=== PATIENT | male | born 1950 | race African-American/Black ===

== ENCOUNTER 2017-11-02 11:32 | Emergency (ER) | payer MEDICARE, SELFPAY ==
[2017-11-02 11:33] VITALS: BP 130/63; PULSE 53; RESP 18; TEMP 36.4; O2SAT 93; BMI 20.9
[2017-11-02 11:41] VITALS: PULSE 56; RESP 28; O2SAT 99
[2017-11-02 11:45] LABS: Bedside Glucose 121 mg/dL (70-110)
--- NOTE | 2017-11-02 11:49 | EKG12_ITS ---
Test Reason : LOW BLOOD SUGAR Blood Pressure : / mmHG Vent. Rate : 053 BPM Atrial Rate : 053 BPM P-R Int : 182 ms QRS Dur : 116 ms QT Int : 490 ms P-R-T Axes : 014 -39 128 degrees QTc Int : 459 ms Sinus bradycardia with Premature atrial complexes Left axis deviation Anteroseptal infarct , age undetermined T wave abnormality, consider lateral ischemia Abnormal ECG Confirmed by EDDIE MAURO, ANGELA ([id number]), digital editor MAGALY ROBERTS ([id number]) on 11/06/2017 1:04:23 PM Referred By: TAYLOR Confirmed By:ANGELA MORGAN MD
--- NOTE | 2017-11-02 11:52 | RAD_ITS ---
STUDY: X-RAY CHEST REASON FOR EXAM: Male, 67 years old. Persistent cough TECHNIQUE: Single AP portable view of the chest. COMPARISON: None. FINDINGS: Ill-defined groundglass opacities are seen in the perihilar regions and lung bases suggesting pulmonary edema. There is no demonstrated pleural abnormality. There is borderline cardiomegaly. Normal mediastinum and bi. There is prominence of the pulmonary hilar arteries and peripheral pulmonary arteries, consistent with congestive heart failure (CHF). Normal visualized aortic arch and descending thoracic aorta. Normal visualized thoracic spine. Normal visualized ribs, clavicles, and shoulders. There is no demonstrated abnormality of the visualized soft tissue structures of the upper abdomen. RAD/Chest 1 View (Portable) IMPRESSION: Congestive heart failure. Electronically Signed: Cristina Choi MD at 13:11 EDT Tel , Service support ,
[2017-11-02] MEDS: 0.9% Normal Saline 1,000 ML 150 ML IV (12:01)
[2017-11-02 12:05] LABS: Absolute Lymphocyte Count 0.66 X10^3/ul (0.83-4.51); Basophil# 0.01 X10^3/uL; Basophil% 0.2 % (0-1); Eosinophil# 0.06 X10^3/uL; Eosinophils% 1.4 % (0-5); Hematocrit 36.7 % (40-54); Hemoglobin 12.8 g/dl (13.0-16.5); Lymphocyte # 0.66 X10^3/ul (4.0); Lymphocyte % 15.8 % (19-41); Mean Corp Hgb Conc 34.9 g/gl (32-36); Mean Corpuscular Hgb 32.5 pg (27.0-32.0); Mean Corpuscular Volume 93.1 fL (80-94); Mean Platelet Vol. 10.6 fl (6.2-12.0); Monocyte# 0.48 X10^3/uL; Monocyte% 11.5 % (0-10); Neutrophil # 2.97 X10^3/uL (2.7-7.7); Neutrophil % 70.9 % (47-70); Platelet Count 125 K/mm3 (150-450); RBC Distribution Width CV 14.9 % (11.6-14.6); RBC Distribution Width SD 48.5 fl (35.1-43.9); Red Blood Count 3.94 M/mm3 (4.6-6.2); White Blood Count 4.2 K/mm3 (4.4-11.0)
[2017-11-02 12:08] LABS: POSITIVE COUNT NO; POSITIVE DIFFERENTIAL NO; POSITIVE MORPHOLOGY NO
[2017-11-02 12:22] LABS: Anion Gap 9 (5-15); BUN 13 mg/dL (7-18); BUN/Creat Ratio 8.2 RATIO (10-20); Calcium,Total 8.2 mg/dL (8.5-10.1); Chloride 110 mmol/L (98-107); Creatinine, Serum 1.59 mg/dL (0.70-1.30); EST Glomerular Filtration Rate 46 mL/min (>60); Est Glom Filt Rate - Afr Amer 56 mL/min (>60); Estimated Creatinine Clearance 47.31 ml/min; Glucose 83 mg/dL (74-106); Potassium 3.8 mmol/L (3.5-5.1); Sodium Level 138 mmol/L (136-145)
--- NOTE | 2017-11-02 13:19 | ED.VISSUMM ---
- ER Visit Summary Date of Service: 11/02/17 Chief Complaint: Blood sugar and left-sided neck swelling [] History of Present Illness: The patient is a 67 M [presents the emergency department with his who called EMS because of some confusion and weakness this morning. gives a history of left-sided neck swelling last night that had resolved by this morning. Patient states he has had this in the past after he has eaten. Patient apparently this morning was feeling weak and having a hard time walking therefore his called the squad and on their arrival blood sugar was 40. Patient apparently was given glucose and presents for evaluation. On arrival patient is alert and without any significant complaints. Patient denies chest pain or shortness of breath. Patient denies recent illness. Patient has had a chronic cough but no fever and the cough is been nonproductive.] Physical Examination: [HEENT-PERRLA, EOMI. Cranial nerves II through XII grossly intact. TMs clear. Mucous membranes moist. No adenopathy. Cardiovascular-regular rate and rhythm without murmur or ectopy Lungs-clear to auscultation, chest wall stable without crepitus or subcu emphysema Abdomen-normoactive bowel sounds, soft, nontender, no rebound or rigidity, no peritoneal signs. Extremities-intact ?4, normal range of motion, normal pulses, atraumatic] patient has trace edema both lower extremities. Test Results: [CBC with differential showed a white count of 4.2, hemoglobin 12.8, hematocrit 37, platelets 125. Chemistry showed a sodium 138, potassium 3.8, chloride 110, CO2 19, BUN 13, creatinine 1.59. Troponin was 0.02. EKG shows sinus rhythm with a ventricular rate of 53 bpm with old septal infarct and nonspecific ST changes. Chest x-ray was read as CHF.] Emergency Department Course and Treatment: [Patient was given a meal tray in the emergency department. Patient no longer hypoglycemic. Patient's to bring a picture of his neck swelling that appear to have swelling of his parotid and submandibular gland. I suspect given her recurrent episodes associated with eating that patient may have potential salivary duct stones or obstruction. At this time his symptoms of resolved.] Treatment Plan: [Patient will be referred to Dr. Hamzah Hwang who is on-call for ENT.] Disposition: [Discharged to home in stable condition. Patient advised to monitor his sugars carefully and make sure he eats prior to giving himself insulin.] Impression: [Hypoglycemic episode Left neck swelling-resolved] This note was generated with [employer] dictation software. It may contain incorrect words, spelling, and punctuation that were not noted in review of the chart prior to signing ED Disposition - Plan for ED Patient: Chief Complaint: Alt LOC Referrals: Rojelio Lee DO [Primary Care Provider] -
--- NOTE | 2017-11-02 13:25 | ED.DEP ---
ED Disposition - Plan for ED Patient: Chief Complaint: Alt LOC Instructions: ED Diabetes Hypoglycemia Insulin React, ED Sublingual Gland Obstruction Referrals: Rojelio Lee DO [Primary Care Provider] - Hamzah Hwang MD [STAFF PHYSICIAN] - 3-5 Days
[2017-11-02 13:26] LABS: Bedside Glucose 89 mg/dL (70-110)
--- NOTE | 2017-11-02 13:39 | PCA ---
CALLED THE [facility] FOR DR TOLEDO THEY WILL CALL BACK
[2017-11-02 13:48] VITALS: BP 148/73; PULSE 59; RESP 18; O2SAT 96
[2017-11-02 13:54] VITALS: BP 148/73; PULSE 61; RESP 18; O2SAT 96
== END 2017-11-02 14:00 | disposition home or self-care (01) ==
PROVIDERS: Emergency Provider Emergency Medicine; Family Provider Student in an Organized Health Care Education/Training Program; PCP Student in an Organized Health Care Education/Training Program
DX: R22.1 Localized swelling, mass and lump, neck (principal); R05 Cough; E11.649 Type 2 diabetes mellitus with hypoglycemia without coma; I10 Essential (primary) hypertension; Z94.0 Kidney transplant status
CPT/HCPCS: 71045; 80048; 82962; 84484; 85025; 93005; 96360; 96361; 99285

== ENCOUNTER 2018-02-27 04:40 | Inpatient (IN) | payer MEDICARE, SELFPAY ==
[2018-02-27] VITALS (12 sets, daily range): BP systolic 147–184; BP diastolic 63–80; PULSE 61–84; RESP 16–18; TEMP 36.6–37; O2SAT 95–99; BMI 18.5; BMI 18.3; BMI 18.4
[2018-02-27 05:31] LABS: Bedside Glucose 416 mg/dL (70-110)
--- NOTE | 2018-02-27 05:33 | EKG12_ITS ---
Test Reason : CP Blood Pressure : / mmHG Vent. Rate : 061 BPM Atrial Rate : 061 BPM P-R Int : 172 ms QRS Dur : 116 ms QT Int : 474 ms P-R-T Axes : 049 -18 113 degrees QTc Int : 477 ms Normal sinus rhythm Left ventricular hypertrophy with QRS widening and repolarization abnormality Abnormal ECG Confirmed by DEDIE MAURO, ANGELA ([id number]), state editor MAGALY ROBERTS ([id number]) on 03/02/2018 3:04:58 PM Referred By: JESSIKA Confirmed By:ANGELA MORGAN MD
[2018-02-27] MEDS: 0.9% Normal Saline 1,000 ML 1000 ML IV (05:46)
[2018-02-27] MEDS: Ondansetron 4 MG/2 ML Vial IV (05:46)
[2018-02-27 05:58] LABS: Absolute Lymphocyte Count 1.07 X10^3/ul (0.83-4.51); Basophil# 0.01 X10^3/uL; Basophil% 0.2 % (0-1); Eosinophil# 0.09 X10^3/uL; Eosinophils% 1.8 % (0-5); Hematocrit 37.5 % (40-54); Hemoglobin 13.2 g/dl (13.0-16.5); Lymphocyte # 1.07 X10^3/ul (4.0); Lymphocyte % 21.8 % (19-41); Mean Corp Hgb Conc 35.2 g/gl (32-36); Mean Corpuscular Volume 90.8 fL (80-94); Mean Platelet Vol. 10.5 fl (6.2-12.0); Monocyte# 0.76 X10^3/uL; Monocyte% 15.5 % (0-10); Neutrophil # 2.96 X10^3/uL (2.7-7.7); Neutrophil % 60.5 % (47-70); Platelet Count 172 K/mm3 (150-450); RBC Distribution Width CV 13.8 % (11.6-14.6); RBC Distribution Width SD 45.1 fl (35.1-43.9); Red Blood Count 4.13 M/mm3 (4.6-6.2); White Blood Count 4.9 K/mm3 (4.4-11.0)
--- NOTE | 2018-02-27 06:10 | RAD_ITS ---
STUDY: X-RAY CHEST REASON FOR EXAM: Male, 68 years old. Increased weakness, chest pain TECHNIQUE: Frontal and lateral views of the chest. COMPARISON: 11-02-17. FINDINGS: The lungs are clear and expanded. There is no demonstrated pleural abnormality. Normal size heart. Normal mediastinum and bi. Normal visualized pulmonary arteries. Normal visualized aortic arch and descending thoracic aorta. Normal visualized thoracic spine. Normal visualized ribs, clavicles, and shoulders. There is no demonstrated abnormality of the visualized soft tissue structures of the upper abdomen. RAD/Chest PA and Lateral IMPRESSION: No acute cardiopulmonary disease. Electronically Signed: Renny Strickland DO at 6:46 EDT , Service support ,
[2018-02-27 06:19] LABS: AST(SGOT) 14 U/L (15-37); Alanine Aminotransfer ALT/SGPT 19 U/L (16-61); Albumin, Serum 3.2 g/dL (3.2-5.0); Alkaline Phosphatase 94 U/L (45-117); Anion Gap 8 (5-15); BUN 19 mg/dL (7-18); BUN/Creat Ratio 10.1 RATIO (10-20); Chloride 105 mmol/L (98-107); Creatinine, Serum 1.88 mg/dL (0.70-1.30); EST Glomerular Filtration Rate 38 mL/min (>60); Est Glom Filt Rate - Afr Amer 46 mL/min (>60); Estimated Creatinine Clearance 34.84 ml/min; Globulin 3.2 g/dL (2.2-4.2); Glucose 384 mg/dL (74-106); Lipase 730 U/L (73-393); Potassium 4.3 mmol/L (3.5-5.1); Protein, Total 6.4 g/dL (6.4-8.2); Sodium Level 138 mmol/L (136-145)
[2018-02-27 06:29] LABS: POSITIVE COUNT NO; POSITIVE DIFFERENTIAL NO; POSITIVE MORPHOLOGY NO
--- NOTE | 2018-02-27 06:58 | ED.VISSUMM ---
- ER Visit Summary Date of Service: 02/27/18 Chief Complaint: Chest pain History of Present Illness: The patient is a 68 M presents reported chest pain for which he points in the epigastric region after eating supper. States he ate pizza. No radicular symptoms. Nausea and vomiting ?1. History cholecystectomy. Complains of chills. States feeling weak over the past week. Diarrhea 3-4 times a day, however last time was yesterday evening. No recent antibiotics. No sick contacts. States sugar elevated. Decreased fluid intake. Denies history of DKA. He is on insulin. History of pancreatitis. States renal transplant in [address] Gutiérrez [facility]. Patient is on immunosuppressants. Unclear on his baseline creatinine. Here with significant other. Denies any urinary symptoms. Denies any cough or shortness of breath. Physical Examination: General: Alert and oriented ?3, no acute distress HEENT: Normocephalic, atraumatic. Dry mucosa membranes Neck: supple, nontender. Cardiovascular: Regular rate and rhythm, no murmurs Respiratory: Normal breath sounds, symmetric, no distress Abdomen: Soft, epigastric tenderness, nondistended. No guarding or rebound. Negative Ruiz's or McBurney's tenderness. Extremities: Nontender, no edema, pulses intact ?4 Neuro: no focal neurological deficits. Test Results: White blood cell count 4.9. Hemoglobin 13.2. Creatinine 1.88. Glucose 384. Ketone negative. Anion gap 8. Lipase 730. Liver enzymes normal. Troponin negative. EKG sinus rate of 61. No ST changes. T-wave inversion lateral leads. Chest x-ray negative. Emergency Department Course and Treatment: Patient epigastric discomfort, EKG notes T-wave inversions in lateral leads. Troponin negative. Treated with IV fluids, Zofran, Pepcid with improvement of symptoms. No vomiting or diarrhea in the ED. Chest x-ray negative. Labs noted white count was normal. Creatinine 1.88. Glucose 384. His normal. Ketones negative. Patient does have an elevated lipase of 730. Patient's last creatinine in the system in November was 1.59. Patient not in DKA. Patient renal transplant patient with mild recent renal insufficiency and labs with mild pancreatitis do feel he benefited from observations. He is continued IV fluids. Currently hospitalist on page for plan admission. Treatment Plan: [] Disposition: Admission Impression: 1. Pancreatitis 2. Renal insufficiency 3. Dehydration 4. Elevated blood glucose 5. Renal transplant history This note was generated with [employer] dictation software. It may contain incorrect words, spelling, and punctuation that were not noted in review of the chart prior to signing ED Disposition - Plan for ED Patient: Disposition: Acute Care [facility] Chief Complaint: Weakness Diagnosis: Pancreatitis, Renal insufficiency, Dehydration, History of renal transplant Referrals: Rojelio Lee DO [Primary Care Provider] -
--- NOTE | 2018-02-27 07:02 | ED.DCSUM_ITS ---
- ER Visit Summary Date of Service: 02/27/18 Chief Complaint: Chest pain History of Present Illness: The patient is a 68 M presents reported chest pain for which he points in the epigastric region after eating supper. States he ate pizza. No radicular symptoms. Nausea and vomiting ?1. History cholecystectomy. Complains of chills. States feeling weak over the past week. Diarrhea 3-4 times a day, however last time was yesterday evening. No recent antibiotics. No sick contacts. States sugar elevated. Decreased fluid intake. Denies history of DKA. He is on insulin. History of pancreatitis. States renal transplant in [address] Gutiérrez [facility]. Patient is on immunosuppressants. Unclear on his baseline creatinine. Here with significant other. Denies any urinary symptoms. Denies any cough or shortness of breath. Physical Examination: General: Alert and oriented ?3, no acute distress HEENT: Normocephalic, atraumatic. Dry mucosa membranes Neck: supple, nontender. Cardiovascular: Regular rate and rhythm, no murmurs Respiratory: Normal breath sounds, symmetric, no distress Abdomen: Soft, epigastric tenderness, nondistended. No guarding or rebound. Negative Ruiz's or McBurney's tenderness. Extremities: Nontender, no edema, pulses intact ?4 Neuro: no focal neurological deficits. Test Results: White blood cell count 4.9. Hemoglobin 13.2. Creatinine 1.88. Glucose 384. Ketone negative. Anion gap 8. Lipase 730. Liver enzymes normal. Troponin negative. EKG sinus rate of 61. No ST changes. T-wave inversion lateral leads. Chest x-ray negative. Emergency Department Course and Treatment: Patient epigastric discomfort, EKG notes T-wave inversions in lateral leads. Troponin negative. Treated with IV fluids, Zofran, Pepcid with improvement of symptoms. No vomiting or diarrhea in the ED. Chest x-ray negative. Labs noted white count was normal. Creatinine 1.88. Glucose 384. His normal. Ketones negative. Patient does have an elevated lipase of 730. Patient's last creatinine in the system in November was 1.59. Patient not in DKA. Patient renal transplant patient with mild recent renal insufficiency and labs with mild pancreatitis do feel he benefited from observations. He is continued IV fluids. Currently hospitalist on page for plan admission. Treatment Plan: [] Disposition: Admission Impression: 1. Pancreatitis 2. Renal insufficiency 3. Dehydration 4. Elevated blood glucose 5. Renal transplant history This note was generated with [employer] dictation software. It may contain incorrect words, spelling, and punctuation that were not noted in review of the chart prior to signing ED Disposition - Plan for ED Patient: Disposition: Acute Care [facility] Chief Complaint: Weakness Diagnosis: Pancreatitis, Renal insufficiency, Dehydration, History of renal transplant Referrals: Rojelio Lee DO [Primary Care Provider] -
[2018-02-27] MEDS: 0.9% Normal Saline 1,000 ML 150 ML IV (07:15)
[2018-02-27] MEDS: 0.9% Normal Saline 1,000 ML 75 ML IV ×2 (10:52→23:12)
--- NOTE | 2018-02-27 10:53 | HP.PCM_ITS ---
Problem List (1) Hypertension Status: Chronic (2) Type 2 diabetes mellitus Status: Chronic (3) Pancreatitis Status: Acute (4) History of renal transplant Status: Chronic (5) Nonrheumatic pulmonary valve insufficiency Status: Chronic (6) Nonrheumatic tricuspid valve regurgitation Status: Chronic History of Present Illness Date of Admission: 02/27/18 Chief Complaint: Epigastric pain. The patient is a 68 year old M with past medical history as mentioned above presented to the ED because of epigastric pain. His symptoms started around 1 AM this morning with epigastric pain, sharp pain, 8 out of 10 in severity, constant pain, not radiating, associated with nausea and vomiting as well as diarrhea, aggravated by food and no relieving factors. The pain has been constant since last night, patient could not sleep and he mentioned got worse after he ate supper last night. According to the patient's , he had a history of diarrhea over the last week, 3-4 times daily, watery stool without blood. He denies fever chills. He denied upper chest pain, denies shortness of breath, denied dizziness or lightheadedness. He mentioned that he had history of pancreatitis years ago. In the emergency department, his blood pressure was elevated, other vital signs were stable. His routine blood work is remarkable for creatinine of 1.88 and blood sugar of 384. LFT was normal. Troponin was negative. Lipase was 730. Acetone level was negative. Chest x- ray showed no acute infiltrate, consolidation or effusion. EKG revealed normal sinus rhythm, T-wave inversion in V5 and V6 and those changes are chronic compared to EKG from November,, no acute ischemic changes. He is being admitted for mild acute pancreatitis, acute diarrheal illness and dehydration. Past Medical History Past Medical History (Chronic Problems): Chronic Problems (Last Updated 02/27/18 @ 12:05 by Daren Love MD) History of renal transplant (Chronic) Type 2 diabetes mellitus (Chronic) Hypertension (Chronic) Chronic kidney disease, stage IV (severe) (Chronic) Chronic diastolic (congestive) heart failure (Chronic) Nonrheumatic pulmonary valve insufficiency (Chronic) Nonrheumatic tricuspid valve regurgitation (Chronic) Secondary pulmonary arterial hypertension (Chronic) Non-rheumatic aortic regurgitation (Chronic) Hypertension (Chronic) Medical History: Medical History (Last Updated 02/27/18 @ 12:05 by Daren Love MD) Chronic diastolic (congestive) heart failure (Chronic) I50.32 Nonrheumatic pulmonary valve insufficiency (Chronic) I37.1 Nonrheumatic tricuspid valve regurgitation (Chronic) I36.1 Secondary pulmonary arterial hypertension (Chronic) I27.21 Non-rheumatic aortic regurgitation (Chronic) I35.1 Hypertension (Chronic) I10 Anemia in chronic kidney disease N18.9, D63.1 Chronic pancreatitis K86.1 Secondary hypoparathyroidism E20.8 Type 2 diabetes mellitus E11.9 Allergies oxycodone HCl [From Percocet] Adverse Reaction (Verified 12/02/17 16:01) TOO MUCH CAUSES HALLUCINATIONS TOO MUCH Home Medications: Ambulatory Orders Medication Instructions Recorded Labetalol [Trandate (Beta Lisa)] 200 mg PO BID 12/19/13 Pantoprazole Sodium [Protonix] 40 mg PO DAILY 12/19/13 predniSONE tablet 5 mg PO DAILY 12/19/13 Insulin Glargine [Lantus SoloStar 18 units SC DAILY 12/06/14 Pen] Insulin Lispro [Humalog] 2 - 3 unit SQ TID 12/06/14 Aspirin [Aspirin, Baby] 81 mg PO DAILY@0800 08/16/15 Cholecalciferol (VIT D3) [Vitamin 1,000 unit PO DAILY 12/09/15 D] amlodipine 10 mg tablet 10 mg PO QDAY 12/02/17 ssmfkw-ofnlbkkf-wfiwbin 3 cap PO TID cap 12/02/17 24,000-76,000-120,000 unit capsule,delayed rel magnesium oxide 400 mg tablet 400 mg PO BID tab 12/02/17 mycophenolate mofetil 250 mg 500 mg PO BID cap 12/02/17 capsule sulfamethoxazole 400 1 tab PO QDAY 12/02/17 mg-trimethoprim 80 mg tablet tacrolimus 1 mg capsule 9 mg PO DAILY cap 12/02/17 tramadol 50 mg tablet 50 mg PO BID PRN tab 12/02/17 Surgical History: Surgical History (Last Reviewed 12/02/17 @ 16:35 by Clifford Kidd MD) Hx of cholecystectomy Z90.49 Kidney replaced by transplant Onset Date: ~10/15/11 Z94.0 Right Surgical History: cholecystectomy, - - Kidney transplant, sphincterotomy, left wrist fusion Psychiatric History: No pertinent psych hx Lives: Spouse/ Significant Other Smoking Status: Former smoker Alcohol: Rare Drugs: None - *Family History Maternal History Items: No pertinent history Paternal History Items: No pertinent history Sibling History Items: No pertinent history Review of Systems Constitutional: Reports: Anorexia. Denies: Chills, Fever, Weakness Eyes: Denies: Blurred vision, Double vision, Drainage, Redness HEENT: Denies: Difficulty Hearing, Ear Pain, Eye Pain, Nasal Congestion, Sore Throat Cardiovascular: Denies: Chest Pain, Chest Pressure, Chest Tightness, Heaviness, Palpitations, Syncope Respiratory: Reports: Shortness of Breath. Denies: Cough, Pleuritic Pain, Sputum production, Wheezing Gastrointestinal: Reports: Abdominal Pain, Diarrhea, Nausea, Vomiting. Denies: Constipation, Hematochezia, Melena Genitourinary: Denies: Dysuria, Frequency, Hematuria Musculoskeletal: Denies: Arm Pain, Back Pain, Foot Pain Skin: Denies: Dryness, Rash Neurological: Denies: Balance problems, Double vision, Change in Speech, Slurred speech, Confusion, Headaches, Incoordination, Numbness Psychiatric: Denies: Anxiety, Depression Endocrine: Denies: Change in Body Habitus, Polydipsia VTE Information - Inpt Only VTE Present on Admission: No VTE Mechan Device Prophylaxis: None VTE Pharm Prophylaxis ordered?: Yes Patient Problems: Active and Suspected Problems (Last Updated 02/27/18 @ 12:05 by Daren Love MD) Pancreatitis (Acute) - Physical Exam General: Alert, Oriented x3, Cooperative, No apparent distress HEENT: Atraumatic, PERRLA, EOMI, Normocephalic Oral: Moist Mucosa, No Gingival or Mucosal Lesions/ Ulcerations Neck: Supple, No JVD, Negative Carotid Bruits, Trachea Midline, Thyroid Normal Size and Texture Lungs: Clear to auscultation, No rhonchi, No wheeze, No rales, Diminished Cardiovascular: Regular rate, Regular Rhythm, Normal S1, Normal S2, No murmurs Abdomen: Bowel Sounds Present, Soft, Non-Distended, No Hepato-splenomegaly, Tender - Minimal epigastric tenderness. Extremities: No clubbing, No cyanosis, No edema Skin: No rashes, No breakdown Lymphatic: No Cervical, Supraclavicular, or Inguinal Adenopathy Neurological: Cranial nerves II-XII grossly intact, Motor Exam 5/5 strength throughout Psych/Mental Status: Normal Affect, Appropriate, Alert and oriented to time, place, person, mood and affect Vital Signs Temp Pulse Resp BP Pulse Ox 98.6 F 84 18 179/80 H 99 02/27/18 04:41 02/27/18 09:21 02/27/18 09:21 02/27/18 09:21 02/27/18 09:21 Weight: 143 lb Body Mass Index (BMI) 18.3 Laboratory Tests 3 02/27/18 02/27/18 02/27/18 Range/Units 05:50 05:50 05:50 WBC 4.9 (4.4-11.0) K/mm3 RBC 4.13 L (4.6-6.2) M/mm3 Hgb 13.2 (13.0-16.5) g/dl Hct 37.5 L (40-54) % MCV 90.8 (80-94) fL MCH 32.0 (27.0-32.0) pg MCHC 35.2 (32-36) g/gl RDW 13.8 (11.6-14.6) % RDW Differential 45.1 H (35.1-43.9) fl Plt Count 172 (150-450) K/mm3 MPV 10.5 (6.2-12.0) fl Immature Gran % (Auto) 0.200 (0.0-0.9) % Neut % (Auto) 60.5 (47-70) % Lymph % (Auto) 21.8 (19-41) % Catron % (Auto) 15.5 H (0-10) % Eos % (Auto) 1.8 (0-5) % Baso % (Auto) 0.2 (0-1) % Absolute Neuts (auto) 3.0 (2.0-7.7) X10^3/uL Absolute Lymphs (auto) 1.07 (0.83-4.51) X10^3/ul Total Counted Not Reportable Sodium 138 (136-145) mmol/L Potassium 4.3 (3.5-5.1) mmol/L Chloride 105 (98-107) mmol/L Carbon Dioxide 25.0 (21.0-32.0) mmol/L Anion Gap 8 (5-15) BUN 19 H (7-18) mg/dL Creatinine 1.88 H (0.70-1.30) mg/dL Estim Creat Clear Calc 34.84 ml/min Est GFR (MDRD) Af Amer 46 L (>60) mL/min Est GFR (MDRD) Non-Af 38 L (>60) mL/min BUN/Creatinine Ratio 10.1 (10-20) RATIO Glucose 384 H (74-106) mg/dL Calcium 9.0 (8.5-10.1) mg/dL Total Bilirubin 0.50 (0.20-1.00) mg/dL AST 14 L (15-37) U/L ALT 19 (16-61) U/L Alkaline Phosphatase 94 (45-117) U/L Troponin I 0.026 (<0.045) ng/mL Total Protein 6.4 (6.4-8.2) g/dL Albumin 3.2 (3.2-5.0) g/dL Globulin 3.2 (2.2-4.2) g/dL Albumin/Globulin Ratio 1.0 (0.9-2.4) RATIO Lipase 730 H (73-393) U/L Acetone Level NEGATIVE (NEG) POC Glucose (70-110) mg/dL 3 02/27/18 Range/Units 05:23 WBC (4.4-11.0) K/mm3 RBC (4.6-6.2) M/mm3 Hgb (13.0-16.5) g/dl Hct (40-54) % MCV (80-94) fL MCH (27.0-32.0) pg MCHC (32-36) g/gl RDW (11.6-14.6) % RDW Differential (35.1-43.9) fl Plt Count (150-450) K/mm3 MPV (6.2-12.0) fl Immature Gran % (Auto) (0.0-0.9) % Neut % (Auto) (47-70) % Lymph % (Auto) (19-41) % Catron % (Auto) (0-10) % Eos % (Auto) (0-5) % Baso % (Auto) (0-1) % Absolute Neuts (auto) (2.0-7.7) X10^3/uL Absolute Lymphs (auto) (0.83-4.51) X10^3/ul Total Counted Sodium (136-145) mmol/L Potassium (3.5-5.1) mmol/L Chloride (98-107) mmol/L Carbon Dioxide (21.0-32.0) mmol/L Anion Gap (5-15) BUN (7-18) mg/dL Creatinine (0.70-1.30) mg/dL Estim Creat Clear Calc ml/min Est GFR (MDRD) Af Amer (>60) mL/min Est GFR (MDRD) Non-Af (>60) mL/min BUN/Creatinine Ratio (10-20) RATIO Glucose (74-106) mg/dL Calcium (8.5-10.1) mg/dL Total Bilirubin (0.20-1.00) mg/dL AST (15-37) U/L ALT (16-61) U/L Alkaline Phosphatase (45-117) U/L Troponin I (<0.045) ng/mL Total Protein (6.4-8.2) g/dL Albumin (3.2-5.0) g/dL Globulin (2.2-4.2) g/dL Albumin/Globulin Ratio (0.9-2.4) RATIO Lipase (73-393) U/L Acetone Level (NEG) POC Glucose 416 H (70-110) mg/dL Clinical Impression(s) from Imaging Studies Chest X-Ray 02/27/18 06:10 IMPRESSION: No acute cardiopulmonary disease. Electronically Signed: Renny Strickland DO at 6:46 EDT , Service support , Assessment/Plan All Active Problems (Last Updated 02/27/18 @ 12:05 by Daren Love MD) Pancreatitis (Acute) Osteomyelitis (Resolved) Biventricular congestive heart failure (Resolved) History of pancreatitis (Resolved) This is a 68 years old male patient presented to the medicine because of epigastric pain, nausea vomiting as well as diarrhea and he was found to have mild acute on chronic pancreatitis, acute diarrheal illness as well as dehydration. #1 acute on chronic pancreatitis: According to the patient, he had history of episodes of pancreatitis years ago. He is status post cholecystectomy. He denied alcohol drinking. His lipase is 730. LFTs normal. This is likely due to medication side effects probably steroids and Bactrim. Patient has been on Bactrim for unknown reason and patient himself is not sure. Plan: Admit to [facility] floor, cardiac monitoring, clear liquids, IV fluids, IV morphine as needed for pain, IV antiemetics, Pepcid IV twice daily, repeat CBC and CMP as well as lipase tomorrow morning, PT OT evaluation and treatment. #2 acute diarrheal illness: Probably viral gastroenteritis. Plan to send stool for C. difficile, stool for enteric pathogens, IV fluids as above. #3 dehydration: Clinically dehydrated, dry mucous membranes. Admission creatinine is 1.88, baseline creatinine has been around 1.5-1.9 mg/dL. Plan for IV fluids, input output chart, repeat BMP tomorrow morning. #4 status post kidney transplant: Kidney function stable. Plan to monitor his urine output, continue prednisone, mycophenolate and tacrolimus. #5 hypertension: Blood pressure slightly elevated. Plan to continue Norvasc, labetalol, start IV hydralazine as needed. #6 type 2 diabetes mellitus: Blood sugars elevated, no evidence of acute DKA. Plan: Continue Lantus insulin, continue pre-meal Humalog, and sliding scale, Accu-Cheks q. before meals at bedtime. #7 chronic diastolic CHF: Clinically stable, compensated. Continue albuterol, monitor volume status. #8 chronic pulmonary hypertension: Stable, no acute issues. #9 chronic anemia: Probably due to anemia of chronic disease secondary to chronic kidney disease. Hemoglobin and hematocrit are stable at baseline. #10 DVT prophylaxis: Subcu heparin. This note was generated with [employer] dictation software. It may contain incorrect words, spelling, and punctuation that were not noted in checking the note before signing. Code Visit Inpatient E&M: 48889 Init Hosp L3
[2018-02-27 11:15] LABS: Bedside Glucose 280 mg/dL (70-110)
[2018-02-27] MEDS: amLODIPine 10 MG Tablet PO (12:02)
[2018-02-27] MEDS: Labetalol 200 MG Tablet PO ×2 (12:02→21:10)
[2018-02-27] MEDS: Magnesium Oxide 400 MG Tablet PO ×2 (12:02→21:13)
[2018-02-27] MEDS: predniSONE 5 MG Tablet PO (12:03)
[2018-02-27] MEDS: Heparin Injection (Vial) 5,000 UNIT/ML VIAL 5000 UNIT SC ×2 (12:03→21:12)
[2018-02-27] MEDS: Morphine 2 MG/ML Syringe 1 MG IV (12:25)
[2018-02-27] MEDS: Mycophenolate Mofetil 250 MG Capsule 500 MG PO ×2 (12:37→21:11)
[2018-02-27] MEDS: Smz/Tmp Ds Tablet 0.5 TABLET PO (12:37)
[2018-02-27] MEDS: Tacrolimus Anhydrous 1 MG Capsule 5 MG PO (12:37)
[2018-02-27] MEDS: Insulin Lispro 100 UNIT/ML INSULN.PEN SC ×2 (13:26→17:11)
[2018-02-27 17:20] LABS: Bedside Glucose 210 mg/dL (70-110)
[2018-02-27] MEDS: Tacrolimus Anhydrous 1 MG Capsule 4 MG PO (21:12)
[2018-02-27 22:15] LABS: Bedside Glucose 177 mg/dL (70-110)
[2018-02-28] VITALS (7 sets, daily range): BP systolic 142–162; BP diastolic 70–78; PULSE 59–80; RESP 16–18; TEMP 36.7–37.1; O2SAT 96–100
[2018-02-28 06:06] LABS: Absolute Neutrophil Count 2.9 X10^3/uL (2.0-7.7); Basophil# 0.01 X10^3/uL; Basophil% 0.2 % (0-1); Eosinophil# 0.07 X10^3/uL; Eosinophils% 1.5 % (0-5); Hematocrit 33.7 % (40-54); Hemoglobin 11.8 g/dl (13.0-16.5); Lymphocyte % 23.3 % (19-41); Mean Corpuscular Hgb 32.2 pg (27.0-32.0); Mean Corpuscular Volume 91.8 fL (80-94); Mean Platelet Vol. 10.6 fl (6.2-12.0); Monocyte# 0.62 X10^3/uL; Monocyte% 13.1 % (0-10); Neutrophil # 2.92 X10^3/uL (2.7-7.7); Neutrophil % 61.7 % (47-70); Platelet Count 171 K/mm3 (150-450); RBC Distribution Width CV 13.9 % (11.6-14.6); RBC Distribution Width SD 45.8 fl (35.1-43.9); Red Blood Count 3.67 M/mm3 (4.6-6.2); White Blood Count 4.7 K/mm3 (4.4-11.0)
[2018-02-28 06:12] LABS: POSITIVE COUNT NO; POSITIVE DIFFERENTIAL NO; POSITIVE MORPHOLOGY NO
[2018-02-28 06:55] LABS: AST(SGOT) 15 U/L (15-37); Alanine Aminotransfer ALT/SGPT 17 U/L (16-61); Albumin, Serum 2.8 g/dL (3.2-5.0); Alkaline Phosphatase 76 U/L (45-117); Anion Gap 8 (5-15); BUN 11 mg/dL (7-18); Calcium,Total 8.3 mg/dL (8.5-10.1); Chloride 116 mmol/L (98-107); Creatinine, Serum 1.22 mg/dL (0.70-1.30); EST Glomerular Filtration Rate 63 mL/min (>60); Est Glom Filt Rate - Afr Amer 76 mL/min (>60); Estimated Creatinine Clearance 53.17 ml/min; Globulin 2.8 g/dL (2.2-4.2); Glucose 48 mg/dL (74-106); Lipase 388 U/L (73-393); Potassium 3.4 mmol/L (3.5-5.1); Protein, Total 5.6 g/dL (6.4-8.2); Sodium Level 144 mmol/L (136-145)
[2018-02-28 08:05] LABS: Bedside Glucose 45 mg/dL (70-110)
[2018-02-28] MEDS: Smz/Tmp Ds Tablet 0.5 TABLET PO (09:26)
[2018-02-28] MEDS: predniSONE 5 MG Tablet PO (09:26)
[2018-02-28] MEDS: Aspirin 81 MG TAB.CHEW PO (09:26)
[2018-02-28 10:20] LABS: Bedside Glucose 125 mg/dL (70-110)
[2018-02-28] MEDS: amLODIPine 10 MG Tablet PO (10:41)
[2018-02-28] MEDS: Tacrolimus Anhydrous 1 MG Capsule 5 MG PO (10:41)
[2018-02-28] MEDS: 0.9% NaCl Peripheral Flush Adult/Peds IV (10:41)
[2018-02-28] MEDS: Labetalol 200 MG Tablet PO (10:42)
[2018-02-28] MEDS: Magnesium Oxide 400 MG Tablet PO (10:42)
[2018-02-28] MEDS: Mycophenolate Mofetil 250 MG Capsule 500 MG PO (10:42)
[2018-02-28] MEDS: Heparin Injection (Vial) 5,000 UNIT/ML VIAL 5000 UNIT SC (10:47)
--- NOTE | 2018-02-28 10:55 | NURSING ---
patient ate full breakfast including omlette and maltese toast with no nausea or pain. patient resting in bed at this time and denies further needs.
[2018-02-28 12:15] LABS: Bedside Glucose 178 mg/dL (70-110)
[2018-02-28] MEDS: Insulin Lispro 100 UNIT/ML INSULN.PEN SC (13:28)
--- NOTE | 2018-02-28 14:06 | DCINST_ITS ---
- Discharge Diagnoses Current Active Problems: Current Active and Chronic Problems (Last Updated 02/27/18 @ 12:05 by Daren Love MD) Pancreatitis (Acute) History of renal transplant (Chronic) Type 2 diabetes mellitus (Chronic) Hypertension (Chronic) You will use the following diet at home:: Calorie/Carbohydrate Controlled ( specify 1200, 1400, etc) - 1800 kaylen., Cardiac Your food should be the consistency of: Regular Discharge Activity: Return to Normal Activity Weight Bearing Status: Weight bearing as tolerated Call your doctor if you observe: Fever of 101 or Higher, Shortness of breath, Dizziness, Fainting spells, Chest pain, Increased palpitations (irregular heartbeat), Uncontrolled pain Allergies/Adverse Reactions: Allergies oxycodone HCl [From Percocet] Adverse Reaction (Verified 12/02/17 16:01) TOO MUCH CAUSES HALLUCINATIONS TOO MUCH Medications to take at Discharge Labetalol [Trandate (Beta Lisa)] 200 mg PO BID 12/19/13 Pantoprazole Sodium [Protonix] 40 mg PO DAILY 12/19/13 predniSONE tablet 5 mg PO DAILY 12/19/13 Insulin Glargine [Lantus SoloStar Pen] 18 units SC DAILY 12/06/14 Insulin Lispro [Humalog] 2 - 3 unit SQ TID 12/06/14 Aspirin [Aspirin, Baby] 81 mg PO DAILY@0800 08/16/15 Cholecalciferol (VIT D3) [Vitamin D3] 1,000 unit PO DAILY 12/09/15 amlodipine 10 mg tablet 10 mg PO QDAY 12/02/17 [id number] 24,000-76,000-120,000 unit capsule,delayed rel 3 cap PO TID cap 12/02/17 magnesium oxide 400 mg tablet 400 mg PO BID tab 12/02/17 mycophenolate mofetil 250 mg capsule 500 mg PO BID cap 12/02/17 sulfamethoxazole 400 mg-trimethoprim 80 mg tablet 1 tab PO QDAY 12/02/17 tacrolimus 1 mg capsule 9 mg PO DAILY cap 12/02/17 tramadol 50 mg tablet 50 mg PO BID PRN tab 12/02/17 Primary Care Physician: Rojelio Lee DO [Primary Care Provider] - Please follow up with your Primary Care Physician in: 1-2 weeks. Test Results: Test results from this visit will be discussed in further detail at your follow- up appointment, if applicable.
--- NOTE | 2018-02-28 14:33 | PCM.DC.SUM ---
Discharge Date and Diagnosis - Problem List Patient Problems: Active and Suspected Problems (Last Updated 02/27/18 @ 12:05 by Daren Love MD) Pancreatitis (Acute) Date of Admission: 02/27/18 Date of Discharge: 02/28/18 - Primary Discharge Diagnosis Active and Suspected Problems (Last Updated 02/27/18 @ 12:05 by Daren Love MD) #1 mild acute pancreatitis, probably due to medication side effects including prednisone and Bactrim. #2 acute diarrheal illness, likely viral gastroenteritis. #3 dehydration. - Secondary Discharge Diagnosis Chronic Problems (Last Updated 02/27/18 @ 12:05 by Daren Love MD) History of renal transplant (Chronic) Type 2 diabetes mellitus (Chronic) Hypertension (Chronic) Chronic kidney disease, stage IV (severe) (Chronic) Chronic diastolic (congestive) heart failure (Chronic) Nonrheumatic pulmonary valve insufficiency (Chronic) Nonrheumatic tricuspid valve regurgitation (Chronic) Secondary pulmonary arterial hypertension (Chronic) Non-rheumatic aortic regurgitation (Chronic) Hypertension (Chronic) Hospital Course and Treatment Imaging Results: Clinical Impression(s) from Imaging Studies Chest X-Ray 02/27/18 06:10 IMPRESSION: No acute cardiopulmonary disease. Electronically Signed: Renny Strickland DO at 6:46 EDT , Service support , Operations: None Procedures: None Summary of Care Provided: Patient seen and examined on the day of discharge and appeared to be stable to be discharged home. Today, he denies any more abdominal pain. Denied nausea vomiting. He has no more diarrhea. He tolerated ADA diet. His vital signs are stable. - Physical Exam General: Alert, Oriented x3, Cooperative, No apparent distress. HEENT: Atraumatic, PERRLA, EOMI. Neck: Supple, No JVD, Negative Carotid Bruits, Trachea Midline, Thyroid Normal. Lungs: Clear to auscultation, Normal air movement, No rhonchi, No wheeze, No rales. Cardiovascular: Regular rate, Regular Rhythm, Normal S1, Normal S2, PMI Normal. Abdomen: Bowel Sounds Present, Soft, Non Tender, Non-Distended, No Hepato-splenomegaly. Extremities: No clubbing, No cyanosis, No edema Skin: No rashes, No breakdown Neurological: Neuro grossly intact Vital Signs are stable. Hospital course: This is a 68 years old male patient admitted because of epigastric pain, nausea, vomiting and diarrhea and he was found to have mild acute pancreatitis in context of history of pancreatitis in the past which can be considered as acute on chronic pancreatitis but it was mild. The patient has history of cholecystectomy long time ago. He denies any alcohol drinking. His liver transaminases, total bilirubin and alkaline phosphatase were normal. This mild acute pancreatitis attributed to probably side effects of prednisone and Bactrim. Patient has been on Bactrim and prednisone for 6 years. On admission, lipase was 730. His EKG revealed normal sinus rhythm, T-wave inversion in leads V5 and V6 and those changes are chronic compared to EKG from November,. His cardiac enzymes were negative ?3. His epigastric pain attributed to GI etiology. He was treated with IV fluids, IV pain medications and IV antiemetics. His lipase came down to 388 today. His repeat LFT remained normal. Stool for C. difficile came back negative. Stool for enteric pathogens also came back negative. Today, patient was started on ADA diet and he tolerated diet very well. He has no more abdominal pain, nausea vomiting and he has no more diarrhea. Patient discharged home in a stable medical condition, discharged on his home medication without any changes, continued on Bactrim and prednisone without any changes, recommended follow-up with PCP in 1 week. Discharge Activity: Return to Normal Activity Weight Bearing Status: Weight bearing as tolerated Call your doctor if you observe: Fever of 101 or Higher, Shortness of breath, Dizziness, Fainting spells, Chest pain, Increased palpitations (irregular heartbeat), Uncontrolled pain Home Medications: Medications to take at Discharge Labetalol [Trandate (Beta Lisa)] 200 mg PO BID 12/19/13 Pantoprazole Sodium [Protonix] 40 mg PO DAILY 12/19/13 predniSONE tablet 5 mg PO DAILY 12/19/13 Insulin Glargine [Lantus SoloStar Pen] 18 units SC DAILY 12/06/14 Insulin Lispro [Humalog] 2 - 3 unit SQ TID 12/06/14 Aspirin [Aspirin, Baby] 81 mg PO DAILY@0800 08/16/15 Cholecalciferol (VIT D3) [Vitamin D3] 1,000 unit PO DAILY 12/09/15 amlodipine 10 mg tablet 10 mg PO QDAY 12/02/17 [id number] 24,000-76,000-120,000 unit capsule,delayed rel 3 cap PO TID cap 12/02/17 magnesium oxide 400 mg tablet 400 mg PO BID tab 12/02/17 mycophenolate mofetil 250 mg capsule 500 mg PO BID cap 12/02/17 sulfamethoxazole 400 mg-trimethoprim 80 mg tablet 1 tab PO QDAY 12/02/17 tacrolimus 1 mg capsule 9 mg PO DAILY cap 12/02/17 tramadol 50 mg tablet 50 mg PO BID PRN tab 12/02/17 Primary Care Physician: Rojelio Lee DO [Primary Care Provider] - Please follow up with your Primary Care Physician in: 1-2 weeks. Disposition: Home Minutes spent on discharge:: 38 Patient Condition:: Stable Medical Necessity - Tobacco Use Smoking Status: Former smoker Meaningful Use Info Meaningful Use Diagnoses (Choose all that apply): None applicable Code Visit Inpatient E&M: 38071 Disch Hosp
--- NOTE | 2018-02-28 14:40 | DS.PCM_ITS ---
Discharge Date and Diagnosis - Problem List Patient Problems: Active and Suspected Problems (Last Updated 02/27/18 @ 12:05 by Daren Love MD) Pancreatitis (Acute) Date of Admission: 02/27/18 Date of Discharge: 02/28/18 - Primary Discharge Diagnosis Active and Suspected Problems (Last Updated 02/27/18 @ 12:05 by Daren Love MD) #1 mild acute pancreatitis, probably due to medication side effects including prednisone and Bactrim. #2 acute diarrheal illness, likely viral gastroenteritis. #3 dehydration. - Secondary Discharge Diagnosis Chronic Problems (Last Updated 02/27/18 @ 12:05 by Daren Love MD) History of renal transplant (Chronic) Type 2 diabetes mellitus (Chronic) Hypertension (Chronic) Chronic kidney disease, stage IV (severe) (Chronic) Chronic diastolic (congestive) heart failure (Chronic) Nonrheumatic pulmonary valve insufficiency (Chronic) Nonrheumatic tricuspid valve regurgitation (Chronic) Secondary pulmonary arterial hypertension (Chronic) Non-rheumatic aortic regurgitation (Chronic) Hypertension (Chronic) Hospital Course and Treatment Imaging Results: Clinical Impression(s) from Imaging Studies Chest X-Ray 02/27/18 06:10 IMPRESSION: No acute cardiopulmonary disease. Electronically Signed: Renny Strickland DO at 6:46 EDT , Service support , Operations: None Procedures: None Summary of Care Provided: Patient seen and examined on the day of discharge and appeared to be stable to be discharged home. Today, he denies any more abdominal pain. Denied nausea vomiting. He has no more diarrhea. He tolerated ADA diet. His vital signs are stable. - Physical Exam General: Alert, Oriented x3, Cooperative, No apparent distress. HEENT: Atraumatic, PERRLA, EOMI. Neck: Supple, No JVD, Negative Carotid Bruits, Trachea Midline, Thyroid Normal. Lungs: Clear to auscultation, Normal air movement, No rhonchi, No wheeze, No rales. Cardiovascular: Regular rate, Regular Rhythm, Normal S1, Normal S2, PMI Normal. Abdomen: Bowel Sounds Present, Soft, Non Tender, Non-Distended, No Hepato- splenomegaly. Extremities: No clubbing, No cyanosis, No edema Skin: No rashes, No breakdown Neurological: Neuro grossly intact Vital Signs are stable. Hospital course: This is a 68 years old male patient admitted because of epigastric pain, nausea , vomiting and diarrhea and he was found to have mild acute pancreatitis in context of history of pancreatitis in the past which can be considered as acute on chronic pancreatitis but it was mild. The patient has history of cholecystectomy long time ago. He denies any alcohol drinking. His liver transaminases, total bilirubin and alkaline phosphatase were normal. This mild acute pancreatitis attributed to probably side effects of prednisone and Bactrim. Patient has been on Bactrim and prednisone for 6 years. On admission , lipase was 730. His EKG revealed normal sinus rhythm, T-wave inversion in leads V5 and V6 and those changes are chronic compared to EKG from November,. His cardiac enzymes were negative ?3. His epigastric pain attributed to GI etiology. He was treated with IV fluids, IV pain medications and IV antiemetics. His lipase came down to 388 today. His repeat LFT remained normal. Stool for C. difficile came back negative. Stool for enteric pathogens also came back negative. Today, patient was started on ADA diet and he tolerated diet very well. He has no more abdominal pain, nausea vomiting and he has no more diarrhea. Patient discharged home in a stable medical condition, discharged on his home medication without any changes, continued on Bactrim and prednisone without any changes, recommended follow-up with PCP in 1 week. Discharge Activity: Return to Normal Activity Weight Bearing Status: Weight bearing as tolerated Call your doctor if you observe: Fever of 101 or Higher, Shortness of breath, Dizziness, Fainting spells, Chest pain, Increased palpitations (irregular heartbeat), Uncontrolled pain Home Medications: Medications to take at Discharge Labetalol [Trandate (Beta Lisa)] 200 mg PO BID 12/19/13 Pantoprazole Sodium [Protonix] 40 mg PO DAILY 12/19/13 predniSONE tablet 5 mg PO DAILY 12/19/13 Insulin Glargine [Lantus SoloStar Pen] 18 units SC DAILY 12/06/14 Insulin Lispro [Humalog] 2 - 3 unit SQ TID 12/06/14 Aspirin [Aspirin, Baby] 81 mg PO DAILY@0800 08/16/15 Cholecalciferol (VIT D3) [Vitamin D3] 1,000 unit PO DAILY 12/09/15 amlodipine 10 mg tablet 10 mg PO QDAY 12/02/17 [id number] 24,000-76,000-120,000 unit capsule,delayed rel 3 cap PO TID cap 12/02/17 magnesium oxide 400 mg tablet 400 mg PO BID tab 12/02/17 mycophenolate mofetil 250 mg capsule 500 mg PO BID cap 12/02/17 sulfamethoxazole 400 mg-trimethoprim 80 mg tablet 1 tab PO QDAY 12/02/17 tacrolimus 1 mg capsule 9 mg PO DAILY cap 12/02/17 tramadol 50 mg tablet 50 mg PO BID PRN tab 12/02/17 Primary Care Physician: Rojelio Lee DO [Primary Care Provider] - Please follow up with your Primary Care Physician in: 1-2 weeks. Disposition: Home Minutes spent on discharge:: 38 Patient Condition:: Stable Medical Necessity - Tobacco Use Smoking Status: Former smoker Meaningful Use Info Meaningful Use Diagnoses (Choose all that apply): None applicable Code Visit Inpatient E&M: 17386 Disch Hosp
--- NOTE | 2018-02-28 15:17 | NURSING ---
Patient's concerned about diarrhea and possibility for low potassium. This RN notified patient and that patient could potentially take something to slow bowels- immodium- but that they should discuss this with his PCP or pharmacist. Understanding verbalized by and pt.
--- NOTE | 2018-03-01 16:03 | CASEMGMT ---
HERNÁN WHIPPLE Discharge Follow-up Phone Call: ERIKA: 10 Strata: 3 Call Date: 03/01/18 Discharge Date: 02/28/18 Time of Call: 1604 Duration: 1 min Admitting Diagnosis: Mild acute pancreatitis, acuter diarrheal illness HERNÁN WHIPPLE attempted to complete follow-up phone call after recent hospitalization. No answer, voice message left with return contact information.
== END 2018-02-28 14:40 | disposition home or self-care (01) | DRG 439 ==
LOC: ED 07:15 → MS3 09:23
PROVIDERS: Admitting Provider Hospitalist; Emergency Provider Emergency Medicine; Family Provider Student in an Organized Health Care Education/Training Program; PCP Student in an Organized Health Care Education/Training Program; Visit Provider Hospitalist
DX: K85.30 Drug induced acute pancreatitis without necrosis or infection (principal); Z94.0 Kidney transplant status; I50.32 Chronic diastolic (congestive) heart failure; N18.4 Chronic kidney disease, stage 4 (severe); T38.0X5A Adverse effect of glucocorticoids and synthetic analogues, initial encounter; K86.1 Other chronic pancreatitis; A08.4 Viral intestinal infection, unspecified; E86.0 Dehydration; I12.9 Hypertensive chronic kidney disease with stage 1 through stage 4 chronic kidney disease, or unspecified chronic kidney disease; E11.9 Type 2 diabetes mellitus without complications; I27.21 Secondary pulmonary arterial hypertension; E20.9 Hypoparathyroidism, unspecified; D63.1 Anemia in chronic kidney disease; Z79.4 Long term (current) use of insulin; Z90.49 Acquired absence of other specified parts of digestive tract; Z87.891 Personal history of nicotine dependence; Z79.82 Long term (current) use of aspirin; Y92.9 Unspecified place or not applicable; I08.3 Combined rheumatic disorders of mitral, aortic and tricuspid valves
CPT/HCPCS: 36415; 71046; 80053; 82009; 82962; 83690; 84484; 85025; 87493; 87506; 93005; 97802; 99285; J7030; A4216; J2405; J3490

== ENCOUNTER 2018-04-15 23:16 | Observation (INO) | payer MEDICARE, SELFPAY ==
[2018-04-15 23:21] VITALS: BP 174/82; PULSE 60; RESP 22; TEMP 35.7; O2SAT 93; BMI 19.5
--- NOTE | 2018-04-15 23:48 | ED.VISSUMM ---
- ER Visit Summary Date of Service: 04/15/18 Chief Complaint: Hypoglycemia History of Present Illness: The patient is a 68 M with an unresponsive episode. The patient was found by family. He was sitting in the garage and unresponsive. EMS was called. He was found to be hypoglycemic at 28. He received D50. He became alert and his repeat glucose was 180. The patient does remember taking 2 doses of his insulin earlier today. This was an accident. He did not eat much afterwards. He denies any other complaints currently. No chest pain or shortness of breath. No headache. No weakness or numbness. Family did not notice any sign of trauma or anything else suspicious at the scene. Physical Examination: Blood pressure 174/82. Otherwise vitals unremarkable. Head and neck atraumatic. Cranial nerves grossly intact. Heart regular rate and rhythm. Lungs clear. Abdomen soft and nontender. Moves all extremities. No focal weakness or numbness. Test Results: CBC and BMP pending. Emergency Department Course and Treatment: Patient placed on a monitor. Treated with IV fluids. We will check some basic labs. He was given a meal. Will reassess. White count 3.6 and hematoma 12.9, stable. Chloride 114 and CO2 19. Glucose 84 and creatinine 1.54, stable. Patient had difficulty eating. He ate a small part of a sandwich and drank some juice. Repeat sugar was in the 40s. He was treated with D50. Given his age and comorbidities, I do not believe it is safe to send him home tonight. He will need further monitoring of his glucose. I spoke with the hospitalist who will admit. Treatment Plan: As above Disposition: Admission Impression: 1. Hypoglycemia This note was generated with [employer] dictation software. It may contain incorrect words, spelling, and punctuation that were not noted in review of the chart prior to signing ED Disposition - Plan for ED Patient: Chief Complaint: Hypoglycemia Referrals: Rojelio Lee DO [Primary Care Provider] -
[2018-04-15 23:55] LABS: Absolute Lymphocyte Count 0.62 X10^3/ul (0.83-4.51); Absolute Neutrophil Count 2.7 X10^3/uL (2.0-7.7); Eosinophil# 0.01 X10^3/uL; Eosinophils% 0.3 % (0-5); Hematocrit 37.1 % (40-54); Hemoglobin 12.9 g/dl (13.0-16.5); Lymphocyte # 0.62 X10^3/ul (4.0); Lymphocyte % 17.3 % (19-41); Mean Corp Hgb Conc 34.8 g/gl (32-36); Mean Corpuscular Hgb 31.9 pg (27.0-32.0); Mean Corpuscular Volume 91.8 fL (80-94); Mean Platelet Vol. 10.3 fl (6.2-12.0); Monocyte# 0.25 X10^3/uL; Neutrophil % 75.4 % (47-70); POSITIVE COUNT NO; POSITIVE DIFFERENTIAL NO; POSITIVE MORPHOLOGY NO; Platelet Count 198 K/mm3 (150-450); RBC Distribution Width SD 45.9 fl (35.1-43.9); Red Blood Count 4.04 M/mm3 (4.6-6.2); White Blood Count 3.6 K/mm3 (4.4-11.0)
[2018-04-16 00:03] LABS: Anion Gap 8 (5-15); BUN 13 mg/dL (7-18); BUN/Creat Ratio 8.4 RATIO (10-20); Calcium,Total 8.4 mg/dL (8.5-10.1); Chloride 114 mmol/L (98-107); Creatinine, Serum 1.54 mg/dL (0.70-1.30); EST Glomerular Filtration Rate 48 mL/min (>60); Est Glom Filt Rate - Afr Amer 58 mL/min (>60); Estimated Creatinine Clearance 44.94 ml/min; Glucose 84 mg/dL (74-106); Sodium Level 141 mmol/L (136-145)
[2018-04-16 00:11] LABS: Bedside Glucose 49 mg/dL (70-110)
[2018-04-16] MEDS: Dextrose 50%-Water 25 GM/50 ML DISP.SYRIN IV ×2 (00:16→03:05)
[2018-04-16 00:17] VITALS: BP 157/71; PULSE 61; RESP 30; O2SAT 99
--- NOTE | 2018-04-16 00:21 | PCM.HP.STD ---
Problem List (1) Acute metabolic encephalopathy due to hypoglycemia Status: Acute (2) History of renal transplant Status: Chronic (3) Type 2 diabetes mellitus Status: Chronic (4) Chronic diastolic (congestive) heart failure Status: Chronic (5) Hypertension Status: Chronic Qualifiers: Hypertension type: essential hypertension Qualified Code(s): I10 - Essential (primary) hypertension (6) Pancreatitis Status: Chronic History of Present Illness Date of Admission: 04/16/18 Chief Complaint: Unresponsiveness ?1 day. The patient is a 68 year old M with a significant history of chronic diastolic heart failure; diabetes mellitus with previous kidney failure; kidney transplant on antirejection medications; hypertension who presented with unresponsiveness. His reported the patient was slumped over with his tongue hanging over and he could not be awoken. The paramedics were called and his blood glucose was found to be at 28. Patient was given D50 and blood glucose increased to 180. At emergency department patient blood glucose was 49 and he was given an amp of dextrose and food. When the patient came to his inpatient room he continued to have low blood glucose. Patient reported that he took more of his Lantus insulin than prescribed. He thinks that he took about 8 units more. His and patient reported the patient has a poor vision and he might have poorly gauge his insulin regimen. 1.Acute metabolic encephalopathy secondary to hypoglycemia Amp of D50 was given in patients D10 at 100 mL's per hour. Fingerstick blood glucose every 1 hour. CBC and BMP in a.m. Octreotide ?1 ordered. Home insulin held at this time. 2.Diabetes mellitus Home insulin held secondary to #1. 3.Hypertension On admission blood pressure was uncontrolled Amlodipine and labetalol continued Hydralazine as needed ordered 4.History of kidney transplant Antirejection medication continued Medications include prednisone, tacrolimus and CellCept Patient on Bactrim likely for PCP prophylaxis in the setting of immunosuppressive medication; continued 5.Chronic pancreatitis Pancrelipase continued DVT prophylaxis Subcutaneous heparin. . Past Medical History Past Medical History (Chronic Problems): Chronic Problems (Last Reviewed 04/16/18 @ 05:37 by Isiah Boggs MD) Pancreatitis (Chronic) History of renal transplant (Chronic) Type 2 diabetes mellitus (Chronic) Hypertension (Chronic) Chronic kidney disease, stage IV (severe) (Chronic) Chronic diastolic (congestive) heart failure (Chronic) Nonrheumatic pulmonary valve insufficiency (Chronic) Nonrheumatic tricuspid valve regurgitation (Chronic) Secondary pulmonary arterial hypertension (Chronic) Non-rheumatic aortic regurgitation (Chronic) Hypertension (Chronic) Medical History: Medical History (Last Reviewed 04/16/18 @ 05:37 by Isiah Boggs MD) Chronic diastolic (congestive) heart failure (Chronic) I50.32 Nonrheumatic pulmonary valve insufficiency (Chronic) I37.1 Nonrheumatic tricuspid valve regurgitation (Chronic) I36.1 Secondary pulmonary arterial hypertension (Chronic) I27.21 Non-rheumatic aortic regurgitation (Chronic) I35.1 Hypertension (Chronic) I10 Anemia in chronic kidney disease N18.9, D63.1 Chronic pancreatitis K86.1 Secondary hypoparathyroidism E20.8 Type 2 diabetes mellitus E11.9 Allergies oxycodone HCl [From Percocet] Adverse Reaction (Verified 04/15/18 23:20) TOO MUCH CAUSES HALLUCINATIONS TOO MUCH Home Medications: Ambulatory Orders Medication Instructions Recorded Labetalol [Trandate (Beta Lisa)] 200 mg PO BID 12/19/13 Pantoprazole Sodium [Protonix] 40 mg PO DAILY 12/19/13 predniSONE tablet 5 mg PO DAILY 12/19/13 Insulin Glargine [Lantus SoloStar 16 units SC DAILY 12/06/14 Pen] Insulin Lispro [Humalog] 2 - 3 unit SQ TIDCM 12/06/14 Aspirin [Aspirin, Baby] 81 mg PO DAILY@0800 08/16/15 Cholecalciferol (VIT D3) [Vitamin 1,000 unit PO DAILY 12/09/15 D3] amlodipine 10 mg tablet 10 mg PO QDAY 12/02/17 czxfch-epbwklde-kedxbfs 3 cap PO TID cap 12/02/17 24,000-76,000-120,000 unit capsule,delayed rel magnesium oxide 400 mg tablet 400 mg PO BID tab 12/02/17 mycophenolate mofetil 250 mg 500 mg PO BID cap 12/02/17 capsule sulfamethoxazole 400 1 tab PO QDAY 12/02/17 mg-trimethoprim 80 mg tablet tacrolimus 1 mg capsule 3 mg PO BID cap 12/02/17 tramadol 50 mg tablet 50 mg PO BID PRN tab 12/02/17 Surgical History: Surgical History (Last Reviewed 04/16/18 @ 05:37 by Isiah Boggs MD) Hx of cholecystectomy Z90.49 Kidney replaced by transplant Onset Date: ~10/15/11 Z94.0 Right Surgical History: cholecystectomy, - - Kidney transplant, sphincterotomy, left wrist fusion Psychiatric History: No pertinent psych hx Smoking Status: Current some day smoker - Smokes cigar Alcohol: Occasional - *Family History Maternal History Items: Diabetes, No pertinent history Paternal History Items: No pertinent history Sibling History Items: Cancer - Throat, No pertinent history Review of Systems Constitutional: Denies: Chills, Fever, Weight Change Eyes: Reports: Blurred vision - Chronic HEENT: Denies: Head Aches, Sinus Congestion, Sinus Drainage Cardiovascular: Denies: Chest Pain, Palpitations Respiratory: Denies: Cough, Shortness of breath at rest, Sputum production Gastrointestinal: Denies: Abdominal Pain, Nausea, Vomiting Genitourinary: Denies: Dysuria Musculoskeletal: Denies: Joint Pain, Joint Tenderness Skin: Denies: Rash, Wounds Neurological: Reports: Blurred vision - Chronic. Denies: Focal weakness, Numbness, Tingling Psychiatric: Denies: Anxiety, Depression, Homicidal Ideations, Suicidal Ideations Hematologic/ Lymphatic: Reports: Adenopathy VTE Information - Inpt Only VTE Present on Admission: No VTE Mechan Device Prophylaxis: None VTE Pharm Prophylaxis ordered?: Yes Patient Problems: Active and Suspected Problems (Last Reviewed 04/16/18 @ 05:37 by Isiah Boggs MD) Acute metabolic encephalopathy due to hypoglycemia (Acute) - Physical Exam General: Alert, Oriented x3, Cooperative HEENT: Atraumatic, PERRLA, EOMI, Normocephalic Neck: Supple, No JVD, Negative Carotid Bruits Lungs: Clear to auscultation, Normal air movement Cardiovascular: Regular rate, No murmurs Abdomen: Bowel Sounds Present, Soft, Non Tender Extremities: No edema, Capillary Refill Less than 3 Seconds Skin: No rashes, No breakdown Musculoskeletal: No Tenderness to Palpation of Joints or Extremities Neurological: Cranial nerves II-XII grossly intact Psych/Mental Status: Normal Affect, Appropriate Vital Signs Temp Pulse Resp BP Pulse Ox 96.2 F L 60 22 H 174/82 H 93 04/15/18 23:21 04/15/18 23:21 04/15/18 23:21 04/15/18 23:21 04/15/18 23:21 Oxygen Delivery Method Room Air Weight: 69.2 kg Body Mass Index (BMI) 19.5 Finger Stick Blood Glucose 416 Laboratory Tests Past 24 Hrs 04/15/18 04/15/18 23:35 23:35 WBC 3.6 L RBC 4.04 L Hgb 12.9 L Hct 37.1 L MCV 91.8 MCH 31.9 MCHC 34.8 RDW 14.0 RDW Differential 45.9 H Plt Count 198 MPV 10.3 Immature Gran % (Auto) 0.000 Neut % (Auto) 75.4 H Lymph % (Auto) 17.3 L [place] % (Auto) 7.0 Eos % (Auto) 0.3 Baso % (Auto) 0.0 Absolute Neuts (auto) 2.7 Absolute Lymphs (auto) 0.62 L Total Counted Not Reportable Sodium 141 Potassium 4.0 Chloride 114 H Carbon Dioxide 19.0 L Anion Gap 8 BUN 13 Creatinine 1.54 H Estim Creat Clear Calc 44.94 Est GFR (MDRD) Af Amer 58 L Est GFR (MDRD) Non-Af 48 L BUN/Creatinine Ratio 8.4 L Glucose 84 Calcium 8.4 L POC Glucose 04/16/18 00:06 POC Glucose 49 L Assessment/Plan All Active Problems (Last Reviewed 04/16/18 @ 05:37 by Isiah Boggs MD) Acute metabolic encephalopathy due to hypoglycemia (Acute) Osteomyelitis (Resolved) Biventricular congestive heart failure (Resolved) History of pancreatitis (Resolved) The patient is a 68 year old M with a significant history of chronic diastolic heart failure; diabetes mellitus with previous kidney failure; kidney transplant on antirejection medications; hypertension who presented with unresponsiveness secondary to hypoglycemia attributed to overdosing on insulin. 1.Acute hypoglycemia Amp of D50 was given in patients D10 at 100 mL's per hour. Fingerstick blood glucose every 1 hour. CBC and BMP in a.m. Octreotide ?1 ordered. Home insulin held at this time. 2.Diabetes mellitus Home insulin held secondary to #1. 3.Hypertension On admission blood pressure was uncontrolled Amlodipine and labetalol continued Hydralazine as needed ordered 4.History of kidney transplant Antirejection medication continued Medications include prednisone, tacrolimus and CellCept Patient on Bactrim likely for PCP prophylaxis in the setting of immunosuppressive medication; continued 5.Chronic pancreatitis Pancrelipase continued 6. Tobacco abuse Smokes cigar occasionally The patient declined nicotine patch because he does not think that he will withdrawal Counseled. Inpatient consult for smoking cessation. DVT prophylaxis Subcutaneous heparin. Code Visit OBSV E&M: 81739 Initial observation care L3
[2018-04-16 00:46] LABS: Bedside Glucose 142 mg/dL (70-110)
[2018-04-16 01:25] VITALS: BMI 18.8
[2018-04-16 02:59] VITALS: BP 154/68; PULSE 66; RESP 16; TEMP 36.4; O2SAT 99
--- NOTE | 2018-04-16 03:10 | NURSING ---
pt blood glucose 34 still responsive, awake and alert. Verbalized to hospitalist. 1 amp D50 given. will recheck. patient also eating a meal at this time.
[2018-04-16] MEDS: Octreotide 0.1 MG/ML ML 0.05 MG IV (03:32)
[2018-04-16] MEDS: Dextrose 10%-Water 250 ML 100 ML IV ×4 (03:32→11:17)
[2018-04-16 03:45] LABS: Bedside Glucose 34 mg/dL (70-110)
[2018-04-16 03:45] LABS: Bedside Glucose 155 mg/dL (70-110)
[2018-04-16 04:36] LABS: Bedside Glucose 140 mg/dL (70-110)
[2018-04-16 05:31] LABS: Bedside Glucose 148 mg/dL (70-110)
[2018-04-16 05:54] LABS: Absolute Lymphocyte Count 0.81 X10^3/ul (0.83-4.51); Absolute Neutrophil Count 2.6 X10^3/uL (2.0-7.7); Eosinophil# 0.01 X10^3/uL; Eosinophils% 0.3 % (0-5); Hematocrit 34.4 % (40-54); Lymphocyte # 0.81 X10^3/ul (4.0); Lymphocyte % 20.4 % (19-41); Mean Corp Hgb Conc 34.9 g/gl (32-36); Mean Corpuscular Hgb 32.2 pg (27.0-32.0); Mean Corpuscular Volume 92.2 fL (80-94); Mean Platelet Vol. 9.5 fl (6.2-12.0); Monocyte# 0.56 X10^3/uL; Monocyte% 14.1 % (0-10); Neutrophil # 2.59 X10^3/uL (2.7-7.7); Neutrophil % 64.9 % (47-70); Platelet Count 179 K/mm3 (150-450); RBC Distribution Width SD 46.2 fl (35.1-43.9); Red Blood Count 3.73 M/mm3 (4.6-6.2)
[2018-04-16 05:57] LABS: POSITIVE COUNT NO; POSITIVE DIFFERENTIAL NO; POSITIVE MORPHOLOGY NO
[2018-04-16 06:15] LABS: Anion Gap 6 (5-15); BUN 13 mg/dL (7-18); BUN/Creat Ratio 9.5 RATIO (10-20); Chloride 115 mmol/L (98-107); Creatinine, Serum 1.37 mg/dL (0.70-1.30); EST Glomerular Filtration Rate 55 mL/min (>60); Est Glom Filt Rate - Afr Amer 66 mL/min (>60); Estimated Creatinine Clearance 48.44 ml/min; Glucose 129 mg/dL (74-106); Potassium 4.2 mmol/L (3.5-5.1); Sodium Level 142 mmol/L (136-145)
[2018-04-16] MEDS: Heparin Injection (Vial) 5,000 UNIT/ML VIAL 5000 UNIT SC ×2 (06:41→13:01)
[2018-04-16 06:46] LABS: Bedside Glucose 135 mg/dL (70-110)
[2018-04-16 07:45] VITALS: O2SAT 96
[2018-04-16 07:50] LABS: Bedside Glucose 145 mg/dL (70-110)
[2018-04-16] MEDS: Aspirin 81 MG TAB.CHEW PO (08:42)
[2018-04-16] MEDS: predniSONE 5 MG Tablet PO (08:43)
[2018-04-16] MEDS: Smz/Tmp Ds Tablet 0.5 TABLET PO (08:44)
[2018-04-16] MEDS: Magnesium Oxide 400 MG Tablet PO (08:45)
[2018-04-16] MEDS: Mycophenolate Mofetil 250 MG Capsule 500 MG PO (08:45)
[2018-04-16] MEDS: amLODIPine 10 MG Tablet PO (08:48)
[2018-04-16 08:50] LABS: Bedside Glucose 164 mg/dL (70-110)
[2018-04-16] MEDS: Tacrolimus Anhydrous 1 MG Capsule 3 MG PO (08:51)
[2018-04-16] MEDS: Pantoprazole Sodium 40 MG Tablet PO (08:51)
[2018-04-16] MEDS: Labetalol 200 MG Tablet PO (08:52)
[2018-04-16 09:00] VITALS: BP 160/90; PULSE 67; RESP 20; TEMP 36.9; O2SAT 100
[2018-04-16 09:03] VITALS: PULSE 67
--- NOTE | 2018-04-16 11:25 | CASEMGMT ---
[facility]IP[facility] Face to Face with patient for initial transition planning/care coordination assessment. RN CM introduced self and role at [facility]. Patient lying in bed, alert and oriented. Patient willing to participate in assessment and is able to answer all questions appropriately. Care providers, pharmacy, and demographics verified. See link attached. Patient wishes to discharge home, denies need for home health at this time. RN CM encourage patient to follow-up with VILLA Green who follows patient's diabetes. Patient states he has no further needs or concerns at this time. CM to follow for discharge planning needs that may arise. Disposition Plan: Patient to discharge home with family support and follow-up plans in place. Heidi SILVA, RN, CM
[2018-04-16 14:00] VITALS: BP 166/61; PULSE 75; RESP 18; TEMP 37.1; O2SAT 100
--- NOTE | 2018-04-16 14:50 | DCINST_ITS ---
- Discharge Diagnoses Current Active Problems: Current Active and Chronic Problems (Last Reviewed 04/16/18 @ 05:37 by Isiah Boggs MD) Acute metabolic encephalopathy due to hypoglycemia (Acute) You will use the following diet at home:: No restrictions, Regular Your food should be the consistency of: Regular Discharge Activity: Return to Normal Activity, No Restrictions Allergies/Adverse Reactions: Allergies oxycodone HCl [From Percocet] Adverse Reaction (Verified 04/15/18 23:20) TOO MUCH CAUSES HALLUCINATIONS TOO MUCH Medications to take at Discharge Labetalol [Trandate (Beta Lisa)] 200 mg PO BID 12/19/13 Pantoprazole Sodium [Protonix] 40 mg PO DAILY 12/19/13 predniSONE tablet 5 mg PO DAILY 12/19/13 Insulin Glargine [Lantus SoloStar Pen] 16 units SC DAILY 12/06/14 Insulin Lispro [Humalog] 2 - 3 unit SQ TIDCM 12/06/14 Aspirin [Aspirin, Baby] 81 mg PO DAILY@0800 08/16/15 Cholecalciferol (VIT D3) [Vitamin D3] 1,000 unit PO DAILY 12/09/15 amlodipine 10 mg tablet 10 mg PO QDAY 12/02/17 [id number] 24,000-76,000-120,000 unit capsule,delayed rel 3 cap PO TID cap 12/02/17 magnesium oxide 400 mg tablet 400 mg PO BID tab 12/02/17 mycophenolate mofetil 250 mg capsule 500 mg PO BID cap 12/02/17 sulfamethoxazole 400 mg-trimethoprim 80 mg tablet 1 tab PO QDAY 12/02/17 tacrolimus 1 mg capsule 3 mg PO BID cap 12/02/17 tramadol 50 mg tablet 50 mg PO BID PRN tab 12/02/17 Primary Care Physician: Rojelio Lee DO [Primary Care Provider] - Test Results: Test results from this visit will be discussed in further detail at your follow- up appointment, if applicable.
--- NOTE | 2018-04-16 14:52 | PCM.DC.SUM ---
Discharge Date and Diagnosis - Problem List Patient Problems: Active and Suspected Problems (Last Reviewed 04/16/18 @ 05:37 by Isiah Boggs MD) Acute metabolic encephalopathy due to hypoglycemia (Acute) Date of Admission: 04/16/18 Date of Discharge: 04/16/18 - Primary Discharge Diagnosis Active and Suspected Problems (Last Reviewed 04/16/18 @ 05:37 by Isaih Boggs MD) Acute metabolic encephalopathy due to hypoglycemia (Acute) - Secondary Discharge Diagnosis Chronic Problems (Last Reviewed 04/16/18 @ 05:37 by Isiah Boggs MD) Pancreatitis (Chronic) History of renal transplant (Chronic) Type 2 diabetes mellitus (Chronic) Hypertension (Chronic) Chronic kidney disease, stage IV (severe) (Chronic) Chronic diastolic (congestive) heart failure (Chronic) Nonrheumatic pulmonary valve insufficiency (Chronic) Nonrheumatic tricuspid valve regurgitation (Chronic) Secondary pulmonary arterial hypertension (Chronic) Non-rheumatic aortic regurgitation (Chronic) Hypertension (Chronic) Hospital Course and Treatment Operations: None Procedures: None Summary of Care Provided: The patient is a 68 year old M admitted on account of hypoglycemic coma which promptly responded to glucagon and IV dextrose. Had to be maintained on a glucose drip while in the hospital and his insulin withheld. There have been no more repeat episodes and patient remains neurologically intact. I would recommend and would be prescribing a glucagon pen to be at hand at home and when travelling. Patient seen and examined today and is stable for discharge home [] Discharge Diet: No Restrictions Discharge Activity: Return to Normal Activity, No Restrictions Home Medications: Medications to take at Discharge Labetalol [Trandate (Beta Lisa)] 200 mg PO BID 12/19/13 Pantoprazole Sodium [Protonix] 40 mg PO DAILY 12/19/13 predniSONE tablet 5 mg PO DAILY 12/19/13 Insulin Glargine [Lantus SoloStar Pen] 16 units SC DAILY 12/06/14 Insulin Lispro [Humalog] 2 - 3 unit SQ TIDCM 12/06/14 Aspirin [Aspirin, Baby] 81 mg PO DAILY@0800 08/16/15 Cholecalciferol (VIT D3) [Vitamin D3] 1,000 unit PO DAILY 12/09/15 amlodipine 10 mg tablet 10 mg PO QDAY 12/02/17 [id number] 24,000-76,000-120,000 unit capsule,delayed rel 3 cap PO TID cap 12/02/17 magnesium oxide 400 mg tablet 400 mg PO BID tab 12/02/17 mycophenolate mofetil 250 mg capsule 500 mg PO BID cap 12/02/17 sulfamethoxazole 400 mg-trimethoprim 80 mg tablet 1 tab PO QDAY 12/02/17 tacrolimus 1 mg capsule 3 mg PO BID cap 12/02/17 tramadol 50 mg tablet 50 mg PO BID PRN tab 12/02/17 Primary Care Physician: Rojelio Lee DO [Primary Care Provider] - Disposition: Home Minutes spent on discharge:: 30 Patient Condition:: Good Medical Necessity - Tobacco Use Smoking Status: Current some day smoker - Smokes cigar Meaningful Use Info Meaningful Use Diagnoses (Choose all that apply): None applicable Code Visit OBSV E&M: 25518 Observation care discharge
[2018-04-16 15:26] LABS: Bedside Glucose 470 mg/dL (70-110)
[2018-04-16] MEDS: Insulin Lispro 100 UNIT/ML INSULN.PEN 6 UNIT SC (15:30)
== END 2018-04-16 15:46 | disposition home or self-care (01) ==
LOC: ED 23:42 → MS3 04-16 00:50
PROVIDERS: Admitting Provider Hospitalist; Emergency Provider Emergency Medicine; Family Provider Student in an Organized Health Care Education/Training Program; PCP Student in an Organized Health Care Education/Training Program; Visit Provider Internal Medicine
DX: E11.649 Type 2 diabetes mellitus with hypoglycemia without coma (principal); G93.41 Metabolic encephalopathy; Z94.0 Kidney transplant status; E11.22 Type 2 diabetes mellitus with diabetic chronic kidney disease; I13.0 Hypertensive heart and chronic kidney disease with heart failure and stage 1 through stage 4 chronic kidney disease, or unspecified chronic kidney disease; N18.4 Chronic kidney disease, stage 4 (severe); I50.32 Chronic diastolic (congestive) heart failure; Z79.899 Other long term (current) drug therapy; Z79.4 Long term (current) use of insulin; Z79.82 Long term (current) use of aspirin; I27.21 Secondary pulmonary arterial hypertension; F17.290 Nicotine dependence, other tobacco product, uncomplicated; K86.1 Other chronic pancreatitis
CPT/HCPCS: 36415; 80048; 82962; 85025; 96361; 96372; 96374; 96375; 96376; 97162; 97165; 99218; 99284; J7030; G0378; J2354

== ENCOUNTER 2018-11-26 22:06 | Inpatient (IN) | payer MEDICARE, SELFPAY ==
[2018-11-26 22:07] VITALS: BP 161/73; PULSE 63; RESP 16; TEMP 36.3; O2SAT 97; BMI 19.0
--- NOTE | 2018-11-26 22:55 | RAD_ITS ---
STUDY: X-RAY - PELVIS AND LEFT HIP REASON FOR EXAM: Male, 68 years old. Left hip pain TECHNIQUE: 3 views of the pelvis and hip. COMPARISON: None. FINDINGS: There is a non-specific bowel gas pattern. Normal visualized soft tissue structures. Normal bilateral iliac wings, sacroiliac joints and visualized sacrum. Normal bilateral superior and inferior pubic rami. Normal pubic symphysis. Normal bilateral ischial tuberosities. Femoral neck fracture on the left with varus deformity. Normal visualized femoral head. Normal acetabulum. Normal hip joint. RAD/HIP, UNI W/ Pelvis 2-3 Views IMPRESSION: Left hip fracture Electronically Signed: Hamzah Felipe MD at 23:37 EDT , Service support ,
[2018-11-26] MEDS: Morphine 4 MG/ML Syringe IV (23:08)
[2018-11-26 23:20] LABS: Absolute Lymphocyte Count 0.99 X10^3/ul (0.83-4.51); Absolute Neutrophil Count 2.1 X10^3/uL (2.0-7.7); Eosinophil# 0.03 X10^3/uL; Eosinophils% 0.8 % (0-5); Hematocrit 36.7 % (40-54); Hemoglobin 12.7 g/dl (13.0-16.5); Lymphocyte # 0.99 X10^3/ul (4.0); Lymphocyte % 27.6 % (19-41); Mean Corp Hgb Conc 34.6 g/gl (32-36); Mean Corpuscular Hgb 31.3 pg (27.0-32.0); Mean Corpuscular Volume 90.4 fL (80-94); Mean Platelet Vol. 9.9 fl (6.2-12.0); Monocyte# 0.43 X10^3/uL; Neutrophil # 2.14 X10^3/uL (2.7-7.7); Neutrophil % 59.6 % (47-70); Platelet Count 140 K/mm3 (150-450); RBC Distribution Width CV 15.3 % (11.6-14.6); RBC Distribution Width SD 50.6 fl (35.1-43.9); Red Blood Count 4.06 M/mm3 (4.6-6.2); White Blood Count 3.6 K/mm3 (4.4-11.0)
[2018-11-26 23:24] LABS: POSITIVE COUNT NO; POSITIVE DIFFERENTIAL NO; POSITIVE MORPHOLOGY NO
[2018-11-26 23:28] LABS: Anion Gap 5 (5-15); BUN 15 mg/dL (7-18); BUN/Creat Ratio 9.1 RATIO (10-20); Calcium,Total 8.5 mg/dL (8.5-10.1); Chloride 113 mmol/L (98-107); Creatinine, Serum 1.64 mg/dL (0.70-1.30); EST Glomerular Filtration Rate 45 mL/min (>60); Est Glom Filt Rate - Afr Amer 54 mL/min (>60); Estimated Creatinine Clearance 40.93 ml/min; Glucose 74 mg/dL (74-106); Potassium 5.1 mmol/L (3.5-5.1); Sodium Level 142 mmol/L (136-145)
--- NOTE | 2018-11-26 23:43 | ED.VIS.GEN ---
History of Present Illness Chief Complaint: Lower Extremity Injury Informant: Patient Onset: Today Context: Sudden Onset - tripped over his shoes on the floor and fell, landing on left hip Timing: Continuous Quality: pain Location: left hip Current Severity: Severe Maximum Severity: Severe Worsened by: moving Relieved by: remaining still Associated Symptoms: numbness at left greater troch only; not distally. no other injury. Narrative: Unable to walk on his left lower extremity since this injury. He states he did not injure anything else, just his left hip. No history of orthopedic injuries/surgeries in the past. Had a remote renal transplant. Is a diabetic and states that he keeps his sugar under good control. - Past Medical History (1) Chronic diastolic (congestive) heart failure Status: Chronic (2) History of renal transplant Status: Chronic (3) Hypertension Status: Chronic (4) Non-rheumatic aortic regurgitation Status: Chronic (5) Nonrheumatic pulmonary valve insufficiency Status: Chronic (6) Nonrheumatic tricuspid valve regurgitation Status: Chronic (7) Secondary pulmonary arterial hypertension Status: Chronic (8) Type 2 diabetes mellitus Status: Chronic Past Medical History - Allergies and Home Meds Allergies/Adverse Reactions: Allergies oxycodone HCl [From Percocet] Adverse Reaction (Verified 11/26/18 22:09) TOO MUCH CAUSES HALLUCINATIONS TOO MUCH Primary Care Physician: Rojelio Lee DO [Primary Care Provider] - Surgical History: cholecystectomy, - - Kidney transplant, sphincterotomy, left wrist fusion Lives: Spouse/ Significant Other Smoking Status: Former smoker - Family History Maternal Family History: Reports: Diabetes, No pertinent history Paternal Family History: Reports: No pertinent history Sibling Family History: Reports: Cancer - Throat, No pertinent history Review of Systems General: Denies: Chills, Fever, Sweats Eyes: Denies: Visual changes - bilaterally, Diplopia ENT: Denies: Rhinorrhea, Sore throat Cardiovascular: Denies: Chest pain, Palpitations Respiratory: Denies: Dyspnea, Cough, Dyspnea on exertion Gastrointestinal: Denies: Abdominal pain, Nausea, Vomiting, Diarrhea, Melena, Hematochezia Genitourinary: Denies: Dysuria, Hematuria, Frequency Musculoskeletal: Reports: Extremity Pain Skin: Denies: Rash, Wounds Neurological: Reports: Numbness. Denies: Headache, Weakness Physical Exam Vital Signs/Narrative: Vital Signs Temp Pulse Resp BP Pulse Ox 11/26/18 22:07 97.3 F L 63 16 161/73 H 97 Inital Vital Signs reviewed: Yes General: Well nourished, Well developed, No Acute Distress Head: Normocephalic, Atraumatic Eyes: Perrl, EOMI ENT: Moist mucous membranes, No rhinorrhea Neck: Supple, Nontender Cardiovascular: Regular rate, Regular rhythm, No murmurs Respiratory: No distress, CTA bilaterally, Chest nontender Abdomen: Soft, Nontender, Nondistended, Normal bowel sounds Back: Nontender, Normal Inspection Extremities: No edema, Tenderness - left greater trochanter; very limited ROM left hip due to pain. shortened LLE. 2+/4 DP pulse. Skin: Normal color, No rash, No Trauma - no lacs Neurological: Alert, Oriented x3, Cranial nerves II-XII grossly intact, Normal Strength, Normal Sensation - including distal LLE Psychological: Normal affect, Normal Mood Diagnostic/Tx/Re-eval Impressions Hip/Pelvis X-Ray 11/26/18 22:55 IMPRESSION: Left hip fracture Electronically Signed: Hamzah Felipe MD at 23:37 EDT , Service support , 11/26/18 22:55 HIP, UNI W/ Pelvis 2-3 Views [RAD] Stat Laboratory Results 11/26/18 11/26/18 23:10 23:10 WBC 3.6 L RBC 4.06 L Hgb 12.7 L Hct 36.7 L MCV 90.4 MCH 31.3 MCHC 34.6 RDW 15.3 H RDW Differential 50.6 H Plt Count 140 L MPV 9.9 Immature Gran % (Auto) 0.000 Neut % (Auto) 59.6 Lymph % (Auto) 27.6 [place] % (Auto) 12.0 H Eos % (Auto) 0.8 Baso % (Auto) 0.0 Absolute Neuts (auto) 2.1 Absolute Lymphs (auto) 0.99 Total Counted Not Reportable Sodium 142 Potassium 5.1 Chloride 113 H Carbon Dioxide 24.0 Anion Gap 5 BUN 15 Creatinine 1.64 H Estim Creat Clear Calc 40.93 Est GFR (MDRD) Af Amer 54 L Est GFR (MDRD) Non-Af 45 L BUN/Creatinine Ratio 9.1 L Glucose 74 Calcium 8.5 - Medical Decision Making X-rays show a displaced basicervical left femoral neck fracture. He was given morphine for pain which helped. Preoperative work-up was ordered, discussed with Dr. Aly Camejo, as well as hospitalist. ED Disposition - Plan for ED Patient: Disposition: Acute Care Hospital [facility] Diagnosis: Closed left hip fracture, Fall from slip, trip, or stumble, Chronic renal insufficiency Referrals: Rojelio Lee DO [Primary Care Provider] -
--- NOTE | 2018-11-26 23:48 | ED.DCSUM_ITS ---
History of Present Illness Chief Complaint: Lower Extremity Injury Informant: Patient Onset: Today Context: Sudden Onset - tripped over his shoes on the floor and fell, landing on left hip Timing: Continuous Quality: pain Location: left hip Current Severity: Severe Maximum Severity: Severe Worsened by: moving Relieved by: remaining still Associated Symptoms: numbness at left greater troch only; not distally. no other injury. Narrative: Unable to walk on his left lower extremity since this injury. He states he did not injure anything else, just his left hip. No history of orthopedic injuries/surgeries in the past. Had a remote renal transplant. Is a diabetic and states that he keeps his sugar under good control. - Past Medical History (1) Chronic diastolic (congestive) heart failure Status: Chronic (2) History of renal transplant Status: Chronic (3) Hypertension Status: Chronic (4) Non-rheumatic aortic regurgitation Status: Chronic (5) Nonrheumatic pulmonary valve insufficiency Status: Chronic (6) Nonrheumatic tricuspid valve regurgitation Status: Chronic (7) Secondary pulmonary arterial hypertension Status: Chronic (8) Type 2 diabetes mellitus Status: Chronic Past Medical History - Allergies and Home Meds Allergies/Adverse Reactions: Allergies oxycodone HCl [From Percocet] Adverse Reaction (Verified 11/26/18 22:09) TOO MUCH CAUSES HALLUCINATIONS TOO MUCH Primary Care Physician: Rojelio Lee DO [Primary Care Provider] - Surgical History: cholecystectomy, - - Kidney transplant, sphincterotomy, left wrist fusion Lives: Spouse/ Significant Other Smoking Status: Former smoker - Family History Maternal Family History: Reports: Diabetes, No pertinent history Paternal Family History: Reports: No pertinent history Sibling Family History: Reports: Cancer - Throat, No pertinent history Review of Systems General: Denies: Chills, Fever, Sweats Eyes: Denies: Visual changes - bilaterally, Diplopia ENT: Denies: Rhinorrhea, Sore throat Cardiovascular: Denies: Chest pain, Palpitations Respiratory: Denies: Dyspnea, Cough, Dyspnea on exertion Gastrointestinal: Denies: Abdominal pain, Nausea, Vomiting, Diarrhea, Melena, Hematochezia Genitourinary: Denies: Dysuria, Hematuria, Frequency Musculoskeletal: Reports: Extremity Pain Skin: Denies: Rash, Wounds Neurological: Reports: Numbness. Denies: Headache, Weakness Physical Exam Vital Signs/Narrative: Vital Signs Temp Pulse Resp BP Pulse Ox 11/26/18 22:07 97.3 F L 63 16 161/73 H 97 Inital Vital Signs reviewed: Yes General: Well nourished, Well developed, No Acute Distress Head: Normocephalic, Atraumatic Eyes: Perrl, EOMI ENT: Moist mucous membranes, No rhinorrhea Neck: Supple, Nontender Cardiovascular: Regular rate, Regular rhythm, No murmurs Respiratory: No distress, CTA bilaterally, Chest nontender Abdomen: Soft, Nontender, Nondistended, Normal bowel sounds Back: Nontender, Normal Inspection Extremities: No edema, Tenderness - left greater trochanter; very limited ROM left hip due to pain. shortened LLE. 2+/4 DP pulse. Skin: Normal color, No rash, No Trauma - no lacs Neurological: Alert, Oriented x3, Cranial nerves II-XII grossly intact, Normal Strength, Normal Sensation - including distal LLE Psychological: Normal affect, Normal Mood Diagnostic/Tx/Re-eval Impressions Hip/Pelvis X-Ray 11/26/18 22:55 IMPRESSION: Left hip fracture Electronically Signed: Hamzah Felipe MD at 23:37 EDT , Service support , 11/26/18 22:55 HIP, UNI W/ Pelvis 2-3 Views [RAD] Stat Laboratory Results 11/26/18 11/26/18 23:10 23:10 WBC 3.6 L RBC 4.06 L Hgb 12.7 L Hct 36.7 L MCV 90.4 MCH 31.3 MCHC 34.6 RDW 15.3 H RDW Differential 50.6 H Plt Count 140 L MPV 9.9 Immature Gran % (Auto) 0.000 Neut % (Auto) 59.6 Lymph % (Auto) 27.6 [place] % (Auto) 12.0 H Eos % (Auto) 0.8 Baso % (Auto) 0.0 Absolute Neuts (auto) 2.1 Absolute Lymphs (auto) 0.99 Total Counted Not Reportable Sodium 142 Potassium 5.1 Chloride 113 H Carbon Dioxide 24.0 Anion Gap 5 BUN 15 Creatinine 1.64 H Estim Creat Clear Calc 40.93 Est GFR (MDRD) Af Amer 54 L Est GFR (MDRD) Non-Af 45 L BUN/Creatinine Ratio 9.1 L Glucose 74 Calcium 8.5 - Medical Decision Making X-rays show a displaced basicervical left femoral neck fracture. He was given morphine for pain which helped. Preoperative work-up was ordered, discussed with Dr. Aly Camejo, as well as hospitalist. ED Disposition - Plan for ED Patient: Disposition: Acute Care Hospital [facility] Diagnosis: Closed left hip fracture, Fall from slip, trip, or stumble, Chronic renal insufficiency Referrals: Rojelio Lee DO [Primary Care Provider] -
--- NOTE | 2018-11-26 23:50 | RAD_ITS ---
STUDY: X-RAY CHEST REASON FOR EXAM: Male, 68 years old. Trauma TECHNIQUE: Frontal view COMPARISON: February 27, 2018 FINDINGS: The lungs are clear and expanded. There is no demonstrated pleural abnormality. Normal size heart. Normal mediastinum and bi. Normal visualized pulmonary arteries. Normal visualized aortic arch and descending thoracic aorta. Normal visualized thoracic spine. Normal visualized ribs, clavicles, and shoulders. There is no demonstrated abnormality of the visualized soft tissue structures of the upper abdomen. RAD/Chest 1 View (Portable) IMPRESSION: Normal x-ray examination of the chest. Electronically Signed: Luther Martinez MD at 0:15 EDT , Service support ,
--- NOTE | 2018-11-26 23:50 | EKG12_ITS ---
Test Reason : PRE OP Blood Pressure : / mmHG Vent. Rate : 058 BPM Atrial Rate : 058 BPM P-R Int : 168 ms QRS Dur : 132 ms QT Int : 470 ms P-R-T Axes : 066 -30 117 degrees QTc Int : 461 ms Sinus bradycardia with Premature atrial complexes Left axis deviation Non-specific intra-ventricular conduction block Cannot rule out Anterior infarct , age undetermined T wave abnormality, consider lateral ischemia Abnormal ECG Confirmed by CELESTINE MAURO, IRMA ([id number]), editor in chief newspaper SOMMER LOPEZ ([id number]) on 11/29/2018 11:50:15 AM Referred By: LIGIA Confirmed By:IRMA SPRAGUE MD
--- NOTE | 2018-11-26 23:52 | PCM.HP.STD ---
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 He says that he tripped over his shoe and twisted his leg and fell on his left side. He had significant pain and was not able to stand up on his own. He came into the hospital and x-ray of his left hip was obtained which demonstrated a left femoral neck fracture. 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 He denies any shortness of breath or chest pain currently. And prior to the fall he is able to walk 2 blocks and walk up stairs without any shortness of breath or chest pain. He denies any easy bleeding or bruising. Past Medical History Past Medical History (Chronic Problems): Chronic Problems (Last Updated 06/02/18 @ 09:32 by Sandy Crouch) Chronic renal insufficiency (Chronic) Pancreatitis (Chronic) History of renal transplant (Chronic) Type 2 diabetes mellitus (Chronic) Hypertension (Chronic) Chronic kidney disease, stage IV (severe) (Chronic) Chronic diastolic (congestive) heart failure (Chronic) Nonrheumatic pulmonary valve insufficiency (Chronic) Nonrheumatic tricuspid valve regurgitation (Chronic) Secondary pulmonary arterial hypertension (Chronic) Non-rheumatic aortic regurgitation (Chronic) Hypertension (Chronic) Medical History: Medical History (Last Updated 06/02/18 @ 09:32 by Sandy Crouch) Chronic diastolic (congestive) heart failure (Chronic) I50.32 Nonrheumatic pulmonary valve insufficiency (Chronic) I37.1 Nonrheumatic tricuspid valve regurgitation (Chronic) I36.1 Secondary pulmonary arterial hypertension (Chronic) I27.21 Non-rheumatic aortic regurgitation (Chronic) I35.1 Hypertension (Chronic) I10 Anemia in chronic kidney disease N18.9, D63.1 Chronic pancreatitis K86.1 Secondary hypoparathyroidism E20.8 Type 2 diabetes mellitus E11.9 Dx : 20+ years ago Last exacerbation : DKA : never Hypoglycemic episode : 04/20 ER visit : 04/20 Allergies oxycodone HCl [From Percocet] Adverse Reaction (Verified 11/26/18 22:09) TOO MUCH CAUSES HALLUCINATIONS TOO MUCH Home Medications: Ambulatory Orders Medication Instructions Recorded Labetalol [Trandate (Beta Lisa)] 200 mg PO BID 12/19/13 Pantoprazole Sodium [Protonix] 40 mg PO DAILY 12/19/13 predniSONE tablet 5 mg PO DAILY 12/19/13 Aspirin [Aspirin, Baby] 81 mg PO DAILY@0800 08/16/15 Cholecalciferol (VIT D3) [Vitamin 1,000 unit PO DAILY 12/09/15 D3] amlodipine 10 mg tablet 10 mg PO QHS 12/02/17 nkjtwh-cgazwiil-iokfedd 3 cap PO TID cap 12/02/17 24,000-76,000-120,000 unit capsule,delayed rel magnesium oxide 400 mg (241.3 mg 400 mg PO BID tab 12/02/17 magnesium) tablet mycophenolate mofetil 250 mg 500 mg PO BID cap 12/02/17 capsule sulfamethoxazole 400 1 tab PO QDAY 12/02/17 mg-trimethoprim 80 mg tablet tacrolimus 1 mg capsule 3 mg PO BID cap 12/02/17 tramadol 50 mg tablet 50 mg PO BID PRN tab 12/02/17 insulin glargine (U-100) 100 13 units SC DAILY 06/02/18 unit/mL (3 mL) subcutaneous pen insulin lispro (U- 100) 100 See Rx Instructions SC TID ml 06/02/18 unit/mL subcutaneous pen Surgical History: Surgical History (Last Reviewed 06/02/18 @ 09:21 by Sandy Crouch) Hx of cholecystectomy Z90.49 Kidney replaced by transplant Onset Date: ~10/15/11 Z94.0 Right Surgical History: cholecystectomy, - - Kidney transplant, sphincterotomy, left wrist fusion Lives: Spouse/ Significant Other Smoking Status: Former smoker Tobacco Use: Cigarettes Alcohol: None Drugs: None - *Family History Maternal History Items: Diabetes, No pertinent history Paternal History Items: No pertinent history Sibling History Items: Cancer - Throat, No pertinent history Review of Systems Constitutional: Denies: Chills, Fever, Weight Change HEENT: Denies: Head Aches, Sinus Congestion, Sinus Drainage Cardiovascular: Denies: Chest Pain, Palpitations Respiratory: Denies: Cough, Shortness of breath at rest, Sputum production Gastrointestinal: Denies: Abdominal Pain, Nausea, Vomiting Genitourinary: Denies: Dysuria Musculoskeletal: Reports: Leg Pain - Left hip. Denies: Joint Pain, Joint Tenderness Skin: Denies: Rash, Wounds Neurological: Denies: Numbness, Tingling, Focal weakness Psychiatric: Denies: Anxiety, Depression Hematologic/ Lymphatic: Denies: Easy Bruising, Easy Bleeding VTE Information - Inpt Only VTE Present on Admission: No Patient Problems: Active and Suspected Problems (Last Updated 06/02/18 @ 09:32 by Sandy Crouch) Closed left hip fracture (Acute) Fall from slip, trip, or stumble (Acute) - Physical Exam General: Alert, Oriented x3, Cooperative, No apparent distress HEENT: Atraumatic, PERRLA, EOMI, Normocephalic Oral: Moist Mucosa Neck: Supple, No JVD, Trachea Midline Lungs: Clear to auscultation, Normal air movement, No rhonchi, No wheeze, No rales Cardiovascular: Regular rate, Regular Rhythm, Normal S1, Normal S2, No murmurs Abdomen: Soft, Non Tender, Non-Distended, No Hepato-splenomegaly Extremities: No edema, Capillary Refill Less than 3 Seconds Skin: No rashes, No breakdown Musculoskeletal: Tenderness - To left hip Neurological: Neuro grossly intact, Sensory exam intact to light touch and pain Psych/Mental Status: Normal Affect, Appropriate Vital Signs Temp Pulse Resp BP Pulse Ox 97.3 F L 63 16 161/73 H 97 11/26/18 22:07 11/26/18 22:07 11/26/18 22:07 11/26/18 22:07 11/26/18 22:07 Oxygen Delivery Method Room Air Weight: 148 lb Body Mass Index (BMI) 19.0 Finger Stick Blood Glucose 142 Laboratory Tests Past 24 Hrs 11/26/18 11/26/18 23:10 23:10 WBC 3.6 L RBC 4.06 L Hgb 12.7 L Hct 36.7 L MCV 90.4 MCH 31.3 MCHC 34.6 RDW 15.3 H RDW Differential 50.6 H Plt Count 140 L MPV 9.9 Immature Gran % (Auto) 0.000 Neut % (Auto) 59.6 Lymph % (Auto) 27.6 Villalba % (Auto) 12.0 H Eos % (Auto) 0.8 Baso % (Auto) 0.0 Absolute Neuts (auto) 2.1 Absolute Lymphs (auto) 0.99 Total Counted Not Reportable Sodium 142 Potassium 5.1 Chloride 113 H Carbon Dioxide 24.0 Anion Gap 5 BUN 15 Creatinine 1.64 H Estim Creat Clear Calc 40.93 Est GFR (MDRD) Af Amer 54 L Est GFR (MDRD) Non-Af 45 L BUN/Creatinine Ratio 9.1 L Glucose 74 Calcium 8.5 Assessment/Plan All Active Problems (Last Updated 06/02/18 @ 09:32 by Sandy Crouch) Closed left hip fracture (Acute) Fall from slip, trip, or stumble (Acute) Acute metabolic encephalopathy due to hypoglycemia (Acute) Osteomyelitis (Resolved) Biventricular congestive heart failure (Resolved) History of pancreatitis (Resolved) 1. Acute left femoral neck fracture secondary to mechanical fall -We will make n.p.o. for possible OR tomorrow -Consult to orthopedic surgery for management -Morphine, Tylenol, oxycodone as needed for pain control -SCDs -IV fluids while n.p.o. 2. Renal failure status post renal transplant -Has been doing well and has been maintained on his tacrolimus, mycophenolate and his prednisone -I discussed with him how these can interfere with proper healing which she understands -I also asked that he discuss the fact that he has a femur fracture with his primary care doctor because he will likely need to be started on a bisphosphonate if the steroids are going to be long-term -He is on half dose Bactrim for infection prevention 3. HTN/HLD -He is currently on aspirin which will be held prior to surgery -Continue with his Norvasc and his labetalol 4. IDDM 2 -His blood sugars are very well maintained on his home long-acting and sliding scale insulin regimen -Continue all inpatient and monitor blood sugars ACHS 5. Pancreatic insufficiency/GERD -Likely secondary to chronic pancreatitis -We will continue with his home Creon -Continue with PPI DVT: SCDs Code Visit Inpatient E&M: 38087 Init Hosp L3
[2018-11-26 23:53] VITALS: BP 160/66; O2SAT 100
[2018-11-27] VITALS (11 sets, daily range): BP systolic 139–186; BP diastolic 62–85; PULSE 57–70; RESP 16–18; TEMP 36.3–36.8; O2SAT 94–100; BMI 17.9; BMI 18.0
[2018-11-27] MEDS: Morphine 4 MG/ML Syringe IV (00:04)
[2018-11-27] MEDS: oxyCODONE 5 MG Tablet PO (02:10)
[2018-11-27] MEDS: Labetalol 200 MG Tablet PO ×3 (02:11→21:52)
[2018-11-27] MEDS: amLODIPine 10 MG Tablet PO ×2 (02:11→21:52)
[2018-11-27] MEDS: Acetaminophen 325 MG Tablet 650 MG PO ×2 (02:12→21:52)
[2018-11-27] MEDS: Ondansetron 4 MG/2 ML Vial IV (02:13)
[2018-11-27] MEDS: 0.9% NaCl Peripheral Flush Adult/Peds IV ×2 (02:14→06:40)
[2018-11-27] MEDS: 0.9% Normal Saline 1,000 ML 100 ML IV (02:14)
--- NOTE | 2018-11-27 03:11 | NURSING ---
lab notified pt going to surgery early. needs drawn at 0500.
[2018-11-27 05:24] LABS: Absolute Lymphocyte Count 0.89 X10^3/ul (0.83-4.51); Absolute Neutrophil Count 4.5 X10^3/uL (2.0-7.7); Eosinophil# 0.04 X10^3/uL; Eosinophils% 0.6 % (0-5); Hematocrit 33.3 % (40-54); Hemoglobin 11.6 g/dl (13.0-16.5); Lymphocyte # 0.89 X10^3/ul (4.0); Lymphocyte % 14.2 % (19-41); Mean Corp Hgb Conc 34.8 g/gl (32-36); Mean Corpuscular Hgb 30.9 pg (27.0-32.0); Mean Corpuscular Volume 88.8 fL (80-94); Mean Platelet Vol. 10.3 fl (6.2-12.0); Monocyte# 0.82 X10^3/uL; Monocyte% 13.1 % (0-10); Neutrophil # 4.52 X10^3/uL (2.7-7.7); Neutrophil % 71.9 % (47-70); Platelet Count 135 K/mm3 (150-450); RBC Distribution Width CV 14.8 % (11.6-14.6); RBC Distribution Width SD 46.2 fl (35.1-43.9); Red Blood Count 3.75 M/mm3 (4.6-6.2); White Blood Count 6.3 K/mm3 (4.4-11.0)
[2018-11-27 05:25] LABS: POSITIVE COUNT NO; POSITIVE DIFFERENTIAL NO; POSITIVE MORPHOLOGY NO
[2018-11-27 05:51] LABS: Anion Gap 5 (5-15); BUN 16 mg/dL (7-18); BUN/Creat Ratio 11.1 RATIO (10-20); Chloride 117 mmol/L (98-107); Creatinine, Serum 1.44 mg/dL (0.70-1.30); EST Glomerular Filtration Rate 52 mL/min (>60); Est Glom Filt Rate - Afr Amer 63 mL/min (>60); Glucose 51 mg/dL (74-106); Potassium 3.9 mmol/L (3.5-5.1); Sodium Level 144 mmol/L (136-145)
[2018-11-27 06:25] LABS: Bedside Glucose 60 mg/dL (70-110)
[2018-11-27] MEDS: Dextrose 50%-Water 25 GM/50 ML DISP.SYRIN IV (06:26)
--- NOTE | 2018-11-27 06:35 | NURSING ---
AM LABS SHOWED BS 51. NOTIFIED MD. BEDSIDE GLUCOSE 60. PT ASYMPTOMATIC; DENIES FEELING CLAMMY, DIZZY OR LIGHT HEADED.
[2018-11-27] MEDS: Dextrose 5%/0.9% NaCl 1,000 ML 100 ML IV (06:41)
[2018-11-27 06:56] LABS: Bedside Glucose 119 mg/dL (70-110)
--- NOTE | 2018-11-27 07:30 | HIP_PTH ---
PATIENT: JADA FISCHER LOC: [facility] U#:[id number] AGE/SX: 68/M ROOM: MO306 RE11/27/[address]: Dr. Emily Montes MD : 1950 BED: 1 DIS: 11/30/2018 SPEC #: [id number] RECD: 11/29/18 07:15 STATUS: FIDELINA REArcadio #: [id number] RONA: 11/27/18 07:[address]: Aly Camejo DEPT: SURGICAL PATHOLOGY RECD BY: Maximiliano Dawn ENTERED: 11/29/18 11:02 SP TYPE: TOTAL HIP OTHR DR: MD Dr. Rojelio Chapman DO Dr. Nicholas F Kotsonis, MD Tissues: Hip, NOS Procedures: Decalcification bone/plaque Surgery Specimen Level IV HEADER OPERATION: Left hip hemiarthroplasty PRE-OP DIAGNOSIS: Left hip fracture TISSUE SUBMITTED: Left hip bone MICROSCOPIC DIAGNOSIS Left hip bone, hemiarthroplasty: Femoral head and detached pieces of bone with focal area of hemorrhage, clinically left hip fracture. BENNY:keiko 12/02/18 MICROSCOPIC DESCRIPTION Slides are reviewed. GROSS DESCRIPTION Received is one container labeled with the patient's name and designated left hip bone. The specimen consists of a talley femoral head measuring 5 x 5 x 4 cm. The articular surface is smooth. Resection margin is irregular and hemorrhagic. Also present in the specimen container is a detached piece of bone measuring 1.5 x 0.7 [address] Oiler sections are submitted in three cassettes after decalcification as follows: 1 - detached piece of bone, 2 & 3 - femoral head. / BENNY:keiko 11/29/18 TC:5 CPT: 68073, 14726
--- NOTE | 2018-11-27 07:40 | NURSING ---
report given to HERNÁN Cartwright in [facility].
--- NOTE | 2018-11-27 07:43 | NURSING ---
Dr. barnes in room to see pt, explained procedure, concent signed, pt now being taken off of floor for surgery.
[2018-11-27] MEDS: Cefazolin 2 GM in 0.9% Normal Saline 100 ML IV (08:10)
[2018-11-27 09:27] LABS: Hemoglobin A1c 7.2 % (4.2-6.3)
--- NOTE | 2018-11-27 09:46 | RAD_ITS ---
STUDY: X-RAY - PELVIS AND LEFT HIP REASON FOR EXAM: Male, 68 years old. Postop left hip TECHNIQUE: 2 views of the pelvis and hip. One view of the pelvis, one view of the left hip. COMPARISON: November 26, 2018 left hip x-ray FINDINGS: There is a non-specific bowel gas pattern. There is gas in the soft tissues with postoperative change. There is a new left hip arthroplasty which appears to be in anatomic position and alignment there are overlying skin isabella. The bones are somewhat osteopenic. There are vascular calcifications. There is partially visualized narrowing with cortical sclerosis and osteophyte formation of the sacroiliac joint consistent with degenerative osteoarthritic changes. Normal bilateral superior and inferior pubic rami. Normal pubic symphysis. Normal bilateral ischial tuberosities. There is minimal degenerative change of the right hip joint. RAD/Hip Min 2 Views (Portable) IMPRESSION: Status post left hip arthroplasty. Electronically Signed: Mei Terry MD at 11:59 EDT Tel , Service support ,
--- NOTE | 2018-11-27 09:58 | PCM.OP.PRO ---
Procedure Report Date of Procedure: 11/27/18 Preoperative diagnosis: Left hip displaced femoral neck fracture Postoperative diagnosis: Same Operation: Left hip cemented hemiarthroplasty Surgeon: Dr. Aly Camejo MD Metal Stamper: Michelle HIDALGO Anesthesia: General Anesthesiologist; Dr. Milton Special medications: IV [Ancef], IV Tranexamic acid IV Indications for surgery : Patient is a 68 -year-old [male] that fell yesterday fracturing his Left hip. Appropriate informed consent was obtained and signed. Appropriate medical workup was performed preoperatively and patient was deemed safe for surgery by the anesthesia department portfolio assistant, GWEN was utilized throughout the entire procedure. They were vital in helping with patient positioning, holding of retractors, exposing the tissues adequately for safe completion of the procedure including cutting of the bone, helping life cycle assessment analyst appropriate alignment and sizing of the components, implantation of the components, as well as wound closure, bandage application, and safe patient transfer. Without assistant oceanographer, physician assistant professor of psychology, surgical time would have been significantly increased, and surgical outcome would have been less optimal. Operative findings: Patient displaced Left femoral neck fracture. We used a [place] Accolade C size #6 cemented. Bipolar 51 mm femoral head with a -3 neck length. This reproduced there anatomy nicely. Clinically good leg lengths were noted. Good hip stability through range of motion with no undue pistoning. Standard wound closure in layers, followed by isabella, followed by Mepilex dressing Details of procedure: Patient was taken to the operating room and transferred to the operating table. Given appropriate anesthetic agent by that department. Patient was then rolled into a lateral decubitus position with the involved painful hip up in the air. Appropriate timeouts had been performed. Hip had been appropriately marked with my initials. Padded anterior and posterior position was utilized. Axillary roll placed. JOHNNY hose and SCDs on the nonoperative limb utilized throughout the procedure. Operative lower extremity was prepped padded and draped in the usual orthopedic sterile fashion for the procedure. I injected the pain relieving solution in the standard sterile technique of the soft tissues of the hip carefully. Incision was made curving over the tip of the greater trochanter posteriorly. Full thickness skin flaps are raised down on the fascia dominga. Fascia dominga was opened in length with our incision. Charnley self-retaining hip retractor was carefully placed by the surgeon. Leg was appropriately rotated by the assistant professor of psychology. Retractor was used to lift the abductors anteriorly to visualize the piriformis tendon and external rotators. Piriformis tendon and external rotators released off the greater trochanter with the Bovie. Tagging suture was placed in each of these separately. We then split the tissue superior to the piriformis tendon through capsule and onto the pelvis. Acetabular labrum was preserved. Retractors were carefully placed around the femoral neck. Displaced unstable femoral neck fracture identified. cutting guide was utilized to map out the proposed cut approximately 1 fingerbreadth above the lesser trochanter. This femoral neck cut was carried out with a saw. Fractured femoral head removed and measured and inspected. Femoral head was measured. Appropriate trial was utilized. A proximal femoral elevator utilized. We used a sharp awl entering down inside the bone of the proximal femur. Utilized the [employer] cutting osteotome the proximal lateral greater trochanteric region. The fragment removed. Broaching was then done from the smallest broach, upto the appropriate size. Good stability was confirmed. We then trialed the construct with a standard neck length and appropriate sized femoral head. We were happy with the construct. Good stability to flexion, rotation. At this point trials removed. 2 full batches of antibiotic tobramycin bone cement were mixed. 2 sponges were placed in the acetabulum we prepared the canal with brushing. Cement restrictor was placed down to the appropriate depth. It was thoroughly irrigated clean and dry. When the cement was as the appropriate texture, we pressurized cement down in the femoral canal. The appropriate size stem then hammered into the proximal femur and seated down to a similar position as the trial had. Excess bone cement removed. Stem was held still while cement fully hardened. Pain relieving solution was injected while this was occurring. The cement was fully hardened, sponges were removed from the acetabulum. We now again trialed and appropriate neck length decided upon. We irrigated the wound with Irrisept under standard technique. . Now impacted the appropriate sized bipolar femoral head construct onto the clean dried trunion. Was noted to be stable. Hip was inspected, and joint was reduced for a final time. Good hip stability and leg lengths noted. This was then irrigated with saline and cleaned. Next the remainder of the pain relieving solution was injected carefully throughout the soft tissues of the hip joint. Closure was carried out with a combination of #1 Vicryl repairing the hip capsule as well as piriformis tendon and external rotators to bone, running #2 strata fix in the fascia dominga, followed by mid layer #1 Vicryl with #1 strata fix running. Next running 0 strata fix, followed by skin isabella, Xeroform, Mepilex dressing. We placed JOHNNY hose and SCD on the operative leg. Patient awoken from the anesthetic and transferred back to room bed in recovery room in satisfactory condition. Patient will be admitted to the hospital. Hospitalist service will continue to manage the medical issues. Hopeful discharge to home or ECF in 2-3 days. This note was generated with [employer] dictation software. It may contain incorrect words, spelling, and punctuation that were not noted in checking the note before signing.
--- NOTE | 2018-11-27 10:03 | PRO.PCM_ITS ---
Procedure Report Date of Procedure: 11/27/18 Preoperative diagnosis: Left hip displaced femoral neck fracture Postoperative diagnosis: Same Operation: Left hip cemented hemiarthroplasty Surgeon: Dr. Aly Camejo MD Product Technician: Michelle HIDALGO Anesthesia: General Anesthesiologist; Dr. Milton Special medications: IV [Ancef], IV Tranexamic acid IV Indications for surgery : Patient is a 68 -year-old [male] that fell yesterday fracturing his Left hip. Appropriate informed consent was obtained and signed. Appropriate medical workup was performed preoperatively and patient was deemed safe for surgery by the anesthesia department digital assistant, GWEN was utilized throughout the entire procedure. They were vital in helping with patient positioning, holding of retractors, exposing the tissues adequately for safe completion of the procedure including cutting of the bone, helping insurance claims assistant appropriate alignment and sizing of the components, implantation of the components, as well as wound closure, bandage application, and safe patient transfer. Without library media assistant, physician pet care assistant, surgical time would have been significantly increased, and surgical outcome would have been less optimal. Operative findings: Patient displaced Left femoral neck fracture. We used a [place] Accolade C size #6 cemented. Bipolar 51 mm femoral head with a -3 neck length. This reproduced there anatomy nicely. Clinically good leg lengths were noted. Good hip stability through range of motion with no undue pistoning. Standard wound closure in layers, followed by isabella, followed by Mepilex dressing Details of procedure: Patient was taken to the operating room and transferred to the operating table. Given appropriate anesthetic agent by that department. Patient was then rolled into a lateral decubitus position with the involved painful hip up in the air. Appropriate timeouts had been performed. Hip had been appropriately marked with my initials. Padded anterior and posterior position was utilized. Axillary roll placed. JOHNNY hose and SCDs on the nonoperative limb utilized throughout the procedure. Operative lower extremity was prepped padded and draped in the usual orthopedic sterile fashion for the procedure. I injected the pain relieving solution in the standard sterile technique of the soft tissues of the hip carefully. Incision was made curving over the tip of the greater trochanter posteriorly. Full thickness skin flaps are raised down on the fascia dominga. Fascia dominga was opened in length with our incision. Charnley self-retaining hip retractor was carefully placed by the surgeon. Leg was appropriately rotated by the pet care assistant. Retractor was used to lift the abductors anteriorly to visualize the piriformis tendon and external rotators. Piriformis tendon and external rotators released off the greater trochanter with the Bovie. Tagging suture was placed in each of these separately. We then split the tissue superior to the piriformis tendon through capsule and onto the pelvis. Acetabular labrum was preserved. Retractors were carefully placed around the femoral neck. Displaced unstable femoral neck fracture identified. cutting guide was utilized to map out the proposed cut approximately 1 fingerbreadth above the lesser trochanter. This femoral neck cut was carried out with a saw. Fractured femoral head removed and measured and inspected. Femoral head was measured. Appropriate trial was utilized. A proximal femoral elevator utilized. We used a sharp awl entering down inside the bone of the proximal femur. Utilized the [employer] cutting osteotome the proximal lateral greater trochanteric region. The fragment removed. Broaching was then done from the smallest broach, upto the appropriate size. Good stability was confirmed. We then trialed the construct with a standard neck length and appropriate sized femoral head. We were happy with the construct. Good stability to flexion, rotation. At this point trials removed. 2 full batches of antibiotic tobramycin bone cement were mixed. 2 sponges were placed in the acetabulum we prepared the canal with brushing. Cement restrictor was placed down to the appropriate depth. It was thoroughly irrigated clean and dry. When the cement was as the appropriate texture, we pressurized cement down in the femoral canal. The appropriate size stem then hammered into the proximal femur and seated down to a similar position as the trial had. Excess bone cement removed. Stem was held still while cement fully hardened. Pain relieving solution was injected while this was occurring. The cement was fully hardened, sponges were removed from the acetabulum. We now again trialed and appropriate neck length decided upon. We irrigated the wound with Irrisept under standard technique. . Now impacted the appropriate sized bipolar femoral head construct onto the clean dried trunion. Was noted to be stable. Hip was inspected, and joint was reduced for a final time. Good hip stability and leg lengths noted. This was then irrigated with saline and cleaned. Next the remainder of the pain relieving solution was injected carefully throughout the soft tissues of the hip joint. Closure was carried out with a combination of #1 Vicryl repairing the hip capsule as well as piriformis tendon and external rotators to bone, running #2 strata fix in the fascia dominga, followed by mid layer #1 Vicryl with #1 strata fix running. Next running 0 strata fix, followed by skin isabella, Xeroform, Mepilex dressing. We placed JOHNNY hose and SCD on the operative leg. Patient awoken from the anesthetic and transferred back to room bed in recovery room in satisfactory condition. Patient will be admitted to the hospital. Hospitalist service will continue to manage the medical issues. Hopeful discharge to home or ECF in 2-3 days. This note was generated with [employer] dictation software. It may contain incorrect words, spelling, and punctuation that were not noted in checking the note before signing.
--- NOTE | 2018-11-27 10:11 | CON.PCM_ITS ---
Reason for Consult Date of Consultation: 11/27/18 History of Present Illness: The patient is a 68 year old male in his usual state of health when he fell yesterday tripping on his feet. He denies head injury or loss of consciousness. He states his left hip felt fine before. Patient is very inactive. He does not go out much because of fear of getting an infection. He has had muscle weakness and muscle atrophy getting worse. He has had significant weight loss over the years. He continues on steroids, antibiotics, medications for his renal transplant. Due to hip pain after falling he was brought to the hospital and diagnosed with a left hip fracture. Orthopedics consulted. [] Past Medical History Past Medical History (Chronic Problems): Chronic Problems (Last Updated 06/02/18 @ 09:32 by Sandy Crouch) Chronic renal insufficiency (Chronic) Pancreatitis (Chronic) History of renal transplant (Chronic) Type 2 diabetes mellitus (Chronic) Hypertension (Chronic) Chronic kidney disease, stage IV (severe) (Chronic) Chronic diastolic (congestive) heart failure (Chronic) Nonrheumatic pulmonary valve insufficiency (Chronic) Nonrheumatic tricuspid valve regurgitation (Chronic) Secondary pulmonary arterial hypertension (Chronic) Non-rheumatic aortic regurgitation (Chronic) Hypertension (Chronic) Medical History: Medical History (Last Updated 06/02/18 @ 09:32 by Sandy Crouch) Chronic diastolic (congestive) heart failure (Chronic) I50.32 Nonrheumatic pulmonary valve insufficiency (Chronic) I37.1 Nonrheumatic tricuspid valve regurgitation (Chronic) I36.1 Secondary pulmonary arterial hypertension (Chronic) I27.21 Non-rheumatic aortic regurgitation (Chronic) I35.1 Hypertension (Chronic) I10 Anemia in chronic kidney disease N18.9, D63.1 Chronic pancreatitis K86.1 Secondary hypoparathyroidism E20.8 Type 2 diabetes mellitus E11.9 Dx : 20+ years ago Last exacerbation : DKA : never Hypoglycemic episode : 04/20 ER visit : 04/20 Allergies oxycodone HCl [From Percocet] Adverse Reaction (Verified 11/26/18 22:09) TOO MUCH CAUSES HALLUCINATIONS TOO MUCH Home Medications: Ambulatory Orders Medication Instructions Recorded Labetalol [Trandate (Beta Lisa)] 200 mg PO BID 12/19/13 Pantoprazole Sodium [Protonix] 40 mg PO DAILY 12/19/13 predniSONE tablet 5 mg PO DAILY 12/19/13 Aspirin [Aspirin, Baby] 81 mg PO DAILY@0800 08/16/15 Cholecalciferol (VIT D3) [Vitamin 1,000 unit PO DAILY 12/09/15 D3] amlodipine 10 mg tablet 10 mg PO QHS 12/02/17 magnesium oxide 400 mg (241.3 mg 400 mg PO BID tab 12/02/17 magnesium) tablet mycophenolate mofetil 250 mg 500 mg PO BID cap 12/02/17 capsule sulfamethoxazole 400 1 tab PO QDAY 12/02/17 mg-trimethoprim 80 mg tablet tacrolimus 1 mg capsule 3 mg PO BID cap 12/02/17 tramadol 50 mg tablet 50 mg PO BID PRN tab 12/02/17 insulin glargine (U-100) 100 13 units SC DAILY 06/02/18 unit/mL (3 mL) subcutaneous pen insulin lispro (U- 100) 100 See Rx Instructions SC TID ml 06/02/18 unit/mL subcutaneous pen Surgical History: Surgical History (Last Reviewed 06/02/18 @ 09:21 by Sandy Crouch) Hx of cholecystectomy Z90.49 Kidney replaced by transplant Onset Date: ~10/15/11 Z94.0 Right Surgical History: cholecystectomy, - - Kidney transplant, sphincterotomy, left wrist fusion Lives: Spouse/ Significant Other Smoking Status: Former smoker Tobacco Use: Cigarettes Alcohol: None Drugs: None - *Family History Maternal History Items: Diabetes, No pertinent history Paternal History Items: No pertinent history Sibling History Items: Cancer - Throat, No pertinent history Patient Problems: Active and Suspected Problems (Last Updated 06/02/18 @ 09:32 by Sandy Crouch) Closed left hip fracture (Acute) Fall from slip, trip, or stumble (Acute) Objective: Review of systems: Patient denies any recent changes with his eyes ears nose or throat heart or lungs bowel or bladder. He has had weight loss over the years. He has had weakness and diminished muscle mass over the years. No significant recent acute changes. Left hip has shortening and rotation. Left hip has pain with rotation. Right hip has full range of motion without pain. No calf pain or swelling bilaterally. JOHNNY hose and SCDs on. Legs are grossly neurovascular intact. X-rays AP and lateral of left hip shows a displaced left femoral neck fracture. AP pelvis shows no obvious right hip fracture. Some osteopenia noted Operatory work and vital signs reviewed Case discussed with ER physician - Physical Exam Vital Signs Temp Pulse Resp BP Pulse Ox 98.1 F 70 18 168/72 H 94 11/27/18 07:41 11/27/18 07:41 11/27/18 07:41 11/27/18 07:41 11/27/18 07:41 Oxygen Delivery Method Room Air Weight: 63.503 kg Body Mass Index (BMI) 17.9 Finger Stick Blood Glucose 142 Intake and Output for Last 24 Hours 11/25/18 11/26/18 11/27/18 23:59 23:59 23:59 Intake Total 619 / 619 Output Total 200 / 200 Balance 419 / 419 Laboratory Tests Past 24 Hrs 11/26/18 11/26/18 11/27/18 23:10 23:10 05:10 WBC 3.6 L 6.3 RBC 4.06 L 3.75 L Hgb 12.7 L 11.6 L Hct 36.7 L 33.3 L MCV 90.4 88.8 MCH 31.3 30.9 MCHC 34.6 34.8 RDW 15.3 H 14.8 H RDW Differential 50.6 H 46.2 H Plt Count 140 L 135 L MPV 9.9 10.3 Immature Gran % (Auto) 0.000 0.200 Neut % (Auto) 59.6 71.9 H Lymph % (Auto) 27.6 14.2 L [place] % (Auto) 12.0 H 13.1 H Eos % (Auto) 0.8 0.6 Baso % (Auto) 0.0 0.0 Absolute Neuts (auto) 2.1 4.5 Absolute Lymphs (auto) 0.99 0.89 Total Counted Not Reportable Not Reportable Sodium 142 Potassium 5.1 Chloride 113 H Carbon Dioxide 24.0 Anion Gap 5 BUN 15 Creatinine 1.64 H Estim Creat Clear Calc 40.93 Est GFR (MDRD) Af Amer 54 L Est GFR (MDRD) Non-Af 45 L BUN/Creatinine Ratio 9.1 L Glucose 74 Hemoglobin A1c Calcium 8.5 Blood Type Antibody Screen 11/27/18 11/27/18 11/27/18 05:10 05:10 05:10 WBC RBC Hgb Hct MCV MCH MCHC RDW RDW Differential Plt Count MPV Immature Gran % (Auto) Neut % (Auto) Lymph % (Auto) [place] % (Auto) Eos % (Auto) Baso % (Auto) Absolute Neuts (auto) Absolute Lymphs (auto) Total Counted Sodium 144 Potassium 3.9 Chloride 117 H Carbon Dioxide 22.0 Anion Gap 5 BUN 16 Creatinine 1.44 H Estim Creat Clear Calc 44.10 Est GFR (MDRD) Af Amer 63 Est GFR (MDRD) Non-Af 52 L BUN/Creatinine Ratio 11.1 Glucose 51 L Hemoglobin A1c 7.2 H Calcium 8.0 L Blood Type O POSITIVE Antibody Screen NEGATIVE POC Glucose 11/27/18 11/27/18 06:50 06:20 POC Glucose 119 H 60 L Assessment/Plan All Active Problems (Last Updated 06/02/18 @ 09:32 by Sandy Crouch) Closed left hip fracture (Acute) Fall from slip, trip, or stumble (Acute) Acute metabolic encephalopathy due to hypoglycemia (Acute) Osteomyelitis (Resolved) Biventricular congestive heart failure (Resolved) History of pancreatitis (Resolved) Left hip displaced femoral neck fracture. Treatment options discussed with him and his at length. Possibility of a hemiarthroplasty or total hip replacement discussed. I explained the risks benefits and alternative procedures in regards to this. After prolonged discussion we decided to proceed with hemiarthroplasty. I explained based on his overall health, limiting the length of the surgery, hopefully decreasing his chance of a dislocation, and I believe giving him a surgical result that he will be happy, we decided to proceed with cemented hemiarthroplasty. I explained if he develops hip pain in the future from arthritis, this could be converted to a total hip replacement if needed. I explained I doubted that would need to be done. No guarantees were stated or implied Risk of surgery including but not limited to from operative or postoperative complications. Risk of anesthetic complications such as heart attacks, strokes, seizures, or . Risk of infections. Risk of damage to nerves arteries tendons. Risk of inadvertent fractures or dislocations. Risk of bone or wound healing complications. Possibility of length discrepancy, joint pain stiffness weakness. Possible need for further surgery such as hardware removal. Risk of DVT PE and other potential complications could lead to or disability explained. No guarantees were stated or implied. All of their questions were answered. Appropriate informed consent was obtained and signed for surgical intervention. Continue current medical management of his comorbidities by the hospitalist service. Plan Ancef for perioperative antibiotic, aspirin for postoperative DVT prophylaxis This note was generated with Mindflashation software. It may contain incorrect words, spelling, and punctuation that were not noted in checking the note before signing.
[2018-11-27 10:30] LABS: Bedside Glucose 60 mg/dL (70-110)
[2018-11-27] MEDS: Scopolamine 1mg/72hr Patch 1 PATCH TD (10:35)
[2018-11-27] MEDS: Smz/Tmp Ds Tablet 1 TABLET PO (11:12)
[2018-11-27] MEDS: Mycophenolate Mofetil 250 MG Capsule 500 MG PO ×2 (11:13→21:52)
[2018-11-27] MEDS: predniSONE 5 MG Tablet PO (11:13)
[2018-11-27] MEDS: Pantoprazole Sodium 40 MG Tablet PO (11:13)
[2018-11-27] MEDS: Tacrolimus Anhydrous 1 MG Capsule 3 MG PO ×2 (11:14→21:52)
[2018-11-27] MEDS: Senna/Docusate Sodium 1 Tablet 2 TABLET PO ×2 (11:19→21:52)
[2018-11-27 11:51] LABS: Bedside Glucose 94 mg/dL (70-110)
--- NOTE | 2018-11-27 11:59 | PCM.PROGNOTE ---
Patient Problems: Active and Suspected Problems (Last Updated 06/02/18 @ 09:32 by Sandy Crouch) Closed left hip fracture (Acute) Subjective: Chief complaint: Follow-up after admission for acute traumatic displaced left femoral neck fracture. Patient seen and examined. He just came out from the OR. Is doing fine. Left hip pain is 2 out of 10 in severity. Denies any chest pain or shortness of breath. His vital signs are stable. - Physical Exam General: Alert, Oriented x3, Cooperative, No apparent distress HEENT: Atraumatic, PERRLA, EOMI, Normocephalic Oral: Moist Mucosa, No Gingival or Mucosal Lesions/ Ulcerations Neck: Supple, No JVD, Negative Carotid Bruits, Trachea Midline, Thyroid Normal Size and Texture Lungs: Clear to auscultation, No rhonchi, No wheeze, No rales, Diminished Cardiovascular: Regular rate, Regular Rhythm, Normal S1, Normal S2, No murmurs, PMI Normal Abdomen: Bowel Sounds Present, Soft, Non Tender, Non-Distended, No Hepato-splenomegaly Extremities: No clubbing, No cyanosis, No edema Skin: No rashes, No breakdown Lymphatic: No Cervical, Supraclavicular, or Inguinal Adenopathy Neurological: Cranial nerves II-XII grossly intact, Neuro grossly intact Psych/Mental Status: Normal Affect, Appropriate, Alert and oriented to time, place, person, mood and affect Vital Signs Temp Pulse Resp BP Pulse Ox 97.6 F L 58 L 18 149/71 H 95 11/27/18 11:25 11/27/18 11:30 11/27/18 11:25 11/27/18 11:25 11/27/18 11:25 Oxygen Delivery Method Room Air Weight: 140 lb Body Mass Index (BMI) 17.9 Finger Stick Blood Glucose 60 Intake and Output for Last 24 Hours 11/25/18 11/26/18 11/27/18 23:59 23:59 23:59 Intake Total 2319 / 2319 Output Total 600 / 600 Balance 1719 / 1719 Laboratory Tests Past 24 Hrs 11/26/18 11/26/18 11/27/18 23:10 23:10 05:10 WBC 3.6 L 6.3 RBC 4.06 L 3.75 L Hgb 12.7 L 11.6 L Hct 36.7 L 33.3 L MCV 90.4 88.8 MCH 31.3 30.9 MCHC 34.6 34.8 RDW 15.3 H 14.8 H RDW Differential 50.6 H 46.2 H Plt Count 140 L 135 L MPV 9.9 10.3 Immature Gran % (Auto) 0.000 0.200 Neut % (Auto) 59.6 71.9 H Lymph % (Auto) 27.6 14.2 L [place] % (Auto) 12.0 H 13.1 H Eos % (Auto) 0.8 0.6 Baso % (Auto) 0.0 0.0 Absolute Neuts (auto) 2.1 4.5 Absolute Lymphs (auto) 0.99 0.89 Total Counted Not Reportable Not Reportable Sodium 142 Potassium 5.1 Chloride 113 H Carbon Dioxide 24.0 Anion Gap 5 BUN 15 Creatinine 1.64 H Estim Creat Clear Calc 40.93 Est GFR (MDRD) Af Amer 54 L Est GFR (MDRD) Non-Af 45 L BUN/Creatinine Ratio 9.1 L Glucose 74 Hemoglobin A1c Calcium 8.5 Blood Type Antibody Screen 11/27/18 11/27/18 11/27/18 05:10 05:10 05:10 WBC RBC Hgb Hct MCV MCH MCHC RDW RDW Differential Plt Count MPV Immature Gran % (Auto) Neut % (Auto) Lymph % (Auto) [place] % (Auto) Eos % (Auto) Baso % (Auto) Absolute Neuts (auto) Absolute Lymphs (auto) Total Counted Sodium 144 Potassium 3.9 Chloride 117 H Carbon Dioxide 22.0 Anion Gap 5 BUN 16 Creatinine 1.44 H Estim Creat Clear Calc 44.10 Est GFR (MDRD) Af Amer 63 Est GFR (MDRD) Non-Af 52 L BUN/Creatinine Ratio 11.1 Glucose 51 L Hemoglobin A1c 7.2 H Calcium 8.0 L Blood Type O POSITIVE Antibody Screen NEGATIVE POC Glucose 11/27/18 11/27/18 11/27/18 11:24 10:22 06:50 POC Glucose 94 60 L 119 H 11/27/18 06:20 POC Glucose 60 L Clinical Impression(s) from Imaging Studies Hip/Pelvis X-Ray 11/26/18 22:55 IMPRESSION: Left hip fracture Electronically Signed: Hamzah Felipe MD at 23:37 EDT , Service support , Chest X-Ray 11/26/18 23:50 IMPRESSION: Normal x-ray examination of the chest. Electronically Signed: Luther Martinez MD at 0:15 EDT , Service support , Hip X-Ray 11/27/18 09:46 IMPRESSION: Status post left hip arthroplasty. Electronically Signed: Mei Terry MD at 11:59 EDT Tel , Service support , Medical Necessity - Tobacco Use Smoking Status: Former smoker Tobacco Use: Cigarettes Assessment/Plan All Active Problems (Last Updated 06/02/18 @ 09:32 by Sandy Crouch) Closed left hip fracture (Acute) This is a 68 years old male patient presented to the emergency room because of mechanical fall, found to have displaced left hip femoral neck fracture, underwent left hip cemented hemiarthroplasty. #1 acute traumatic displaced femoral neck fracture of the left hip: Due to mechanical fall. Status post left hip cemented knee arthroplasty, postoperative day 0. Vital signs are stable, left hip pain is controlled. He is on IV morphine as needed for pain, on IV cefazolin for perioperative prophylaxis. Routine blood work reviewed, stable at baseline. Orthopedic surgery is managing. Plan to continue same treatment, repeat CBC and BMP tomorrow morning. #2 type 2 diabetes mellitus: Blood sugar has been stable, he is on Lantus and insulin sliding scale. Plan to continue same treatment. #3 stage IV chronic kidney disease status post kidney transplant: Baseline creatinine is around 1.4 to 2 mg/dL. Today's creatinine is 1.44, stable at baseline. Continue Prograf, prednisone, CellCept and Bactrim. #4 hypertension: Blood pressure stable, continue Norvasc, revealed. #5 chronic diastolic CHF: Patient is stable, compensated. Continue to be delivered and aspirin. Close monitor volume status. #6 chronic pulmonary hypertension: Stable, no acute issues. #7 chronic anemia: Hemoglobin stable at baseline, no evidence of active bleeding. Plan to repeat CBC tomorrow morning. #8 DVT prophylaxis: Started on aspirin twice daily. This note was generated with [employer] dictation software. It may contain incorrect words, spelling, and punctuation that were not noted in checking the note before signing. Code Visit Inpatient E&M: 65573 Subs Hosp L2
--- NOTE | 2018-11-27 12:03 | PN_ITS ---
Patient Problems: Active and Suspected Problems (Last Updated 06/02/18 @ 09:32 by Sandy Crouch) Closed left hip fracture (Acute) Subjective: Chief complaint: Follow-up after admission for acute traumatic displaced left femoral neck fracture. Patient seen and examined. He just came out from the OR. Is doing fine. Left hip pain is 2 out of 10 in severity. Denies any chest pain or shortness of breath. His vital signs are stable. - Physical Exam General: Alert, Oriented x3, Cooperative, No apparent distress HEENT: Atraumatic, PERRLA, EOMI, Normocephalic Oral: Moist Mucosa, No Gingival or Mucosal Lesions/ Ulcerations Neck: Supple, No JVD, Negative Carotid Bruits, Trachea Midline, Thyroid Normal Size and Texture Lungs: Clear to auscultation, No rhonchi, No wheeze, No rales, Diminished Cardiovascular: Regular rate, Regular Rhythm, Normal S1, Normal S2, No murmurs, PMI Normal Abdomen: Bowel Sounds Present, Soft, Non Tender, Non-Distended, No Hepato- splenomegaly Extremities: No clubbing, No cyanosis, No edema Skin: No rashes, No breakdown Lymphatic: No Cervical, Supraclavicular, or Inguinal Adenopathy Neurological: Cranial nerves II-XII grossly intact, Neuro grossly intact Psych/Mental Status: Normal Affect, Appropriate, Alert and oriented to time, place, person, mood and affect Vital Signs Temp Pulse Resp BP Pulse Ox 97.6 F L 58 L 18 149/71 H 95 11/27/18 11:25 11/27/18 11:30 11/27/18 11:25 11/27/18 11:25 11/27/18 11:25 Oxygen Delivery Method Room Air Weight: 140 lb Body Mass Index (BMI) 17.9 Finger Stick Blood Glucose 60 Intake and Output for Last 24 Hours 11/25/18 11/26/18 11/27/18 23:59 23:59 23:59 Intake Total 2319 / 2319 Output Total 600 / 600 Balance 1719 / 1719 Laboratory Tests Past 24 Hrs 11/26/18 11/26/18 11/27/18 23:10 23:10 05:10 WBC 3.6 L 6.3 RBC 4.06 L 3.75 L Hgb 12.7 L 11.6 L Hct 36.7 L 33.3 L MCV 90.4 88.8 MCH 31.3 30.9 MCHC 34.6 34.8 RDW 15.3 H 14.8 H RDW Differential 50.6 H 46.2 H Plt Count 140 L 135 L MPV 9.9 10.3 Immature Gran % (Auto) 0.000 0.200 Neut % (Auto) 59.6 71.9 H Lymph % (Auto) 27.6 14.2 L [place] % (Auto) 12.0 H 13.1 H Eos % (Auto) 0.8 0.6 Baso % (Auto) 0.0 0.0 Absolute Neuts (auto) 2.1 4.5 Absolute Lymphs (auto) 0.99 0.89 Total Counted Not Reportable Not Reportable Sodium 142 Potassium 5.1 Chloride 113 H Carbon Dioxide 24.0 Anion Gap 5 BUN 15 Creatinine 1.64 H Estim Creat Clear Calc 40.93 Est GFR (MDRD) Af Amer 54 L Est GFR (MDRD) Non-Af 45 L BUN/Creatinine Ratio 9.1 L Glucose 74 Hemoglobin A1c Calcium 8.5 Blood Type Antibody Screen 11/27/18 11/27/18 11/27/18 05:10 05:10 05:10 WBC RBC Hgb Hct MCV MCH MCHC RDW RDW Differential Plt Count MPV Immature Gran % (Auto) Neut % (Auto) Lymph % (Auto) [place] % (Auto) Eos % (Auto) Baso % (Auto) Absolute Neuts (auto) Absolute Lymphs (auto) Total Counted Sodium 144 Potassium 3.9 Chloride 117 H Carbon Dioxide 22.0 Anion Gap 5 BUN 16 Creatinine 1.44 H Estim Creat Clear Calc 44.10 Est GFR (MDRD) Af Amer 63 Est GFR (MDRD) Non-Af 52 L BUN/Creatinine Ratio 11.1 Glucose 51 L Hemoglobin A1c 7.2 H Calcium 8.0 L Blood Type O POSITIVE Antibody Screen NEGATIVE POC Glucose 11/27/18 11/27/18 11/27/18 11:24 10:22 06:50 POC Glucose 94 60 L 119 H 11/27/18 06:20 POC Glucose 60 L Clinical Impression(s) from Imaging Studies Hip/Pelvis X-Ray 11/26/18 22:55 IMPRESSION: Left hip fracture Electronically Signed: Hamzah Felipe MD at 23:37 EDT , Service support , Chest X-Ray 11/26/18 23:50 IMPRESSION: Normal x-ray examination of the chest. Electronically Signed: Luther Martinez MD at 0:15 EDT , Service support , Hip X-Ray 11/27/18 09:46 IMPRESSION: Status post left hip arthroplasty. Electronically Signed: Mei Terry MD at 11:59 EDT Tel , Service support , Medical Necessity - Tobacco Use Smoking Status: Former smoker Tobacco Use: Cigarettes Assessment/Plan All Active Problems (Last Updated 06/02/18 @ 09:32 by Sandy Crouch) Closed left hip fracture (Acute) This is a 68 years old male patient presented to the emergency room because of mechanical fall, found to have displaced left hip femoral neck fracture, underwent left hip cemented hemiarthroplasty. #1 acute traumatic displaced femoral neck fracture of the left hip: Due to mechanical fall. Status post left hip cemented knee arthroplasty, postoperative day 0. Vital signs are stable, left hip pain is controlled. He is on IV morphine as needed for pain, on IV cefazolin for perioperative prophylaxis. Routine blood work reviewed, stable at baseline. Orthopedic surgery is shawnagir[facility] storey. Plan to continue same treatment, repeat CBC and BMP tomorrow morning. #2 type 2 diabetes mellitus: Blood sugar has been stable, he is on Lantus and insulin sliding scale. Plan to continue same treatment. #3 stage IV chronic kidney disease status post kidney transplant: Baseline creatinine is around 1.4 to 2 mg/dL. Today's creatinine is 1.44, stable at baseline. Continue Prograf, prednisone, CellCept and Bactrim. #4 hypertension: Blood pressure stable, continue Norvasc, revealed. #5 chronic diastolic CHF: Patient is stable, compensated. Continue to be delivered and aspirin. Close monitor volume status. #6 chronic pulmonary hypertension: Stable, no acute issues. #7 chronic anemia: Hemoglobin stable at baseline, no evidence of active bleeding. Plan to repeat CBC tomorrow morning. #8 DVT prophylaxis: Started on aspirin twice daily. This note was generated with [employer] dictation software. It may contain incorrect words, spelling, and punctuation that were not noted in checking the note before signing. Code Visit Inpatient E&M: 54332 Subs Hosp L2
[2018-11-27] MEDS: Dextrose 5%/0.9% NaCl 1,000 ML 75 ML IV (12:26)
[2018-11-27] MEDS: Glucerna Shake 120 ML LIQUID PO ×3 (13:29→22:02)
--- NOTE | 2018-11-27 14:30 | CASEMGMT ---
Social Work MS3 Consult for discharge planning. Chart reviewed and noted that patient had a hip fracture and surgical repair occurred this date. Met with patient and in room. Introduced to social work role. Patient in and out of sleep during social work visit. Pleasant and indicated that okay for case management social worker to remain and talk with . reports to assist with driving, meals, groceries, housework. reports patient has been weaker recently and assist patient when needed at home. Patient does use a cane for ambulation and has a stationary bike he uses for exercise. [facility] is preferred pharmacy. reports concern for patient's weakened state prior to fall and hip fracture and how this may impact rehab post surgery. reports she herself has had 2 back surgeries and is slated to have another soon. Due to own functional limitations the is leery about taking patient home right way, for patient's safety and also for 's own physical well being. First choice is [facility]. List of SNF's provided from insurance website. and patient will consider. Educated that patient has to have a therapy evaluation and then will determine whether there is a need for skilled care. Educated that must submit for approval through insurance and length of time at SNF is dependent on need. expresses understanding. Called [phone] and left message of referral for TCU. Plan: anticipating SNF level of care post discharge, but awaiting recommendations from therapy evaluations. -MIKE Santa, OPTICAL LAB TECHNICIAN
[2018-11-27] MEDS: Cefazolin 1 GM/50 ML BAG IV ×2 (14:37→19:45)
[2018-11-27] MEDS: Aspirin 81 MG TAB.CHEW PO (16:28)
[2018-11-27 16:31] LABS: Bedside Glucose 180 mg/dL (70-110)
[2018-11-27] MEDS: Insulin Lispro 100 UNIT/ML INSULN.PEN SQ (21:52)
[2018-11-28 00:15] LABS: Bedside Glucose 280 mg/dL (70-110)
[2018-11-28 02:15] VITALS: BP 146/53; PULSE 67; RESP 18; TEMP 36.9; O2SAT 98
[2018-11-28] MEDS: Cefazolin 1 GM/50 ML BAG IV (02:24)
[2018-11-28] MEDS: Acetaminophen 325 MG Tablet 650 MG PO ×2 (06:23→21:28)
[2018-11-28] MEDS: Insulin Lispro 100 UNIT/ML INSULN.PEN SQ ×2 (06:23→11:26)
[2018-11-28 06:26] LABS: Bedside Glucose 199 mg/dL (70-110)
[2018-11-28 07:33] LABS: Hematocrit 31.7 % (40-54); Hemoglobin 10.7 g/dl (13.0-16.5); Mean Corp Hgb Conc 33.8 g/gl (32-36); Mean Corpuscular Hgb 30.8 pg (27.0-32.0); Mean Corpuscular Volume 91.4 fL (80-94); Platelet Count 140 K/mm3 (150-450); RBC Distribution Width CV 15.5 % (11.6-14.6); RBC Distribution Width SD 51.8 fl (35.1-43.9); Red Blood Count 3.47 M/mm3 (4.6-6.2); White Blood Count 10.7 K/mm3 (4.4-11.0)
[2018-11-28 07:41] LABS: Scan Indicated on CBC? Y/N NO
[2018-11-28 07:59] LABS: Anion Gap 8 (5-15); BUN 19 mg/dL (7-18); BUN/Creat Ratio 10.9 RATIO (10-20); Calcium,Total 7.6 mg/dL (8.5-10.1); Chloride 111 mmol/L (98-107); Creatinine, Serum 1.75 mg/dL (0.70-1.30); EST Glomerular Filtration Rate 41 mL/min (>60); Est Glom Filt Rate - Afr Amer 50 mL/min (>60); Estimated Creatinine Clearance 36.29 ml/min; Glucose 185 mg/dL (74-106); Potassium 4.6 mmol/L (3.5-5.1); Sodium Level 138 mmol/L (136-145)
--- NOTE | 2018-11-28 08:40 | PN_ITS ---
Patient Problems: Active and Suspected Problems (Last Updated 06/02/18 @ 09:32 by Sandy Crouch) Closed left hip fracture (Acute) Subjective: Chief complaint: Follow-up after admission for acute traumatic displaced left femoral neck fracture. Patient seen and examined. No acute events overnight. Left hip pain is manageable with current pain medication regimen. He complained of pain upon ambulation. Denied chest pain or shortness of breath. His vital signs are stable. - Physical Exam General: Alert, Oriented x3, Cooperative, No apparent distress HEENT: Atraumatic, PERRLA, EOMI, Normocephalic Oral: Moist Mucosa, No Gingival or Mucosal Lesions/ Ulcerations Neck: Supple, No JVD, Negative Carotid Bruits, Trachea Midline, Thyroid Normal Size and Texture Lungs: Clear to auscultation, No rhonchi, No wheeze, No rales, Diminished Cardiovascular: Regular rate, Regular Rhythm, Normal S1, Normal S2, PMI Normal Abdomen: Bowel Sounds Present, Soft, Non Tender, Non-Distended, No Hepato- splenomegaly Extremities: No clubbing, No cyanosis, No edema Skin: No rashes, No breakdown, Incision Lymphatic: No Cervical, Supraclavicular, or Inguinal Adenopathy Neurological: Cranial nerves II-XII grossly intact, Neuro grossly intact Psych/Mental Status: Normal Affect, Appropriate, Alert and oriented to time, place, person, mood and affect Vital Signs Temp Pulse Resp BP Pulse Ox 98.4 F 67 18 146/53 H 98 11/28/18 02:15 11/28/18 02:15 11/28/18 02:15 11/28/18 02:15 11/28/18 02:15 Oxygen Delivery Method Room Air Weight: 139 lb 15.896 oz Body Mass Index (BMI) 17.9 Finger Stick Blood Glucose 60 Intake and Output for Last 24 Hours 11/26/18 11/27/18 11/28/18 23:59 23:59 23:59 Intake Total 3328 / 3328 250 / 250 Output Total 600 / 600 150 / 150 Balance 2728 / 2728 100 / 100 Laboratory Tests Past 24 Hrs 11/27/18 11/28/18 11/28/18 05:10 06:07 06:07 WBC 10.7 RBC 3.47 L Hgb 10.7 L Hct 31.7 L MCV 91.4 MCH 30.8 MCHC 33.8 RDW 15.5 H RDW Differential 51.8 H Plt Count 140 L MPV 11.0 Sodium 138 Potassium 4.6 Chloride 111 H Carbon Dioxide 19.0 L Anion Gap 8 BUN 19 H Creatinine 1.75 H Estim Creat Clear Calc 36.29 Est GFR (MDRD) Af Amer 50 L Est GFR (MDRD) Non-Af 41 L BUN/Creatinine Ratio 10.9 Glucose 185 H Hemoglobin A1c 7.2 H Calcium 7.6 L POC Glucose 11/28/18 11/27/18 11/27/18 06:15 21:07 16:24 POC Glucose 199 H 280 H 180 H 11/27/18 11/27/18 11:24 10:22 POC Glucose 94 60 L Medical Necessity - Tobacco Use Smoking Status: Former smoker Tobacco Use: Cigarettes Assessment/Plan All Active Problems (Last Updated 06/02/18 @ 09:32 by Snady Crouch) Closed left hip fracture (Acute) This is a 68 years old male patient presented to the emergency room because of mechanical fall, found to have displaced left hip femoral neck fracture, underwent left hip cemented hemiarthroplasty. #1 acute traumatic displaced femoral neck fracture of the left hip: Due to mechanical fall. Status post left hip cemented knee arthroplasty, postoperative day 1. Vital signs are stable, left hip pain is manageable. He is on IV morphine as needed for pain as well as tramadol. Repeat routine blood work reviewed, stable at baseline. Orthopedic surgery is managing. Plan to continue same treatment, awaiting placement to care home facility #2 type 2 diabetes mellitus: Blood sugar has been stable, he is on Lantus and insulin sliding scale. continue same treatment. #3 stage IV chronic kidney disease status post kidney transplant: Baseline creatinine is around 1.4 to 2 mg/dL. Today's creatinine is 1.75, remained stable at baseline. Continue Prograf, prednisone, CellCept and Bactrim. Plan to repeat BMP tomorrow morning. #4 hypertension: Blood pressure stable, continue Norvasc, revealed. #5 chronic diastolic CHF: Patient is stable, compensated. Continue labetalol and aspirin. #6 chronic pulmonary hypertension: Stable, no acute issues. #7 chronic anemia: Hemoglobin stable at baseline, no evidence of active bleeding. Plan to repeat CBC tomorrow morning. #8 DVT prophylaxis: on aspirin twice daily. This note was generated with Unveilation software. It may contain incorrect words, spelling, and punctuation that were not noted in checking the note before signing. Code Visit Inpatient E&M: 66944 Subs Hosp L2
[2018-11-28 09:35] VITALS: BP 122/49; PULSE 63; RESP 18; TEMP 37.1; O2SAT 96
[2018-11-28] MEDS: Tacrolimus Anhydrous 1 MG Capsule 3 MG PO ×2 (09:37→21:28)
[2018-11-28] MEDS: Mycophenolate Mofetil 250 MG Capsule 500 MG PO ×2 (09:38→21:28)
[2018-11-28] MEDS: Smz/Tmp Ds Tablet 1 TABLET PO (09:38)
[2018-11-28] MEDS: Labetalol 200 MG Tablet PO ×2 (09:38→21:28)
[2018-11-28] MEDS: Aspirin 81 MG TAB.CHEW PO ×2 (09:38→16:21)
[2018-11-28] MEDS: Pantoprazole Sodium 40 MG Tablet PO (09:38)
[2018-11-28] MEDS: Senna/Docusate Sodium 1 Tablet 2 TABLET PO ×2 (09:38→21:28)
[2018-11-28] MEDS: predniSONE 5 MG Tablet PO (09:39)
[2018-11-28] MEDS: Magnesium Oxide 400 MG Tablet PO ×2 (09:42→16:20)
[2018-11-28] MEDS: Glucerna Shake 120 ML LIQUID PO ×4 (09:42→21:28)
[2018-11-28 11:45] LABS: Bedside Glucose 187 mg/dL (70-110)
[2018-11-28 14:40] VITALS: BP 125/67; PULSE 60; RESP 18; TEMP 37.1; O2SAT 95
[2018-11-28 16:30] LABS: Bedside Glucose 103 mg/dL (70-110)
[2018-11-28] MEDS: Dextrose 50%-Water 25 GM/50 ML DISP.SYRIN IV (17:48)
--- NOTE | 2018-11-28 17:55 | NURSING ---
Blood sugar 45 per Angie RN. This nurse called lab to come and get lab back up. Angie just finished pushing 1 amp of D50.
--- NOTE | 2018-11-28 17:57 | NURSING ---
Pts reported that pts blood sugar dropped, came into pts pt was lethargic and confused and diaphretic. Blood sugar checked and was 45, obtained glass of dalej, put pt was to lethargic to under stand to swallow, attempted to push d50 but iv infiltrated when flushed, new iv places and d50 pushed, lab called for back up and reckeched blood sugar with results of 226. pt now alert responding to questions
[2018-11-28 18:21] LABS: Glucose 149 mg/dL (74-106)
--- NOTE | 2018-11-28 19:30 | PCM.PN.ORT ---
Patient Problems: Active and Suspected Problems (Last Updated 06/02/18 @ 09:32 by Sandy Crouch) Closed left hip fracture (Acute) Subjective: Patient is postoperative day #1 from left hip cemented hemiarthroplasty. He is very comfortable. Pain currently 0 out of 10. Some pain when he moves or ambulates. Denies chest pain or shortness of breath. Denies fever chills. Denies calf pain. Objective: Patient is alert and oriented x3 cooperative with exam. Pleasant during exam. He is lying in bed comfortably. Mepilex dressing is on and dry. Clinically leg lengths are equal. No deformity of the left hip. No calf pain or swelling bilaterally. Negative Homans sign bilaterally. SCDs on. Good active plantar flexion dorsiflexion toes and ankles bilaterally. No pain with gentle hip axial loading or rotation. Legs are neurovascular intact. X-rays AP pelvis and lateral of left hip shows a cemented stem bipolar hemiarthroplasty in good position without obvious loosening failure fracture. Lesser trochanter remains difficult to identify on the left which may be positional. Was not appreciated on preoperative films either. Laboratory work and vital signs reviewed. Notes from hospitalist reviewed - Physical Exam Vital Signs Temp Pulse Resp BP Pulse Ox 98.7 F 60 18 125/67 H 95 11/28/18 14:40 11/28/18 14:40 11/28/18 14:40 11/28/18 14:40 11/28/18 14:40 Oxygen Delivery Method Room Air Weight: 63.5 kg Body Mass Index (BMI) 17.9 Finger Stick Blood Glucose 60 Intake and Output for Last 24 Hours 11/26/18 11/27/18 11/28/18 23:59 23:59 23:59 Intake Total 3328 / 3328 1150 / 1150 Output Total 600 / 600 400 / 400 Balance 2728 / 2728 750 / 750 Laboratory Tests Past 24 Hrs 11/28/18 11/28/18 11/28/18 06:07 06:07 18:05 WBC 10.7 RBC 3.47 L Hgb 10.7 L Hct 31.7 L MCV 91.4 MCH 30.8 MCHC 33.8 RDW 15.5 H RDW Differential 51.8 H Plt Count 140 L MPV 11.0 Sodium 138 Potassium 4.6 Chloride 111 H Carbon Dioxide 19.0 L Anion Gap 8 BUN 19 H Creatinine 1.75 H Estim Creat Clear Calc 36.29 Est GFR (MDRD) Af Amer 50 L Est GFR (MDRD) Non-Af 41 L BUN/Creatinine Ratio 10.9 Glucose 185 H 149 H Calcium 7.6 L POC Glucose 11/28/18 11/28/18 11/28/18 16:17 11:24 06:15 POC Glucose 103 187 H 199 H 11/27/18 21:07 POC Glucose 280 H Medical Necessity - Tobacco Use Smoking Status: Former smoker Tobacco Use: Cigarettes Assessment/Plan All Active Problems (Last Updated 06/02/18 @ 09:32 by Sandy Crouch) Closed left hip fracture (Acute) Left hip cemented hemiarthroplasty postoperative day 1. Continue aspirin 81 mg twice a day for DVT prevention. Continue incentive spirometer use, JOHNNY hose, SCDs. Weightbearing as tolerated. Continue hip dislocation precautions with no flexion greater than 90 degrees and do not cross legs. Continue Mepilex dressing. He can be discharged to ECF when medically stable. Follow-up with orthopedics in 10 to 14 days. We will evaluate him, do x-rays and remove his isabella then. He understands and agrees. Diabetes and multiple medical comorbidities, continue evaluation treatment per hospitalist service. Would much prefer to keep blood sugars below 200 to diminish risk of postoperative infection. Orthopedically stable, I am signing off his in hospital care. Can be notified if needed. Otherwise I will see him in the office as above.
[2018-11-28 21:30] VITALS: BP 131/66; PULSE 61; RESP 16; TEMP 36.8; O2SAT 98
[2018-11-28] MEDS: amLODIPine 10 MG Tablet PO (21:33)
[2018-11-28 22:25] LABS: Bedside Glucose 41 mg/dL (70-110)
[2018-11-28 22:25] LABS: Bedside Glucose 49 mg/dL (70-110)
[2018-11-28 22:25] LABS: Bedside Glucose 72 mg/dL (70-110)
[2018-11-28 22:29] LABS: Glucose 37 mg/dL (74-106)
[2018-11-29 02:15] VITALS: BP 145/75; PULSE 76; RESP 18; TEMP 36.9; O2SAT 100
[2018-11-29 02:31] LABS: Bedside Glucose 211 mg/dL (70-110)
[2018-11-29 05:39] LABS: Absolute Lymphocyte Count 1.05 X10^3/ul (0.83-4.51); Absolute Neutrophil Count 6.5 X10^3/uL (2.0-7.7); Eosinophil# 0.03 X10^3/uL; Eosinophils% 0.4 % (0-5); Hematocrit 27.9 % (40-54); Hemoglobin 9.6 g/dl (13.0-16.5); Lymphocyte # 1.05 X10^3/ul (4.0); Lymphocyte % 12.4 % (19-41); Mean Corp Hgb Conc 34.4 g/gl (32-36); Mean Corpuscular Hgb 30.9 pg (27.0-32.0); Mean Corpuscular Volume 89.7 fL (80-94); Monocyte# 0.92 X10^3/uL; Monocyte% 10.8 % (0-10); Neutrophil # 6.48 X10^3/uL (2.7-7.7); Neutrophil % 76.3 % (47-70); Platelet Count 111 K/mm3 (150-450); RBC Distribution Width CV 14.7 % (11.6-14.6); RBC Distribution Width SD 46.1 fl (35.1-43.9); Red Blood Count 3.11 M/mm3 (4.6-6.2); White Blood Count 8.5 K/mm3 (4.4-11.0)
[2018-11-29 05:45] LABS: POSITIVE COUNT NO; POSITIVE DIFFERENTIAL NO; POSITIVE MORPHOLOGY NO
[2018-11-29 05:58] LABS: Anion Gap 6 (5-15); BUN 25 mg/dL (7-18); BUN/Creat Ratio 14.4 RATIO (10-20); Chloride 111 mmol/L (98-107); Creatinine, Serum 1.74 mg/dL (0.70-1.30); EST Glomerular Filtration Rate 42 mL/min (>60); Est Glom Filt Rate - Afr Amer 50 mL/min (>60); Estimated Creatinine Clearance 36.49 ml/min; Glucose 198 mg/dL (74-106); Potassium 5.2 mmol/L (3.5-5.1); Sodium Level 135 mmol/L (136-145)
[2018-11-29 06:46] LABS: Bedside Glucose 212 mg/dL (70-110)
[2018-11-29 07:39] VITALS: BP 139/58; PULSE 68; RESP 16; TEMP 36.8; O2SAT 100
[2018-11-29] MEDS: Aspirin 81 MG TAB.CHEW PO ×2 (08:00→17:21)
[2018-11-29] MEDS: predniSONE 5 MG Tablet PO (08:01)
[2018-11-29] MEDS: Magnesium Oxide 400 MG Tablet PO ×2 (08:01→17:21)
[2018-11-29 09:36] LABS: Bedside Glucose 226 mg/dL (70-110)
[2018-11-29 09:36] LABS: Bedside Glucose 45 mg/dL (70-110)
[2018-11-29 09:36] LABS: Bedside Glucose 266 mg/dL (70-110)
--- NOTE | 2018-11-29 09:59 | CASEMGMT ---
Addendum entered by Heidi Ramirez 11/29/18 16:19: CHARLIE placed a call to pt's Rufina, left message that pt is accepted to TCU pending pre-cert. Original Note: Social Work Note CHARLIE placed a call to Albertina in TCU. Per Albertina she is able to accept pt and will submit for pre-cert. Plan: TCU pending pre-cert Heidi Ramirez WASH OIL PUMP OPERATOR, DOLPHIN RESEARCHER
[2018-11-29] MEDS: Mycophenolate Mofetil 250 MG Capsule 500 MG PO ×2 (10:05→21:42)
[2018-11-29] MEDS: Pantoprazole Sodium 40 MG Tablet PO (10:06)
[2018-11-29] MEDS: Glucerna Shake 120 ML LIQUID PO ×4 (10:06→21:42)
[2018-11-29] MEDS: Tacrolimus Anhydrous 1 MG Capsule 3 MG PO ×2 (10:06→21:42)
[2018-11-29] MEDS: traMADol 50 MG Tablet PO (10:06)
[2018-11-29] MEDS: Labetalol 200 MG Tablet PO ×2 (11:07→21:42)
[2018-11-29 11:41] LABS: Bedside Glucose 138 mg/dL (70-110)
--- NOTE | 2018-11-29 13:56 | PN_ITS ---
Patient Problems: Active and Suspected Problems (Last Updated 06/02/18 @ 09:32 by Sandy Crouch) Closed left hip fracture (Acute) Subjective: Patient was seen and examined. Patient's blood sugars have been fluctuating. He feels improved. No acute events overnight. Vitals/I&O's: Vital Signs Temp Pulse Resp BP Pulse Ox 98.3 F 68 16 139/58 H 100 11/29/18 07:39 11/29/18 07:39 11/29/18 07:39 11/29/18 07:39 11/29/18 07:39 Oxygen Delivery Method Room Air Weight: 63.5 kg Body Mass Index (BMI) 17.9 Finger Stick Blood Glucose 60 Intake and Output for Last 24 Hours 11/27/18 11/28/18 11/29/18 23:59 23:59 23:59 Intake Total 3328 / 3328 1630 / 1630 120 / 120 Output Total 600 / 600 950 / 950 100 / 100 Balance 2728 / 2728 680 / 680 20 General: Alert, Oriented x3, Cooperative, No apparent distress HEENT: Atraumatic, PERRLA, EOMI, Normocephalic Oral: Moist Mucosa Neck: Supple Lungs: Clear to auscultation, Normal air movement Cardiovascular: Regular rate, Regular Rhythm, Normal S1, Normal S2, No murmurs Abdomen: Bowel Sounds Present, Soft, Non Tender, Non-Distended Extremities: No edema Skin: No rashes Musculoskeletal: No Tenderness to Palpation of Joints or Extremities Lymphatic: No Cervical, Supraclavicular, or Inguinal Adenopathy Neurological: Cranial nerves II-XII grossly intact, Neuro grossly intact Psych/Mental Status: Normal Affect, Appropriate Laboratory Results 11/28/18 16:17: POC Glucose 103 11/28/18 17:42: POC Glucose 45 L 11/28/18 17:56: POC Glucose 266 H 11/28/18 17:57: POC Glucose 226 H 11/28/18 18:05: Glucose 149 H 11/28/18 21:21: POC Glucose 41 L* 11/28/18 21:38: Glucose 37 L* 11/28/18 21:43: POC Glucose 49 L 11/28/18 22:19: POC Glucose 72 11/29/18 02:11: POC Glucose 211 H 11/29/18 05:20: WBC 8.5, RBC 3.11 L, Hgb 9.6 L, Hct 27.9 L, MCV 89.7, MCH 30.9, MCHC 34.4, RDW 14.7 H, RDW Differential 46.1 H, Plt Count 111 L, MPV 11.0, Immature Gran % (Auto) 0.100, Neut % (Auto) 76.3 H, Lymph % (Auto) 12.4 L, [place] % (Auto) 10.8 H, Eos % (Auto) 0.4, Baso % (Auto) 0.0, Absolute Neuts (auto) 6.5, Absolute Lymphs (auto) 1.05, Total Counted Not Reportable 11/29/18 05:20: Sodium 135 L, Potassium 5.2 H, Chloride 111 H, Carbon Dioxide 18.0 L, Anion Gap 6, BUN 25 H, Creatinine 1.74 H, Estim Creat Clear Calc 36.49, Est GFR (MDRD) Af Amer 50 L, Est GFR (MDRD) Non-Af 42 L, BUN/Creatinine Ratio 14.4, Glucose 198 H, Calcium 8.0 L 11/29/18 06:38: POC Glucose 212 H 11/29/18 11:34: POC Glucose 138 H Current Medications Acetaminophen (Tylenol) 650 mg PO Q6H PRN PRN PRN Reason: Mild Pain (1-3)/Temp > 100.7 F Last Admin: 11/28/18 21:28 Dose: 650 mg Amlodipine Besylate (Norvasc) 10 mg PO QHS [facility] Last Admin: 11/28/18 21:33 Dose: 10 mg [facility]) [facility] Last Admin: 11/29/18 08:00 Dose: 81 mg Dextrose (D50w Syringe) 0 gm IV X1 PRN; Protocol PRN Reason: Hypoglycemia Last Admin: 11/28/18 17:48 Dose: 25 gm Glucagon () 1 mg IM .X1 PRN PRN Reason: Hypoglycemia Insulin Glargine (Lantus (Bk)) 13 units SC BREAKFAST [facility] Last Admin: 11/29/18 08:02 Dose: 13 units Insulin Human Lispro (Humalog Kwikpen ([facility])) 0 unit SQ ACHS [facility]; Protocol Last Admin: 11/29/18 13:40 Dose: Not Given Labetalol HCl (Trandate) 200 mg PO BID [facility] Last Admin: 11/29/18 11:07 Dose: 200 mg Magnesium Oxide (Mag-Ox 400) [facility] Last Admin: 11/29/18 08:01 Dose: 400 mg Melatonin (Melatonin) 3 mg PO QHS PRN PRN PRN Reason: INSOMNIA Morphine Sulfate () 4 mg IV Q3H PRN PRN PRN Reason: Severe pain (7-05/12) Mycophenolate Mofetil (Cellcept) 500 mg PO BID [facility] Last Admin: 11/29/18 10:05 Dose: 500 mg Nutritional Formula (Lactose Free) (Glucerna Shake) 120 ml PO 4X/DAY [facility] Last Admin: 11/29/18 10:06 Dose: 120 ml Ondansetron HCl (Zofran) 4 mg IV Q8H PRN PRN PRN Reason: NAUSEA Pantoprazole Sodium (Protonix) 40 mg PO DAILY [facility] Last Admin: 11/29/18 10:06 Dose: 40 mg Prednisone () [facility] Last Admin: 11/29/18 08:01 Dose: 5 mg Senna/Docusate Sodium (Senokot-S, Charito-Colace) 2 tablet PO BID [facility] Last Admin: 11/29/18 06:51 Dose: Not Given Sodium Chloride () 5 - 15 ml IV UD PRN PRN Reason: SALINE FLUSH Last Admin: 11/27/18 06:40 Dose: 10 ml Tacrolimus (Prograf) 3 mg PO BID [facility] Last Admin: 11/29/18 10:06 Dose: 3 mg Tramadol HCl (Ultram) 50 mg PO BID PRN PRN Reason: PAIN Last Admin: 11/29/18 10:06 Dose: 50 mg Trimethoprim/Sulfamethoxazole (Bactrim Ds) [facility] Last Admin: 11/28/18 09:38 Dose: 1 tablet Medical Necessity - Tobacco Use Smoking Status: Former smoker Tobacco Use: Cigarettes Assessment/Plan All Active Problems (Last Updated 06/02/18 @ 09:32 by Sandy Crouch) Closed left hip fracture (Acute) 68 years old male patient admitted after a fall and found to have displaced left hip femoral neck fracture. He underwent left hip cemented hemiarthroplasty on 11/27/18. 1. POD #2, status post left hip cemented hemiarthroplasty for acute traumatic displaced femoral neck fracture of the left hip status post mechanical fall, Stable, pain is controlled, continue with recommendations from orthopedic surgery. 2.Type 2 diabetes mellitus, blood sugars have been brittle, on Lantus and insulin sliding scale, will discontinue insulin sliding scale, continue on reduced Lantus 8 units, continue to monitor blood sugars and treat for hypoglycemia. 3. Stage IV chronic kidney disease status post kidney transplant, baseline creatinine is around 1.4 to 2 mg/dL, creatinine slowly creeping up, creatinine is 1.83 today, on Prograf, prednisone, CellCept and Bactrim. 4. Hypertension, stable, on Norvasc, will continue to monitor 5. Chronic diastolic CHF, stable, on labetalol and aspirin. 6. Chronic pulmonary hypertension, stable. 7. Chronic anemia, stable Hb, no evidence of active bleeding. 8. DVT prophylaxis - on aspirin twice daily per orthopedics. Code Visit Inpatient E&M: 73399 Subs Hosp L2
[2018-11-29 13:59] VITALS: BP 131/64; PULSE 65; RESP 16; TEMP 36.8; O2SAT 96
--- NOTE | 2018-11-29 14:48 | CHAPLAIN ---
Type of Pastoral Visit _x__ Initial Visit ___ Follow-up Visit ___ On-call Visit ___ General Patient Visit ___ Spiritual Assessment ___ Family Conference ___ Bereavement ___ Rapid Response ___ Code Blue ___ Other (describe below) Pastoral Care Referral From _x__ Patient ___ Family ___ Nurse ___ Physician ___ Erecting Crane Operator ___ Crm Consultant ___ Other (describe below) Sacrament/Intervention _x__ Active listening ___ Anointing ___ Jewish ___ Bereavement ___ Communion _x__ Jennifer exploration ___ _x__ Life review _x__ Prayer ___ Reconciliation ___ Sacrament of Sick _x__ Supportive presence ___ Wedding ___ Other (describe below) Pastoral Comments spouse is with patient and she offers most of the information and conversation; pt and spouse do welcome spiritual support and care
[2018-11-29 15:17] LABS: Anion Gap 4 (5-15); BUN 25 mg/dL (7-18); BUN/Creat Ratio 13.7 RATIO (10-20); Calcium,Total 8.4 mg/dL (8.5-10.1); Chloride 113 mmol/L (98-107); Creatinine, Serum 1.83 mg/dL (0.70-1.30); EST Glomerular Filtration Rate 39 mL/min (>60); Est Glom Filt Rate - Afr Amer 48 mL/min (>60); Glucose 65 mg/dL (74-106); Potassium 5.2 mmol/L (3.5-5.1); Sodium Level 137 mmol/L (136-145)
[2018-11-29 16:35] LABS: Bedside Glucose 42 mg/dL (70-110)
[2018-11-29 16:50] LABS: Bedside Glucose 39 mg/dL (70-110)
[2018-11-29] MEDS: Dextrose 50%-Water 25 GM/50 ML DISP.SYRIN IV (17:10)
[2018-11-29 17:11] LABS: Bedside Glucose 43 mg/dL (70-110)
[2018-11-29 17:50] LABS: Bedside Glucose 134 mg/dL (70-110)
[2018-11-29 21:33] VITALS: BP 153/71; PULSE 66; RESP 14; TEMP 37.3; O2SAT 98
[2018-11-29] MEDS: amLODIPine 10 MG Tablet PO (21:42)
[2018-11-29] MEDS: 0.9% NaCl Peripheral Flush Adult/Peds IV (21:48)
[2018-11-29 22:16] LABS: Bedside Glucose 146 mg/dL (70-110)
[2018-11-30 02:26] LABS: Bedside Glucose 202 mg/dL (70-110)
[2018-11-30] MEDS: Acetaminophen 325 MG Tablet 650 MG PO (02:26)
[2018-11-30] MEDS: traMADol 50 MG Tablet PO (02:27)
[2018-11-30 02:30] VITALS: BP 145/53; PULSE 69; RESP 20; TEMP 37.2; O2SAT 98
[2018-11-30 05:53] LABS: Hematocrit 27.1 % (40-54); Hemoglobin 9.3 g/dl (13.0-16.5); Mean Corp Hgb Conc 34.3 g/gl (32-36); Mean Corpuscular Hgb 30.9 pg (27.0-32.0); Mean Platelet Vol. 11.3 fl (6.2-12.0); Platelet Count 115 K/mm3 (150-450); RBC Distribution Width CV 14.7 % (11.6-14.6); RBC Distribution Width SD 46.7 fl (35.1-43.9); Red Blood Count 3.01 M/mm3 (4.6-6.2); White Blood Count 7.1 K/mm3 (4.4-11.0)
[2018-11-30 06:04] LABS: Scan Indicated on CBC? Y/N NO
[2018-11-30 08:06] LABS: Bedside Glucose 231 mg/dL (70-110)
[2018-11-30] MEDS: Magnesium Oxide 400 MG Tablet PO (08:56)
[2018-11-30] MEDS: predniSONE 5 MG Tablet PO (08:56)
[2018-11-30] MEDS: Aspirin 81 MG TAB.CHEW PO (08:56)
[2018-11-30] MEDS: Pantoprazole Sodium 40 MG Tablet PO (08:57)
[2018-11-30] MEDS: Labetalol 200 MG Tablet PO (08:57)
[2018-11-30] MEDS: Mycophenolate Mofetil 250 MG Capsule 500 MG PO (08:57)
[2018-11-30] MEDS: Glucerna Shake 120 ML LIQUID PO ×2 (08:58→13:48)
[2018-11-30] MEDS: Tacrolimus Anhydrous 1 MG Capsule 3 MG PO (08:58)
[2018-11-30 09:32] VITALS: BP 150/68; PULSE 67; RESP 16; TEMP 36.9; O2SAT 97
--- NOTE | 2018-11-30 09:41 | CASEMGMT ---
Social Work Note CHARLIE spoke with Raine who is covering for TCU. Per Raine she hasn't heard anything regarding pre-cert. SW informed Raine that pt is ready for discharge once pre-cert is obtained. Plan: TCU pending pre-cert Heidi Ramirez GLASS CUTTING MACHINE OPERATOR, SPECIALIST ICU
[2018-11-30 09:49] LABS: Albumin, Serum 2.5 g/dL (3.2-5.0); BUN 22 mg/dL (7-18); BUN/Creat Ratio 12.6 RATIO (10-20); Calcium,Total 8.3 mg/dL (8.5-10.1); Chloride 109 mmol/L (98-107); Creatinine, Serum 1.75 mg/dL (0.70-1.30); EST Glomerular Filtration Rate 41 mL/min (>60); Est Glom Filt Rate - Afr Amer 50 mL/min (>60); Estimated Creatinine Clearance 36.29 ml/min; Glucose 226 mg/dL (74-106); Phosphorus 2.2 mg/dL (2.5-4.9); Potassium 4.8 mmol/L (3.5-5.1); Sodium Level 137 mmol/L (136-145)
--- NOTE | 2018-11-30 10:05 | PCM.CONS.R ---
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 Pt follows with vine pruner at the [facility] [place], CKD stage 3 ( baseline Cr fluctuates 1.4-1.8 mg/dL), DM, HTN. Pt presented due to fall after he tripped . xray showed left hip fracture. Pt was taken to OR and left hip cemented arthroplasty Renal team was consulted for slightly increased in Cr. Cr increased from 1.7-> 1.84 mg/dL. Pt is taking prograf, cellcept and prednisone . K was slightly high yesterday at 5.2. Pt has been drinking orange juice since admission for hypoglycemia Pt said his pain is well controlled. No urinary obstructive symptoms. No NSAIDs use. No IV contrast exposure[] ROS : 12 systems review is negative - Allergies Allergies: Allergies oxycodone HCl [From Percocet] Adverse Reaction (Verified 11/26/18 22:09) TOO MUCH CAUSES HALLUCINATIONS TOO MUCH - Current Medications Current Medications: Current Medications Acetaminophen (Tylenol) 650 mg PO Q6H PRN PRN PRN Reason: Mild Pain (1-3)/Temp > 100.7 F Last Admin: 11/30/18 02:26 Dose: 650 mg Amlodipine Besylate (Norvasc) 10 mg PO QHS [facility] Last Admin: 11/29/18 21:42 Dose: 10 mg Aspirin (Aspirin, Baby) 81 mg PO BIDCM [facility] Last Admin: 11/30/18 08:56 Dose: 81 mg Dextrose (D50w Syringe) 0 gm IV X1 PRN; Protocol PRN Reason: Hypoglycemia Last Admin: 11/29/18 17:10 Dose: 25 gm Glucagon () 1 mg IM .X1 PRN PRN Reason: Hypoglycemia Insulin Glargine (Lantus (Bkc)) 8 units SC BREAKFAST [facility] Last Admin: 11/30/18 09:02 Dose: 8 u Labetalol HCl (Trandate) 200 mg PO BID [facility] Last Admin: 11/30/18 08:57 Dose: 200 mg Magn[facility]Ox 400) [facility] Last Admin: 11/30/18 08:56 Dose: 400 mg Melatonin (Melatonin) 3 mg PO QHS PRN PRN PRN Reason: INSOMNIA Morphine Sulfate () 4 mg IV Q3H PRN PRN PRN Reason: Severe pain (7-10/10) Mycophenolate Mofetil (Cellcept) 500 mg PO BID [facility] Last Admin: 11/30/18 08:57 Dose: 500 mg Nutritional Formula (Lactose Free) (Glucerna Shake) 120 ml PO 4X/DAY [facility] Last Admin: 11/30/18 08:58 Dose: 120 ml Ondansetron HCl (Zofran) 4 mg IV Q8H PRN PRN PRN Reason: NAUSEA Pantoprazole Sodium (Protonix) 40 mg PO DAILY [facility] Last Admin: 11/30/18 08:57 Dose: 40 mg Prednisone () [facility] Last Admin: 11/30/18 08:56 Dose: 5 mg Senna/Docusate Sodium (Senokot-S, Charito-Colace) 2 tablet PO BID [facility] Last Admin: 11/30/18 08:57 Dose: Not Given Sodium Chloride () 5 - 15 ml IV UD PRN PRN Reason: SALINE FLUSH Last Admin: 11/29/18 21:48 Dose: 10 ml Tacrolimus (Prograf) 3 mg PO BID [facility] Last Admin: 11/30/18 08:58 Dose: 3 mg Tramadol HCl (Ultram) 50 mg PO BID PRN PRN Reason: PAIN Last Admin: 11/30/18 02:27 Dose: 50 mg Trimethoprim/Sulfamethoxazole (Bactrim Ds) [facility] Last Admin: 11/28/18 09:38 Dose: 1 tablet - Past Medical History Past Medical History (Chronic Problems): Chronic Problems (Last Updated 06/02/18 @ 09:32 by Sandy Crouch) Chronic renal insufficiency (Chronic) Pancreatitis (Chronic) History of renal transplant (Chronic) Type 2 diabetes mellitus (Chronic) Hypertension (Chronic) Chronic kidney disease, stage IV (severe) (Chronic) Chronic diastolic (congestive) heart failure (Chronic) Nonrheumatic pulmonary valve insufficiency (Chronic) Nonrheumatic tricuspid valve regurgitation (Chronic) Secondary pulmonary arterial hypertension (Chronic) Non-rheumatic aortic regurgitation (Chronic) Hypertension (Chronic) - Past Surgical History Surgical History: cholecystectomy, - - Kidney transplant, sphincterotomy, left wrist fusion - Social History Smoking Status: Former smoker Alcohol: None Drugs: None - Family History Maternal History Items: Diabetes, No pertinent history Paternal History Items: No pertinent history Sibling History Items: Cancer - Throat, No pertinent history Patient Problems: Active and Suspected Problems (Last Updated 06/02/18 @ 09:32 by Sandy Crouch) Renal transplant recipient (Acute) Renal transplant, status post (Acute) Hyperkalemia (Acute) Closed left hip fracture (Acute) - Physical Exam General: Alert, Oriented x3 HEENT: Atraumatic Oral: Moist Mucosa Neck: Supple, No JVD Lungs: Clear to auscultation, Normal air movement, No rhonchi, No wheeze Cardiovascular: Regular rate, Regular Rhythm, Normal S1, Normal S2 Abdomen: Bowel Sounds Present, Soft, Non Tender, Non-Distended Extremities: No clubbing, No cyanosis, No edema Skin: No rashes Musculoskeletal: Cachexia Lymphatic: No Cervical, Supraclavicular, or Inguinal Adenopathy Neurological: Cranial nerves II-XII grossly intact, Neuro grossly intact Psych/Mental Status: Appropriate Vital Signs Temp Pulse Resp BP Pulse Ox 98.4 F 67 16 150/68 H 97 11/30/18 09:32 11/30/18 09:32 11/30/18 09:32 11/30/18 09:32 11/30/18 09:32 Oxygen Delivery Method Room Air Weight: 63.5 kg Body Mass Index (BMI) 17.9 Finger Stick Blood Glucose 60 Intake and Output for Last 24 Hours 11/28/18 11/29/18 11/30/18 23:59 23:59 23:59 Intake Total 1630 / 1630 120 / 120 510 / 510 Output Total 950 / 950 100 / 100 700 / 700 Balance 680 / 680 20 / 20 -190 / -190 Laboratory Tests Past 24 Hrs 11/29/18 11/29/18 11/30/18 14:20 21:05 05:12 WBC 7.1 RBC 3.01 L Hgb 9.3 L Hct 27.1 L MCV 90.0 MCH 30.9 MCHC 34.3 RDW 14.7 H RDW Differential 46.7 H Plt Count 115 L MPV 11.3 Sodium 137 Potassium 5.2 H Chloride 113 H Carbon Dioxide 20.0 L Anion Gap 4 L BUN 25 H Creatinine 1.83 H Estim Creat Clear Calc 34.70 Est GFR (MDRD) Af Amer 48 L Est GFR (MDRD) Non-Af 39 L BUN/Creatinine Ratio 13.7 Glucose 65 L Calcium 8.4 L Phosphorus Albumin Tacrolimus Pending 11/30/18 05:12 WBC RBC Hgb Hct MCV MCH MCHC RDW RDW Differential Plt Count MPV Sodium 137 Potassium 4.8 Chloride 109 H Carbon Dioxide 20.0 L Anion Gap BUN 22 H Creatinine 1.75 H Estim Creat Clear Calc 36.29 Est GFR (MDRD) Af Amer 50 L Est GFR (MDRD) Non-Af 41 L BUN/Creatinine Ratio 12.6 Glucose 226 H Calcium 8.3 L Phosphorus 2.2 L Albumin 2.5 L Tacrolimus POC Glucose 11/30/18 11/30/18 11/29/18 07:58 02:16 21:44 POC Glucose 231 H 202 H 146 H 11/29/18 11/29/18 11/29/18 17:42 17:04 16:45 POC Glucose 134 H 43 L* 39 L* 11/29/18 11/29/18 16:28 11:34 POC Glucose 42 L* 138 H Assessment/Plan All Active Problems (Last Updated 06/02/18 @ 09:32 by Sandy Crouch) Renal transplant recipient (Acute) Renal transplant, status post (Acute) Hyperkalemia (Acute) Closed left hip fracture (Acute) 1- ESRD s/p renal transplant in 2011. Will continue the same dose of prograf, cellcept and prednison 2- CKD stage 4 Baseline Cr fluctuates between 1.4-1.8 mg/dL. Cr is close to baseline Pt received one liter on NS yesterday. Will check renal function panel 3- Hyperkalemia: due to high K intake. Will place the patient on renal diet. Follow K level,.If worsening, can give Kayexalate 15 g PO 4-HTN: BP is well controlled . continue the same BP med Avoid ACEI/ARB 5- DM glycemic control as per the primary service 6- left hip fracture s/p cemented arthroplasty of the left hip . ortho is following Thank you for the consult. Renal team will continue to follow Please call if any question Lis Schwartz MD
--- NOTE | 2018-11-30 10:10 | CON.PCM_ITS ---
Problem List (1) Renal transplant recipient Status: Acute (2) Renal transplant, status post Status: Acute (3) Hyperkalemia Status: Acute (4) Hypertension Status: Chronic Consultation - Renal PCP/ Referring MD: Requesting physician: [] Primary care physician: Rojelio Lee DO - History of Present Illness History of Present Illness: The patient is a 68 year old M PMH of ESRD due to DNP s/p renal transplant in 2011 t [facility] [place]. 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 Pt presented due to fall after he tripped . xray showed left hip fracture. Pt was taken to OR and left hip cemented arthroplasty Renal team was consulted for slightly increased in Cr. Cr increased from 1.7-> 1.84 mg/dL. Pt is taking prograf, cellcept and prednisone . K was slightly high yesterday at 5.2. Pt has been drinking orange juice since admission for hypoglycemia Pt said his pain is well controlled. No urinary obstructive symptoms. No NSAIDs use. No IV contrast exposure[] ROS : 12 systems review is negative - Allergies Allergies: Allergies oxycodone HCl [From Percocet] Adverse Reaction (Verified 11/26/18 22:09) TOO MUCH CAUSES HALLUCINATIONS TOO MUCH - Current Medications Current Medications: Current Medications Acetaminophen (Tylenol) 650 mg PO Q6H PRN PRN PRN Reason: Mild Pain (1-3)/Temp > 100.7 F Last Admin: 11/30/18 02:26 Dose: 650 mg Amlodipine Besylate (Norvasc) 10 mg PO QHS [facility] Last Admin: 11/29/18 21:42 Dose: 10 mg Aspirin (Aspirin, Baby) 81 mg PO BIDCM [facility] Last Admin: 11/30/18 08:56 Dose: 81 mg Dextrose (D50w Syringe) 0 gm IV X1 PRN; Protocol PRN Reason: Hypoglycemia Last Admin: 11/29/18 17:10 Dose: 25 gm Glucagon () 1 mg IM .X1 PRN PRN Reason: Hypoglycemia Insulin Glargine (Lantus (Bkc)) 8 units SC BREAKFAST [facility] Last Admin: 11/30/18 09:02 Dose: 8 u Labetalol HCl (Trandate) 200 mg PO BID [facility] Last Admin: 11/30/18 08:57 Dose: 200 mg [facility] Admin: 11/30/18 08:56 Dose: 400 mg Melatonin (Melatonin) 3 mg PO QHS PRN PRN PRN Reason: INSOMNIA Morphine Sulfate () 4 mg IV Q3H PRN PRN PRN Reason: Severe pain (7-10/10) Mycophenolate Mofetil (Cellcept) 500 mg PO BID [facility] Last Admin: 11/30/18 08:57 Dose: 500 mg Nutritional Formula (Lactose Free) (Glucerna Shake) 120 ml PO 4X/DAY [facility] Last Admin: 11/30/18 08:58 Dose: 120 ml Ondansetron HCl (Zofran) 4 mg IV Q8H PRN PRN PRN Reason: NAUSEA Pantoprazole Sodium (Protonix) 40 mg PO DAILY [facility] Last Admin: 11/30/18 08:57 Dose: 40 mg [facility] () [facility] Last Admin: 11/30/18 08:56 Dose: 5 mg Senna/Docusate Sodium (Senokot-S, Charito-Colace) 2 tablet PO BID [facility] Last Admin: 11/30/18 08:57 Dose: Not Given Sodium Chloride () 5 - 15 ml IV UD PRN PRN Reason: SALINE FLUSH Last Admin: 11/29/18 21:48 Dose: 10 ml Tacrolimus (Prograf) 3 mg PO BID [facility] Last Admin: 11/30/18 08:58 Dose: 3 mg Tramadol HCl (Ultram) 50 mg PO BID PRN PRN Reason: PAIN Last Admin: 11/30/18 02:27 Dose: 50 mg Trimethoprim/Sulfamethox[facility] ([facility]rim Ds) [facility] Last Admin: 11/28/18 09:38 Dose: 1 tablet - Past Medical History Past Medical History (Chronic Problems): Chronic Problems (Last Updated 06/02/18 @ 09:32 by Sandy Crouch) Chronic renal insufficiency (Chronic) Pancreatitis (Chronic) History of renal transplant (Chronic) Type 2 diabetes mellitus (Chronic) Hypertension (Chronic) Chronic kidney disease, stage IV (severe) (Chronic) Chronic diastolic (congestive) heart failure (Chronic) Nonrheumatic pulmonary valve insufficiency (Chronic) Nonrheumatic tricuspid valve regurgitation (Chronic) Secondary pulmonary arterial hypertension (Chronic) Non-rheumatic aortic regurgitation (Chronic) Hypertension (Chronic) - Past Surgical History Surgical History: cholecystectomy, - - Kidney transplant, sphincterotomy, left wrist fusion - Social History Smoking Status: Former smoker Alcohol: None Drugs: None - Family History Maternal History Items: Diabetes, No pertinent history Paternal History Items: No pertinent history Sibling History Items: Cancer - Throat, No pertinent history Patient Problems: Active and Suspected Problems (Last Updated 06/02/18 @ 09:32 by Sandy Crouch) Renal transplant recipient (Acute) Renal transplant, status post (Acute) Hyperkalemia (Acute) Closed left hip fracture (Acute) - Physical Exam General: Alert, Oriented x3 HEENT: Atraumatic Oral: Moist Mucosa Neck: Supple, No JVD Lungs: Clear to auscultation, Normal air movement, No rhonchi, No wheeze Cardiovascular: Regular rate, Regular Rhythm, Normal S1, Normal S2 Abdomen: Bowel Sounds Present, Soft, Non Tender, Non-Distended Extremities: No clubbing, No cyanosis, No edema Skin: No rashes Musculoskeletal: Cachexia Lymphatic: No Cervical, Supraclavicular, or Inguinal Adenopathy Neurological: Cranial nerves II-XII grossly intact, Neuro grossly intact Psych/Mental Status: Appropriate Vital Signs Temp Pulse Resp BP Pulse Ox 98.4 F 67 16 150/68 H 97 11/30/18 09:32 11/30/18 09:32 11/30/18 09:32 11/30/18 09:32 11/30/18 09:32 Oxygen Delivery Method Room Air Weight: 63.5 kg Body Mass Index (BMI) 17.9 Finger Stick Blood Glucose 60 Intake and Output for Last 24 Hours 11/28/18 11/29/18 11/30/18 23:59 23:59 23:59 Intake Total 1630 / 1630 120 / 120 510 / 510 Output Total 950 / 950 100 / 100 700 / 700 Balance 680 / 680 20 / 20 -190 / -190 Laboratory Tests Past 24 Hrs 11/29/18 11/29/18 11/30/18 14:20 21:05 05:12 WBC 7.1 RBC 3.01 L Hgb 9.3 L Hct 27.1 L MCV 90.0 MCH 30.9 MCHC 34.3 RDW 14.7 H RDW Differential 46.7 H Plt Count 115 L MPV 11.3 Sodium 137 Potassium 5.2 H Chloride 113 H Carbon Dioxide 20.0 L Anion Gap 4 L BUN 25 H Creatinine 1.83 H Estim Creat Clear Calc 34.70 Est GFR (MDRD) Af Amer 48 L Est GFR (MDRD) Non-Af 39 L BUN/Creatinine Ratio 13.7 Glucose 65 L Calcium 8.4 L Phosphorus Albumin Tacrolimus Pending 11/30/18 05:12 WBC RBC Hgb Hct MCV MCH MCHC RDW RDW Differential Plt Count MPV Sodium 137 Potassium 4.8 Chloride 109 H Carbon Dioxide 20.0 L Anion Gap BUN 22 H Creatinine 1.75 H Estim Creat Clear Calc 36.29 Est GFR (MDRD) Af Amer 50 L Est GFR (MDRD) Non-Af 41 L BUN/Creatinine Ratio 12.6 Glucose 226 H Calcium 8.3 L Phosphorus 2.2 L Albumin 2.5 L Tacrolimus POC Glucose 11/30/18 11/30/18 11/29/18 07:58 02:16 21:44 POC Glucose 231 H 202 H 146 H 11/29/18 11/29/18 11/29/18 17:42 17:04 16:45 POC Glucose 134 H 43 L* 39 L* 11/29/18 11/29/18 16:28 11:34 POC Glucose 42 L* 138 H Assessment/Plan All Active Problems (Last Updated 06/02/18 @ 09:32 by Sandy Crouch) Renal transplant recipient (Acute) Renal transplant, status post (Acute) Hyperkalemia (Acute) Closed left hip fracture (Acute) 1- ESRD s/p renal transplant in 2011. Will continue the same dose of prograf, cellcept and prednison 2- CKD stage 4 Baseline Cr fluctuates between 1.4-1.8 mg/dL. Cr is close to baseline Pt received one liter on NS yesterday. Will check renal function panel 3- Hyperkalemia: due to high K intake. Will place the patient on renal diet. Follow K level,.If worsening, can give Kayexalate 15 g PO 4-HTN: BP is well controlled . continue the same BP med Avoid ACEI/ARB 5- DM glycemic control as per the primary service 6- left hip fracture s/p cemented arthroplasty of the left hip . ortho is following Thank you for the consult. Renal team will continue to follow Please call if any question Lis Schwartz MD
[2018-11-30] MEDS: Na Biphos/Potassium Phosphate PACKET 1 PACKET PO (10:55)
[2018-11-30] MEDS: Loperamide 2 MG Capsule PO (11:44)
[2018-11-30 11:51] LABS: Bedside Glucose 311 mg/dL (70-110)
--- NOTE | 2018-11-30 12:59 | CASEMGMT ---
Addendum entered by Heidi Ramirez 11/30/18 13:44: SW received call from [facility] stating pre-cert has been obtained and pt is able to discharge to TCU today. Physician updated. SW updated pt and pt's Rufina of pre-cert being obtained and pt is able to discharge to TCU today. Pt and Rufina state understanding. RN updated. Original Note: Social Work Note SW met with pt, pt's Rufina, introduced self and role at [facility]. SW informed pt and Rufina that TCU is able to accept pt pending pre-cert. SE explained that how long pt is on TCU depends on insurance and that there will be a SW on TCU that can assist with discharge planning from TCU. Rufina states understanding. Plan: TCU pending pre-cert Heidi Ramirez [employer], [employer]ANT
--- NOTE | 2018-11-30 14:01 | PCM.TXEXTCAR ---
- Diet 11/30/18 10:16 Diet: Renal - Carb-Controlled Type of Dietary Supplement:: glucerna Is pt able to select menu?: Yes - Routine Orders/Code Status Routine Lab Work: CBC - within 1 week, - - renal profile within 3 days Code Status: Full Code - Wound(s) L HIP Wound Type: Surgical Incision Dressing Change: Mepilex dressing - Therapies Weight Bearing: Weight bearing as tolerated Extremity Affected:: Left Lower Physical Therapy: Eval and Treat - Continue hip dislocation precautions with no flexion greater than 90 degrees and do not cross legs. Occupational Therapy: Eval and Treat - Continue hip dislocation precautions with no flexion greater than 90 degrees and do not cross legs. - Allergies/Procedures Done in Hospital Allergies/Adverse Reactions: Allergies oxycodone HCl [From Percocet] Adverse Reaction (Verified 11/26/18 22:09) TOO MUCH CAUSES HALLUCINATIONS TOO MUCH - Type of Care/Length of Stay Estimated LOS: Convalescent Care Less Than 30 days Type of Care Needed: Skilled Rehab Potential: Good Prognosis: Good - Additional Orders/Day of Discharge Additional Orders: Continue incentive spirometer use, ROSEANN Engels. Insulin sliding scale was discontinued on account of hypoglycemia. Day of Discharge: 11/30/18 - Dietary and Speech Recommendations Dietitian Recommendations/Changes: Due to poor PO at meals, suggest liberalize diet to low sodium, no conc sweets. Continue glucerna shake with meals & on medpass as tolerated. Current weight as able. - Follow Up Care Primary Care Physician: Rojelio Lee DO [Primary Care Provider] - Please follow up with your Primary Care Physician in: within 2 weeks after discharge Please Follow Up With: Mason Holley MD When: to be seen between the -11 of December
--- NOTE | 2018-11-30 14:08 | PCM.DC.SUM ---
Discharge Date and Diagnosis - Problem List Patient Problems: Active and Suspected Problems (Last Updated 06/02/18 @ 09:32 by Sandy Crouch) Renal transplant recipient (Acute) Renal transplant, status post (Acute) Hyperkalemia (Acute) Closed left hip fracture (Acute) Date of Admission: 11/26/18 Date of Discharge: 11/30/18 - Primary Discharge Diagnosis Active and Suspected Problems (Last Updated 06/02/18 @ 09:32 by Sandy Crouch) Acute traumatic displaced femoral neck fracture of the left hip Hypoglycemia Type II DM, brittle Stage IV CKD Status post kidney transplant Hypertension Chronic diastolic CHF Chronic anemia of kidney disease - Secondary Discharge Diagnosis Chronic Problems (Last Updated 06/02/18 @ 09:32 by Sandy Crouch) Chronic renal insufficiency (Chronic) Pancreatitis (Chronic) History of renal transplant (Chronic) Type 2 diabetes mellitus (Chronic) Hypertension (Chronic) Chronic kidney disease, stage IV (severe) (Chronic) Chronic diastolic (congestive) heart failure (Chronic) Nonrheumatic pulmonary valve insufficiency (Chronic) Nonrheumatic tricuspid valve regurgitation (Chronic) Secondary pulmonary arterial hypertension (Chronic) Non-rheumatic aortic regurgitation (Chronic) Hypertension (Chronic) Hospital Course and Treatment Imaging Results: Clinical Impression(s) from Imaging Studies Hip/Pelvis X-Ray 11/26/18 22:55 IMPRESSION: Left hip fracture Electronically Signed: Hamzah Felipe MD at 23:37 EDT , Service support , Chest X-Ray 11/26/18 23:50 IMPRESSION: Normal x-ray examination of the chest. Electronically Signed: Luther Martinez MD at 0:15 EDT , Service support , Hip X-Ray 11/27/18 09:46 IMPRESSION: Status post left hip arthroplasty. Electronically Signed: Mei Terry MD at 11:59 EDT Tel , Service support , Nephrology Operations: None Procedures: - - Status post left hip cemented hemiarthroplasty Summary of Care Provided: 68 years old male patient admitted after a fall and found to have displaced left hip femoral neck fracture. He underwent left hip cemented hemiarthroplasty on 11/27/18. Patient was managed on a telemetry bed. His hospital course was positive for episodes of hypoglycemia which was treated. Changes was made to his Lantus and insulin sliding scale with eventual discontinuation of the insulin sliding scale. Patient had slightly increase in his kidney function, his creatinine was close to his baseline, improved with IV fluids. Nephrology was consulted, and his Prograf levels were pending at the time of discharge. He was continued on Prograf, prednisone, CellCept and function. Patient continued to remain stable and was discharged for subacute rehab. Patient Problems: Active and Suspected Problems (Last Updated 06/02/18 @ 09:32 by Sandy Crouch) Renal transplant recipient (Acute) Renal transplant, status post (Acute) Hyperkalemia (Acute) Closed left hip fracture (Acute) Subjective: On the day of discharge, patient was seen and examined. No new complaints. at the bedside. He says his left pain is 0. Objective: Physical exam: General: Alert, Oriented x3, Cooperative, No apparent distress HEENT: Atraumatic, PERRLA, EOMI, Normocephalic Oral: Moist Mucosa Neck: Supple Lungs: Clear to auscultation, Normal air movement Cardiovascular: Regular rate, Regular Rhythm, Normal S1, Normal S2, No murmurs Abdomen: Bowel Sounds Present, Soft, Non Tender, Non-Distended Extremities: No edema Skin: No rashes Musculoskeletal: No Tenderness to Palpation of Joints or Extremities Lymphatic: No Cervical, Supraclavicular, or Inguinal Adenopathy Neurological: Cranial nerves II-XII grossly intact, Neuro grossly intact Psych/Mental Status: Normal Affect, Appropriate - Physical Exam Vital Signs Temp Pulse Resp BP Pulse Ox 98.4 F 67 16 150/68 H 97 11/30/18 09:32 11/30/18 09:32 11/30/18 09:32 11/30/18 09:32 11/30/18 09:32 Oxygen Delivery Method Room Air Weight: 63.5 kg Body Mass Index (BMI) 17.9 Finger Stick Blood Glucose 60 Intake and Output for Last 24 Hours 11/28/18 11/29/18 11/30/18 23:59 23:59 23:59 Intake Total 1630 / 1630 120 / 120 750 / 750 Output Total 950 / 950 100 / 100 900 / 900 Balance 680 / 680 20 / 20 -150 / -150 Laboratory Tests Past 24 Hrs 11/29/18 11/29/18 11/30/18 14:20 21:05 05:12 WBC 7.1 RBC 3.01 L Hgb 9.3 L Hct 27.1 L MCV 90.0 MCH 30.9 MCHC 34.3 RDW 14.7 H RDW Differential 46.7 H Plt Count 115 L MPV 11.3 Sodium 137 Potassium 5.2 H Chloride 113 H Carbon Dioxide 20.0 L Anion Gap 4 L BUN 25 H Creatinine 1.83 H Estim Creat Clear Calc 34.70 Est GFR (MDRD) Af Amer 48 L Est GFR (MDRD) Non-Af 39 L BUN/Creatinine Ratio 13.7 Glucose 65 L Calcium 8.4 L Phosphorus Albumin Tacrolimus Pending 11/30/18 05:12 WBC RBC Hgb Hct MCV MCH MCHC RDW RDW Differential Plt Count MPV Sodium 137 Potassium 4.8 Chloride 109 H Carbon Dioxide 20.0 L Anion Gap BUN 22 H Creatinine 1.75 H Estim Creat Clear Calc 36.29 Est GFR (MDRD) Af Amer 50 L Est GFR (MDRD) Non-Af 41 L BUN/Creatinine Ratio 12.6 Glucose 226 H Calcium 8.3 L Phosphorus 2.2 L Albumin 2.5 L Tacrolimus POC Glucose 11/30/18 11/30/18 11/30/18 11:43 07:58 02:16 POC Glucose 311 H 231 H 202 H 11/29/18 11/29/18 11/29/18 21:44 17:42 17:04 POC Glucose 146 H 134 H 43 L* 11/29/18 11/29/18 16:45 16:28 POC Glucose 39 L* 42 L* Discharge Diet: Carb Control Diet, Renal Diet Discharge Activity: Return to Normal Activity Weight Bearing Status: Weight bearing as tolerated Home Medications: Medications to take at Discharge Labetalol [Trandate (Beta Lisa)] 200 mg PO BID 12/19/13 Pantoprazole Sodium [Protonix] 40 mg PO DAILY 12/19/13 predniSONE tablet 5 mg PO DAILY 12/19/13 Aspirin [Aspirin, Baby] 81 mg PO DAILY@0800 08/16/15 Cholecalciferol (VIT D3) [Vitamin D3] 1,000 unit PO DAILY 12/09/15 amlodipine 10 mg tablet 10 mg PO QHS 12/02/17 magnesium oxide 400 mg (241.3 mg magnesium) tablet 400 mg PO BID tab 12/02/17 mycophenolate mofetil 250 mg capsule 500 mg PO BID cap 12/02/17 sulfamethoxazole 400 mg-trimethoprim 80 mg tablet 1 tab PO QDAY 12/02/17 tacrolimus 1 mg capsule 3 mg PO BID cap 12/02/17 tramadol 50 mg tablet 50 mg PO BID PRN tab 12/02/17 Glucerna Shake 120 ml PO 4X/DAY liquid 11/30/18 Insulin Glargine [Lantus SoloStar Pen] 8 units SC BREAKFAST pen 11/30/18 Melatonin 3 mg PO QHS PRN PRN tablet 11/30/18 Primary Care Physician: Rojelio Lee DO [Primary Care Provider] - Please follow up with your Primary Care Physician in: within 2 weeks after discharge Please Follow Up With: Mason Holley MD When: to be seen between the -11 of December Disposition: Senior Living facility Minutes spent on discharge:: 40 Patient Condition:: Stable Medical Necessity - Tobacco Use Smoking Status: Former smoker Tobacco Use: Cigarettes Meaningful Use Info Meaningful Use Diagnoses (Choose all that apply): None applicable Code Visit Inpatient E&M: 99829 Disch Hosp
== END 2018-11-30 15:57 | disposition skilled nursing facility (03) | DRG 470 ==
LOC: ED 23:50 → MS3 11-27 07:13
PROVIDERS: Anesthesiology; Hospitalist; Orthopaedic Surgery; Admitting Provider Family Medicine; Emergency Provider Emergency Medicine; Family Provider Student in an Organized Health Care Education/Training Program; PCP Student in an Organized Health Care Education/Training Program; Visit Provider Internal Medicine
PROC: 0SRS0J9 Replacement of Left Hip Joint, Femoral Surface with Synthetic Substitute, Cemented, Open Approach (ICD-10-PCS; CPT 27125; principal; 2018-11-27 07:30)
DX: S72.002A Fracture of unspecified part of neck of left femur, initial encounter for closed fracture (principal); Z94.0 Kidney transplant status; I13.0 Hypertensive heart and chronic kidney disease with heart failure and stage 1 through stage 4 chronic kidney disease, or unspecified chronic kidney disease; N18.4 Chronic kidney disease, stage 4 (severe); I50.32 Chronic diastolic (congestive) heart failure; W01.0XXA Fall on same level from slipping, tripping and stumbling without subsequent striking against object, initial encounter; Y92.009 Unspecified place in unspecified non-institutional (private) residence as the place of occurrence of the external cause; Z79.4 Long term (current) use of insulin; Z87.891 Personal history of nicotine dependence; E11.22 Type 2 diabetes mellitus with diabetic chronic kidney disease; E87.5 Hyperkalemia; E11.649 Type 2 diabetes mellitus with hypoglycemia without coma; D63.1 Anemia in chronic kidney disease; Z79.899 Other long term (current) drug therapy; I37.1 Nonrheumatic pulmonary valve insufficiency; I36.1 Nonrheumatic tricuspid (valve) insufficiency; I35.1 Nonrheumatic aortic (valve) insufficiency; I27.21 Secondary pulmonary arterial hypertension
CPT/HCPCS: 36415; 71045; 73502; 80048; 80069; 80197; 82947; 82962; 83036; 85025; 85027; 86850; 86900; 88305; 88311; 93005; 97110; 97116; 97162; 97165; 97530; 97802; 99284; C1776; J7030; A4216; J2405

== ENCOUNTER 2018-11-30 16:26 | Inpatient (IN) | payer MEDICARE, SELFPAY ==
[2018-11-27 06:45] VITALS: BMI 17.9
[2018-11-30 16:35] VITALS: BP 156/65; PULSE 69; RESP 18; TEMP 37.1; O2SAT 97
--- NOTE | 2018-11-30 16:35 | NURSING ---
arrived to TCU via bed at 1630
[2018-11-30 16:51] LABS: Bedside Glucose 319 mg/dL (70-110)
[2018-11-30 16:59] VITALS: BMI 19.1
[2018-11-30 17:02] VITALS: BMI 19.2
[2018-11-30] MEDS: Labetalol 200 MG Tablet PO (19:09)
[2018-11-30] MEDS: Magnesium Oxide 400 MG Tablet PO (19:09)
[2018-11-30] MEDS: Glucerna Shake 120 ML LIQUID PO (19:10)
--- NOTE | 2018-11-30 19:47 | PCM.HP.STD ---
Problem List (1) Fall Status: Acute (2) Diabetes mellitus Status: Chronic (3) Chronic diastolic heart failure Status: Chronic (4) Pulmonary hypertension Status: Chronic (5) Chronic pancreatitis Status: Chronic (6) GERD (gastroesophageal reflux disease) Status: Chronic (7) Closed left hip fracture Status: Acute (8) Hypertension Status: Chronic Qualifiers: History of Present Illness Date of Admission: 11/30/18 Chief Complaint: Here for rehabilitation, strengthening, prior to discharge home with spouse. The patient is a 68 year old Male with below past medical history presented to [facility] 11/26/2018 with fall, left hip pain. 11/26/2018 X-ray pelvis, left hip showed left hip fracture. 11/26/2018 Chest X-ray negative. 11/26/2018 EKG sinus bradycardia with premature atrial contractions, left axis deviation, non-specific intra-ventricular conduction block, T wave abnormality, consider lateral ischemia. Tripped over shoes, fell on left hip. Left hip fracture, morphine helpful. 11/26/2018 Admit to Hospital. Pain control, consult orthopedics. 11/27/2018 Dr. Camejo performed left hip cemented hemiarthroplasty. Hypoglycemia treated, Lantus adjusted, sliding scale insulin discontinued. Mild worsening of renal function, improved to near baseline. Patient status post kidney transplant. Nephrology consulted. 11/30/2018 Admit to TCU with debility, here for rehabilitation, strengthening, prior to discharge home with spouse. Past Medical History Past Medical History (Chronic Problems): Chronic Problems (Last Updated 06/02/18 @ 09:32 by Sandy Crouch) Diabetes mellitus (Chronic) Chronic diastolic heart failure (Chronic) Pulmonary hypertension (Chronic) Chronic pancreatitis (Chronic) GERD (gastroesophageal reflux disease) (Chronic) Chronic renal insufficiency (Chronic) Pancreatitis (Chronic) History of renal transplant (Chronic) Type 2 diabetes mellitus (Chronic) Hypertension (Chronic) Chronic kidney disease, stage IV (severe) (Chronic) Chronic diastolic (congestive) heart failure (Chronic) Nonrheumatic pulmonary valve insufficiency (Chronic) Nonrheumatic tricuspid valve regurgitation (Chronic) Secondary pulmonary arterial hypertension (Chronic) Non-rheumatic aortic regurgitation (Chronic) Hypertension (Chronic) Medical History: Medical History (Last Updated 06/02/18 @ 09:32 by Sandy Crouch) Chronic diastolic (congestive) heart failure (Chronic) I50.32 Nonrheumatic pulmonary valve insufficiency (Chronic) I37.1 Nonrheumatic tricuspid valve regurgitation (Chronic) I36.1 Secondary pulmonary arterial hypertension (Chronic) I27.21 Non-rheumatic aortic regurgitation (Chronic) I35.1 Hypertension (Chronic) I10 Anemia in chronic kidney disease N18.9, D63.1 Chronic pancreatitis K86.1 Secondary hypoparathyroidism E20.8 Type 2 diabetes mellitus E11.9 Dx : 20+ years ago Last exacerbation : DKA : never Hypoglycemic episode : 04/20 ER visit : 04/20 Allergies oxycodone HCl [From Percocet] Adverse Reaction (Verified 11/26/18 22:09) TOO MUCH CAUSES HALLUCINATIONS TOO MUCH Home Medications: Ambulatory Orders Medication Instructions Recorded Labetalol [Trandate (Beta Lisa)] 200 mg PO BID 12/19/13 Pantoprazole Sodium [Protonix] 40 mg PO DAILY 12/19/13 predniSONE tablet 5 mg PO DAILY 12/19/13 Aspirin [Aspirin, Baby] 81 mg PO DAILY@0800 08/16/15 Cholecalciferol (VIT D3) [Vitamin 1,000 unit PO DAILY 12/09/15 D3] amlodipine 10 mg tablet 10 mg PO QHS 12/02/17 magnesium oxide 400 mg (241.3 mg 400 mg PO BID tab 12/02/17 magnesium) tablet mycophenolate mofetil 250 mg 500 mg PO BID cap 12/02/17 capsule sulfamethoxazole 400 1 tab PO QDAY 12/02/17 mg-trimethoprim 80 mg tablet tacrolimus 1 mg capsule 3 mg PO BID cap 12/02/17 tramadol 50 mg tablet 50 mg PO BID PRN tab 12/02/17 Glucerna Shake 120 ml PO 4X/DAY 11/30/18 Insulin Glargine [Lantus SoloStar 8 units SC BREAKFAST 11/30/18 Pen] Melatonin 3 mg PO QHS PRN PRN tablet 11/30/18 Surgical History: Surgical History (Last Reviewed 06/02/18 @ 09:21 by Sandy Crouch) Hx of cholecystectomy Z90.49 Kidney replaced by transplant Onset Date: ~10/15/11 Z94.0 Right Surgical History: cholecystectomy, - - Kidney transplant, sphincterotomy, left wrist fusion Psychiatric History: No pertinent psych hx Lives: Spouse/ Significant Other Smoking Status: Former smoker Tobacco Use: Cigars Alcohol: None Drugs: None - *Family History Maternal History Items: Diabetes, No pertinent history Paternal History Items: No pertinent history Sibling History Items: Cancer - Throat, No pertinent history Review of Systems Constitutional: Denies: Chills, Fever, Weight Change HEENT: Denies: Head Aches, Sinus Congestion, Sinus Drainage Cardiovascular: Denies: Chest Pain, Palpitations Respiratory: Denies: Cough, Shortness of breath at rest, Sputum production Gastrointestinal: Denies: Abdominal Pain, Nausea, Vomiting Genitourinary: Denies: Dysuria Musculoskeletal: Denies: Joint Pain, Joint Tenderness Skin: Denies: Rash, Wounds Neurological: Denies: Numbness, Tingling, Focal weakness Psychiatric: Denies: Anxiety, Depression, Homicidal Ideations, Suicidal Ideations Hematologic/ Lymphatic: Denies: Easy Bruising, Easy Bleeding VTE Information - Inpt Only VTE Present on Admission: No VTE Mechan Device Prophylaxis: Knee High JOHNNY Hose VTE Pharm Prophylaxis ordered?: Yes Patient Problems: Active and Suspected Problems (Last Updated 06/02/18 @ 09:32 by Sandy Crouch) Fall (Acute) - Physical Exam General: Alert, Oriented x3, Cooperative HEENT: Atraumatic, PERRLA, EOMI, Normocephalic Neck: Supple, No JVD, Negative Carotid Bruits Lungs: Clear to auscultation, Normal air movement Cardiovascular: Regular rate, No murmurs Abdomen: Bowel Sounds Present, Soft, Non Tender Extremities: No edema, Capillary Refill Less than 3 Seconds Skin: No rashes, No breakdown, Incision - Left hip incision dressed. Musculoskeletal: No Tenderness to Palpation of Joints or Extremities Neurological: Cranial nerves II-XII grossly intact Psych/Mental Status: Normal Affect, Appropriate Vital Signs Temp Pulse Resp BP Pulse Ox 98.7 F 69 18 156/65 H 97 11/30/18 16:35 11/30/18 16:35 11/30/18 16:35 11/30/18 16:35 11/30/18 16:35 Oxygen Delivery Method Room Air Weight: 67.7 kg Body Mass Index (BMI) 19.1 Finger Stick Blood Glucose 60 POC Glucose 11/30/18 16:47 POC Glucose 319 H Assessment/Plan All Active Problems (Last Updated 06/02/18 @ 09:32 by Sandy Crouch) Renal transplant recipient (Acute) Renal transplant, status post (Acute) Hyperkalemia (Acute) Fall (Acute) Closed left hip fracture (Acute) 68 year old male with below past medical history hospitalized for left hip fracture, underwent left hip cemented arthroplasty 11/27/[address] Camejo, complicated by postoperative hypoglycemia, admitted to TCU with debility, here for rehabilitation, strengthening, prior to discharge home with spouse. Debility - PT/OT. Pain - Tylenol 1000MG Q6H PRN mild pain, Tramadol 50MG BID PRN moderate pain. Bowel - Miralax 17GM daily, Senokot 1 tablet BID, Dulcolax 10MG daily PRN. Pneumonia vaccination - Administer Prevnar 13 and/or Pneumovax 23 as necessary. DVT prophylaxis - Lovenox 30MG SC daily. Hypertension - Labetalol 200MG BID, Amlodipine 10MG QHS. CV prophylaxis - Aspirin 81MG daily. Vitamin D deficiency - D3 1000IU daily. Nutrition - Glucerna 120ML 4x/day. Diabetes Mellitus II - Lantus 5 units BID. Hypomagnesemia - Magnesium oxide 400MG BID. Insomnia - Melatonin 3MG QHS PRN. Renal transplant status - Cellcept 500MG BID, Prednisone 5MG daily, Prograf 3MG BID. GERD - Pantoprazole 40MG daily. Pneumocystis Jiroveci Pneumonia prophylaxis - Bactrim DS 1/2 tablet daily.
--- NOTE | 2018-11-30 19:53 | HP.PCM_ITS ---
Problem List (1) Fall Status: Acute (2) Diabetes mellitus Status: Chronic (3) Chronic diastolic heart failure Status: Chronic (4) Pulmonary hypertension Status: Chronic (5) Chronic pancreatitis Status: Chronic (6) GERD (gastroesophageal reflux disease) Status: Chronic (7) Closed left hip fracture Status: Acute (8) Hypertension Status: Chronic Qualifiers: History of Present Illness Date of Admission: 11/30/18 Chief Complaint: Here for rehabilitation, strengthening, prior to discharge home with spouse. The patient is a 68 year old Male with below past medical history presented to [facility] 11/26/2018 with fall, left hip pain. 11/26/2018 X-ray pelvis, left hip showed left hip fracture. 11/26/2018 Chest X-ray negative. 11/26/2018 EKG sinus bradycardia with premature atrial contractions, left axis deviation, non-specific intra-ventricular conduction block, T wave abnormality, consider lateral ischemia. Tripped over shoes, fell on left hip. Left hip fracture, morphine helpful. 11/26/2018 Admit to Hospital. Pain control, consult orthopedics. 11/27/2018 Dr. Camejo performed left hip cemented hemiarthroplasty. Hypoglycemia treated, Lantus adjusted, sliding scale insulin discontinued. Mild worsening of renal function, improved to near baseline. Patient status post kidney transplant. Nephrology consulted. 11/30/2018 Admit to TCU with debility, here for rehabilitation, strengthening, prior to discharge home with spouse. Past Medical History Past Medical History (Chronic Problems): Chronic Problems (Last Updated 06/02/18 @ 09:32 by Sandy Crouch) Diabetes mellitus (Chronic) Chronic diastolic heart failure (Chronic) Pulmonary hypertension (Chronic) Chronic pancreatitis (Chronic) GERD (gastroesophageal reflux disease) (Chronic) Chronic renal insufficiency (Chronic) Pancreatitis (Chronic) History of renal transplant (Chronic) Type 2 diabetes mellitus (Chronic) Hypertension (Chronic) Chronic kidney disease, stage IV (severe) (Chronic) Chronic diastolic (congestive) heart failure (Chronic) Nonrheumatic pulmonary valve insufficiency (Chronic) Nonrheumatic tricuspid valve regurgitation (Chronic) Secondary pulmonary arterial hypertension (Chronic) Non-rheumatic aortic regurgitation (Chronic) Hypertension (Chronic) Medical History: Medical History (Last Updated 06/02/18 @ 09:32 by Sandy Crouch) Chronic diastolic (congestive) heart failure (Chronic) I50.32 Nonrheumatic pulmonary valve insufficiency (Chronic) I37.1 Nonrheumatic tricuspid valve regurgitation (Chronic) I36.1 Secondary pulmonary arterial hypertension (Chronic) I27.21 Non-rheumatic aortic regurgitation (Chronic) I35.1 Hypertension (Chronic) I10 Anemia in chronic kidney disease N18.9, D63.1 Chronic pancreatitis K86.1 Secondary hypoparathyroidism E20.8 Type 2 diabetes mellitus E11.9 Dx : 20+ years ago Last exacerbation : DKA : never Hypoglycemic episode : 04/20 ER visit : 04/20 Allergies oxycodone HCl [From Percocet] Adverse Reaction (Verified 11/26/18 22:09) TOO MUCH CAUSES HALLUCINATIONS TOO MUCH Home Medications: Ambulatory Orders Medication Instructions Recorded Labetalol [Trandate (Beta Lisa)] 200 mg PO BID 12/19/13 Pantoprazole Sodium [Protonix] 40 mg PO DAILY 12/19/13 predniSONE tablet 5 mg PO DAILY 12/19/13 Aspirin [Aspirin, Baby] 81 mg PO DAILY@0800 08/16/15 Cholecalciferol (VIT D3) [Vitamin 1,000 unit PO DAILY 12/09/15 D3] amlodipine 10 mg tablet 10 mg PO QHS 12/02/17 magnesium oxide 400 mg (241.3 mg 400 mg PO BID tab 12/02/17 magnesium) tablet mycophenolate mofetil 250 mg 500 mg PO BID cap 12/02/17 capsule sulfamethoxazole 400 1 tab PO QDAY 12/02/17 mg-trimethoprim 80 mg tablet tacrolimus 1 mg capsule 3 mg PO BID cap 12/02/17 tramadol 50 mg tablet 50 mg PO BID PRN tab 12/02/17 Glucerna Shake 120 ml PO 4X/DAY 11/30/18 Insulin Glargine [Lantus SoloStar 8 units SC BREAKFAST 11/30/18 Pen] Melatonin 3 mg PO QHS PRN PRN tablet 11/30/18 Surgical History: Surgical History (Last Reviewed 06/02/18 @ 09:21 by Sandy Crouch) Hx of cholecystectomy Z90.49 Kidney replaced by transplant Onset Date: ~10/15/11 Z94.0 Right Surgical History: cholecystectomy, - - Kidney transplant, sphincterotomy, left wrist fusion Psychiatric History: No pertinent psych hx Lives: Spouse/ Significant Other Smoking Status: Former smoker Tobacco Use: Cigars Alcohol: None Drugs: None - *Family History Maternal History Items: Diabetes, No pertinent history Paternal History Items: No pertinent history Sibling History Items: Cancer - Throat, No pertinent history Review of Systems Constitutional: Denies: Chills, Fever, Weight Change HEENT: Denies: Head Aches, Sinus Congestion, Sinus Drainage Cardiovascular: Denies: Chest Pain, Palpitations Respiratory: Denies: Cough, Shortness of breath at rest, Sputum production Gastrointestinal: Denies: Abdominal Pain, Nausea, Vomiting Genitourinary: Denies: Dysuria Musculoskeletal: Denies: Joint Pain, Joint Tenderness Skin: Denies: Rash, Wounds Neurological: Denies: Numbness, Tingling, Focal weakness Psychiatric: Denies: Anxiety, Depression, Homicidal Ideations, Suicidal Ideations Hematologic/ Lymphatic: Denies: Easy Bruising, Easy Bleeding VTE Information - Inpt Only VTE Present on Admission: No VTE Mechan Device Prophylaxis: Knee High JOHNNY Hose VTE Pharm Prophylaxis ordered?: Yes Patient Problems: Active and Suspected Problems (Last Updated 06/02/18 @ 09:32 by Sandy Crouch) Fall (Acute) - Physical Exam General: Alert, Oriented x3, Cooperative HEENT: Atraumatic, PERRLA, EOMI, Normocephalic Neck: Supple, No JVD, Negative Carotid Bruits Lungs: Clear to auscultation, Normal air movement Cardiovascular: Regular rate, No murmurs Abdomen: Bowel Sounds Present, Soft, Non Tender Extremities: No edema, Capillary Refill Less than 3 Seconds Skin: No rashes, No breakdown, Incision - Left hip incision dressed. Musculoskeletal: No Tenderness to Palpation of Joints or Extremities Neurological: Cranial nerves II-XII grossly intact Psych/Mental Status: Normal Affect, Appropriate Vital Signs Temp Pulse Resp BP Pulse Ox 98.7 F 69 18 156/65 H 97 11/30/18 16:35 11/30/18 16:35 11/30/18 16:35 11/30/18 16:35 11/30/18 16:35 Oxygen Delivery Method Room Air Weight: 67.7 kg Body Mass Index (BMI) 19.1 Finger Stick Blood Glucose 60 POC Glucose 11/30/18 16:47 POC Glucose 319 H Assessment/Plan All Active Problems (Last Updated 06/02/18 @ 09:32 by Sandy Crouch) Renal transplant recipient (Acute) Renal transplant, status post (Acute) Hyperkalemia (Acute) Fall (Acute) Closed left hip fracture (Acute) 68 year old male with below past medical history hospitalized for left hip fracture, underwent left hip cemented arthroplasty 11/27/[address] Camejo, complicated by postoperative hypoglycemia, admitted to TCU with debility, here for rehabilitation, strengthening, prior to discharge home with spouse. * Debility - PT/OT. * Pain - Tylenol 1000MG Q6H PRN mild pain, Tramadol 50MG BID PRN moderate pain. * Bowel - Miralax 17GM daily, Senokot 1 tablet BID, Dulcolax 10MG daily PRN. * Pneumonia vaccination - Administer Prevnar 13 and/or Pneumovax 23 as necessary. * DVT prophylaxis - Lovenox 30MG SC daily. * Hypertension - Labetalol 200MG BID, Amlodipine 10MG QHS. * CV prophylaxis - Aspirin 81MG daily. * Vitamin D deficiency - D3 1000IU daily. * Nutrition - Glucerna 120ML 4x/day. * Diabetes Mellitus II - Lantus 5 units BID. * Hypomagnesemia - Magnesium oxide 400MG BID. * Insomnia - Melatonin 3MG QHS PRN. * Renal transplant status - Cellcept 500MG BID, Prednisone 5MG daily, Prograf 3MG BID. * GERD - Pantoprazole 40MG daily. * Pneumocystis Jiroveci Pneumonia prophylaxis - Bactrim DS 1/2 tablet daily.
[2018-11-30 20:06] VITALS: O2SAT 97
[2018-11-30] MEDS: Tacrolimus Anhydrous 1 MG Capsule 3 MG PO (20:09)
[2018-11-30] MEDS: Mycophenolate Mofetil 250 MG Capsule 500 MG PO (20:10)
[2018-11-30] MEDS: amLODIPine 10 MG Tablet PO (20:10)
[2018-11-30 21:06] LABS: Bedside Glucose 289 mg/dL (70-110)
[2018-12-01] MEDS: Glucerna Shake 120 ML LIQUID PO ×3 (05:08→18:21)
[2018-12-01] MEDS: traMADol 50 MG Tablet PO ×2 (05:08→18:26)
[2018-12-01] MEDS: Tacrolimus Anhydrous 1 MG Capsule 3 MG PO ×2 (05:09→18:19)
[2018-12-01] MEDS: Pantoprazole Sodium 40 MG Tablet PO (05:10)
[2018-12-01] MEDS: Labetalol 200 MG Tablet PO ×2 (05:10→18:20)
[2018-12-01] MEDS: Mycophenolate Mofetil 250 MG Capsule 500 MG PO ×2 (05:10→19:59)
[2018-12-01] MEDS: Senna Tablet 1 TABLET PO (05:11)
--- NOTE | 2018-12-01 05:15 | NURSING ---
In to give patient medications at this time. Patient states that he needs to go to the restroom. Explained to patient that he needs to wait till this nurse got help to transfer him. Patient very impulsive sitting up and grabbing this nurses' right arm. States I need to go now. [place] belt placed on patient. Patient up and transferring to bathroom. Patient very unsteady gait. Patient unhappy to be assisted states that he can do this on my own. Patient back to bed with assistance although very unhappy with help. Medications given. Call light within reach, no other needs voiced.
[2018-12-01] MEDS: Enoxaparin 30 MG/0.3 ML Syringe SC (05:18)
[2018-12-01 06:07] LABS: Absolute Lymphocyte Count 1.57 X10^3/ul (0.83-4.51); Absolute Neutrophil Count 5.6 X10^3/uL (2.0-7.7); Eosinophil# 0.11 X10^3/uL; Eosinophils% 1.4 % (0-5); Hematocrit 29.8 % (40-54); Lymphocyte # 1.57 X10^3/ul (4.0); Lymphocyte % 19.4 % (19-41); Mean Corp Hgb Conc 33.6 g/gl (32-36); Mean Corpuscular Hgb 30.5 pg (27.0-32.0); Mean Corpuscular Volume 90.9 fL (80-94); Monocyte# 0.84 X10^3/uL; Monocyte% 10.4 % (0-10); Neutrophil # 5.58 X10^3/uL (2.7-7.7); Neutrophil % 68.7 % (47-70); Platelet Count 148 K/mm3 (150-450); RBC Distribution Width CV 14.8 % (11.6-14.6); RBC Distribution Width SD 47.6 fl (35.1-43.9); Red Blood Count 3.28 M/mm3 (4.6-6.2); White Blood Count 8.1 K/mm3 (4.4-11.0)
[2018-12-01 06:09] LABS: POSITIVE COUNT NO; POSITIVE DIFFERENTIAL NO; POSITIVE MORPHOLOGY NO
[2018-12-01 06:27] LABS: Anion Gap 8 (5-15); BUN 20 mg/dL (7-18); Calcium,Total 8.6 mg/dL (8.5-10.1); Chloride 108 mmol/L (98-107); Creatinine, Serum 1.81 mg/dL (0.70-1.30); EST Glomerular Filtration Rate 40 mL/min (>60); Est Glom Filt Rate - Afr Amer 48 mL/min (>60); Glucose 254 mg/dL (74-106); Potassium 4.5 mmol/L (3.5-5.1); Sodium Level 137 mmol/L (136-145)
[2018-12-01 06:35] LABS: Bedside Glucose 330 mg/dL (70-110)
[2018-12-01] MEDS: Acetaminophen 500 MG Tablet 1000 MG PO (08:23)
[2018-12-01] MEDS: Aspirin 81 MG TAB.CHEW PO (08:24)
[2018-12-01] MEDS: Smz/Tmp Ds Tablet 0.5 TABLET PO (08:24)
[2018-12-01] MEDS: predniSONE 5 MG Tablet PO (08:24)
[2018-12-01] MEDS: Magnesium Oxide 400 MG Tablet PO ×2 (08:24→18:20)
--- NOTE | 2018-12-01 11:37 | NURSING ---
BS 454, Dr. Cramer updated, order to give an additional 10 units of insulin for a total of 17 units with lunch.
[2018-12-01 11:41] LABS: Bedside Glucose 452 mg/dL (70-110)
[2018-12-01] MEDS: Insulin Lispro 100 UNIT/ML INSULN.PEN 7 UNIT SC (12:03)
[2018-12-01] MEDS: Insulin Lispro 100 UNIT/ML INSULN.PEN 10 UNIT SC (12:03)
[2018-12-01] MEDS: Tuberculin,Purif.prot.deriv. 50 TU/ML Vial 5 ML ID (12:06)
--- NOTE | 2018-12-01 14:54 | PCM.PN.RX ---
<Wiliam Matthew D - Last Filed: 12/01/18 14:54> Progress Note - Pharmacy Subjective: TCU Admission Objective: Allergies oxycodone HCl [From Percocet] Adverse Reaction (Verified 11/26/18 22:09) TOO MUCH CAUSES HALLUCINATIONS TOO MUCH Current Medications Generic Name Dose Route Start Last Admin Trade Name Freq PRN Reason Stop Dose Admin Acetaminophen 1,000 mg 11/30/18 20:07 12/01/18 08:23 Tylenol PO 1,000 mg Q6H PRN Administration MILD PAIN (1-310) Amlodipine Besylate 10 mg 11/30/18 22:00 11/30/18 20:10 Norvasc PO 10 mg QHS JOSÉ Administration Aspirin 81 mg 12/01/18 08:00 12/01/18 08:24 Aspirin, Baby PO 81 mg DAILY@0800 JOSÉ Administration Bisacodyl 10 mg 11/30/18 20:08 Dulcolax PO DAILY PRN Constipation Cholecalciferol 1,000 unit 12/01/18 06:00 12/01/18 05:10 Vitamin D PO 1,000 unit DAILY JOSÉ Administration Enoxaparin Sodium 30 mg 12/01/18 06:00 12/01/18 05:18 Lovenox SC 30 mg DAILY@0600 [facility] Administration Insulin Glargine 10 units 12/01/18 18:00 Lantus ([facility]) SC BID JOSÉ Insulin Human Lispro 7 unit 12/01/18 11:45 12/01/18 12:03 Humalog Kwikpen ([facility]) SC 7 u TIDAC [facility] Administration Labetalol HCl 200 mg 11/30/18 18:00 12/01/18 05:10 Trandate PO 200 mg BID JOSÉ Administration Magnesium Oxide 400 mg 11/30/18 17:00 12/01/18 08:24 Mag-Ox 400 PO 400 mg BIDCM [facility] Administration Melatonin 3 mg 11/30/18 16:40 Melatonin PO QHS PRN PRN INSOMNIA Mycophenolate Mofetil 500 mg 11/30/18 19:00 12/01/18 05:10 Cellcept PO 500 mg BID@0600,1900 [facility] Administration Nutritional Formula (Lactose Free) 120 ml 11/30/18 17:00 12/01/18 12:06 Glucerna Shake PO 120 ml 4X/DAY JOSÉ Administration Pantoprazole Sodium 40 mg 05/01/19 06:00 12/01/18 05:10 Protonix PO 40 mg DAILY JOSÉ Administration Polyethylene Glycol 17 gm 12/01/18 06:00 12/01/18 05:11 Miralax PO Not Given DAILY JOSÉ Prednisone 5 mg 12/01/18 08:00 12/01/18 08:24 PO 5 mg DAILYCM JOSÉ Administration Senna 1 tablet 12/01/18 06:00 12/01/18 05:11 Senokot PO 1 tablet BID JOSÉ Administration Tacrolimus 3 mg 11/30/18 18:00 12/01/18 05:09 Prograf PO 3 mg BID JOSÉ Administration Tramadol HCl 50 mg 12/01/18 06:00 12/01/18 05:08 Ultram PO 50 mg BID JOSÉ Administration Trimethoprim/Sulfamethoxazole 0.5 tablet 12/01/18 08:00 12/01/18 08:24 Bactrim Ds PO 0.5 tablet DAILYCM JOSÉ Administration Tuberculin PPD 5 tu 12/08/18 10:00 Tubersol, Aplisol, Ppd ID 12/08/18 10:01 X1 ONE Problem List (Last Updated 06/02/18 @ 09:32 by Sandy Crouch) Fall (Acute) Diabetes mellitus (Chronic) Chronic diastolic heart failure (Chronic) Pulmonary hypertension (Chronic) Chronic pancreatitis (Chronic) GERD (gastroesophageal reflux disease) (Chronic) Vital Signs Temp Pulse Resp BP Pulse Ox 98.7 F 69 18 156/65 H 97 11/30/18 16:35 11/30/18 16:35 11/30/18 16:35 11/30/18 16:35 11/30/18 20:06 Oxygen Delivery Method Room Air Weight: 67.7 kg Body Mass Index (BMI) 19.1 Finger Stick Blood Glucose 60 Sodium 137 mmol/L (136-145) 12/01/18 05:25 Potassium 4.5 mmol/L (3.5-5.1) 12/01/18 05:25 Chloride 108 mmol/L (98-107) H 12/01/18 05:25 Carbon Dioxide 21.0 mmol/L (21.0-32.0) 12/01/18 05:25 Anion Gap 8 (5-15) 12/01/18 05:25 BUN 20 mg/dL (7-18) H 12/01/18 05:25 Creatinine 1.81 mg/dL (0.70-1.30) H 12/01/18 05:25 Est GFR (MDRD) Af Amer 48 mL/min (>60) L 12/01/18 05:25 Est GFR (MDRD) Non-Af 40 mL/min (>60) L 12/01/18 05:25 BUN/Creatinine Ratio 11.0 RATIO (10-20) 12/01/18 05:25 Glucose 254 mg/dL (74-106) H 12/01/18 05:25 Assessment/Plan: 1) Pain APAP for mild pain, tramadol. Continue to monitor prn medication use, daily pain scores. 2) HTN Amlodipine, labetalol. Continue to monitor BP/HR. 3) Renal Transplant Mycophenolate, prednisone, tacrolimus. Continue to monitor clinically. 4) GI Pantoprazole. Continue to monitor s/s GI distress. 5) DM2 Insulin Glargine, lispro. Continue to monitor BGT, s/s hyper/hypoglycemia. 6) Nutrition D, Glucerna, Mg. Continue to monitor clinically. 7) DVT PPx Enoxaparin. Continue to monitor s/s bleeding/clot. * Note from orthopedic surgeon from 11/28 states patient should receive ASA BID for DVT PPx. Seems that that order was DC when patient was discharged and ASA 81mg home dose was resumed. Please clarify if patient should be on ASA 81mg BID (instead of enoxaparin) for DVT PPx post-op per the orthopedic surgeon (Meek Camejo). 8) PCP PPx SMX/TMP. Continue to monitor renal function, electrolytes, s/s infection. Psychotropic Medications: None Unnecessary Medications: None Bowel Regimen: 9) Senna, PEG, prn bisacodyl. Continue to monitor prn medication use, for constipation/diarrhea. Date of Note:: 12/01/18 - Provider Comments Provider responsibility: Provider responsible to enter orders to implement recommendations <Bethel Cramer Chi - Last Filed: 12/01/18 18:04> Progress Note - Pharmacy Subjective: [] Objective: Allergies oxycodone HCl [From Percocet] Adverse Reaction (Verified 11/26/18 22:09) TOO MUCH CAUSES HALLUCINATIONS TOO MUCH Current Medications Generic Name Dose Route Start Last Admin Trade Name Freq PRN Reason Stop Dose Admin Acetaminophen 1,000 mg 11/30/18 20:07 12/01/18 08:23 Tylenol PO 1,000 mg Q6H PRN Administration MILD PAIN (1-3/10) Amlodipine Besylate 10 mg 11/30/18 22:00 11/30/18 20:10 Norvasc PO 10 mg QHS JOSÉ Administration Aspirin 81 mg 12/01/18 08:00 12/01/18 08:24 Aspirin, Baby PO 81 mg DAILY@0800 [facility] Administration Bisacodyl 10 mg 11/30/18 20:08 Dulcolax PO DAILY PRN Constipation Cholecalciferol 1,000 unit 12/01/18 06:00 12/01/18 05:10 Vitamin D PO 1,000 unit DAILY [facility] Administration Enoxaparin Sodium 30 mg 12/01/18 06:00 12/01/18 05:18 Lovenox SC 30 mg DAILY@0600 [facility] Administration Insulin Glargine 20 units 12/01/18 18:00 Lantus ([facility]) SC BID [facility] Insulin Human Lispro 13 unit 12/02/18 06:45 Humalog Kwikpen ([facility]) SC TIDAC [facility] Labetalol HCl 200 mg 11/30/18 18:00 12/01/18 05:10 Trandate PO 200 mg BID [facility] Administration Magnesium Oxide 400 mg 11/30/18 17:00 12/01/18 08:24 Mag-Ox 400 PO 400 mg BIDCM [facility] Administration Melatonin 3 mg 11/30/18 16:40 Melatonin PO QHS PRN PRN INSOMNIA Mycophenolate Mofetil 500 mg 11/30/18 19:00 12/01/18 05:10 Cellcept PO 500 mg BID@0600,1900 [facility] Administration Nutritional Formula (Lactose Free) 120 ml 11/30/18 17:00 12/01/18 12:06 Glucerna Shake PO 120 ml 4X/DAY [facility] Administration Pantoprazole Sodium 40 mg 12/01/18 06:00 12/01/18 05:10 Protonix PO 40 mg DAILY [facility] Administration Polyethylene Glycol 17 gm 12/01/18 06:00 12/01/18 05:11 Miralax PO Not Given DAILY [facility] Prednisone 5 mg 12/01/18 08:00 12/01/18 08:24 [facility] Senna 1 tablet 12/01/18 06:00 12/01/18 05:11 Senokot PO 1 tablet BID JOSÉ Administration Tacrolimus 3 mg 11/30/18 18:00 12/01/18 05:09 Prograf PO 3 mg BID JOSÉ Administration Tramadol HCl 50 mg 12/01/18 06:00 12/01/18 05:08 Ultram PO 50 mg BID JOSÉ Administration Trimethoprim/Sulfamethoxazole 0.5 tablet 12/01/18 08:00 12/01/18 08:24 Bactrim Ds PO 0.5 tablet DAILYCM JOSÉ Administration Tuberculin PPD 5 tu 12/08/18 10:00 Tubersol, Aplisol, Ppd ID 12/08/18 10:01 X1 ONE Problem List (Last Updated 06/02/18 @ 09:32 by Sandy Crouch) Fall (Acute) Diabetes mellitus (Chronic) Chronic diastolic heart failure (Chronic) Pulmonary hypertension (Chronic) Chronic pancreatitis (Chronic) GERD (gastroesophageal reflux disease) (Chronic) Vital Signs Temp Pulse Resp BP Pulse Ox 97.5 F L 62 18 165/65 H 97 12/01/18 15:57 12/01/18 15:57 12/01/18 15:57 12/01/18 15:57 11/30/18 20:06 Oxygen Delivery Method Room Air Weight: 67.7 kg Body Mass Index (BMI) 19.1 Finger Stick Blood Glucose 60 Sodium 137 mmol/L (136-145) 12/01/18 05:25 Potassium 4.5 mmol/L (3.5-5.1) 12/01/18 05:25 Chloride 108 mmol/L (98-107) H 12/01/18 05:25 Carbon Dioxide 21.0 mmol/L (21.0-32.0) 12/01/18 05:25 Anion Gap 8 (5-15) 12/01/18 05:25 BUN 20 mg/dL (7-18) H 12/01/18 05:25 Creatinine 1.81 mg/dL (0.70-1.30) H 12/01/18 05:25 Est GFR (MDRD) Af Amer 48 mL/min (>60) L 12/01/18 05:25 Est GFR (MDRD) Non-Af 40 mL/min (>60) L 12/01/18 05:25 BUN/Creatinine Ratio 11.0 RATIO (10-20) 12/01/18 05:25 Glucose 254 mg/dL (74-106) H 12/01/18 05:25 Assessment/Plan: Psychotropic Medications: Unnecessary Medications: Bowel Regimen: - Provider Comments Provider responsibility: Provider responsible to enter orders to implement recommendations Provider Comments to Recommendations by Pharmacy: Agree
--- NOTE | 2018-12-01 15:01 | PHA.CONS_ITS ---
<Wiliam Matthew D - Last Filed: 12/01/18 14:54> Progress Note - Pharmacy Subjective: TCU Admission Objective: Allergies oxycodone HCl [From Percocet] Adverse Reaction (Verified 11/26/18 22:09) TOO MUCH CAUSES HALLUCINATIONS TOO MUCH Current Medications Generic Name Dose Route Start Last Admin Trade Name Freq PRN Reason Stop Dose Admin Acetaminophen 1,000 mg 11/30/18 20:07 12/01/18 08:23 Tylenol PO 1,000 mg Q6H PRN Administration MILD PAIN (1-310) Amlodipine Besylate 10 mg 11/30/18 22:00 11/30/18 20:10 Norvasc PO 10 mg QHS JOSÉ Administration Aspirin 81 mg 12/01/18 08:00 12/01/18 08:24 Aspirin, Baby PO 81 mg DAILY@0800 JOSÉ Administration Bisacodyl 10 mg 11/30/18 20:08 Dulcolax PO DAILY PRN Constipation Cholecalciferol 1,000 unit 12/01/18 06:00 12/01/18 05:10 Vitamin D PO 1,000 unit DAILY JOSÉ Administration Enoxaparin Sodium 30 mg 12/01/18 06:00 12/01/18 05:18 Lovenox SC 30 mg DAILY@0600 [facility] Administration Insulin Glargine 10 units 12/01/18 18:00 Lantus ([facility]) SC BID JOSÉ Insulin Human Lispro 7 unit 12/01/18 11:45 12/01/18 12:03 Humalog Kwikpen ([facility]) SC 7 u TIDAC [facility] Administration Labetalol HCl 200 mg 11/30/18 18:00 12/01/18 05:10 Trandate PO 200 mg BID JOSÉ Administration Magnesium Oxide 400 mg 11/30/18 17:00 12/01/18 08:24 Mag-Ox 400 PO 400 mg BIDCM [facility] Administration Melatonin 3 mg 11/30/18 16:40 Melatonin PO QHS PRN PRN INSOMNIA Mycophenolate Mofetil 500 mg 11/30/18 19:00 12/01/18 05:10 Cellcept PO 500 mg BID@0600,1900 [facility] Administration Nutritional Formula (Lactose Free) 120 ml 11/30/18 17:00 12/01/18 12:06 Glucerna Shake PO 120 ml 4X/DAY JOSÉ Administration Pantoprazole Sodium 40 mg 05/01/19 06:00 12/01/18 05:10 Protonix PO 40 mg DAILY JOSÉ Administration Polyethylene Glycol 17 gm 12/01/18 06:00 12/01/18 05:11 Miralax PO Not Given DAILY JOSÉ Prednisone 5 mg 12/01/18 08:00 12/01/18 08:24 PO 5 mg DAILYCM JOSÉ Administration Senna 1 tablet 12/01/18 06:00 12/01/18 05:11 Senokot PO 1 tablet BID JOSÉ Administration Tacrolimus 3 mg 11/30/18 18:00 12/01/18 05:09 Prograf PO 3 mg BID JOSÉ Administration Tramadol HCl 50 mg 12/01/18 06:00 12/01/18 05:08 Ultram PO 50 mg BID JOSÉ Administration Trimethoprim/Sulfamethoxazole 0.5 tablet 12/01/18 08:00 12/01/18 08:24 Bactrim Ds PO 0.5 tablet DAILYCM JOSÉ Administration Tuberculin PPD 5 tu 12/08/18 10:00 Tubersol, Aplisol, Ppd ID 12/08/18 10:01 X1 ONE Problem List (Last Updated 06/02/18 @ 09:32 by Sandy Crouch) Fall (Acute) Diabetes mellitus (Chronic) Chronic diastolic heart failure (Chronic) Pulmonary hypertension (Chronic) Chronic pancreatitis (Chronic) GERD (gastroesophageal reflux disease) (Chronic) Vital Signs Temp Pulse Resp BP Pulse Ox 98.7 F 69 18 156/65 H 97 11/30/18 16:35 11/30/18 16:35 11/30/18 16:35 11/30/18 16:35 11/30/18 20:06 Oxygen Delivery Method Room Air Weight: 67.7 kg Body Mass Index (BMI) 19.1 Finger Stick Blood Glucose 60 Sodium 137 mmol/L (136-145) 12/01/18 05:25 Potassium 4.5 mmol/L (3.5-5.1) 12/01/18 05:25 Chloride 108 mmol/L (98-107) H 12/01/18 05:25 Carbon Dioxide 21.0 mmol/L (21.0-32.0) 12/01/18 05:25 Anion Gap 8 (5-15) 12/01/18 05:25 BUN 20 mg/dL (7-18) H 12/01/18 05:25 Creatinine 1.81 mg/dL (0.70-1.30) H 12/01/18 05:25 Est GFR (MDRD) Af Amer 48 mL/min (>60) L 12/01/18 05:25 Est GFR (MDRD) Non-Af 40 mL/min (>60) L 12/01/18 05:25 BUN/Creatinine Ratio 11.0 RATIO (10-20) 12/01/18 05:25 Glucose 254 mg/dL (74-106) H 12/01/18 05:25 Assessment/Plan: 1) Pain APAP for mild pain, tramadol. Continue to monitor prn medication use, daily pain scores. 2) HTN Amlodipine, labetalol. Continue to monitor BP/HR. 3) Renal Transplant Mycophenolate, prednisone, tacrolimus. Continue to monitor clinically. 4) GI Pantoprazole. Continue to monitor s/s GI distress. 5) DM2 Insulin Glargine, lispro. Continue to monitor BGT, s/s hyper/hypoglycemia. 6) Nutrition D, Glucerna, Mg. Continue to monitor clinically. 7) DVT PPx Enoxaparin. Continue to monitor s/s bleeding/clot. * Note from orthopedic surgeon from 11/28 states patient should receive ASA BID for DVT PPx. Seems that that order was DC when patient was discharged and ASA 81mg home dose was resumed. Please clarify if patient should be on ASA 81mg BID (instead of enoxaparin) for DVT PPx post-op per the orthopedic surgeon (Meek Camejo). 8) PCP PPx SMX/TMP. Continue to monitor renal function, electrolytes, s/s infection. Psychotropic Medications: None Unnecessary Medications: None Bowel Regimen: 9) Senna, PEG, prn bisacodyl. Continue to monitor prn medication use, for constipation/diarrhea. Date of Note:: 12/01/18 - Provider Comments Provider responsibility: Provider responsible to enter orders to implement recommendations <Bethel Cramer Chi - Last Filed: 12/01/18 18:04> Progress Note - Pharmacy Subjective: [] Objective: Allergies oxycodone HCl [From Percocet] Adverse Reaction (Verified 11/26/18 22:09) TOO MUCH CAUSES HALLUCINATIONS TOO MUCH Current Medications Generic Name Dose Route Start Last Admin Trade Name Freq PRN Reason Stop Dose Admin Acetaminophen 1,000 mg 11/30/18 20:07 12/01/18 08:23 Tylenol PO 1,000 mg Q6H PRN Administration MILD PAIN (1-3/10) Amlodipine Besylate 10 mg 11/30/18 22:00 11/30/18 20:10 Norvasc PO 10 mg QHS JOSÉ Administration Aspirin 81 mg 12/01/18 08:00 12/01/18 08:24 Aspirin, Baby PO 81 mg DAILY@0800 [facility] Administration Bisacodyl 10 mg 11/30/18 20:08 Dulcolax PO DAILY PRN Constipation Cholecalciferol 1,000 unit 12/01/18 06:00 12/01/18 05:10 Vitamin D PO 1,000 unit DAILY [facility] Administration Enoxaparin Sodium 30 mg 12/01/18 06:00 12/01/18 05:18 Lovenox SC 30 mg DAILY@0600 [facility] Administration Insulin Glargine 20 units 12/01/18 18:00 Lantus ([facility]) SC BID [facility] Insulin Human Lispro 13 unit 12/02/18 06:45 Humalog Kwikpen ([facility]) SC TIDAC [facility] Labetalol HCl 200 mg 11/30/18 18:00 12/01/18 05:10 Trandate PO 200 mg BID [facility] Administration Magnesium Oxide 400 mg 11/30/18 17:00 12/01/18 08:24 Mag-Ox 400 PO 400 mg BIDCM [facility] Administration Melatonin 3 mg 11/30/18 16:40 Melatonin PO QHS PRN PRN INSOMNIA Mycophenolate Mofetil 500 mg 11/30/18 19:00 12/01/18 05:10 Cellcept PO 500 mg BID@0600,1900 [facility] Administration Nutritional Formula (Lactose Free) 120 ml 11/30/18 17:00 12/01/18 12:06 Glucerna Shake PO 120 ml 4X/DAY [facility] Administration Pantoprazole Sodium 40 mg 12/01/18 06:00 12/01/18 05:10 Protonix PO 40 mg DAILY [facility] Administration Polyethylene Glycol 17 gm 12/01/18 06:00 12/01/18 05:11 Miralax PO Not Given DAILY [facility] Prednisone 5 mg 12/01/18 08:00 12/01/18 08:[facility] Senna 1 tablet 12/01/18 06:00 12/01/18 05:11 Senokot PO 1 tablet BID JOSÉ Administration Tacrolimus 3 mg 11/30/18 18:00 12/01/18 05:09 Prograf PO 3 mg BID JOSÉ Administration Tramadol HCl 50 mg 12/01/18 06:00 12/01/18 05:08 Ultram PO 50 mg BID JOSÉ Administration Trimethoprim/Sulfamethoxazole 0.5 tablet 12/01/18 08:00 12/01/18 08:24 Bactrim Ds PO 0.5 tablet DAILYCM JOSÉ Administration Tuberculin PPD 5 tu 12/08/18 10:00 Tubersol, Aplisol, Ppd ID 12/08/18 10:01 X1 ONE Problem List (Last Updated 06/02/18 @ 09:32 by Sandy Crouch) Fall (Acute) Diabetes mellitus (Chronic) Chronic diastolic heart failure (Chronic) Pulmonary hypertension (Chronic) Chronic pancreatitis (Chronic) GERD (gastroesophageal reflux disease) (Chronic) Vital Signs Temp Pulse Resp BP Pulse Ox 97.5 F L 62 18 165/65 H 97 12/01/18 15:57 12/01/18 15:57 12/01/18 15:57 12/01/18 15:57 11/30/18 20:06 Oxygen Delivery Method Room Air Weight: 67.7 kg Body Mass Index (BMI) 19.1 Finger Stick Blood Glucose 60 Sodium 137 mmol/L (136-145) 12/01/18 05:25 Potassium 4.5 mmol/L (3.5-5.1) 12/01/18 05:25 Chloride 108 mmol/L (98-107) H 12/01/18 05:25 Carbon Dioxide 21.0 mmol/L (21.0-32.0) 12/01/18 05:25 Anion Gap 8 (5-15) 12/01/18 05:25 BUN 20 mg/dL (7-18) H 12/01/18 05:25 Creatinine 1.81 mg/dL (0.70-1.30) H 12/01/18 05:25 Est GFR (MDRD) Af Amer 48 mL/min (>60) L 12/01/18 05:25 Est GFR (MDRD) Non-Af 40 mL/min (>60) L 12/01/18 05:25 BUN/Creatinine Ratio 11.0 RATIO (10-20) 12/01/18 05:25 Glucose 254 mg/dL (74-106) H 12/01/18 05:25 Assessment/Plan: Psychotropic Medications: Unnecessary Medications: Bowel Regimen: - Provider Comments Provider responsibility: Provider responsible to enter orders to implement recommendations Provider Comments to Recommendations by Pharmacy: Agree
[2018-12-01 16:00] VITALS: BP 165/65; PULSE 62; RESP 18; TEMP 36.4
[2018-12-01 17:01] LABS: Bedside Glucose 440 mg/dL (70-110)
[2018-12-01] MEDS: Insulin Lispro 100 UNIT/ML INSULN.PEN 13 UNIT SC (18:18)
[2018-12-01] MEDS: amLODIPine 10 MG Tablet PO (19:59)
[2018-12-01 21:21] LABS: Bedside Glucose 104 mg/dL (70-110)
[2018-12-02 03:16] LABS: Bedside Glucose 119 mg/dL (70-110)
[2018-12-02] MEDS: Glucerna Shake 120 ML LIQUID PO ×3 (06:29→16:42)
[2018-12-02] MEDS: traMADol 50 MG Tablet PO ×2 (06:30→16:45)
[2018-12-02] MEDS: Tacrolimus Anhydrous 1 MG Capsule 3 MG PO ×2 (06:31→16:43)
[2018-12-02] MEDS: Labetalol 200 MG Tablet PO ×2 (06:31→16:44)
[2018-12-02] MEDS: Mycophenolate Mofetil 250 MG Capsule 500 MG PO ×2 (06:31→21:10)
[2018-12-02] MEDS: Pantoprazole Sodium 40 MG Tablet PO (06:31)
[2018-12-02 07:16] LABS: Bedside Glucose 181 mg/dL (70-110)
[2018-12-02] MEDS: Acetaminophen 500 MG Tablet 1000 MG PO (08:38)
[2018-12-02] MEDS: Smz/Tmp Ds Tablet 0.5 TABLET PO (08:40)
[2018-12-02] MEDS: Magnesium Oxide 400 MG Tablet PO ×2 (08:40→16:43)
[2018-12-02] MEDS: Aspirin 81 MG TAB.CHEW PO ×2 (08:40→16:43)
[2018-12-02] MEDS: predniSONE 5 MG Tablet PO (08:41)
[2018-12-02] MEDS: Insulin Lispro 100 UNIT/ML INSULN.PEN 13 UNIT SC (09:50)
[2018-12-02 11:00] LABS: Bedside Glucose 128 mg/dL (70-110)
[2018-12-02] MEDS: Insulin Lispro 100 UNIT/ML INSULN.PEN 10 UNIT SC (11:36)
--- NOTE | 2018-12-02 14:48 | NURSING ---
Addendum entered by Brandi Alvarado 12/02/18 15:04: New order to DC mepilex on 12/07, f/u appt made for 12/09 @3:30p w/Dr Camejo. Original Note: message left with Dr Camejo office regarding need order for mepilex removal date on incision. will call back tonight or tomorrow with order.
[2018-12-02 15:42] VITALS: BP 134/63; PULSE 59; RESP 18; TEMP 36.6; O2SAT 93
[2018-12-02 16:41] LABS: Bedside Glucose 92 mg/dL (70-110)
--- NOTE | 2018-12-02 18:30 | NURSING ---
BS 92, DR Cramer updated, orders adjusted.
[2018-12-02 21:06] LABS: Bedside Glucose 211 mg/dL (70-110)
[2018-12-02] MEDS: amLODIPine 10 MG Tablet PO (21:10)
[2018-12-03] MEDS: traMADol 50 MG Tablet PO ×2 (05:40→17:51)
[2018-12-03] MEDS: Mycophenolate Mofetil 250 MG Capsule 500 MG PO ×2 (05:42→17:44)
[2018-12-03] MEDS: Tacrolimus Anhydrous 1 MG Capsule 3 MG PO ×2 (05:42→17:43)
[2018-12-03] MEDS: Pantoprazole Sodium 40 MG Tablet PO (05:43)
[2018-12-03] MEDS: Glucerna Shake 120 ML LIQUID PO ×2 (05:49→11:46)
[2018-12-03] MEDS: Labetalol 200 MG Tablet PO ×2 (05:49→17:44)
[2018-12-03 06:29] LABS: Albumin, Serum 2.6 g/dL (3.2-5.0); BUN 23 mg/dL (7-18); BUN/Creat Ratio 14.6 RATIO (10-20); Calcium,Total 8.5 mg/dL (8.5-10.1); Chloride 108 mmol/L (98-107); Creatinine, Serum 1.58 mg/dL (0.70-1.30); EST Glomerular Filtration Rate 47 mL/min (>60); Est Glom Filt Rate - Afr Amer 56 mL/min (>60); Estimated Creatinine Clearance 42.85 ml/min; Glucose 254 mg/dL (74-106); Phosphorus 2.1 mg/dL (2.5-4.9); Potassium 4.2 mmol/L (3.5-5.1); Sodium Level 137 mmol/L (136-145)
[2018-12-03 06:46] LABS: Bedside Glucose 304 mg/dL (70-110)
[2018-12-03] MEDS: Smz/Tmp Ds Tablet 0.5 TABLET PO (08:27)
[2018-12-03] MEDS: Aspirin 81 MG TAB.CHEW PO ×2 (08:27→17:42)
[2018-12-03] MEDS: predniSONE 5 MG Tablet PO (08:27)
[2018-12-03] MEDS: Magnesium Oxide 400 MG Tablet PO ×2 (08:27→17:45)
[2018-12-03 11:50] LABS: Bedside Glucose 310 mg/dL (70-110)
[2018-12-03 15:13] VITALS: BP 146/62; PULSE 64; RESP 16; TEMP 36.8; O2SAT 94
[2018-12-03 16:45] LABS: Bedside Glucose 387 mg/dL (70-110)
--- NOTE | 2018-12-03 17:51 | NURSING ---
Patient with blood sugar elevated. Per he drops very easy and is nervous to have any medications changed at this time. She feels glucerna may be causing it to rise. Will hold this dose of glucerna and have BS rechecked before bed.
[2018-12-03 20:46] LABS: Bedside Glucose 352 mg/dL (70-110)
[2018-12-03] MEDS: amLODIPine 10 MG Tablet PO (21:07)
[2018-12-03] MEDS: Insulin Lispro 100 UNIT/ML INSULN.PEN SC (21:12)
[2018-12-03 22:10] LABS: Bedside Glucose 362 mg/dL (70-110)
[2018-12-04] MEDS: Labetalol 200 MG Tablet PO ×2 (06:24→17:20)
[2018-12-04] MEDS: traMADol 50 MG Tablet PO ×2 (06:24→17:19)
[2018-12-04] MEDS: Tacrolimus Anhydrous 1 MG Capsule 3 MG PO ×2 (06:24→17:20)
[2018-12-04] MEDS: Pantoprazole Sodium 40 MG Tablet PO (06:24)
[2018-12-04] MEDS: Mycophenolate Mofetil 250 MG Capsule 500 MG PO ×2 (06:24→19:34)
[2018-12-04] MEDS: Smz/Tmp Ds Tablet 0.5 TABLET PO (08:48)
[2018-12-04] MEDS: Magnesium Oxide 400 MG Tablet PO ×2 (08:48→17:20)
[2018-12-04] MEDS: predniSONE 5 MG Tablet PO (08:48)
[2018-12-04] MEDS: Aspirin 81 MG TAB.CHEW PO ×2 (08:49→17:20)
[2018-12-04] MEDS: Acetaminophen 500 MG Tablet 1000 MG PO (08:49)
[2018-12-04 09:41] LABS: Bedside Glucose 257 mg/dL (70-110)
[2018-12-04 09:41] LABS: Bedside Glucose 233 mg/dL (70-110)
[2018-12-04 11:35] LABS: Bedside Glucose 406 mg/dL (70-110)
[2018-12-04] MEDS: Insulin Lispro 100 UNIT/ML INSULN.PEN SC ×2 (11:43→17:20)
--- NOTE | 2018-12-04 11:47 | NURSING ---
Dr lincoln updated on BS 406 before lunch. new order give 10 units humalog now.
[2018-12-04 15:31] VITALS: BP 149/64; PULSE 76; RESP 18; TEMP 36.9; O2SAT 96
[2018-12-04 17:00] LABS: Bedside Glucose 157 mg/dL (70-110)
[2018-12-04] MEDS: amLODIPine 10 MG Tablet PO (19:34)
[2018-12-04 19:39] VITALS: PULSE 70
[2018-12-04 21:01] LABS: Bedside Glucose 108 mg/dL (70-110)
[2018-12-05 02:16] LABS: Bedside Glucose 119 mg/dL (70-110)
[2018-12-05] MEDS: traMADol 50 MG Tablet PO ×2 (06:31→17:08)
[2018-12-05] MEDS: Labetalol 200 MG Tablet PO ×2 (06:31→17:08)
[2018-12-05] MEDS: Pantoprazole Sodium 40 MG Tablet PO (06:31)
[2018-12-05] MEDS: Tacrolimus Anhydrous 1 MG Capsule 3 MG PO ×2 (06:31→17:08)
[2018-12-05] MEDS: Mycophenolate Mofetil 250 MG Capsule 500 MG PO ×2 (06:33→19:16)
[2018-12-05 06:40] LABS: Bedside Glucose 68 mg/dL (70-110)
--- NOTE | 2018-12-05 06:56 | NURSING ---
This nurse into check pts blood sugar. BS 68. Pt started cussing at this nurse and calling this several rude names. Pt accusing this nurse of giving his to much insulin last HS and stating You dumb ass people need figure your shit out! This nurse explained to pt that was in the room last HS when this nurse administered meds and that no insulin was given. Pt refusing OJ or any snack. This nurse educated importance of making sure BS does not get to low. Pt drank 120ml of OJ and procedeed to cuss at this nurse again. This nurse excited room. Pt was in bed with call light in reach and PA on. Pt recheck was 137. This nurse tried to educate pt that Dr. Cramer would be update. pt ignored nurse and proceed to watch TV. Dayshift aware.
[2018-12-05 07:01] LABS: Bedside Glucose 137 mg/dL (70-110)
[2018-12-05] MEDS: Smz/Tmp Ds Tablet 0.5 TABLET PO (08:37)
[2018-12-05] MEDS: Aspirin 81 MG TAB.CHEW PO ×2 (08:37→17:08)
[2018-12-05] MEDS: predniSONE 5 MG Tablet PO (08:38)
[2018-12-05] MEDS: Magnesium Oxide 400 MG Tablet PO ×2 (08:38→17:08)
--- NOTE | 2018-12-05 10:55 | NURSING ---
held Spencer this AM d/t low BS. Pt alert, able to answer questions. can be renae and get irritated very quickly. Will cont to monitor blood sugars.
[2018-12-05 11:03] VITALS: PULSE 68; RESP 18; O2SAT 97
[2018-12-05 11:31] LABS: Bedside Glucose 225 mg/dL (70-110)
[2018-12-05] MEDS: Insulin Lispro 100 UNIT/ML INSULN.PEN SC ×2 (12:57→17:15)
--- NOTE | 2018-12-05 13:02 | NURSING ---
Addendum entered by Brandi Alvarado 12/05/18 17:16: Blood sugar 321, new order to give humalog 2 units x1, continue to call dr cramer with blood sugars for orders. Original Note: Addendum entered by Brandi Alvarado 12/05/18 13:36: Dr Cramer here, spoke with , new order to dc humalog & changed lantus 13 units to daily in AM Original Note: pt here discused pt up/down blood sugars. would like Dr Cramer to change lantus to daily in AM only, not BID. Feels this is what caused him to bottom out. She also expressed if pt gets renae/agitated/^ confusion then check Blood sugar its probably low.
[2018-12-05 16:00] VITALS: BP 165/71; PULSE 70; RESP 18; TEMP 37.1; O2SAT 96
[2018-12-05 16:56] LABS: Bedside Glucose 321 mg/dL (70-110)
[2018-12-05] MEDS: amLODIPine 10 MG Tablet PO (19:16)
[2018-12-05 21:21] LABS: Bedside Glucose 297 mg/dL (70-110)
[2018-12-06] MEDS: traMADol 50 MG Tablet PO ×2 (06:02→17:43)
[2018-12-06] MEDS: Tacrolimus Anhydrous 1 MG Capsule 3 MG PO ×2 (06:02→17:44)
[2018-12-06] MEDS: Labetalol 200 MG Tablet PO ×2 (06:02→17:44)
[2018-12-06] MEDS: Pantoprazole Sodium 40 MG Tablet PO (06:02)
[2018-12-06] MEDS: Mycophenolate Mofetil 250 MG Capsule 500 MG PO ×2 (06:02→19:55)
--- NOTE | 2018-12-06 06:17 | NURSING ---
This nurse into check pt blood sugar. BS 311. Pt questioning this nurse about what the doctor is going to do. This nurse informed pt doctor would be updated and if he has further orders pt will be updated. Pt thanked this nurse several times. AM meds were given without problems. Pt talking about his and family. Pt assisted to the restroom x1 assist. Pt thanked this nurse several times and was assisted back to bed. PA in place with call light in reach.
[2018-12-06 06:31] LABS: Bedside Glucose 311 mg/dL (70-110)
[2018-12-06] MEDS: Smz/Tmp Ds Tablet 0.5 TABLET PO (08:36)
[2018-12-06] MEDS: Aspirin 81 MG TAB.CHEW PO ×2 (08:37→17:44)
[2018-12-06] MEDS: Magnesium Oxide 400 MG Tablet PO ×2 (08:37→17:44)
[2018-12-06] MEDS: predniSONE 5 MG Tablet PO (08:38)
--- NOTE | 2018-12-06 08:47 | NURSING ---
pt complained to this nurse of feeling nauseated,offered luna nat and crackers. pt refused. reported to valencia montanez
--- NOTE | 2018-12-06 08:56 | NURSING ---
Dr. Cramer updated on blood sugar this AM, new order for Humalog 1 unit x1 now.
[2018-12-06] MEDS: Insulin Lispro 100 UNIT/ML INSULN.PEN SC ×2 (09:24→11:57)
[2018-12-06 11:05] LABS: Bedside Glucose 330 mg/dL (70-110)
[2018-12-06 15:41] VITALS: BP 154/66; PULSE 70; RESP 18; TEMP 37.2; O2SAT 97
[2018-12-06 16:55] LABS: Bedside Glucose 82 mg/dL (70-110)
[2018-12-06] MEDS: amLODIPine 10 MG Tablet PO (19:55)
[2018-12-06 21:06] LABS: Bedside Glucose 138 mg/dL (70-110)
[2018-12-07] MEDS: traMADol 50 MG Tablet PO ×2 (06:12→17:42)
[2018-12-07] MEDS: Labetalol 200 MG Tablet PO ×2 (06:17→17:41)
[2018-12-07] MEDS: Mycophenolate Mofetil 250 MG Capsule 500 MG PO ×2 (06:21→20:29)
[2018-12-07] MEDS: Senna Tablet 1 TABLET PO (06:21)
[2018-12-07] MEDS: Pantoprazole Sodium 40 MG Tablet PO (06:21)
[2018-12-07] MEDS: Tacrolimus Anhydrous 1 MG Capsule 3 MG PO ×2 (06:21→17:41)
[2018-12-07] MEDS: Polyethylene Glycol 3350 17 GM PACKET PO (06:21)
[2018-12-07 06:51] LABS: Bedside Glucose 166 mg/dL (70-110)
[2018-12-07 09:30] VITALS: PULSE 66; RESP 18; O2SAT 97
[2018-12-07] MEDS: Magnesium Oxide 400 MG Tablet PO ×2 (10:20→17:41)
[2018-12-07] MEDS: Aspirin 81 MG TAB.CHEW PO ×2 (10:20→17:41)
[2018-12-07] MEDS: Smz/Tmp Ds Tablet 0.5 TABLET PO (10:21)
[2018-12-07] MEDS: predniSONE 5 MG Tablet PO (10:22)
--- NOTE | 2018-12-07 10:25 | NURSING ---
PT COMPLAINING OF BEING NAUSEATED AND STOMACH HURTING. REPORTED TO HERNÁN WORKMAN
[2018-12-07 11:01] LABS: Bedside Glucose 275 mg/dL (70-110)
--- NOTE | 2018-12-07 11:26 | NURSING ---
BS 275, lantus given. dr lincoln updated, no new orders.
--- NOTE | 2018-12-07 11:33 | NURSING ---
PER HERNÁN WORKMAN STOOL SOFTENERS HOLD AT 6A AND 6P FOR 12/07/18 AND 12/08/18 DUE TO DIARRHEA.
--- NOTE | 2018-12-07 12:38 | CASEMGMT ---
Insurance New Clinical update faxed per insurance request. Auth # [id number] ELIZABETH Russo
--- NOTE | 2018-12-07 15:39 | CHAPLAIN ---
Type of Pastoral Visit ___ Initial Visit _x__ Follow-up Visit ___ On-call Visit ___ General Patient Visit ___ Spiritual Assessment ___ Family Conference ___ Bereavement ___ Rapid Response ___ Code Blue ___ Other (describe below) Pastoral Care Referral From _x__ Patient ___ Family ___ Nurse ___ Physician ___ Manager Ship ___ Billing Customer Service Representative ___ Other (describe below) Sacrament/Intervention _x__ Active listening ___ Anointing ___ Synagogue ___ Bereavement ___ Communion ___ Jennifer exploration ___ _x__ Life review _x__ Prayer ___ Reconciliation ___ Sacrament of Sick ___ Supportive presence ___ Wedding ___ Other (describe below) Pastoral Comments
[2018-12-07 16:00] VITALS: BP 161/74; PULSE 66; RESP 18; TEMP 36.9; O2SAT 97
[2018-12-07 17:06] LABS: Bedside Glucose 252 mg/dL (70-110)
[2018-12-07] MEDS: amLODIPine 10 MG Tablet PO (20:29)
[2018-12-07 21:10] LABS: Bedside Glucose 281 mg/dL (70-110)
[2018-12-08] MEDS: Tacrolimus Anhydrous 1 MG Capsule 3 MG PO ×2 (05:42→16:49)
[2018-12-08] MEDS: Mycophenolate Mofetil 250 MG Capsule 500 MG PO ×2 (05:42→19:32)
[2018-12-08] MEDS: traMADol 50 MG Tablet PO (05:44)
[2018-12-08] MEDS: Pantoprazole Sodium 40 MG Tablet PO (05:45)
[2018-12-08] MEDS: Labetalol 200 MG Tablet PO ×2 (05:45→16:48)
[2018-12-08 05:47] LABS: Absolute Lymphocyte Count 1.21 X10^3/ul (0.83-4.51); Absolute Neutrophil Count 2.9 X10^3/uL (2.0-7.7); Eosinophil# 0.05 X10^3/uL; Hematocrit 30.3 % (40-54); Hemoglobin 10.3 g/dl (13.0-16.5); Lymphocyte # 1.21 X10^3/ul (4.0); Lymphocyte % 25.4 % (19-41); Mean Corpuscular Hgb 30.3 pg (27.0-32.0); Mean Corpuscular Volume 89.1 fL (80-94); Mean Platelet Vol. 9.9 fl (6.2-12.0); Monocyte# 0.59 X10^3/uL; Monocyte% 12.4 % (0-10); Neutrophil % 60.8 % (47-70); Platelet Count 239 K/mm3 (150-450); RBC Distribution Width CV 14.7 % (11.6-14.6); RBC Distribution Width SD 46.4 fl (35.1-43.9); White Blood Count 4.8 K/mm3 (4.4-11.0)
[2018-12-08 05:50] LABS: POSITIVE COUNT NO; POSITIVE DIFFERENTIAL NO; POSITIVE MORPHOLOGY NO
[2018-12-08 05:59] LABS: Anion Gap 6 (5-15); BUN 14 mg/dL (7-18); BUN/Creat Ratio 9.7 RATIO (10-20); Calcium,Total 8.4 mg/dL (8.5-10.1); Chloride 107 mmol/L (98-107); Creatinine, Serum 1.45 mg/dL (0.70-1.30); EST Glomerular Filtration Rate 51 mL/min (>60); Est Glom Filt Rate - Afr Amer 62 mL/min (>60); Estimated Creatinine Clearance 45.05 ml/min; Glucose 165 mg/dL (74-106); Potassium 3.8 mmol/L (3.5-5.1); Sodium Level 138 mmol/L (136-145)
[2018-12-08 06:56] LABS: Bedside Glucose 169 mg/dL (70-110)
--- NOTE | 2018-12-08 08:08 | NURSING ---
Pt self transferring and not using walker upon nurses entering the room. Nurse assisted him to the bathroom. Pt refused nurse to be present in bathroom with him.
[2018-12-08] MEDS: Magnesium Oxide 400 MG Tablet PO ×2 (08:10→16:49)
[2018-12-08] MEDS: Aspirin 81 MG TAB.CHEW PO ×2 (08:10→16:50)
[2018-12-08] MEDS: predniSONE 5 MG Tablet PO (08:10)
[2018-12-08] MEDS: Smz/Tmp Ds Tablet 0.5 TABLET PO (08:10)
[2018-12-08] MEDS: Acetaminophen 500 MG Tablet 1000 MG PO ×2 (11:04→17:38)
[2018-12-08 11:05] LABS: Bedside Glucose 225 mg/dL (70-110)
[2018-12-08] MEDS: Tuberculin,Purif.prot.deriv. 50 TU/ML Vial 5 ML ID (11:48)
[2018-12-08 15:43] VITALS: BP 140/60; PULSE 58; RESP 18; TEMP 36.3; O2SAT 95
[2018-12-08 17:05] LABS: Bedside Glucose 68 mg/dL (70-110)
[2018-12-08 17:25] LABS: Bedside Glucose 148 mg/dL (70-110)
[2018-12-08] MEDS: amLODIPine 10 MG Tablet PO (19:32)
[2018-12-08 21:05] LABS: Bedside Glucose 160 mg/dL (70-110)
--- NOTE | 2018-12-08 22:00 | NURSING ---
Dr. Cramer updated on blood sugar 160 this HS. New order to decreased Lantus to 10 units daily.
[2018-12-09] MEDS: Acetaminophen 500 MG Tablet 1000 MG PO (03:05)
[2018-12-09] MEDS: Mycophenolate Mofetil 250 MG Capsule 500 MG PO ×2 (06:24→18:15)
[2018-12-09] MEDS: Senna Tablet 1 TABLET PO ×2 (06:24→18:13)
[2018-12-09] MEDS: Pantoprazole Sodium 40 MG Tablet PO (06:24)
[2018-12-09] MEDS: Labetalol 200 MG Tablet PO ×2 (06:24→18:13)
[2018-12-09] MEDS: Tacrolimus Anhydrous 1 MG Capsule 3 MG PO ×2 (06:24→18:14)
[2018-12-09 06:51] LABS: Bedside Glucose 76 mg/dL (70-110)
[2018-12-09 06:51] LABS: Bedside Glucose 63 mg/dL (70-110)
[2018-12-09] MEDS: Aspirin 81 MG TAB.CHEW PO ×2 (09:01→18:14)
[2018-12-09] MEDS: predniSONE 5 MG Tablet PO (09:02)
[2018-12-09] MEDS: Magnesium Oxide 400 MG Tablet PO ×2 (09:02→18:13)
[2018-12-09] MEDS: Smz/Tmp Ds Tablet 0.5 TABLET PO (09:03)
[2018-12-09] MEDS: traMADol 50 MG Tablet PO (09:05)
[2018-12-09 09:59] VITALS: BP 150/67; PULSE 63; RESP 18; TEMP 37.1; O2SAT 95
[2018-12-09 10:00] VITALS: PULSE 63; RESP 18
[2018-12-09 11:21] LABS: Bedside Glucose 292 mg/dL (70-110)
--- NOTE | 2018-12-09 12:38 | CASEMGMT ---
Pt will be cut from insurance and discharge day will be Thursday. SW spoke w/pt in room, let him know that insurance has cut him, and he will be discharged Thursday. Pt agreeable to this. SW spoke w/therapy, pt would benefit from a walker, 3-1 commode or bedside commode. Pt also would like a tub transfer bench. SW explained is not certain if the bench and commode will be covered, will let him know. SW also asked pt about home PT vs outpt PT. Pt wants to go to the place across the street from him, but could not think of the name. SW asked if it is [facility], he did not think so. SW went to check the address and pt told the therapist it is [facility]. SW went back to confirm this w/pt, pt states yes, it's [facility]. His granddaughter works there. SW asked if he has a way to get there, he states yes, and that it is just across the street from where they live. SW asked if it would be okay to call his to let her know what we have discussed, pt is agreeable to this. SW called and left a message to call back. Given that pt's recall seems slightly impaired at present, will be beneficial to check w/pt's . MIKE Huang
[2018-12-09 15:12] VITALS: BP 144/62; PULSE 57; RESP 18; TEMP 36.6; O2SAT 96
--- NOTE | 2018-12-09 15:36 | CASEMGMT ---
Insurance Continued stay denied with LCD 12/11 and d/c 12/12. Auth# [id number] Diana JOHNSON
--- NOTE | 2018-12-09 15:38 | CASEMGMT ---
Social Work Return call from PT Rufina. CHARLIE explained that insurance has denied continued stay with LCD 12/11 and d/c 12/12. Rufina expressing concerns with pt ability to be d/c. CHARLIE reviewed with Rufina pt therapy notes faxed to insurance and how pt is doing functionally. SW presented options of return home with home health, out patient therapy or ECF if pt did not feel she could care for pt. After discussion of pt functional ability and options pt is agreeable for pt to return home on Tuesday 12/12 and would like home health services PT/OT/SOCIAL WORKER DELINQUENCY PREVENTION. Pt will need a wheeled walker, 3 in 1 commode and shower chair. CHARLIE will order WW from [facility] to be delivered to TCU and pt will obtain 3in1 and shower chair. Referral made to Pushpa at [facility] and they care able to accept pt for PT/OT/SOCIAL WORKER DELINQUENCY PREVENTION. Referral made to Kaycee at [facility] and they will deliver walker to pt room tomorrow for anticipated d/c on Thursday. No further d/c needs. Plan: D/C home with 12/12/18 and [facility] PT/OT/SOCIAL WORKER DELINQUENCY PREVENTION and Wheeled walker ELIZABETH Russo
--- NOTE | 2018-12-09 16:33 | NURSING ---
Dr. Cramer made aware of lunch blood sugar. NNO.
[2018-12-09 17:36] LABS: Bedside Glucose 315 mg/dL (70-110)
--- NOTE | 2018-12-09 18:05 | NURSING ---
Patient returned from ortho appt, continue WBAT, f/u in 1 month.
[2018-12-09] MEDS: amLODIPine 10 MG Tablet PO (19:36)
--- NOTE | 2018-12-09 19:42 | DCINST_ITS ---
- Discharge Diagnoses Current Active Problems: Current Active and Chronic Problems (Last Updated 06/02/18 @ 09:32 by Sandy Crouch) Fall (Acute) Diabetes mellitus (Chronic) Chronic diastolic heart failure (Chronic) Pulmonary hypertension (Chronic) Chronic pancreatitis (Chronic) GERD (gastroesophageal reflux disease) (Chronic) You will use the following diet at home:: No restrictions, Regular Your food should be the consistency of: Regular Your liquids should be the consistency of: Regular/Thin Discharge Activity: Return to Normal Activity, May Shower, Use Walker Weight Bearing Status: Weight bearing as tolerated Call your doctor if you observe: Fever of 101 or Higher, Inability to urinate, Inability to have a bowel movement, Shortness of breath, Chest pain, Uncontrolled pain Allergies/Adverse Reactions: Allergies oxycodone HCl [From Percocet] Adverse Reaction (Verified 11/26/18 22:09) TOO MUCH CAUSES HALLUCINATIONS TOO MUCH Medications to take at Discharge Labetalol [Trandate (Beta Lisa)] 200 mg PO BID 12/19/13 Pantoprazole Sodium [Protonix] 40 mg PO DAILY 12/19/13 predniSONE tablet 5 mg PO DAILY 12/19/13 Aspirin [Aspirin, Baby] 81 mg PO DAILY@0800 08/16/15 Cholecalciferol (VIT D3) [Vitamin D3] 1,000 unit PO DAILY 12/09/15 amlodipine 10 mg tablet 10 mg PO QHS 12/02/17 magnesium oxide 400 mg (241.3 mg magnesium) tablet 400 mg PO BID tab 12/02/17 mycophenolate mofetil 250 mg capsule 500 mg PO BID cap 12/02/17 sulfamethoxazole 400 mg-trimethoprim 80 mg tablet 1 tab PO QDAY 12/02/17 tacrolimus 1 mg capsule 3 mg PO BID cap 12/02/17 tramadol 50 mg tablet 50 mg PO BID PRN tab 12/02/17 Insulin Glargine [Lantus SoloStar Pen] 8 units SC BREAKFAST 11/30/18 Melatonin 3 mg PO QHS PRN PRN tablet 11/30/18 Acetaminophen [Tylenol] 1,000 mg PO Q6H PRN tablet 12/09/18 Mineral Oil/Petrolatum,White [Eucerin] 1 applic TOPICAL 0600,2200 jar 12/09/18 Primary Care Physician: Rojelio Lee DO [Primary Care Provider] - Please follow up with your Primary Care Physician in: 1 week. Test Results: Test results from this visit will be discussed in further detail at your follow- up appointment, if applicable. Please Follow Up With: lAy Camejo MD When: 1 month Please Follow Up With: Rojelio Lee DO Proposed Discharge Date: 12/12/18
--- NOTE | 2018-12-09 19:42 | PCM.DC.SUM ---
Discharge Date and Diagnosis - Problem List Patient Problems: Active and Suspected Problems (Last Updated 06/02/18 @ 09:32 by Sandy Crouch) Fall (Acute) Date of Admission: 11/30/18 Date of Discharge: 12/12/18 - Primary Discharge Diagnosis Active and Suspected Problems (Last Updated 06/02/18 @ 09:32 by Sandy Crouch) Fall (Acute) - Secondary Discharge Diagnosis Chronic Problems (Last Updated 06/02/18 @ 09:32 by Sandy Crouch) Diabetes mellitus (Chronic) Chronic diastolic heart failure (Chronic) Pulmonary hypertension (Chronic) Chronic pancreatitis (Chronic) GERD (gastroesophageal reflux disease) (Chronic) Chronic renal insufficiency (Chronic) Pancreatitis (Chronic) History of renal transplant (Chronic) Type 2 diabetes mellitus (Chronic) Hypertension (Chronic) Chronic kidney disease, stage IV (severe) (Chronic) Chronic diastolic (congestive) heart failure (Chronic) Nonrheumatic pulmonary valve insufficiency (Chronic) Nonrheumatic tricuspid valve regurgitation (Chronic) Secondary pulmonary arterial hypertension (Chronic) Non-rheumatic aortic regurgitation (Chronic) Hypertension (Chronic) Hospital Course and Treatment Imaging Results: 12/08/18 13:22 Diet: Cardiac: Carb-Controlled Food consistency:: Regular Liquid Consistency:: Regular/Thin Is pt able to select menu?: Yes Diet Comments: low sodium Labs (Last 48 Hours) 12/07/18 12/08/18 12/08/18 21:04 05:15 05:15 WBC 4.8 RBC 3.40 L Hgb 10.3 L Hct 30.3 L MCV 89.1 MCH 30.3 MCHC 34.0 RDW 14.7 H RDW Differential 46.4 H Plt Count 239 MPV 9.9 Immature Gran % (Auto) 0.400 Neut % (Auto) 60.8 Lymph % (Auto) 25.4 [place] % (Auto) 12.4 H Eos % (Auto) 1.0 Baso % (Auto) 0.0 Absolute Neuts (auto) 2.9 Absolute Lymphs (auto) 1.21 Total Counted Not Reportable Sodium 138 Potassium 3.8 Chloride 107 Carbon Dioxide 25.0 Anion Gap 6 BUN 14 Creatinine 1.45 H Estim Creat Clear Calc 45.05 Est GFR (MDRD) Af Amer 62 Est GFR (MDRD) Non-Af 51 L BUN/Creatinine Ratio 9.7 L Glucose 165 H Calcium 8.4 L POC Glucose 281 H 12/08/18 12/08/18 12/08/18 06:42 10:59 16:57 WBC RBC Hgb Hct MCV MCH MCHC RDW RDW Differential Plt Count MPV Immature Gran % (Auto) Neut % (Auto) Lymph % (Auto) Cory[place] % (Auto) Eos % (Auto) Baso % (Auto) Absolute Neuts (auto) Absolute Lymphs (auto) Total Counted Sodium Potassium Chloride Carbon Dioxide Anion Gap BUN Creatinine Estim Creat Clear Calc Est GFR (MDRD) Af Amer Est GFR (MDRD) Non-Af BUN/Creatinine Ratio Glucose Calcium POC Glucose 169 H 225 H 68 L 12/08/18 12/08/18 12/09/18 17:20 20:56 06:21 WBC RBC Hgb Hct MCV MCH MCHC RDW RDW Differential Plt Count MPV Immature Gran % (Auto) Neut % (Auto) Lymph % (Auto) Cory[place] % (Auto) Eos % (Auto) Baso % (Auto) Absolute Neuts (auto) Absolute Lymphs (auto) Total Counted Sodium Potassium Chloride Carbon Dioxide Anion Gap BUN Creatinine Estim Creat Clear Calc Est GFR (MDRD) Af Amer Est GFR (MDRD) Non-Af BUN/Creatinine Ratio Glucose Calcium POC Glucose 148 H 160 H 63 L 12/09/18 12/09/18 12/09/18 06:43 11:13 17:29 WBC RBC Hgb Hct MCV MCH MCHC RDW RDW Differential Plt Count MPV Immature Gran % (Auto) Neut % (Auto) Lymph % (Auto) Cory[place] % (Auto) Eos % (Auto) Baso % (Auto) Absolute Neuts (auto) Absolute Lymphs (auto) Total Counted Sodium Potassium Chloride Carbon Dioxide Anion Gap BUN Creatinine Estim Creat Clear Calc Est GFR (MDRD) Af Amer Est GFR (MDRD) Non-Af BUN/Creatinine Ratio Glucose Calcium POC Glucose 76 292 H 315 H Operations: None Procedures: None Summary of Care Provided: The patient is a 68 year old Male with below past medical history hospitalized for left hip fracture, underwent left hip cemented arthroplasty 11/27/[address] Camejo, complicated by postoperative hypoglycemia, admitted to TCU with debility, here for rehabilitation, strengthening, prior to discharge home with spouse. Discharge home with , Home Health Services for PT/OT/ENGINE MANAGER, wheeled walker. Patient Problems: Active and Suspected Problems (Last Updated 06/02/18 @ 09:32 by Sandy Crouch) Fall (Acute) - Physical Exam Vital Signs Temp Pulse Resp BP Pulse Ox 98 F 57 L 18 144/62 H 96 12/09/18 15:12 12/09/18 15:12 12/09/18 15:12 12/09/18 15:12 12/09/18 15:12 Oxygen Delivery Method Room Air Weight: 65.317 kg Body Mass Index (BMI) 19.1 Finger Stick Blood Glucose 60 Intake and Output for Last 24 Hours 12/07/18 12/08/18 12/09/18 23:59 23:59 23:59 Intake Total 300 / 300 540 / 540 360 / 360 Output Total 325 / 325 Balance 300 / 300 540 / 540 35 / 35 POC Glucose 12/09/18 12/09/18 12/09/18 17:29 11:13 06:43 POC Glucose 315 H 292 H 76 12/09/18 12/08/18 06:21 20:56 POC Glucose 63 L 160 H Discharge Diet: No Restrictions Discharge Activity: Return to Normal Activity, May Shower, Use Walker Weight Bearing Status: Weight bearing as tolerated Call your doctor if you observe: Fever of 101 or Higher, Inability to urinate, Inability to have a bowel movement, Shortness of breath, Chest pain, Uncontrolled pain Home Medications: Medications to take at Discharge Labetalol [Trandate (Beta Lisa)] 200 mg PO BID 12/19/13 Pantoprazole Sodium [Protonix] 40 mg PO DAILY 12/19/13 predniSONE tablet 5 mg PO DAILY 12/19/13 Aspirin [Aspirin, Baby] 81 mg PO DAILY@0800 08/16/15 Cholecalciferol (VIT D3) [Vitamin D3] 1,000 unit PO DAILY 12/09/15 amlodipine 10 mg tablet 10 mg PO QHS 12/02/17 magnesium oxide 400 mg (241.3 mg magnesium) tablet 400 mg PO BID tab 12/02/17 mycophenolate mofetil 250 mg capsule 500 mg PO BID cap 12/02/17 sulfamethoxazole 400 mg-trimethoprim 80 mg tablet 1 tab PO QDAY 12/02/17 tacrolimus 1 mg capsule 3 mg PO BID cap 12/02/17 tramadol 50 mg tablet 50 mg PO BID PRN tab 12/02/17 Insulin Glargine [Lantus SoloStar Pen] 8 units SC BREAKFAST 11/30/18 Melatonin 3 mg PO QHS PRN PRN tablet 11/30/18 Acetaminophen [Tylenol] 1,000 mg PO Q6H PRN tablet 12/09/18 Mineral Oil/Petrolatum,White [Eucerin] 1 applic TOPICAL 0600,2200 jar 12/09/18 Primary Care Physician: Rojelio Lee DO [Primary Care Provider] - Please follow up with your Primary Care Physician in: 1 week. Please Follow Up With: Aly Camejo MD When: 1 month Please Follow Up With: Rojelio Lee DO Disposition: Home with Home Health Minutes spent on discharge:: 35 Patient Condition:: Stable Medical Necessity - Tobacco Use Smoking Status: Former smoker Tobacco Use: Cigars Meaningful Use Info Meaningful Use Diagnoses (Choose all that apply): None applicable
--- NOTE | 2018-12-09 19:45 | HHNOTE_ITS ---
Home Health Note - Plan Overview of reason of hospitalization: The patient is a 68 year old Male with below past medical history hospitalized for left hip fracture, underwent left hip cemented arthroplasty 11/27/[address] Camejo, complicated by postoperative hypoglycemia, admitted to TCU with debility, here for rehabilitation, strengthening, prior to discharge home with spouse. Discharge home with , Home Health Services for PT/OT/TRAVELING PHLEBOTOMIST, wheeled walker. Problems: Patient was seen for (Last Updated 06/02/18 @ 09:32 by Sandy Crouch) Fall (Acute) Diabetes mellitus (Chronic) Chronic diastolic heart failure (Chronic) Pulmonary hypertension (Chronic) Chronic pancreatitis (Chronic) GERD (gastroesophageal reflux disease) (Chronic) Complete List of Medical Problems (Last Updated 06/02/18 @ 09:32 by Sandy Crouch) Renal transplant recipient (Acute) Renal transplant, status post (Acute) Hyperkalemia (Acute) Fall (Acute) Diabetes mellitus (Chronic) Chronic diastolic heart failure (Chronic) Pulmonary hypertension (Chronic) Chronic pancreatitis (Chronic) GERD (gastroesophageal reflux disease) (Chronic) Closed left hip fracture (Acute) Chronic renal insufficiency (Chronic) Pancreatitis (Chronic) History of renal transplant (Chronic) Type 2 diabetes mellitus (Chronic) Hypertension (Chronic) Chronic kidney disease, stage IV (severe) (Chronic) Chronic diastolic (congestive) heart failure (Chronic) Nonrheumatic pulmonary valve insufficiency (Chronic) Nonrheumatic tricuspid valve regurgitation (Chronic) Secondary pulmonary arterial hypertension (Chronic) Non-rheumatic aortic regurgitation (Chronic) Hypertension (Chronic) - Requirements and Reasons Disciplines Needed/Ordered: Physical Therapy Reason for Disciplines: Disease Specific Monitoring/education, Gait Training, Stair Training, Home Safety/Equipment Instruction, Balance and/or Posture Training, Transfer Training Related To: Change in Medical Treatment Plan, Limited/Poor Endurance, Shortness of Breath with Activity, Physical Impairments, Unsteady Gait/Balance, Fall Risk Patient is unable to leave the home: Without Aid of Supportive Devices (crutches, cane, wheelchair, walker), Without the assistance of another person - Additional Disciplines Additional Disciplines Needed/Ordered: Occupational Therapy, Home Health Aide
[2018-12-09 21:01] LABS: Bedside Glucose 237 mg/dL (70-110)
[2018-12-10] MEDS: Tacrolimus Anhydrous 1 MG Capsule 3 MG PO ×2 (06:02→17:53)
[2018-12-10] MEDS: Labetalol 200 MG Tablet PO ×2 (06:02→17:53)
[2018-12-10] MEDS: Pantoprazole Sodium 40 MG Tablet PO (06:02)
[2018-12-10] MEDS: Mycophenolate Mofetil 250 MG Capsule 500 MG PO ×2 (06:03→17:54)
[2018-12-10] MEDS: Senna Tablet 1 TABLET PO ×2 (06:03→17:53)
[2018-12-10 06:11] LABS: Bedside Glucose 136 mg/dL (70-110)
[2018-12-10 06:15] VITALS: O2SAT 95
[2018-12-10] MEDS: traMADol 50 MG Tablet PO (09:19)
[2018-12-10] MEDS: Magnesium Oxide 400 MG Tablet PO ×2 (09:19→17:53)
[2018-12-10] MEDS: Aspirin 81 MG TAB.CHEW PO ×2 (09:19→17:53)
[2018-12-10] MEDS: predniSONE 5 MG Tablet PO (09:19)
[2018-12-10] MEDS: Smz/Tmp Ds Tablet 0.5 TABLET PO (09:19)
--- NOTE | 2018-12-10 09:24 | MDS.RN ---
Information for the mds was obtained from review of the clinical record, interview of resident, staff, and direct observation of resident's care.
[2018-12-10 11:36] LABS: Bedside Glucose 132 mg/dL (70-110)
--- NOTE | 2018-12-10 12:22 | CASEMGMT ---
Plan of care meeting held with pt and present. Pt is participating in PT and OT. Insurance has issued a last covered day of 12/11 with d/c on 12/12. Pt and are agreeable and pt will be returning home with who will have the assistance of her daughter and granddaughter. and pt have talked and would prefer outpt PT/OT at [facility] instead of home health. VM left with Pushpa at [facility] and home health cancelled. Referral made to [facility] and they are to call pt to set appointment. Walker will be delivered to pt room today from [facility]. Pt and agreeable to above. ELIZABETH Russo
[2018-12-10 16:00] VITALS: BP 159/66; PULSE 59; RESP 18; TEMP 36.4; O2SAT 99
[2018-12-10 17:16] LABS: Bedside Glucose 178 mg/dL (70-110)
[2018-12-10] MEDS: amLODIPine 10 MG Tablet PO (20:47)
[2018-12-10 21:11] LABS: Bedside Glucose 264 mg/dL (70-110)
[2018-12-11] MEDS: Pantoprazole Sodium 40 MG Tablet PO (06:09)
[2018-12-11] MEDS: Labetalol 200 MG Tablet PO ×2 (06:09→17:34)
[2018-12-11] MEDS: Tacrolimus Anhydrous 1 MG Capsule 3 MG PO ×2 (06:09→17:34)
[2018-12-11] MEDS: Mycophenolate Mofetil 250 MG Capsule 500 MG PO ×2 (06:09→17:35)
[2018-12-11 06:36] LABS: Bedside Glucose 138 mg/dL (70-110)
[2018-12-11] MEDS: Aspirin 81 MG TAB.CHEW PO ×2 (08:29→17:34)
[2018-12-11] MEDS: Magnesium Oxide 400 MG Tablet PO ×2 (08:29→17:34)
[2018-12-11] MEDS: Smz/Tmp Ds Tablet 0.5 TABLET PO (08:29)
[2018-12-11] MEDS: traMADol 50 MG Tablet PO (08:30)
[2018-12-11] MEDS: predniSONE 5 MG Tablet PO (08:30)
[2018-12-11 11:05] LABS: Bedside Glucose 220 mg/dL (70-110)
[2018-12-11 15:51] VITALS: BP 156/64; PULSE 71; RESP 18; TEMP 36.6; O2SAT 98
[2018-12-11 17:01] LABS: Bedside Glucose 135 mg/dL (70-110)
[2018-12-11] MEDS: Senna Tablet 1 TABLET PO (17:34)
[2018-12-11] MEDS: Acetaminophen 500 MG Tablet 1000 MG PO (20:20)
[2018-12-11] MEDS: amLODIPine 10 MG Tablet PO (20:21)
[2018-12-11 20:46] LABS: Bedside Glucose 180 mg/dL (70-110)
[2018-12-12] MEDS: Tacrolimus Anhydrous 1 MG Capsule 3 MG PO (05:06)
[2018-12-12] MEDS: Pantoprazole Sodium 40 MG Tablet PO (05:07)
[2018-12-12] MEDS: Labetalol 200 MG Tablet PO (05:07)
[2018-12-12] MEDS: Mycophenolate Mofetil 250 MG Capsule 500 MG PO (05:07)
[2018-12-12 06:40] LABS: Bedside Glucose 211 mg/dL (70-110)
[2018-12-12] MEDS: Magnesium Oxide 400 MG Tablet PO (08:28)
[2018-12-12] MEDS: Smz/Tmp Ds Tablet 0.5 TABLET PO (08:28)
[2018-12-12] MEDS: predniSONE 5 MG Tablet PO (08:28)
[2018-12-12] MEDS: Aspirin 81 MG TAB.CHEW PO (08:28)
[2018-12-12] MEDS: traMADol 50 MG Tablet PO (08:29)
[2018-12-12 09:45] VITALS: PULSE 64; RESP 18; O2SAT 94
[2018-12-12 11:54] VITALS: BP 160/81; PULSE 64; RESP 18; TEMP 36.5; O2SAT 94
--- NOTE | 2018-12-13 13:40 | CASEMGMT ---
Insurance Notified insurance of d/c home on 12/12/18 with outpt PT/OT/ Auth# [id number] ELIZABETH Russo
== END 2018-12-12 10:40 | disposition home or self-care (01) | DRG 560 ==
PROVIDERS: Admitting Provider Family Medicine Geriatric Medicine; Family Provider Student in an Organized Health Care Education/Training Program; PCP Student in an Organized Health Care Education/Training Program; Referring Provider Family Medicine Geriatric Medicine; Visit Provider Family Medicine Geriatric Medicine
DX: S72.002D Fracture of unspecified part of neck of left femur, subsequent encounter for closed fracture with routine healing (principal); Z94.0 Kidney transplant status; I50.32 Chronic diastolic (congestive) heart failure; K86.1 Other chronic pancreatitis; I13.0 Hypertensive heart and chronic kidney disease with heart failure and stage 1 through stage 4 chronic kidney disease, or unspecified chronic kidney disease; N18.4 Chronic kidney disease, stage 4 (severe); W19.XXXD Unspecified fall, subsequent encounter; K21.9 Gastro-esophageal reflux disease without esophagitis; E11.22 Type 2 diabetes mellitus with diabetic chronic kidney disease; I27.21 Secondary pulmonary arterial hypertension; D63.1 Anemia in chronic kidney disease; E20.8 Other hypoparathyroidism; Z87.891 Personal history of nicotine dependence
CPT/HCPCS: 36415; 80048; 80069; 82962; 85025; 97110; 97116; 97163; 97166; 97530; 97535

== ENCOUNTER 2019-01-26 14:00 | Outpatient (RCR) | payer MEDICARE, SELFPAY ==
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
--- NOTE | 2019-01-13 11:59 | HP.OTREVAL ---
Bethel Cramer MD, It has been my pleasure to treat JADA FISCHER over the last 7 visits for L hip fx. Please see the progress note below for an update on the occupational therapy plan of care! Subjective: Pt done with PT services and ready for OT session. States stiffness in both shoulders today but states can't hardly hear out of R ear and has been going to ENT frequently. Objective/Function: Pt demo increased confusion this date. OT Re-eval Pt progressing with OT goals. Pt and spouse have been educated on DME/AE for BADLs/IADLs. Pt has shower chair and states can use shower chair independently, pt has RTS. Spouse assisting w/ LB dressing tasks. Pt able to recall 1/3 hip precautions. Pt has been educated on theraband HEP for BUE and dumbell exercises. Pt demo fair understanding. Pt progressing with BUE strength R UE 4/5, L UE 3+/5. Pt would continue to benefit from direct occupational therapy services to increase BUE strength to assist with functional living tasks and functional transfers. Pt would benefit from direct OT services to continue to educate on BUE HEP and recall hip precautions and safety w/ BADLs/IADLS to increase pts indep, strength and quality of life. 1x/wk x 2wks. Plan Frequency: 1x/Week Duration: 2 Weeks Plan: see Re-eval for details. Goals - Goals Goal:: Pt will progress w/ BUE strength 4/5 to assist with functional transfers by d/c from OT Goal:: Pt will be able to recall 3/3 hip precautions in 3/4 trials to increase safety with BADL tasks. Goal:: Pt will simulate tub/shower transfers with SUP using AE as needed by d/c from OT services Goal:: Pt will be able to complete LB dressing tasks SUP using AE as needed while maintaining hip precautions Goal:: Pt/spouse will be educated on BUE HEP with good understanding and demo 100%x Goal:: Pt/spouse will be educated on DME/AE to assist w/ BADLs while maintaining hip precautions with good understanding and demo 100%x Anticipated Interventions Anticipated Interventions: Strengthening, Joint Protection/Energy Conservation, ADL Training, Education re assistive Equipment, Education re Diagnosis, Caregiver Training, Home Program Please do not hesitate to contact me at [phone] by phone or if you have questions or concerns regarding this new plan of care! Sincerely, Jany Simons
--- NOTE | 2019-01-20 16:02 | HP.PTREVAL ---
Bethel Cramer MD, It has been my pleasure to treat JADA FISCHER over the last 9 visits for Left Hip Fracture with Cementation 11/27/18. Please see the progress note below for an update on the physical therapy plan of care! Subjective: Patient reports that the hip is better- still a little sore when he puts pressure on it. Is using the walkeer all the time now. Pain is located just in the hip joint- Worst: 3/10 Best: 0/10 Most of the time when he is sitting. Sleep is not disturbed but he does not like to sleep on that side. Does walk in the house without the walker- does not use the cane. Saw MD last week and he was happy with progress. Patient feels he is 75% better. Objective/Function: Posture: FH,RS, increased kyphosis- can correct but does not maintain- frail. Gait: used FWW to enter clinic but used a straight cane for ambulation of 300 feet. 2 episodes of LOB with righting by PT- improved gait pattern with good santhosh HR/TR: able with UE A on wall. Weight shift with UE A. ROM: WFL. Strength: Ankle: 5/5, Knee: 4+/5, Hip: flexion- 4-/5, Extn: 4/5, Abd: 4/5, Add: 4/5, Core: fair. Flex: HS: moderate. Sit to Stand: bilateral UE A Plan Plan: Continue 2x a week for an additional 4 weeks Goals Goal 1:: Patient will be I with HEP and progression Goal Time Frame: 4-6 Weeks Goal Progress: Progressing Goal 2:: Patient will ambulate >300 feet with LRD and normalized pattern Goal Time Frame: 4-6 Weeks Goal Progress: Progressing Goal 3:: Patient will improve strength by 1/2 grade in LE Goal Time Frame: 4-6 Weeks Goal Progress: Progressing Goal 4:: Patient will report full I with ADL's for 1 week Goal Time Frame: 4-6 Weeks Goal Progress: Progressing Anticipated Interventions Patient/Client Instruction: Educate patient on: Benefits of Fitness Program Therapeutic Exercise to Include: Strength training, Endurance training, Balance training, Agility training, Body mechanics, Postural training, Flexibilty training, Gait and locomotor training, Dynamic Lumbar Stabilization For the Purpose of:: To improve muscle performance and motor function TENS: Yes Cryotherapy (ice pack, ice massage): Yes Thermo therapy (hot pack): Yes Ultrasound (thermal/non thermal): No Please do not hesitate to contact me at [phone] by phone or if you have questions or concerns regarding this new plan of care! Sincerely, ZHANG WuT
--- NOTE | 2019-01-26 14:09 | HP.OTDCSUM_ITS ---
HP - OT D/C Summary It has been my pleasure to treat JADA FISCHER under orders from Bethel Cramer MD, for the diagnosis of L hip fx for a total of 9 visit(s). Please see the following information for a summary of their discharge status. - Overall Improvement % Improvement: 70 - Objective Objective/Function: Pt demo increased confusion this date. OT Re-eval Pt progressing with OT goals. Pt and spouse have been educated on DME/AE for BADLs/IADLs. Pt has shower chair and states can use shower chair independently, pt has RTS. Spouse assisting w/ LB dressing tasks. Pt able to recall 1/3 hip precautions. Pt has been educated on theraband HEP for BUE and dumbell exerc ises. Pt demo fair understanding. Pt progressing with BUE strength R UE 4/5, L UE 3+/5. Pt would continue to benefit from direct occupational therapy services to increase BUE strength to assist with functional living tasks and functional transfers. Pt would benefit from direct OT services to continue to educate on BUE HEP and recall hip precautions and safety w/ BADLs/IADLS to increase pts indep, strength and quality of life. 1x/wk x 2wks. - Goals Patient Goals: Regain Strength, Be More Independent in ADLS, Improve Transfer Skills, Resume Former Household Responsibilities (Cooking,Cleaning,Yard, etc.), Resume Hobbies Goal:: Pt will progress w/ BUE strength 4/5 to assist with functional transfers by d/c from OT Goal:: Pt will be able to recall 3/3 hip precautions in 3/4 trials to increase safety with BADL tasks. Goal:: Pt will simulate tub/shower transfers with SUP using AE as needed by d/c from OT services Goal:: Pt will be able to complete LB dressing tasks SUP using AE as needed while maintaining hip precautions Goal:: Pt/spouse will be educated on BUE HEP with good understanding and demo 100%x Goal:: Pt/spouse will be educated on DME/AE to assist w/ BADLs while maintaining hip precautions with good understanding and demo 100%x - Plan Plan: d/c OT services this date. - D/C Information Discharge Comments: Pt has made good progress with OT goals, pt and spouse educated on DME/AE to assist with BADLs and maintaining hip precautions with good understanding. Pt able to recall 3/3 hip precautions on his own. Pt educated on dowel marc HEP and theraband HEP with good understnding. Spouse states he has been doing exercises at home. Pt has shower chair for bathing and completing with assist from spouse at home. Pt R UE 4/5, L UE 4-/5. Pt no longer requires skilled OT interventions at this time. Pt d/c from OT services. If there are questions or concerns regarding this patient's occupational therapy , please fell free to call me at [phone]. Thank you for the referral of this patient. Sincerely, Jany Simons
--- NOTE | 2019-04-05 12:36 | HP.PT.NRP ---
HP - Discharge Summary (1) - Patient Information JADA FISCHER was seen in my office for initial evaluation on 12/15/18. The following Plan of Care was established for this patient: Initial Frequency: 2x /Week Initial Duration: 4 Weeks - Anticipated Interventions Patient/Client Instruction: Educate patient on: Benefits of Fitness Program Therapeutic Exercise to Include: Strength training, Endurance training, Balance training, Agility training, Body mechanics, Postural training, Flexibilty training, Gait and locomotor training, Dynamic Lumbar Stabilization For the Purpose of:: To improve muscle performance and motor function TENS: Yes Cryotherapy (ice pack, ice massage): Yes Thermo therapy (hot pack): Yes Ultrasound (thermal/non thermal): No This patient was last seen in our office . Pertinent comments regarding their Physical therapy will appear below: Patient is home with hospice- appropriate for d/c At this point I will be discontinuing this patient from physical therapy. I would be happy to see this patient again in the future if found appropriate by the physician. Thank you! ZHANG WuT
== END 2019-01-26 19:00 | disposition home or self-care (01) ==
LOC: PT 14:00
PROVIDERS: Family Provider Student in an Organized Health Care Education/Training Program; PCP Student in an Organized Health Care Education/Training Program; Referring Provider Family Medicine Geriatric Medicine; Visit Provider Family Medicine Geriatric Medicine
DX: S72.002D Fracture of unspecified part of neck of left femur, subsequent encounter for closed fracture with routine healing (principal)
CPT/HCPCS: 97110; 97116; 97161; 97164; 97165; 97166; 97168; 97530; 97535

== ENCOUNTER 2019-01-28 22:31 | Inpatient (IN) | payer MEDICARE, SELFPAY ==
[2019-01-28 22:32] VITALS: BP 149/74; PULSE 67; RESP 16; TEMP 36.3; O2SAT 97; BMI 18.1
--- NOTE | 2019-01-28 23:00 | RAD_ITS ---
HISTORY: right hip pain after fall EXAM: Pelvis COMPARISON: November 27, 2018 FINDINGS: # of images incl. paperwork: 4 Previous left hip arthroplasty. New right femoral neck fracture just cranial to the intertrochanteric region. The right femoral head sits well within the region of the right acetabulum. Additional surgical clips within the pelvis. Severe calcific atherosclerotic disease suggestive of type 2 diabetes. RAD/HIP, UNI W/ Pelvis 2-3 Views IMPRESSION: Right femoral neck fracture just proximal to the intertrochanteric region with varus angulation. at 2335 Reported and signed by: Marco Oneill MD Electronically Signed: Marco Oneill MD at 23:34 EDT Tel , Service support ,
--- NOTE | 2019-01-28 23:13 | EKG12_ITS ---
Test Reason : LOWER EXTREMITIES Blood Pressure : / mmHG Vent. Rate : 072 BPM Atrial Rate : 072 BPM P-R Int : 146 ms QRS Dur : 120 ms QT Int : 440 ms P-R-T Axes : 088 -34 117 degrees QTc Int : 481 ms Sinus rhythm with Premature supraventricular complexes Possible Left atrial enlargement Left axis deviation Non-specific intra-ventricular conduction delay ST & T wave abnormality, consider lateral ischemia Abnormal ECG Confirmed by CELESTINE MAURO, IRMA ([id number]), editor magazine KATHIA YEH ([id number]) on 01/31/2019 1:23:17 PM Referred By: Bethel Cramer Confirmed By:IRMA SPRAGUE MD
--- NOTE | 2019-01-28 23:13 | RAD_ITS ---
HISTORY: FALL,FX HIP EXAM: XR Chest 1 View: COMPARISON: None FINDINGS: # of images incl. paperwork: 2 Lungs are clear. Heart is not enlarged. Bones are normal. Pulmonary vascularity is distinct. No effusions. RAD/Chest 1 View (Portable) IMPRESSION: Normal. at 0104 Reported and signed by: Marco Oneill MD Electronically Signed: Marco Oneill MD at 1:03 EDT Tel , Service support ,
--- NOTE | 2019-01-28 23:14 | ED.DCSUM_ITS ---
- ER Visit Summary Date of Service: 01/28/19 Chief Complaint: Right hip pain History of Present Illness: The patient is a 68 M who presents for right hip pain after injury. Patient tripped over his fan and fell against the wall before falling to the ground onto his right hip. He denies hitting his head or injuring his neck. He is having right hip pain and low back pain. Patient had a left hip replacement done in November. Patient is diabetic and has a history of a kidney transplant. He denies any other pain at this time. Physical Examination: Vital signs: afebrile, hemodynamically stable, no hypoxia on room air General: well nourished, well developed, in no distress, laying supine in bed Skin: warm, dry, no rash, no pallor HEENT: normocephalic and atraumatic; PERRL, EOMI, moist mucous membranes Cardiovascular: regular rate and rhythm without murmurs, no peripheral edema, 2+ pulses all distal extremities Respiratory: No increased work of breathing, lungs are clear to auscultation bilaterally, no rales, rhonchi or wheezing Abdominal: Abdomen is soft, nontender with normoactive bowel sounds, no guarding or rebound, no masses MSK: Right lower extremity is externally rotated and shortened, pain to palpation of the right hip, DP pulses 2+, sensation and motor function are intact in the distal right extremity Neuro: Awake and alert, oriented ?4. No facial droop, sensation and motor function intact and symmetric Test Results: ] Abnormal Lab Results 01/28/19 01/28/19 01/28/19 23:25 23:25 23:25 WBC 3.5 L RBC 3.44 L Hgb 11.0 L Hct 30.9 L MCV 89.8 MCH 32.0 MCHC 35.6 RDW 14.0 RDW Differential 44.0 H Plt Count 175 MPV 10.2 Immature Gran % (Auto) 0.300 Neut % (Auto) 60.9 Lymph % (Auto) 28.2 [place] % (Auto) 10.3 H Eos % (Auto) 0.3 Baso % (Auto) 0.0 Absolute Neuts (auto) 2.1 Absolute Lymphs (auto) 0.99 Total Counted Not Reportable PT 13.7 INR 1.1 APTT 33.1 Sodium 141 Potassium 3.7 Chloride 116 H Carbon Dioxide 18.0 L Anion Gap 7 BUN 12 Creatinine 1.48 H Estim Creat Clear Calc 42.29 Est GFR (MDRD) Af Amer 61 Est GFR (MDRD) Non-Af 50 L BUN/Creatinine Ratio 8.1 L Glucose 110 H Calcium 8.5 Clinical Impression(s) from Imaging Studies Hip/Pelvis X-Ray 01/28/19 23:00 IMPRESSION: Right femoral neck fracture just proximal to the intertrochanteric region with varus angulation. at 2335 Reported and signed by: Marco Oneill MD Electronically Signed: Marco Oneill MD at 23:34 EDT Tel , Service support , Medications Given Discontinued Medications Morphine Sulfate () 4 mg IV X1 ONE Stop: 01/28/19 23:14 Last Admin: 01/28/19 23:28 Dose: 4 mg Documented by: REMINGTON Morphine Sulfate () 4 mg IV X1 ONE Stop: 01/29/19 00:04 Ondansetron HCl (Zofran) 4 mg IV X1 ONE Stop: 01/28/19 23:14 Last Admin: 01/28/19 23:28 Dose: 4 mg Documented by: REMINGTON Emergency Department Course and Treatment: Patient was given morphine for pain. X-ray of the hip shows a femoral neck fracture. Preoperative labs and imaging were obtained. Patient's EKG showed a left bundle branch block with no ischemic changes, unchanged from his baseline EKGs. Labs showed creatinine of 1.4. Hemoglobin 11. Patient required additional morphine for pain. He was discussed with Dr. Holley who will consult on the hip fracture and with Dr. Love for admission for medical management. Treatment Plan: [] Disposition: [] Impression: Right femoral neck fracture This note was generated with [employer] dictation software. It may contain incorrect words, spelling, and punctuation that were not noted in review of the chart prior to signing ED Disposition - Plan for ED Patient: Referrals: Rojelio Lee, [Primary Care Provider] -
--- NOTE | 2019-01-28 23:14 | RAD_ITS ---
HISTORY: FELL,BACK PAIN COMPARISON: CT scan of the abdomen and pelvis was performed on December 06, 2014. The images from that study have sagittal and coronal reformats, which can be performed on bone algorithm windows for comparison FINDINGS: # of images incl. paperwork: 3 XR Spine Lumbar 3 Views: Atherosclerotic plaque within the abdominal aorta remains severe. Surgical clips remain within the pelvis. Lumbar vertebral bodies are normal in height. Lumbar disc spaces are mostly well maintained. There is persistent chronic narrowing at the L5-S1 level. Sclerosis of the inferior endplate of L5 at this progress. Enthesophytes at the anterior superior aspect of for L4, the posterior and anterior aspect of the inferior endplate of L4, and the anterior superior and inferior aspect of L5 may be slightly larger than the 2015 study.. No acute lumbar spine fracture or subluxation. Cholecystectomy clips persists. A new left total hip prosthesis is been placed. Arthritis and sclerosis of the right femoral head are similar. Vascular calcification superimposed over the left and right renal bi appear to have progressed. Vascular calcifications within the head of the pancreas are better demonstrated on the CT scan. The right hemipelvic transplanted kidney renal shadow is none identified. The transplanted kidney possibly has been resected. RAD/Lumbar Spine 2 or 3 Views IMPRESSION: No acute lumbar spine fracture or subluxation. Degenerative disc disease remains greatest at the L5-S1 level. This disease likely has progressed since the [address] scan. Anterior enthesophytes at several levels within the lower lumbar spine have also slightly increased in size. at 0108 Reported and signed by: Marco Oneill MD Electronically Signed: Marco Oneill MD at 1:07 EDT Tel , Service support ,
[2019-01-28] MEDS: Morphine 4 MG/ML Syringe IV (23:28)
[2019-01-28] MEDS: Ondansetron 4 MG/2 ML Vial IV (23:28)
[2019-01-28 23:42] LABS: Absolute Lymphocyte Count 0.99 X10^3/ul (0.83-4.51); Absolute Neutrophil Count 2.1 X10^3/uL (2.0-7.7); Eosinophil# 0.01 X10^3/uL; Eosinophils% 0.3 % (0-5); Hematocrit 30.9 % (40-54); Lymphocyte # 0.99 X10^3/ul (4.0); Lymphocyte % 28.2 % (19-41); Mean Corp Hgb Conc 35.6 g/gl (32-36); Mean Corpuscular Volume 89.8 fL (80-94); Mean Platelet Vol. 10.2 fl (6.2-12.0); Monocyte# 0.36 X10^3/uL; Monocyte% 10.3 % (0-10); Neutrophil # 2.14 X10^3/uL (2.7-7.7); Neutrophil % 60.9 % (47-70); Platelet Count 175 K/mm3 (150-450); Red Blood Count 3.44 M/mm3 (4.6-6.2); White Blood Count 3.5 K/mm3 (4.4-11.0)
[2019-01-28 23:43] LABS: POSITIVE COUNT NO; POSITIVE DIFFERENTIAL NO; POSITIVE MORPHOLOGY NO
[2019-01-28 23:48] VITALS: BP 160/62; PULSE 89
[2019-01-28 23:53] LABS: International Normalized Ratio 1.1; Prothrombin Time (Protime)PT. 13.7 SECONDS (11.7-14.9)
[2019-01-28 23:54] LABS: Anion Gap 7 (5-15); BUN 12 mg/dL (7-18); BUN/Creat Ratio 8.1 RATIO (10-20); Calcium,Total 8.5 mg/dL (8.5-10.1); Chloride 116 mmol/L (98-107); Creatinine, Serum 1.48 mg/dL (0.70-1.30); EST Glomerular Filtration Rate 50 mL/min (>60); Est Glom Filt Rate - Afr Amer 61 mL/min (>60); Estimated Creatinine Clearance 42.29 ml/min; Glucose 110 mg/dL (74-106); Partial Thromboplast Time 33.1 Seconds (24.1-36.2); Potassium 3.7 mmol/L (3.5-5.1); Sodium Level 141 mmol/L (136-145)
[2019-01-29] VITALS (18 sets, daily range): BP systolic 104–164; BP diastolic 50–71; PULSE 55–69; RESP 16–20; TEMP 36.5–37; O2SAT 96–100; BMI 18.5; BMI 18.6
[2019-01-29] MEDS: Morphine 4 MG/ML Syringe IV (00:13)
--- NOTE | 2019-01-29 00:26 | HP.PCM_ITS ---
Problem List (1) Pulmonary hypertension Status: Chronic (2) Chronic pancreatitis Status: Chronic (3) Closed left hip fracture Status: Deleted (4) History of renal transplant Status: Chronic (5) Type 2 diabetes mellitus Status: Chronic (6) Chronic kidney disease, stage IV (severe) Status: Chronic (7) Hypertension Status: Chronic Qualifiers: History of Present Illness Date of Admission: 01/29/19 Chief Complaint: Fall, right hip pain. The patient is a 68 year old M with multiple medical comorbidities as mentioned above presented to the emergency room because of fall and right hip pain. Patient was sitting on his garage this evening, stood up and he stepped on a fan stand, lost his balance and he fell to the right side into a closet around him. Immediately, he started having right hip pain, sharp pain, 10 out of 10 in severity, aggravated by movement, no relieving factor but he feels better after his family members helped him to sit down in a chair. He denied any prodromal symptoms such as dizziness, lightheadedness, palpitation, chest pain, syncope or presyncope. In the emergency department, his blood pressure was not elevated, other vital signs were stable. Routine blood work was remarkable for hemoglobin of 11 g/dL, creatinine of 1.48, otherwise normal. EKG revealed normal sinus rhythm with PACs, no acute ischemic changes or cardiac arrhythmias. Chest x-ray showed no acute findings. X-ray of the hip and pelvis revealed right femoral neck fracture with varus angulation. He is being admitted for acute traumatic right femoral neck fracture. Past Medical History Past Medical History (Chronic Problems): Chronic Problems (Last Updated 06/02/18 @ 09:32 by Sandy Crouch) Pulmonary hypertension (Chronic) Chronic pancreatitis (Chronic) GERD (gastroesophageal reflux disease) (Chronic) History of renal transplant (Chronic) Type 2 diabetes mellitus (Chronic) Chronic kidney disease, stage IV (severe) (Chronic) Chronic diastolic (congestive) heart failure (Chronic) Nonrheumatic pulmonary valve insufficiency (Chronic) Nonrheumatic tricuspid valve regurgitation (Chronic) Secondary pulmonary arterial hypertension (Chronic) Non-rheumatic aortic regurgitation (Chronic) Hypertension (Chronic) Medical History: Medical History (Last Updated 06/02/18 @ 09:32 by Sandy Crouch) Chronic diastolic (congestive) heart failure (Chronic) I50.32 Nonrheumatic pulmonary valve insufficiency (Chronic) I37.1 Nonrheumatic tricuspid valve regurgitation (Chronic) I36.1 Secondary pulmonary arterial hypertension (Chronic) I27.21 Non-rheumatic aortic regurgitation (Chronic) I35.1 Hypertension (Chronic) I10 Anemia in chronic kidney disease N18.9, D63.1 Chronic pancreatitis K86.1 Secondary hypoparathyroidism E20.8 Type 2 diabetes mellitus E11.9 Dx : 20+ years ago Last exacerbation : DKA : never Hypoglycemic episode : 04/20 ER visit : 04/20 Allergies oxycodone HCl [From Percocet] Adverse Reaction (Verified 01/28/19 22:33) TOO MUCH CAUSES HALLUCINATIONS TOO MUCH Home Medications: Ambulatory Orders Medication Instructions Recorded Labetalol [Trandate (Beta Lsia)] 200 mg PO BID 12/19/13 Pantoprazole Sodium [Protonix] 40 mg PO DAILY 12/19/13 predniSONE tablet 5 mg PO DAILY 12/19/13 Aspirin [Aspirin, Baby] 81 mg PO DAILY@0800 08/16/15 Cholecalciferol (VIT D3) [Vitamin 1,000 unit PO DAILY 12/09/15 D3] amlodipine 10 mg tablet 10 mg PO QHS 12/02/17 magnesium oxide 400 mg (241.3 mg 400 mg PO BID tab 12/02/17 magnesium) tablet mycophenolate mofetil 250 mg 500 mg PO BID cap 12/02/17 capsule sulfamethoxazole 400 1 tab PO QDAY 12/02/17 mg-trimethoprim 80 mg tablet tacrolimus 1 mg capsule 3 mg PO BID cap 12/02/17 tramadol 50 mg tablet 50 mg PO BID PRN tab 12/02/17 Insulin Glargine [Lantus SoloStar 8 units SC BREAKFAST 11/30/18 Pen] Melatonin 3 mg PO QHS PRN PRN tablet 11/30/18 Acetaminophen [Tylenol] 1,000 mg PO Q6H PRN tablet 12/09/18 Mineral Oil/Petrolatum,White 1 applic TOPICAL 0600,2200 jar 12/09/18 [Eucerin] Surgical History: Surgical History (Last Reviewed 06/02/18 @ 09:21 by Sandy Crouch) Hx of cholecystectomy Z90.49 Kidney replaced by transplant Onset Date: ~10/15/11 Z94.0 Right Surgical History: cholecystectomy, - - Kidney transplant, sphincterotomy, left wrist fusion Psychiatric History: No pertinent psych hx Lives: Spouse/ Significant Other Smoking Status: Former smoker Alcohol: None Drugs: None - *Family History Maternal History Items: Diabetes Paternal History Items: No pertinent history Sibling History Items: Cancer - Throat Review of Systems Constitutional: Denies: Anorexia, Chills, Fever, Weakness Eyes: Denies: Blurred vision, Double vision, Drainage, Redness HEENT: Denies: Difficulty Hearing, Dysphasia, Ear Pain, Eye Pain, Nasal Congestion, Sore Throat Cardiovascular: Denies: Chest Pain, Claudication, Chest Pressure, Edema, Heaviness, Palpitations, Paroxysmal Noc. Dyspnea, Syncope Respiratory: Denies: Cough, Pleuritic Pain, Shortness of Breath, Sputum production, Wheezing Gastrointestinal: Denies: Abdominal Pain, Constipation, Diarrhea, Nausea, Vomiting Genitourinary: Denies: Dysuria, Frequency, Hematuria Musculoskeletal: Reports: Joint Pain. Denies: Arm Pain, Back Pain, Foot Pain Skin: Denies: Dryness, Rash Neurological: Denies: Balance problems, Double vision, Change in Speech, Confusion, Headaches, Incoordination Psychiatric: Denies: Anxiety, Depression Endocrine: Denies: Change in Body Habitus, Polydipsia, Polyuria VTE Information - Inpt Only VTE Present on Admission: No VTE Mechan Device Prophylaxis: SCD's VTE Pharm Prophylaxis ordered?: Yes Patient Problems: Active and Suspected Problems (Last Updated 06/02/18 @ 09:32 by Sandy Crouch) Fracture of femoral neck, right (Acute) - Physical Exam General: Alert, Oriented x3, Cooperative, No apparent distress HEENT: Atraumatic, PERRLA, EOMI, Normocephalic Oral: Moist Mucosa, No Gingival or Mucosal Lesions/ Ulcerations Neck: Supple, No JVD, Negative Carotid Bruits, Trachea Midline, Thyroid Normal Size and Texture Lungs: Clear to auscultation, Normal air movement, No rhonchi, No wheeze, No rales, Diminished Cardiovascular: Regular rate, Regular Rhythm, Normal S1, Normal S2, PMI Normal Abdomen: Bowel Sounds Present, Soft, Non Tender, Non-Distended, No Hepato- splenomegaly Extremities: No clubbing, No cyanosis, No edema Skin: No rashes, No breakdown Lymphatic: No Cervical, Supraclavicular, or Inguinal Adenopathy Neurological: Cranial nerves II-XII grossly intact, Motor Exam 5/5 strength throughout Psych/Mental Status: Normal Affect, Appropriate, Alert and oriented to time, place, person, mood and affect Vital Signs Temp Pulse Resp BP Pulse Ox 97.4 F L 69 18 164/60 H 96 01/28/19 22:32 01/29/19 00:15 01/29/19 00:15 01/29/19 00:15 01/29/19 00:15 Oxygen Delivery Method Room Air Weight: 138 lb Body Mass Index (BMI) 18.1 Finger Stick Blood Glucose 60 Laboratory Tests Past 24 Hrs 01/28/19 01/28/19 01/28/19 23:25 23:25 23:25 WBC 3.5 L RBC 3.44 L Hgb 11.0 L Hct 30.9 L MCV 89.8 MCH 32.0 MCHC 35.6 RDW 14.0 RDW Differential 44.0 H Plt Count 175 MPV 10.2 Immature Gran % (Auto) 0.300 Neut % (Auto) 60.9 Lymph % (Auto) 28.2 [place] % (Auto) 10.3 H Eos % (Auto) 0.3 Baso % (Auto) 0.0 Absolute Neuts (auto) 2.1 Absolute Lymphs (auto) 0.99 Total Counted Not Reportable PT 13.7 INR 1.1 APTT 33.1 Sodium 141 Potassium 3.7 Chloride 116 H Carbon Dioxide 18.0 L Anion Gap 7 BUN 12 Creatinine 1.48 H Estim Creat Clear Calc 42.29 Est GFR (MDRD) Af Amer 61 Est GFR (MDRD) Non-Af 50 L BUN/Creatinine Ratio 8.1 L Glucose 110 H Calcium 8.5 Clinical Impression(s) from Imaging Studies Hip/Pelvis X-Ray 01/28/19 23:00 IMPRESSION: Right femoral neck fracture just proximal to the intertrochanteric region with varus angulation. at 2335 Reported and signed by: Marco Oneill MD Electronically Signed: Marco Oneill MD at 23:34 EDT Tel , Service support , Assessment/Plan All Active Problems (Last Updated 06/02/18 @ 09:32 by Sandy Crouch) Fracture of femoral neck, right (Acute) This is a 68 years old male patient presented to the medicine because of fall and right hip pain, found to have right femoral neck fracture and is being admitted for treatment. #1 acute traumatic right femoral proximal neck fracture with varus angulation: X-ray of the right hip and pelvis reviewed. Plan: Admit to MedSur floor, complete bedrest, IV morphine PRN for pain, continue tramadol, IV fluids, repeat CBC and BMP tomorrow morning, IV antiemetics, orthopedic surgery consult, PT OT evaluation and treatment when appropriate. #2 preoperative evaluation: 68 years old male patient with multiple medical problems including kidney transplant, on long-term steroids as well as immunosuppressive agents. He lives at home, partially dependent, using a walker at home. EKG revealed normal sinus rhythm with PACs, no acute changes. Chest x-ray reviewed, no acute findings. Based on his age, functional status, serum creatinine, past medical history and type of surgery that he is going for, is estimated risk for perioperative myocardial infarction or cardiac arrest is 1.23%. Plan: Start stress dose of IV steroids, will proceed with surgery, no indication for further work-up at this time. #3 stage IV chronic kidney disease, status post kidney transplant: Baseline creatinine has been around 1.4 to 1.9 mg/dL. Admission creatinine is 1.48, stable at baseline. Plan to continue tacrolimus, mycophenolate, prophylactic Bactrim, start IV stress dose of steroids now, hold prednisone, repeat BMP tomorrow morning. #4 type 2 diabetes mellitus: Clear liquids, Accu-Cheks, insulin sliding scale, continue home dose of Lantus. #5 chronic diastolic CHF: Patient stable, compensated. Plan for gentle IV fluids for hydration, monitor volume status, continue Lipitor. #6 hypertension: Blood pressure slightly elevated, continue Norvasc and labetalol. #7 chronic anemia: Due to anemia of chronic disease. Baseline hemoglobin around 11 g/dL. Admission creatinine is 11 g/dL. Stable at baseline. #8 chronic pulmonary hypertension: Stable. #9 GERD: Continue PPI. #10 DVT prophylaxis: SCDs, subcu heparin. This note was generated with [employer] software. It may contain incorrect words, spelling, and punctuation that were not noted in checking the note before signing. Code Visit Inpatient E&M: 38146 Init Hosp L3
[2019-01-29] MEDS: Morphine 2 MG/ML Syringe IV (02:25)
[2019-01-29] MEDS: 0.9% Normal Saline 1,000 ML 75 ML IV ×2 (02:25→14:37)
[2019-01-29 04:21] LABS: Bedside Glucose 73 mg/dL (70-110)
[2019-01-29 04:21] LABS: Bedside Glucose 60 mg/dL (70-110)
[2019-01-29 04:21] LABS: Bedside Glucose 61 mg/dL (70-110)
[2019-01-29 05:47] LABS: Absolute Lymphocyte Count 0.98 X10^3/ul (0.83-4.51); Absolute Neutrophil Count 3.3 X10^3/uL (2.0-7.7); Eosinophil# 0.04 X10^3/uL; Eosinophils% 0.8 % (0-5); Hematocrit 31.4 % (40-54); Hemoglobin 10.7 g/dl (13.0-16.5); Lymphocyte # 0.98 X10^3/ul (4.0); Lymphocyte % 19.4 % (19-41); Mean Corp Hgb Conc 34.1 g/gl (32-36); Mean Corpuscular Hgb 30.7 pg (27.0-32.0); Mean Corpuscular Volume 90.2 fL (80-94); Mean Platelet Vol. 9.9 fl (6.2-12.0); Monocyte# 0.68 X10^3/uL; Monocyte% 13.5 % (0-10); Neutrophil # 3.33 X10^3/uL (2.7-7.7); Neutrophil % 66.1 % (47-70); Platelet Count 163 K/mm3 (150-450); RBC Distribution Width CV 14.2 % (11.6-14.6); RBC Distribution Width SD 44.7 fl (35.1-43.9); Red Blood Count 3.48 M/mm3 (4.6-6.2)
[2019-01-29 05:58] LABS: POSITIVE COUNT NO; POSITIVE DIFFERENTIAL NO; POSITIVE MORPHOLOGY NO
[2019-01-29 06:01] LABS: Anion Gap 8 (5-15); BUN 12 mg/dL (7-18); BUN/Creat Ratio 8.8 RATIO (10-20); Calcium,Total 7.9 mg/dL (8.5-10.1); Chloride 118 mmol/L (98-107); Creatinine, Serum 1.37 mg/dL (0.70-1.30); EST Glomerular Filtration Rate 55 mL/min (>60); Est Glom Filt Rate - Afr Amer 66 mL/min (>60); Estimated Creatinine Clearance 46.57 ml/min; Glucose 104 mg/dL (74-106); Potassium 3.5 mmol/L (3.5-5.1); Sodium Level 144 mmol/L (136-145)
[2019-01-29] MEDS: Hydrocortisone Sod Succinate 100 MG/2 ML Vial 50 MG IV ×3 (06:25→23:00)
[2019-01-29 07:10] LABS: Bedside Glucose 143 mg/dL (70-110)
--- NOTE | 2019-01-29 07:35 | RAD_ITS ---
STUDY: X-RAY -RIGHT HIP REASON FOR EXAM: Male, 68 years old. Status post hip replacement TECHNIQUE: 1 views of the pelvis and hip. COMPARISON: 01/20/2019. FINDINGS: AP view of the right hip was obtained intraoperatively on a C-arm for partial right hip arthroplasty. The fluoroscopy time was 6.2 seconds. The examination otherwise is nondiagnostic. RAD/Hip 1 view with Pelvis IMPRESSION: Intraoperative exam as described above. Electronically Signed: Sidney Sage MD at 10:59 EDT Tel , Service support ,
--- NOTE | 2019-01-29 07:57 | PCM.CONS.GEN ---
Reason for Consult Date of Consultation: 01/29/19 Reason for Consultation: right hip pain. requested by dr martinez History of Present Illness: The patient is a 68 year old M with history of diabetes and stage IV renal disease status post renal transplant presented to the emergency department last evening after a fall with right hip pain. Patient had a mechanical fall after tripping over a fan and losing his balance. He had 10 out of 10 hip pain at that time. Pain is worse with motion better with immobilization and bedrest. Patient denied lightheadedness palpitations or dizziness. He denies chest pain currently. X-rays were performed in the emergency department showing a displaced femoral neck fracture. Patient has a previous left hip femoral neck fracture fixed in November of this year with hemiarthroplasty. Patient denies any associated numbness and tingling. Previous surgery went well and he was recovering well from it. He was admitted for surgery and cleared overnight. His pain is a sharp pain in the groin especially with motion. Past Medical History Past Medical History (Chronic Problems): Chronic Problems (Last Updated 06/02/18 @ 09:32 by Sandy Crouch) Pulmonary hypertension (Chronic) Chronic pancreatitis (Chronic) GERD (gastroesophageal reflux disease) (Chronic) History of renal transplant (Chronic) Type 2 diabetes mellitus (Chronic) Chronic kidney disease, stage IV (severe) (Chronic) Chronic diastolic (congestive) heart failure (Chronic) Nonrheumatic pulmonary valve insufficiency (Chronic) Nonrheumatic tricuspid valve regurgitation (Chronic) Secondary pulmonary arterial hypertension (Chronic) Non-rheumatic aortic regurgitation (Chronic) Hypertension (Chronic) Medical History: Medical History (Last Updated 06/02/18 @ 09:32 by Sandy Crouch) Chronic diastolic (congestive) heart failure (Chronic) I50.32 Nonrheumatic pulmonary valve insufficiency (Chronic) I37.1 Nonrheumatic tricuspid valve regurgitation (Chronic) I36.1 Secondary pulmonary arterial hypertension (Chronic) I27.21 Non-rheumatic aortic regurgitation (Chronic) I35.1 Hypertension (Chronic) I10 Anemia in chronic kidney disease N18.9, D63.1 Chronic pancreatitis K86.1 Secondary hypoparathyroidism E20.8 Type 2 diabetes mellitus E11.9 Dx : 20+ years ago Last exacerbation : DKA : never Hypoglycemic episode : 04/20 ER visit : 04/20 Allergies oxycodone HCl [From Percocet] Adverse Reaction (Verified 01/28/19 22:33) TOO MUCH CAUSES HALLUCINATIONS TOO MUCH Home Medications: Ambulatory Orders Medication Instructions Recorded Labetalol [Trandate (Beta Lisa)] 200 mg PO BID 12/19/13 Pantoprazole Sodium [Protonix] 40 mg PO DAILY 12/19/13 predniSONE tablet 5 mg PO DAILY 12/19/13 Aspirin [Aspirin, Baby] 81 mg PO DAILY@0800 08/16/15 Cholecalciferol (VIT D3) [Vitamin 1,000 unit PO DAILY 12/09/15 D3] amlodipine 10 mg tablet 10 mg PO QHS 12/02/17 magnesium oxide 400 mg (241.3 mg 400 mg PO BID tab 12/02/17 magnesium) tablet mycophenolate mofetil 250 mg 500 mg PO BID cap 12/02/17 capsule sulfamethoxazole 400 1 tab PO QDAY 12/02/17 mg-trimethoprim 80 mg tablet tacrolimus 1 mg capsule 3 mg PO BID cap 12/02/17 tramadol 50 mg tablet 50 mg PO BID PRN tab 12/02/17 Insulin Glargine [Lantus SoloStar 8 units SC BREAKFAST 11/30/18 Pen] Melatonin 3 mg PO QHS PRN PRN tablet 11/30/18 Acetaminophen [Tylenol] 1,000 mg PO Q6H PRN tablet 12/09/18 Mineral Oil/Petrolatum,White 1 applic TOPICAL 0600,2200 jar 12/09/18 [Eucerin] Surgical History: Surgical History (Last Reviewed 06/02/18 @ 09:21 by Sandy Crouch) Hx of cholecystectomy Z90.49 Kidney replaced by transplant Onset Date: ~10/15/11 Z94.0 Right Surgical History: cholecystectomy, - - Kidney transplant, sphincterotomy, left wrist fusion Psychiatric History: No pertinent psych hx Lives: Spouse/ Significant Other Smoking Status: Former smoker Alcohol: None Drugs: None - *Family History Maternal History Items: Diabetes Paternal History Items: No pertinent history Sibling History Items: Cancer - Throat Review of Systems Constitutional: Denies: Chills, Fever, Weight Change HEENT: Denies: Head Aches, Sinus Congestion, Sinus Drainage Cardiovascular: Denies: Chest Pain, Palpitations Respiratory: Denies: Cough, Shortness of breath at rest, Sputum production Gastrointestinal: Denies: Abdominal Pain, Nausea, Vomiting Genitourinary: Denies: Dysuria Musculoskeletal: Reports: Joint Pain, Joint Tenderness Skin: Denies: Rash, Wounds Neurological: Denies: Numbness, Tingling, Focal weakness Psychiatric: Denies: Anxiety, Depression, Homicidal Ideations, Suicidal Ideations Hematologic/ Lymphatic: Denies: Easy Bruising, Easy Bleeding Patient Problems: Active and Suspected Problems (Last Updated 06/02/18 @ 09:32 by Sandy Crouch) Fracture of femoral neck, right (Acute) Objective: Lumbar x-rays were reviewed showing degenerative disc disease, no acute fractures chest x-ray was reviewed showing no acute fractures. Right hip x-rays reviewed showing displacedRight femoral neck fracture. - Physical Exam General: Alert, Oriented x3, Cooperative Extremities: - - Right lower extremity: Skin clean, dry, and intact. Limb is shortened and externally rotated Motor is intact dorsiflexion, EHL and plantar flexion. Sensation is intact to light touch saphenous, cy,l superficial peroneal, deep peroneal and tibial distributions. Calves are soft and supple. Vital Signs Temp Pulse Resp BP Pulse Ox 98 F 67 16 150/71 H 100 01/29/19 01:51 01/29/19 03:20 01/29/19 01:51 01/29/19 01:51 01/29/19 01:51 Oxygen Delivery Method Room Air Weight: 140 lb 10.479 oz Body Mass Index (BMI) 18.5 Finger Stick Blood Glucose 60 Intake and Output for Last 24 Hours 01/27/19 01/28/19 01/29/19 23:59 23:59 23:59 Intake Total 550 / 550 Output Total 200 / 200 Balance 350 / 350 Laboratory Tests Past 24 Hrs 01/28/19 01/28/19 01/28/19 23:25 23:25 23:25 WBC 3.5 L RBC 3.44 L Hgb 11.0 L Hct 30.9 L MCV 89.8 MCH 32.0 MCHC 35.6 RDW 14.0 RDW Differential 44.0 H Plt Count 175 MPV 10.2 Immature Gran % (Auto) 0.300 Neut % (Auto) 60.9 Lymph % (Auto) 28.2 [place] % (Auto) 10.3 H Eos % (Auto) 0.3 Baso % (Auto) 0.0 Absolute Neuts (auto) 2.1 Absolute Lymphs (auto) 0.99 Total Counted Not Reportable PT 13.7 INR 1.1 APTT 33.1 Sodium 141 Potassium 3.7 Chloride 116 H Carbon Dioxide 18.0 L Anion Gap 7 BUN 12 Creatinine 1.48 H Estim Creat Clear Calc 42.29 Est GFR (MDRD) Af Amer 61 Est GFR (MDRD) Non-Af 50 L BUN/Creatinine Ratio 8.1 L Glucose 110 H Hemoglobin A1c Calcium 8.5 Blood Type Antibody Screen 01/29/19 01/29/19 01/29/19 05:28 05:28 05:28 WBC 5.0 RBC 3.48 L Hgb 10.7 L Hct 31.4 L MCV 90.2 MCH 30.7 MCHC 34.1 RDW 14.2 RDW Differential 44.7 H Plt Count 163 MPV 9.9 Immature Gran % (Auto) 0.200 Neut % (Auto) 66.1 Lymph % (Auto) 19.4 [place] % (Auto) 13.5 H Eos % (Auto) 0.8 Baso % (Auto) 0.0 Absolute Neuts (auto) 3.3 Absolute Lymphs (auto) 0.98 Total Counted Not Reportable PT INR APTT Sodium 144 Potassium 3.5 Chloride 118 H Carbon Dioxide 18.0 L Anion Gap 8 BUN 12 Creatinine 1.37 H Estim Creat Clear Calc 46.57 Est GFR (MDRD) Af Amer 66 Est GFR (MDRD) Non-Af 55 L BUN/Creatinine Ratio 8.8 L Glucose 104 Hemoglobin A1c Pending Calcium 7.9 L Blood Type Antibody Screen 01/29/19 05:28 WBC RBC Hgb Hct MCV MCH MCHC RDW RDW Differential Plt Count MPV Immature Gran % (Auto) Neut % (Auto) Lymph % (Auto) [place] % (Auto) Eos % (Auto) Baso % (Auto) Absolute Neuts (auto) Absolute Lymphs (auto) Total Counted PT INR APTT Sodium Potassium Chloride Carbon Dioxide Anion Gap BUN Creatinine Estim Creat Clear Calc Est GFR (MDRD) Af Amer Est GFR (MDRD) Non-Af BUN/Creatinine Ratio Glucose Hemoglobin A1c Calcium Blood Type O POSITIVE Antibody Screen NEGATIVE POC Glucose 01/29/19 01/29/19 01/29/19 06:59 04:17 03:43 POC Glucose 143 H 73 61 L 01/29/19 03:09 POC Glucose 60 L Assessment/Plan All Active Problems (Last Updated 06/02/18 @ 09:32 by Sandy Crouch) Fracture of femoral neck, right (Acute) Right displaced femoral neck fracture Patient has right displaced femoral neck fracture. He has multiple medical comorbidities. Natural history of the disease process and treatment options were discussed the patient including open reduction internal fixation, nonoperative treatment and hemiarthroplasty as well as total hip replacement. At this time I recommended hemiarthroplasty based on patient's fracture pattern age and medical comorbidities. Patient demonstrates an understanding of this procedure. We discussed risks and benefits which include but are not limited to blood loss, DVTs, PEs, neurovascular damage, infection, the risk of anesthesia including loss of life. We also discussed dislocations, intraoperative fractures and leg length discrepancies. Patient does wish to proceed and is able to sign informed consent. We will proceed with surgery today. 2 g of Ancef to be administered preoperatively. [facility] Office:
[2019-01-29] MEDS: Cefazolin 2 GM in 0.9% Normal Saline 100 ML IV (09:40)
--- NOTE | 2019-01-29 10:56 | RAD_ITS ---
STUDY: X-RAY - PELVIS AND RIGHT HIP REASON FOR EXAM: Male, 68 years old. Status post hip arthroplasty. TECHNIQUE: 2 views of the pelvis and hip. COMPARISON: None. FINDINGS: There are total bilateral hip prosthesis. There is gas in the soft tissues lateral to the right hip consistent with recent surgery. There are surgical sutures in the right lower quadrant. There are vascular calcifications. RAD/Hip Min 2 Views (Portable) IMPRESSION: Status post total right hip arthroplasty. Electronically Signed: Sidney Sage MD at 12:59 EDT Tel , Service support ,
--- NOTE | 2019-01-29 10:58 | PCM.OPRPT ---
Report of Operation Date of Procedure: 01/29/19 Pre-Operative Diagnosis: Right hip displaced transcervical femoral neck fracture Post-Operative Diagnosis: Right hip displaced transcervical femoral neck fracture Surgery/Procedure Performed:: Right direct anterior hip hemiarthroplasty Description of Surgical Findings:: Stable had equal leg lengths embedded software architect: Yazmin Bellamy Type of Anesthesia:: General Anesthesiologist: Yolette Garnica Special Medications: 2 g Ancef Specimen's removed: Femoral head Estimated Blood Loss (mL): 100 Fluids Replaced: 500 mL crystalloid Description of Procedure: Components used: 1. [employer]t [employer] M[employer] 37.5 mm size to 2. Kt cobalt-chromium 26 mm -3 mm femoral head 3. [place] cobalt chromium bipolar 52 mm femoral head Brief history operative indications: 68-year-old male with multiple medical comorbidities including renal failure presented with right displaced femoral neck fracture. Risk benefits of hemiarthroplasty were discussed basically been on antibiotics, DVTs, PEs, neurovascular damage, infection, general risk of anesthesia during loss of life. Patient and family understood and wished to proceed. Procedure: On the date of procedure the patient's R hip was marked in the preoperative area. Patient was then taken back to the operating room where anesthesia assumed control of the C-spine and airway and administered anesthetic. Patient was transferred to the operating table and placed in the supine position. The hips were placed the break of the bed and a bump was placed in the sacrum. The R lower extremity was then prepped out in a sterile fashion using chlorhexidine while the surgeon scrubbed. Upon reentering the room the R lower extremity was draped in the standard orthopedic fashion and the incision was marked. A timeout was called and everyone agreed upon the side, the site, the procedure be performed, antibody given, and patient's identity. At this time incision was made through skin, subcutaneous tissue, and fat down to fascia. The fascia was then incised and the TFL was retracted laterally. A retractor was placed on the lateral border of the femoral neck. Attention was directed to the inferior portion of the approach and all crossing vessels were identified and appropriately coagulated. A retractor was then placed on the medial portion of the femoral neck. The anterior capsule was then cleared of all soft tissue and then H shaped capsulotomy was made. The retractors were then placed inside the capsule. The femoral neck was identified and a cleanup cut was made. At this time a power corkscrew was used to remove the femoral head. The femoral head was measures and a 52 mm bipolar component was selected. Soft tissue releases on the medial and lateral femoral neck were appropriately done, the leg was externally rotated and lateralized. A Agudelo retractor was placed medially and proximally to the greater trochanter this allowed appropriate visualization and exposure of the femoral canal. [place] was then used to remove excess lateral bone. A canal finder and entry broach were used to open the proximal canal. Once we verified we were down the femoral canal we subsequently broached up to a size 2\37.5MM femur. The appropriate neck was placed in the previously selected head was trialed with a -3mm neck. Traction was pulled and the hip was reduced with internal rotation. Once it was appropriately reduced and stability was checked. There was minimal shuck, equal leg lengths and appropriate stability with hyperextension and external rotation as well as with 90? flexion and internal rotation. The trial components were then dislocated the proximal femur was again exposed and the components were removed from the wound. The final components were verified and opened. The wound was copiously irrigated out with normal saline. The acetabulum was checked for any residual debris. Cement was mixed and the proximal femur was exposed. Once the proximal femur was appropriately prepped for cementing and the cement retractor was placed the femoral component was cemented into place. After the cement cured the femoral head was again trialed and a -3 was found to be appropriate. Hip was again dislocated. Trunnion was cleaned final head was impacted into place. Traction and internal rotation were again used to reduce the hip. After adequate reduction the hip remained stable with appropriate leg lengths. The wound was then copiously irrigated with normal saline once more, and hemostasis was obtained. Closure was then done using #1 Vicryl runner to close the fascia. A 2-0 Vicryl runner was used to close the subcutaneous skin. A 3-0 Monocryl and Steri-Strips were used for final skin closure. A Silverlon dressing was placed. Patient was awakened by anesthesia and transferred to the [facility]. Patient was then transferred to the PACU for recovery. Postoperative plan: Patient will get 24 hours postop antibiotics. Patient will get in-house physical therapy and will be weight-bear as tolerated. Patient will follow up in office in 2 weeks for a wound check and x-rays. Due to patient's renal failure I will leave final DVT prophylaxis up to primary service I do recommend patient be discharged on Lovenox for 2 weeks. Okay to use heparin in house. Grafts/Implants Used: Kt - Complications NONE - Admit VTE Documentation VTE Present on Admission: No VTE Mechan Device Prophylaxis: SCD's, Thigh High JOHNNY Hose VTE Pharm Prophylaxis ordered?: Yes
[2019-01-29 11:15] LABS: Hemoglobin A1c 7.2 % (4.2-6.3)
[2019-01-29] MEDS: Scopolamine 1mg/72hr Patch 1 PATCH TD (11:32)
[2019-01-29 11:40] LABS: Bedside Glucose 132 mg/dL (70-110)
--- NOTE | 2019-01-29 13:33 | CASEMGMT ---
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 PATIENT SLEEPING SOUNDLY. Living Arrangements: PATIENT LIVES HOME WITH IN A 1 STORY CONDO WITH 1 STEP TO ENTER. DME: WALKER, TOILET LIFT, CANE Employment/Financial: RETIRED Supports: PATIENT HAS GOOD SUPPORT FROM FAMILY Social/Family Stressors: NONE IDENTIFIED AT THIS TIME. Mental Health History: DAUGHTER REPORTS FEELS PATIENT IS DEPRESSED AND WOULD BENEFIT FROM SPEAKING WITH JE DURING HOSPITAL ADMISSION. Substance Abuse History: NONE Interventions: SOCIAL SERVICE ASSESSMENT REFERRAL TO TCU. MESSAGE LEFT ON REFERRAL LINE. Assessment: PATIENT IS A 68 Y/O MALE ADMITTED D/T ACUTE RIGHT FEMORAL NECK FX AFTER A FALL. THIS WORKER MET WITH PATIENT AND FAMILY TO DISCUSS D/C PLANNING. REQUESTING REFERRAL TO TCU AND STATES PATIENT HAS BEEN THERE IN THE PAST. CALL TO TCU REFERRAL LINE. LEFT MESSAGE REGARDING REFERRAL. POSTPARTUM NURSE TO FOLLOW UP THURSDAY. PLAN: REFERRAL TO TCU, WILL NEED TO OBTAIN PRECERT PRIOR TO D/C. MERY VÁZQUEZ, PATIENT SERVICE COORDINATOR, ICE RINK ATTENDANT.
--- NOTE | 2019-01-29 14:27 | PN_ITS ---
Patient Problems: Active and Suspected Problems (Last Updated 06/02/18 @ 09:32 by Sandy Crouch) Fracture of femoral neck, right (Acute) Subjective: The patient has a right hip displaced transcervical femoral neck fracture. Patient went for OR in the morning. Had right direct anterior hip hemiarthroplasty. Currently patient has mild pain otherwise is comfortable. Denies any chest pain/pressure, shortness of breath or abdominal pain. The patient said he passed urine after surgery. Vitals/I&O's: Vital Signs Temp Pulse Resp BP Pulse Ox 98.0 F 60 18 142/66 H 96 01/29/19 12:40 01/29/19 12:46 01/29/19 12:40 01/29/19 12:40 01/29/19 13:26 Oxygen Delivery Method Room Air Weight: 140 lb 10.479 oz Body Mass Index (BMI) 18.5 Finger Stick Blood Glucose 132 Intake and Output for Last 24 Hours 01/27/19 01/28/19 01/29/19 23:59 23:59 23:59 Intake Total 1550 / 1550 Output Total 200 / 200 Balance 1350 / 1350 General: Alert, Oriented x3, Cooperative HEENT: Atraumatic, PERRLA, EOMI, Normocephalic Neck: Supple, No JVD, Negative Carotid Bruits Lungs: Clear to auscultation, Normal air movement Cardiovascular: Regular rate, No murmurs Abdomen: Bowel Sounds Present, Soft, Non Tender Extremities: No edema, Capillary Refill Less than 3 Seconds Skin: No rashes, No breakdown Musculoskeletal: No Tenderness to Palpation of Joints or Extremities Neurological: Cranial nerves II-XII grossly intact Psych/Mental Status: Normal Affect, Appropriate Laboratory Results 01/28/19 23:25: WBC 3.5 L, RBC 3.44 L, Hgb 11.0 L, Hct 30.9 L, MCV 89.8, MCH 32.0, MCHC 35.6, RDW 14.0, RDW Differential 44.0 H, Plt Count 175, MPV 10.2, Immature Gran % (Auto) 0.300, Neut % (Auto) 60.9, Lymph % (Auto) 28.2, [place] % (Auto) 10.3 H, Eos % (Auto) 0.3, Baso % (Auto) 0.0, Absolute Neuts (auto) 2.1, Absolute Lymphs (auto) 0.99, Total Counted Not Reportable 01/28/19 23:25: PT 13.7, INR 1.1, APTT 33.1 01/28/19 23:25: Sodium 141, Potassium 3.7, Chloride 116 H, Carbon Dioxide 18.0 L , Anion Gap 7, BUN 12, Creatinine 1.48 H, Estim Creat Clear Calc 42.29, Est GFR (MDRD) Af Amer 61, Est GFR (MDRD) Non-Af 50 L, BUN/Creatinine Ratio 8.1 L, Glucose 110 H, Calcium 8.5 01/29/19 03:09: POC Glucose 60 L 01/29/19 03:43: POC Glucose 61 L 01/29/19 04:17: POC Glucose 73 01/29/19 05:28: WBC 5.0, RBC 3.48 L, Hgb 10.7 L, Hct 31.4 L, MCV 90.2, MCH 30.7, MCHC 34.1, RDW 14.2, RDW Differential 44.7 H, Plt Count 163, MPV 9.9, Immature Gran % (Auto) 0.200, Neut % (Auto) 66.1, Lymph % (Auto) 19.4, [place] % (Auto) 13.5 H, Eos % (Auto) 0.8, Baso % (Auto) 0.0, Absolute Neuts (auto) 3.3, Absolute Lymphs (auto) 0.98, Total Counted Not Reportable 01/29/19 05:28: Sodium 144, Potassium 3.5, Chloride 118 H, Carbon Dioxide 18.0 L , Anion Gap 8, BUN 12, Creatinine 1.37 H, Estim Creat Clear Calc 46.57, Est GFR (MDRD) Af Amer 66, Est GFR (MDRD) Non-Af 55 L, BUN/Creatinine Ratio 8.8 L, Glucose 104, Calcium 7.9 L 01/29/19 05:28: Hemoglobin A1c 7.2 H 01/29/19 05:28: Blood Type O POSITIVE, Antibody Screen NEGATIVE 01/29/19 06:59: POC Glucose 143 H 01/29/19 11:37: POC Glucose 132 H Current Medications Acetaminophen (Tylenol) 650 mg PO Q6H PRN PRN PRN Reason: Mild Pain (1-3)/Temp > 100.7 F Amlodipine Besylate (Norvasc) 10 mg PO QHS [facility] Aspirin (Aspirin, Baby) 81 mg PO DAILY@0800 [facility] Last Admin: 01/29/19 07:06 Dose: Not Given Documented by: Dextrose (D50w Syringe) 0 gm IV X1 PRN; Protocol PRN Reason: Hypoglycemia Enteral Nutritional Formula (Ensure Surgery) 237 ml PO TIDCM [facility] Last Admin: 01/29/19 12:55 Dose: Not Given Documented by: Glucagon () 1 mg IM .X1 PRN PRN Reason: Hypoglycemia Heparin Sodium (Porcine) (Heparin Na) 5,000 unit SC Q8 [facility] Last Admin: 01/29/19 06:16 Dose: Not Given Documented by: Hydrocortisone Sodium Succinate (Solu-Cortef) 50 mg IV Q8 [facility] Stop: 01/30/19 06:01 Last Admin: 01/29/19 06:25 Dose: 50 mg Documented by: Sodium Chloride () 1,000 mls @ 75 mls/hr IV .[id number] [facility] Last Admin: 01/29/19 02:25 Dose: 75 mls/hr Documented by: Insulin Glargine (Lantus (Bkc)) 8 units SC BREAKFAST [facility] Last Admin: 01/29/19 07:06 Dose: Not Given Documented by: Labetalol HCl (Trandate) 200 mg PO BID [facility] Magnesium Oxide (Mag-Ox 400) 400 mg PO BID [facility] Last Admin: 01/29/19 07:07 Dose: Not Given Documented by: Melatonin (Melatonin) 3 mg PO QHS PRN PRN PRN Reason: INSOMNIA Morphine Sulfate () 1 - 2 mg IV Q4H PRN PRN PRN Reason: Moderate Pain (pain scale 4-5) Last Admin: 01/29/19 02:25 Dose: 2 mg Documented by: Mycophenolate Mofetil (Cellcept) 500 mg PO BID [facility] Ondansetron HCl (Zofran) 4 mg IV Q8H PRN PRN PRN Reason: Nausea Pantoprazole Sodium (Protonix) 40 mg PO DAILY [facility] Promethazine HCl (Phenergan) 12.5 mg IM Q6H PRN PRN; Protocol PRN Reason: NAUSEA/VOMITING Senna/Docusate Sodium (Senokot-S, Charito-Colace) 2 tablet PO BID [facility] Sodium Chloride () 10 - 40 ml IV UD PRN PRN Reason: SALINE FLUSH Tacrolimus (Prograf) 3 mg PO BID [facility] Tramadol HCl (Ultram) 50 mg PO BID PRN PRN PRN Reason: PAIN Trimethoprim/Sulfamethoxazole (Bactrim Ds) 0.5 tablet PO DAILYCM [facility] Medical Necessity - Tobacco Use Smoking Status: Former smoker Assessment/Plan All Active Problems (Last Updated 06/02/18 @ 09:32 by Sandy Crouch) Fracture of femoral neck, right (Acute) This is a 68 years old male patient presented to the medicine because of fall and right hip pain, found to have right femoral neck fracture and is being admitted for treatment. #1 acute traumatic right hip displaced transcervical femoral neck fracture with varus angulation: X-ray of the right hip and pelvis reviewed. Patient had right direct anterior hip hemiarthroplasty done. Patient tolerated the procedure well. Monitor H&H in the evening and CBC tomorrow. Supportive management with IV antiemetics, PT, OT evaluation and management. #2 perioperative evaluation: patient with multiple medical problems including kidney transplant, on long- term steroids as well as immunosuppressive agents with low functional capacity. He lives at home, partially dependent, using a walker at home. EKG revealed normal sinus rhythm with PACs, no acute changes. Chest x-ray reviewed, no acute findings. Based on his age, functional status, serum creatinine, past medical history and type of surgery, estimated risk for perioperative myocardial infarction or cardiac arrest is 1.23%. During perioperative., Will keep on IV steroid hydrocortisone 50 mg every 8 hourly and transition to oral. Home medications continued including labetalol, aspirin, amlodipine CellCept Prograf and Bactrim DS. #3 stage IV chronic kidney disease, status post kidney transplant: Baseline creatinine has been around 1.4 to 1.9 mg/dL. Admission creatinine is 1.48, stable at baseline. Repeat BUN/creatinine /1.37. Confirmed from the nursing staff, patient did not had urine output after surgery. Documented 200 mL yesterday. Bladder scan and straight cath if more than 200 mL. Electrolytes shows sodium 144, chloride 118, bicarb of 18 with anion gap 12. Change the normal saline fluid to Ringer lactate 100 mils per hour. continue tacrolimus, mycophenolate, prophylactic Bactrim, IV hydrocortisone, hold prednisone, repeat BMP tomorrow morning. #4 type 2 diabetes mellitus: Clear liquids, Accu-Cheks, insulin sliding scale, continue home dose of Lantus. Blood sugars are controlled. #5 chronic diastolic CHF: Patient stable, compensated. Plan for gentle IV fluids for hydration, monitor volume status, continue Lipitor. Echo in December 2017 reported as left ventricular normal size, EF 55%, mild concentric LVH, stage II diastolic dysfunction and no wall motion abnormality. RV normal in size and systolic function. RVSP 37 ABG consistent with mild pulmonary hypertension. LA dilated. RA normal. Mild MR mild TR, moderate AR with centrally directed regurgitant jet. #6 hypertension: Blood pressure slightly elevated, continue Norvasc and labetalol. #7 chronic anemia: Due to anemia of chronic disease. Baseline hemoglobin around 11 g/dL. Admission creatinine is 11 g/dL. Stable at baseline. #8 chronic pulmonary hypertension: Stable. #9 GERD: Continue PPI. #10 DVT prophylaxis: SCDs, subcu heparin. Code Visit Inpatient E&M: 99961 Subs Hosp L3
[2019-01-29] MEDS: Heparin Injection (Vial) 5,000 UNIT/ML VIAL 5000 UNIT SC ×2 (14:39→23:00)
[2019-01-29 16:56] LABS: Bedside Glucose 213 mg/dL (70-110)
[2019-01-29] MEDS: Magnesium Oxide 400 MG Tablet PO ×2 (16:56→23:00)
[2019-01-29] MEDS: Pantoprazole Sodium 40 MG Tablet PO (16:56)
[2019-01-29] MEDS: Acetaminophen 325 MG Tablet 650 MG PO (16:56)
[2019-01-29] MEDS: Mycophenolate Mofetil 250 MG Capsule 500 MG PO ×2 (16:57→23:01)
[2019-01-29] MEDS: Labetalol 200 MG Tablet PO ×2 (16:57→22:58)
[2019-01-29] MEDS: Smz/Tmp Ds Tablet 0.5 TABLET PO (16:57)
[2019-01-29] MEDS: Tacrolimus Anhydrous 1 MG Capsule 3 MG PO ×2 (16:59→22:58)
[2019-01-29] MEDS: Lactated Ringers 1,000 ML 100 ML IV (17:00)
--- NOTE | 2019-01-29 17:08 | NURSING ---
pt denies feeling of needing to void. bladder scan done. will straight cath x1 per md order d/t pt states no urger to void even with abd palpation
--- NOTE | 2019-01-29 17:22 | NURSING ---
straight cath x1. jaime concentrated urine.
[2019-01-29 20:54] LABS: Hematocrit 32.2 % (40-54)
[2019-01-29] MEDS: Senna/Docusate Sodium 1 Tablet 2 TABLET PO (22:58)
[2019-01-29] MEDS: amLODIPine 10 MG Tablet PO (22:59)
--- NOTE | 2019-01-29 23:00 | NURSING ---
assisted pt to side of bed and to stand with DIRECTOR INTEGRATED Aneudy. pt took approx ten steps at bedside. jose david well. repositioned supine in bed.
[2019-01-29 23:36] LABS: Bedside Glucose 236 mg/dL (70-110)
[2019-01-30] VITALS (8 sets, daily range): BP systolic 135–151; BP diastolic 54–67; PULSE 57–80; RESP 16–18; TEMP 36.4–36.7; O2SAT 96–100
--- NOTE | 2019-01-30 | HIP_PTH ---
PATIENT: JADA FISCHER LOC: 3 U#:[id number] AGE/SX: 69/M [place] [facility] [place]: Dr. Jagdish Bowser MD : 1950 BED: 1 DIS: 01/31/2019 SPEC #: [id number] RECD: 01/31/19 08:47 STATUS: FIDELINA REQ #: [id number] RONA: 01/30/19 00:[address]: Mason Holley DEPT: SURGICAL PATHOLOGY RECD BY: Dougie Breaux ENTERED: 01/31/19 10:59 SP TYPE: TOTAL HIP OTHR DR: MD Dr. Daren Cortez MD Dr. Jordan Garrison, DO Dr. Juan Miguel Proano, MD Dr. Prakash Chand, MD Dr. Steven Widmer, MD Tissues: Hip, NOS Procedures: Decalcification bone/plaque Surgery Specimen Level IV Comments: @ Ordering doctor for DEC edited from to @ by OMER at 01/31/19 142 @ Ordering doctor for SUIV edited from to @ by OMER at 01/31/19 1422 @ Submitting doctor edited from to @ by OMER at 01/31/19 1422 HEADER OPERATION: Right hip hemiarthroplasty, anterior PRE-OP DIAGNOSIS: Acute right femoral neck fracture TISSUE SUBMITTED: Femoral head MICROSCOPIC DIAGNOSIS Right hip, fracture: Consistent with organizing fracture site. AM:keiko 02/04/19 MICROSCOPIC DESCRIPTION Slides are reviewed. GROSS DESCRIPTION Received is one container labeled with the patient's name and designated femoral head. The specimen consists of a femoral head measuring 5 x 5 x 5 cm. The articular surface is smooth. Resection margin is irregular and hemorrhagic. Also present in the specimen container are multiple detached pieces of bone measuring in aggregate 6.5 x 4 x 1.5 cm. Also present in the container are two pieces of soft tissue measuring in aggregate 5 x 5 x 1.5 cm. Egg Sorter sections are submitted in three cassettes as follows: 1 - soft tissue, 2 - detached pieces of bone after decalcification, 3 - femoral head after decalcification. / SJ:keiko 02/01/19 TC:5 CPT: 74817, 59020
--- NOTE | 2019-01-30 00:50 | NURSING ---
attempted to straight cath pt. pt unable to jose david. pt yelling and kicking legs. attempting to pinch this RN arm. repeatedly grabbing this RN's arm. continued to educate pt regarding importance of voiding. pt requesting to attempt to void in urinal on own at this time.
[2019-01-30] MEDS: Lactated Ringers 1,000 ML 100 ML IV (02:43)
[2019-01-30 05:13] LABS: Hematocrit 28.2 % (40-54); Hemoglobin 9.7 g/dl (13.0-16.5); Mean Corp Hgb Conc 34.4 g/gl (32-36); Mean Corpuscular Hgb 31.6 pg (27.0-32.0); Mean Corpuscular Volume 91.9 fL (80-94); Mean Platelet Vol. 10.1 fl (6.2-12.0); Platelet Count 135 K/mm3 (150-450); RBC Distribution Width CV 14.6 % (11.6-14.6); RBC Distribution Width SD 49.1 fl (35.1-43.9); Red Blood Count 3.07 M/mm3 (4.6-6.2); White Blood Count 8.2 K/mm3 (4.4-11.0)
[2019-01-30 05:21] LABS: Scan Indicated on CBC? Y/N NO
[2019-01-30 05:24] LABS: Anion Gap 8 (5-15); BUN 13 mg/dL (7-18); BUN/Creat Ratio 9.7 RATIO (10-20); Calcium,Total 7.9 mg/dL (8.5-10.1); Chloride 114 mmol/L (98-107); Creatinine, Serum 1.34 mg/dL (0.70-1.30); EST Glomerular Filtration Rate 56 mL/min (>60); Est Glom Filt Rate - Afr Amer 68 mL/min (>60); Estimated Creatinine Clearance 46.95 ml/min; Glucose 220 mg/dL (74-106); Potassium 4.4 mmol/L (3.5-5.1); Sodium Level 140 mmol/L (136-145)
[2019-01-30] MEDS: Heparin Injection (Vial) 5,000 UNIT/ML VIAL 5000 UNIT SC ×3 (05:51→21:02)
[2019-01-30] MEDS: 0.9% NaCl Peripheral Flush Adult/Peds IV (05:52)
[2019-01-30] MEDS: Hydrocortisone Sod Succinate 100 MG/2 ML Vial 50 MG IV (05:52)
--- NOTE | 2019-01-30 09:58 | NURSING ---
bladder scan done- ranges from 350-400. pt denies urge or feeling of needing to void. no lower abd discomfort with palpation. pt refusing straight cath. pt declines to even attempt to void in urinal.
[2019-01-30] MEDS: Smz/Tmp Ds Tablet 0.5 TABLET PO (10:01)
[2019-01-30] MEDS: Labetalol 200 MG Tablet PO ×2 (10:01→20:56)
[2019-01-30] MEDS: Aspirin 81 MG TAB.CHEW PO (10:01)
[2019-01-30] MEDS: Senna/Docusate Sodium 1 Tablet 2 TABLET PO ×2 (10:02→20:55)
[2019-01-30] MEDS: Pantoprazole Sodium 40 MG Tablet PO (10:02)
[2019-01-30] MEDS: Mycophenolate Mofetil 250 MG Capsule 500 MG PO ×2 (10:02→21:00)
[2019-01-30] MEDS: Tacrolimus Anhydrous 1 MG Capsule 3 MG PO ×2 (10:04→21:03)
[2019-01-30] MEDS: Magnesium Oxide 400 MG Tablet PO ×2 (10:04→20:55)
[2019-01-30] MEDS: Ensure Surgery 237 ML LIQUID PO ×2 (10:06→17:03)
[2019-01-30] MEDS: Tamsulosin HCl 0.4 MG Capsule PO ×2 (10:54→17:03)
--- NOTE | 2019-01-30 11:40 | PCM.PN.HOSP ---
Patient Problems: Active and Suspected Problems (Last Updated 06/02/18 @ 09:32 by Sandy Crouch) Fracture of femoral neck, right (Acute) Subjective: The patient is more awake and alert. Sitting in the chair and ready to eat breakfast. Patient states he has cough for more than for 5 months and has been seeing ENT since then. He cannot tell me clearly what diagnosis they told him but probably sinus disease. Vitals/I&O's: Vital Signs Temp Pulse Resp BP Pulse Ox 98.1 F 60 18 135/65 H 100 01/30/19 09:35 01/30/19 09:35 01/30/19 09:35 01/30/19 09:35 01/30/19 09:35 Oxygen Delivery Method Room Air Weight: 140 lb 10.479 oz Body Mass Index (BMI) 18.5 Finger Stick Blood Glucose 132 Intake and Output for Last 24 Hours 01/28/19 01/29/19 01/30/19 23:59 23:59 23:59 Intake Total 1550 / 3597 2691 / 2691 Output Total 525 / 525 150 / 150 Balance 1025 / 3072 2541 / 2541 General: Alert, Oriented x3, Cooperative HEENT: Atraumatic, PERRLA, EOMI, Normocephalic, - - Reddish-yellow patch over lateral pharyngeal wall. Neck: Supple, No JVD, Negative Carotid Bruits Lungs: Clear to auscultation, No rhonchi, No wheeze, No rales, Diminished - Air entry is diminished in both lung bases Cardiovascular: Regular rate, Regular Rhythm, Normal S1, Normal S2, No murmurs Abdomen: Bowel Sounds Present, Soft, Non Tender, Non-Distended Extremities: No edema, Capillary Refill Less than 3 Seconds Skin: No rashes, No breakdown Musculoskeletal: No Tenderness to Palpation of Joints or Extremities, Arthritic Changes, Muscle Wasting Neurological: Cranial nerves II-XII grossly intact, Deep Tendon Reflexes 2+/4 and Symmetrical, Neuro grossly intact Psych/Mental Status: Normal Affect, Appropriate Laboratory Results 01/29/19 11:37: POC Glucose 132 H 01/29/19 16:48: POC Glucose 213 H 01/29/19 20:39: Hgb 11.0 L, Hct 32.2 L 01/29/19 22:50: POC Glucose 236 H 01/30/19 04:50: WBC 8.2, RBC 3.07 L, Hgb 9.7 L, Hct 28.2 L, MCV 91.9, MCH 31.6, MCHC 34.4, RDW 14.6, RDW Differential 49.1 H, Plt Count 135 L, MPV 10.1 01/30/19 04:50: Sodium 140, Potassium 4.4, Chloride 114 H, Carbon Dioxide 18.0 L, Anion Gap 8, BUN 13, Creatinine 1.34 H, Estim Creat Clear Calc 46.95, Est GFR (MDRD) Af Amer 68, Est GFR (MDRD) Non-Af 56 L, BUN/Creatinine Ratio 9.7 L, Glucose 220 H, Calcium 7.9 L Current Medications Acetaminophen (Tylenol) 650 mg PO Q6H PRN PRN PRN Reason: Mild Pain (1-3)/Temp > 100.7 F Last Admin: 01/29/19 16:56 Dose: 650 mg Documented by: Amlodipine Besylate (Norvasc) 10 mg PO QHS [facility] Last Admin: 01/29/19 22:59 Dose: 10 mg Documented by: Aspirin (Aspirin, Baby) 81 mg PO DAILY@0800 [facility] Last Admin: 01/30/19 10:01 Dose: 81 mg Documented by: Dextrose (D50w Syringe) 0 gm IV X1 PRN; Protocol PRN Reason: Hypoglycemia Enteral Nutritional Formula (Ensure Surgery) 237 ml PO TIDCM [facility] Last Admin: 01/30/19 10:06 Dose: 237 ml Documented by: Glucagon () 1 mg IM .X1 PRN PRN Reason: Hypoglycemia Heparin Sodium (Porcine) (Heparin Na) 5,000 unit SC Q8 [facility] Last Admin: 01/30/19 05:51 Dose: 5,000 unit Documented by: Lactated Ringer's () 1,000 mls @ 100 mls/hr IV .Q10H [facility] Last Admin: 01/30/19 02:43 Dose: 100 mls/hr Documented by: Insulin Glargine (Lantus (Bkc)) 8 units SC BREAKFAST [facility] Last Admin: 01/30/19 10:04 Dose: 8 units Documented by: Labetalol HCl (Trandate) 200 mg PO BID [facility] Last Admin: 01/30/19 10:01 Dose: 200 mg Documented by: Magnesium Oxide (Mag-Ox 400) 400 mg PO BID [facility] Last Admin: 01/30/19 10:04 Dose: 400 mg Documented by: Melatonin (Melatonin) 3 mg PO QHS PRN PRN PRN Reason: INSOMNIA Morphine Sulfate () 1 - 2 mg IV Q4H PRN PRN PRN Reason: Moderate Pain (pain scale 4-5) Last Admin: 01/29/19 02:25 Dose: 2 mg Documented by: Mycophenolate Mofetil (Cellcept) 500 mg PO BID [facility] Last Admin: 01/30/19 10:02 Dose: 500 mg Documented by: Ondansetron HCl (Zofran) 4 mg IV Q8H PRN PRN PRN Reason: Nausea Pantoprazole Sodium (Protonix) 40 mg PO DAILY [facility] Last Admin: 01/30/19 10:02 Dose: 40 mg Documented by: Promethazine HCl (Phenergan) 12.5 mg IM Q6H PRN PRN; Protocol PRN Reason: NAUSEA/VOMITING Senna/Docusate Sodium (Senokot-S, Charito-Colace) 2 tablet PO BID [facility] Last Admin: 01/30/19 10:02 Dose: 2 tablet Documented by: Sodium Chloride () 10 - 40 ml IV UD PRN PRN Reason: SALINE FLUSH Last Admin: 01/30/19 05:52 Dose: 10 ml Documented by: Tacrolimus (Prograf) 3 mg PO BID [facility] Last Admin: 01/30/19 10:04 Dose: 3 mg Documented by: Tamsulosin HCl (Flomax) 0.4 mg PO DAILY@1730 [facility] Last Admin: 01/30/19 10:54 Dose: 0.4 mg Documented by: Tramadol HCl (Ultram) 50 mg PO BID PRN PRN PRN Reason: PAIN Trimethoprim/Sulfamethoxazole ([facility]rim [facility]s) [facility] Last Admin: 01/30/19 10:01 Dose: 0.5 tablet Documented by: Medical Necessity - Tobacco Use Smoking Status: Former smoker Assessment/Plan All Active Problems (Last Updated 06/02/18 @ 09:32 by Sandy Crouch) Fracture of femoral neck, right (Acute) This is a 68 years old male patient presented to the medicine because of fall and right hip pain, found to have right femoral neck fracture and is being admitted for treatment. #1 acute traumatic right hip displaced transcervical femoral neck fracture with varus angulation: X-ray of the right hip and pelvis reviewed. Patient had right direct anterior hip hemiarthroplasty done. Patient tolerated the procedure well. Supportive management with IV antiemetics, PT, OT evaluation and management. #2 perioperative evaluation: patient with multiple medical problems including kidney transplant, on long-term steroids as well as immunosuppressive agents with low functional capacity. He lives at home, partially dependent, using a walker at home. EKG revealed normal sinus rhythm with PACs, no acute changes. Chest x-ray reviewed, no acute findings. Based on his age, functional status, serum creatinine, past medical history and type of surgery, estimated risk for perioperative myocardial infarction or cardiac arrest is 1.23%. During perioperative., Will keep on IV steroid hydrocortisone 50 mg every 8 hourly and transition to oral. Home medications continued including labetalol, aspirin, amlodipine CellCept Prograf and Bactrim DS. #3 stage IV chronic kidney disease, status post kidney transplant: Baseline creatinine has been around 1.4 to 1.9 mg/dL. Admission creatinine is 1.48, stable at baseline. Repeat BUN/creatinine 12/1.37. Confirmed from the nursing staff, patient did not had urine output after surgery. Documented 200 mL yesterday. Bladder scan and straight cath if more than 200 mL. Electrolytes shows sodium 144, chloride 118, bicarb of 18 with anion gap 12. Change the normal saline fluid to Ringer lactate 100 mils per hour. continue tacrolimus, mycophenolate, prophylactic Bactrim, IV hydrocortisone, hold prednisone, repeat BMP tomorrow morning. #4 type 2 diabetes mellitus: Clear liquids, Accu-Cheks, insulin sliding scale, continue home dose of Lantus. Blood sugars are controlled. #5 chronic diastolic CHF: Patient stable, compensated. Plan for gentle IV fluids for hydration, monitor volume status, continue Lipitor. Echo in December 2017 reported as left ventricular normal size, EF 55%, mild concentric LVH, stage II diastolic dysfunction and no wall motion abnormality. RV normal in size and systolic function. RVSP 37 ABG consistent with mild pulmonary hypertension. LA dilated. RA normal. Mild MR mild TR, moderate AR with centrally directed regurgitant jet. #6 hypertension: Blood pressure slightly elevated, continue Norvasc and labetalol. #7 Acute mild anemia, secondary to postoperative blood loss on baseline chronic anemia: Patient with asymptomatic signs and symptoms of anemia. H&H 9.02/27 from . Started on ferrous sulfate 325 mg twice daily. Baseline hemoglobin around 11 g/dL. #8 chronic pulmonary hypertension: Stable. #9 GERD: Continue PPI. Chronic cough possible postnasal drip syndrome/sinusitis: Follow-up with ENT. Patient has seen ENT in the past. Patient stated he smoked for about 10 years about 1 pack/day. Has quit. #10 DVT prophylaxis: SCDs, subcu heparin. Laboratory Results 01/29/19 16:48: POC Glucose 213 H 01/29/19 20:39: Hgb 11.0 L, Hct 32.2 L 01/29/19 22:50: POC Glucose 236 H 01/30/19 04:50: WBC 8.2, RBC 3.07 L, Hgb 9.7 L, Hct 28.2 L, MCV 91.9, MCH 31.6, MCHC 34.4, RDW 14.6, RDW Differential 49.1 H, Plt Count 135 L, MPV 10.1 01/30/19 04:50: Sodium 140, Potassium 4.4, Chloride 114 H, Carbon Dioxide 18.0 L, Anion Gap 8, BUN 13, Creatinine 1.34 H, Estim Creat Clear Calc 46.95, Est GFR (MDRD) Af Amer 68, Est GFR (MDRD) Non-Af 56 L, BUN/Creatinine Ratio 9.7 L, Glucose 220 H, Calcium 7.9 L 01/30/19 12:10: POC Glucose 146 H Code Visit Inpatient E&M: 98442 Subs Hosp L3
[2019-01-30 12:21] LABS: Bedside Glucose 146 mg/dL (70-110)
--- NOTE | 2019-01-30 12:22 | NURSING ---
PT SLIGHLTY CONFUSED, ADAMENT ABOUT HIS ORANGE CORDUROY PANTS HE HAD ON THIS MORNING AND HE WANTS THEM. REINFORCED TO PT SAID NURSE HAS NOT SEEN ANY SUCH PANTS NOR YESTERDAY EITHER, EVEN LOOKED IN CLOSET AND NOT PRESENT. PT FIXATED/DISTRACTED IN THINKING HE HAS HAD THEM ON TODAY. INFORMED PT LANDAVERDE PANTS WITH NEON GREEN STRIPE IN HIS CLOSET- PT STATES OH, YES/ THOSE ARE THE ONES I NEED, PT REMOVES DARK COLORED WALLET FROM POCKET. AND SEEMS TO BE APPEASED WITH THAT. PT THEN FIGITS WITH HIS IV TUBING AND COMPLAINS THAT IS SEEMS TO BE IN THE WAY AND COMPLICATING WITH OTHER BELONGINGS NEARBY. EDUCATED ON INCREASING PO INTAKE TO DECREASE NEEDING IVF- PT AGREEABLE. PT THEN BECOMES FIXATED ON HIS BLANKETS/SHEETS COVERING HIS LAP. PT REDIRECTED IN CONVERSATION, ENCOURAGED PT TO EAT HIS LUNCH IT IS AT THE BEDSIDE SO HIS LUNCH DOESN'T GET COLD, PT AGREES AND THANKS NURSE FOR HIS WALLET.
--- NOTE | 2019-01-30 14:11 | PN.ORTHO_ITS ---
Patient Problems: Active and Suspected Problems (Last Updated 06/02/18 @ 09:32 by Sandy Crouch) Fracture of femoral neck, right (Acute) Subjective: Patient is doing well. Sitting up in a chair. No acute issues overnight. Vital signs are stable. No chest pain or shortness of breath. No significant pain with hip range of motion. Objective: Right hip postoperative x-ray showed a stable cemented right hip hemiarthroplasty - Physical Exam General: Alert, Oriented x3, Cooperative Extremities: - - Right lower extremity: Dressing is clean dry and intact Sensations intact to light touch saphenous, sural, superficial peroneal, deep pe roneal, and tibial distributions Motors intact EHL, DF, PF calves are soft and supple Vital Signs Temp Pulse Resp BP Pulse Ox 98.1 F 60 18 135/65 H 100 01/30/19 09:35 01/30/19 09:35 01/30/19 09:35 01/30/19 09:35 01/30/19 09:35 Oxygen Delivery Method Room Air Weight: 140 lb 10.479 oz Body Mass Index (BMI) 18.5 Finger Stick Blood Glucose 132 Intake and Output for Last 24 Hours 01/28/19 01/29/19 01/30/19 23:59 23:59 23:59 Intake Total 1550 / 3597 2691 / 2691 Output Total 525 / 525 150 / 150 Balance 1025 / 3072 2541 / 2541 Laboratory Tests Past 24 Hrs 01/29/19 01/30/19 01/30/19 20:39 04:50 04:50 WBC 8.2 RBC 3.07 L Hgb 11.0 L 9.7 L Hct 32.2 L 28.2 L MCV 91.9 MCH 31.6 MCHC 34.4 RDW 14.6 RDW Differential 49.1 H Plt Count 135 L MPV 10.1 Sodium 140 Potassium 4.4 Chloride 114 H Carbon Dioxide 18.0 L Anion Gap 8 BUN 13 Creatinine 1.34 H Estim Creat Clear Calc 46.95 Est GFR (MDRD) Af Amer 68 Est GFR (MDRD) Non-Af 56 L BUN/Creatinine Ratio 9.7 L Glucose 220 H Calcium 7.9 L POC Glucose 01/30/19 01/29/19 01/29/19 12:10 22:50 16:48 POC Glucose 146 H 236 H 213 H Medical Necessity - Tobacco Use Smoking Status: Former smoker Assessment/Plan All Active Problems (Last Updated 06/02/18 @ 09:32 by Sandy Crouch) Fracture of femoral neck, right (Acute) Postop day 1 right hip hemiarthroplasty status post acute femoral neck fracture 1. DVT prophylaxis: Due to patient's renal history agree with heparin. Will discharge on Lovenox with appropriate dosing based on renal disease. Will defer to medicine for final dosing. Patient should be on these medications for 2 weeks postoperatively. 2. Pain control: Patient currently comfortable continue pain control per primary service. 3. Physical therapy: Weightbearing as tolerated, activity as tolerated. Anterior precautions 4. Disposition: From an orthopedic standpoint patient is stable. On discharge patient should have follow-up for 2-week postop office visit for x-ray check and wound check. Dressing can be removed on postoperative day 5 and left open to air if no drainage. Patient may shower with dressing intact. And continue to shower after dressing is removed if incision is clean and dry. Please call orthopedics for any further questions. [facility] Office:
[2019-01-30] MEDS: Acetaminophen 325 MG Tablet 650 MG PO (14:34)
[2019-01-30] MEDS: Ferrous Sulfate 325 MG Tablet PO (17:03)
[2019-01-30] MEDS: Lactated Ringers 1,000 ML 500 ML IV (17:03)
[2019-01-30 17:21] LABS: Bedside Glucose 42 mg/dL (70-110)
[2019-01-30] MEDS: Dextrose 10%-Water 250 ML 125 ML IV (17:59)
[2019-01-30 18:01] LABS: Bedside Glucose 35 mg/dL (70-110)
[2019-01-30 18:41] LABS: Bedside Glucose 104 mg/dL (70-110)
[2019-01-30 20:12] LABS: Glucose 37 mg/dL (74-106)
--- NOTE | 2019-01-30 20:17 | NURSING ---
george rn notified of glucose 37.
[2019-01-30 20:40] LABS: Bedside Glucose 72 mg/dL (70-110)
[2019-01-30] MEDS: MELATONIN 3 MG TABLET PO (20:55)
[2019-01-30] MEDS: amLODIPine 10 MG Tablet PO (20:55)
[2019-01-30 22:17] LABS: Color, Urine Yellow (Yellow); Glucose, Dipstick 50 mg/dl (Normal); Ketone-Dipstick Negative (Negative); Leukocyte Esterase-Dipstick Negative /ul (Negative); Nitrite-Dipstick Negative (Negative); Occult Blood-Urine 25 /ul (Negative); Protein-Dipstick 100 mg/dl (Negative); Urine Bilirubin Dipstick Negative (Negative); Urine Clarity Clear (Clear); Urine Urobilinogen Normal (Normal)
[2019-01-31] MEDS: Heparin Injection (Vial) 5,000 UNIT/ML VIAL 5000 UNIT SC ×2 (05:38→15:20)
[2019-01-31 06:04] LABS: Hematocrit 26.1 % (40-54); Hemoglobin 8.9 g/dl (13.0-16.5); Mean Corp Hgb Conc 34.1 g/gl (32-36); Mean Corpuscular Hgb 31.1 pg (27.0-32.0); Mean Corpuscular Volume 91.3 fL (80-94); Mean Platelet Vol. 10.2 fl (6.2-12.0); Platelet Count 123 K/mm3 (150-450); RBC Distribution Width SD 44.8 fl (35.1-43.9); Red Blood Count 2.86 M/mm3 (4.6-6.2); White Blood Count 5.4 K/mm3 (4.4-11.0)
[2019-01-31 06:30] LABS: Bedside Glucose 92 mg/dL (70-110)
[2019-01-31 07:13] LABS: ALB/GLOB Ratio 1.2 RATIO (0.9-2.4); AST(SGOT) 19 U/L (15-37); Alanine Aminotransfer ALT/SGPT 12 U/L (16-61); Albumin, Serum 2.6 g/dL (3.2-5.0); Alkaline Phosphatase 58 U/L (45-117); Anion Gap 8 (5-15); BUN 17 mg/dL (7-18); BUN/Creat Ratio 13.4 RATIO (10-20); Calcium,Total 8.2 mg/dL (8.5-10.1); Chloride 112 mmol/L (98-107); Creatinine, Serum 1.27 mg/dL (0.70-1.30); EST Glomerular Filtration Rate 60 mL/min (>60); Est Glom Filt Rate - Afr Amer 72 mL/min (>60); Estimated Creatinine Clearance 49.54 ml/min; Globulin 2.2 g/dL (2.2-4.2); Glucose 93 mg/dL (74-106); Potassium 4.1 mmol/L (3.5-5.1); Protein, Total 4.8 g/dL (6.4-8.2); Sodium Level 137 mmol/L (136-145)
[2019-01-31 07:36] LABS: Absolute Lymphocyte Count 0.81 X10^3/ul (0.83-4.51); Absolute Neutrophil Count 4.1 X10^3/uL (2.0-7.7); Eosinophil# 0.02 X10^3/uL; Eosinophils% 0.4 % (0-5); Lymphocyte # 0.81 X10^3/ul (4.0); Lymphocyte % 14.7 % (19-41); Monocyte# 0.59 X10^3/uL; Monocyte% 10.7 % (0-10); Neutrophil # 4.08 X10^3/uL (2.7-7.7); POSITIVE COUNT NO; POSITIVE DIFFERENTIAL NO; POSITIVE MORPHOLOGY NO
[2019-01-31 08:06] VITALS: BP 140/60; PULSE 64; RESP 18; TEMP 36.7; O2SAT 97
--- NOTE | 2019-01-31 09:20 | CASEMGMT ---
Addendum entered by Heidi Ramirez 01/31/19 12:11: SW met with pt and pt's Rufina. SW introduced self and role at [facility]. Pt not answering questions much, conversation held with pt's . SW updated Rufina that TCU is able to accept pt pending pre-cert. Rufina asked to speak with this worker in the hallway. Rufina states that she was informed by a doctor that pt may need to look into alf at SNF. SW explained that there will be a SW on TCU that will be able to assist Rufina with discharge plans for TCU and alf care at SNF can be discussed further as pt progresses on TCU. SW did inform Breann that Medicaid is the only insurance that will pay for watermaster care at SNF. SW explained Medicaid application and that it can be submitted from TCU. SW offered support to Rufina as Rufina states she has seen a lot of people with different information over the weekend. SW explored with Rufina her feelings of being overwhelmed. CHARLIE spoke with Rufina about focusing on getting pt to TCU right now and then discharge planning from TCU can be done once pt goes to TCU. CHARLIE did educate Rufina on [facility] and Private Duty aides and provided brochure for [facility] and list of private duty aides. Rufina thanked this worker. Plan: TCU pending pre-cert Original Note: Social Work Note SW received call from Raine with TCU stating she is able to accept pt and will submit for pre-cert. Plan: TCU pending pre-cert Heidi Ramirez CLERICAL SECRETARY, ELEVATOR INSPECTOR
--- NOTE | 2019-01-31 09:32 | PCM.PN.HOSP ---
Subjective: Patient had low bladder residuals about 200 mL and was called by nurses multiple times yesterday. With concern of oliguria, patient was given IV fluid Ringer lactate 100 mL/h. Patient also hypoglycemic paralysis due to decreased p.o. intake. Insulin was adjusted subsequently. Patient was put on stress 10% yesterday. Today patient, feels better. Glucose 93 on BMP. Blood sugar 166. Patient voided 300 mL. Vitals/I&O's: Vital Signs Temp Pulse Resp BP Pulse Ox 98.1 F 64 18 140/60 H 97 01/31/19 08:06 01/31/19 08:06 01/31/19 08:06 01/31/19 08:06 01/31/19 08:06 Oxygen Delivery Method Room Air Weight: 140 lb 10.479 oz Body Mass Index (BMI) 18.5 Finger Stick Blood Glucose 132 Intake and Output for Last 24 Hours 01/29/19 01/30/19 01/31/19 23:59 23:59 23:59 Intake Total 1550 / 3597 3597 / 3837 1756 / 1756 Output Total 525 / 525 150 / 350 400 / 400 Balance 1025 / 3072 3447 / 3487 1356 / 1356 General: Alert, Oriented x3, Cooperative, - - Patient sometimes has difficulty to understand and respond. Probably mild dementia HEENT: Atraumatic, PERRLA, EOMI, Normocephalic Neck: Supple, No JVD, Negative Carotid Bruits Lungs: Clear to auscultation, No rhonchi, No wheeze, No rales, Diminished Cardiovascular: Regular rate, Regular Rhythm, Normal S1, Normal S2, No murmurs Abdomen: Bowel Sounds Present, Soft, Non Tender, Non-Distended, - - Surgical scar in lower abdomen. Transplant kidney and right pelvic region. Extremities: No edema, Capillary Refill Less than 3 Seconds Skin: No rashes, No breakdown, - - Surgical incision is dry. Musculoskeletal: No Tenderness to Palpation of Joints or Extremities, Arthritic Changes Neurological: Cranial nerves II-XII grossly intact, Deep Tendon Reflexes 2+/4 and Symmetrical, Neuro grossly intact Psych/Mental Status: Normal Affect, Appropriate Laboratory Results 01/30/19 12:10: POC Glucose 146 H 01/30/19 17:17: POC Glucose 42 L* 01/30/19 17:44: POC Glucose 35 L* 01/30/19 18:00: Glucose 37 L* 01/30/19 18:34: POC Glucose 104 01/30/19 18:46: Magnesium 2.0 01/30/19 20:38: POC Glucose 72 01/30/19 20:39: Tacrolimus Pending 01/30/19 22:10: Urine Color Yellow, Urine Clarity Clear, Urine pH 6.0, Ur Specific [place] 1.020, Urine Protein 100 H, Urine Glucose (UA) 50 H, Urine Ketones Negative, Urine Occult Blood 25 H, Urine Nitrite Negative, Urine Bilirubin Negative, Urine Urobilinogen Normal, Ur Leukocyte Esterase Negative 01/31/19 05:45: WBC 5.4, RBC 2.86 L, Hgb 8.9 L, Hct 26.1 L, MCV 91.3, MCH 31.1, MCHC 34.1, RDW 14.0, RDW Differential 44.8 H, Plt Count 123 L, MPV 10.2, Immature Gran % (Auto) 0.200, Neut % (Auto) 74.0 H, Lymph % (Auto) 14.7 L, [place] % (Auto) 10.7 H, Eos % (Auto) 0.4, Baso % (Auto) 0.0, Absolute Neuts (auto) 4.1, Absolute Lymphs (auto) 0.81 L, Total Counted Not Reportable 01/31/19 05:45: Sodium 137, Potassium 4.1, Chloride 112 H, Carbon Dioxide 17.0 L, Anion Gap 8, BUN 17, Creatinine 1.27, Estim Creat Clear Calc 49.54, Est GFR (MDRD) Af Amer 72, Est GFR (MDRD) Non-Af 60, BUN/Creatinine Ratio 13.4, Glucose 93, Calcium 8.2 L, Total Bilirubin 0.40, AST 19, ALT 12 L, Alkaline Phosphatase 58, Total Protein 4.8 L, Albumin 2.6 L, Globulin 2.2, Albumin/Globulin Ratio 1.2 01/31/19 06:06: POC Glucose 92 Current Medications Acetaminophen (Tylenol) 650 mg PO Q6H PRN PRN PRN Reason: Mild Pain (1-3)/Temp > 100.7 F Last Admin: 01/30/19 14:34 Dose: 650 mg Documented by: Amlodipine Besylate (Norvasc) 10 mg PO QHS [facility] Last Admin: 01/30/19 20:55 Dose: 10 mg Documented by: Aspirin (Aspirin, Baby) 81 mg PO DAILY@0800 [facility] Last Admin: 01/30/19 10:01 Dose: 81 mg Documented by: Dextrose (D50w Syringe) 0 gm IV X1 PRN; Protocol PRN Reason: Hypoglycemia Enteral Nutritional Formula (Ensure Surgery) 237 ml PO TIDCM [facility] Last Admin: 01/30/19 17:03 Dose: 237 ml Documented by: Ferrous Sulfate (Ferrous Sulfate) 325 mg PO 1200,1700 [facility] Last Admin: 01/30/19 17:03 Dose: 325 mg Documented by: Glucagon () 1 mg IM .X1 PRN PRN Reason: Hypoglycemia Heparin Sodium (Porcine) (Heparin Na) 5,000 unit SC Q8 [facility] Last Admin: 01/31/19 05:38 Dose: 5,000 unit Documented by: Labetalol HCl (Trandate) 200 mg PO BID [facility] Last Admin: 01/30/19 20:56 Dose: 200 mg Documented by: Magnesium Oxide (Mag-Ox 400) 400 mg PO BID [facility] Last Admin: 01/30/19 20:55 Dose: 400 mg Documented by: Melatonin (Melatonin) 3 mg PO QHS PRN PRN PRN Reason: INSOMNIA Last Admin: 01/30/19 20:55 Dose: 3 mg Documented by: Morphine Sulfate () 1 - 2 mg IV Q4H PRN PRN PRN Reason: Moderate Pain (pain scale 4-5) Last Admin: 01/29/19 02:25 Dose: 2 mg Documented by: Mycophenolate Mofetil (Cellcept) 500 mg PO BID [facility] Last Admin: 01/30/19 21:00 Dose: 500 mg Documented by: Ondansetron HCl (Zofran) 4 mg IV Q8H PRN PRN PRN Reason: Nausea Pantoprazole Sodium (Protonix) 40 mg PO DAILY [facility] Last Admin: 01/30/19 10:02 Dose: 40 mg Documented by: Promethazine HCl (Phenergan) 12.5 mg IM Q6H PRN PRN; Protocol PRN Reason: NAUSEA/VOMITING Senna/Docusate Sodium (Senokot-S, Charito-Colace) 2 tablet PO BID [facility] Last Admin: 01/30/19 20:55 Dose: 2 tablet Documented by: Sodium Chloride () 10 - 40 ml IV UD PRN PRN Reason: SALINE FLUSH Last Admin: 01/30/19 05:52 Dose: 10 ml Documented by: Tacrolimus (Prograf) 3 mg PO BID [facility] Last Admin: 01/30/19 21:03 Dose: 3 mg Documented by: Tamsulosin HCl (Flomax) 0.8 mg PO DAILY@1730 JOSÉ Tramadol HCl (Ultram) 50 mg PO BID PRN PRN PRN Reason: PAIN Trimethoprim/Sulfamethoxazole (Bactrim Ds) 0.5 tablet PO DAILYCM [facility] Last Admin: 01/30/19 10:01 Dose: 0.5 tablet Documented by: Medical Necessity - Tobacco Use Smoking Status: Former smoker Assessment/Plan All Active Problems (Last Reviewed 01/31/19 @ 12:48 by Bryn Bonilla MD) Fracture of femoral neck, right (Acute) This is a 68 years old male patient presented to the medicine because of fall and right hip pain, found to have right femoral neck fracture and is being admitted for treatment. #1 acute traumatic right hip displaced transcervical femoral neck fracture with varus angulation: X-ray of the right hip and pelvis reviewed. Patient had right direct anterior hip hemiarthroplasty done on 01/29. Supportive management with IV antiemetics, PT, OT evaluation and management. #2 perioperative evaluation: patient with multiple medical problems including kidney transplant, on long-term steroids as well as immunosuppressive agents with low functional capacity. He lives at home, partially dependent, using a walker at home. EKG revealed normal sinus rhythm with PACs, no acute changes. Chest x-ray reviewed, no acute findings. Based on his age, functional status, serum creatinine, past medical history and type of surgery, estimated risk for perioperative myocardial infarction or cardiac arrest is 1.23%. During perioperative., Will keep on IV steroid hydrocortisone 50 mg every 8 hourly and transition to oral. Home medications continued including labetalol, aspirin, amlodipine CellCept Prograf and Bactrim DS. #3 stage IV chronic kidney disease, status post kidney transplant with transient oliguria: Baseline creatinine has been around 1.4 to 1.9 mg/dL. Admission creatinine is 1.48, stable at baseline. Repeat BUN/creatinine /1.37. Patient had oliguria on 01/30 but today he voided twice each time about 300 mL. With concern of postvoid residual and urinary retention, the urologist was consulted. Dr. Bonilla saw the patient and agree with Flomax 0.4 mg daily for week and then increase to twice daily. Follow-up in the office. As patient voided spontaneously no plan for catheterization. continue tacrolimus, mycophenolate, prophylactic Bactrim, IV hydrocortisone, hold prednisone. Monitor BMP daily. Co Founder And President was also consulted. She could not tell who is regular optomechanical engineer as an outpatient. #4 type 2 diabetes mellitus with hypoglycemia: Clear liquids, Accu-Cheks, insulin sliding scale, continue home dose of Lantus. Blood sugars are controlled. Patient glucose dropped to 37 which did not have good response with the oral glucose supplement and therefore was put on D10. Lantus insulin discontinued. On Accu-Cheks before meals and at bedtime and cover with Humalog sliding scale. Last Accu-Chek 166. #5 chronic diastolic CHF: Patient stable, compensated. Plan for gentle IV fluids for hydration, monitor volume status, continue Lipitor. Echo in December 2017 reported as left ventricular normal size, EF 55%, mild concentric LVH, stage II diastolic dysfunction and no wall motion abnormality. RV normal in size and systolic function. RVSP 37 ABG consistent with mild pulmonary hypertension. LA dilated. RA normal. Mild MR mild TR, moderate AR with centrally directed regurgitant jet. #6 hypertension: Blood pressure slightly elevated, continue Norvasc and labetalol. #7 Acute mild anemia, secondary to postoperative blood loss on baseline chronic anemia: Patient with asymptomatic signs and symptoms of anemia. H&H 9.02/27 from . Started on ferrous sulfate 325 mg twice daily. Baseline hemoglobin around 11 g/dL. #8 chronic pulmonary hypertension: Stable. #9 GERD: Continue PPI. Chronic cough possible postnasal drip syndrome/sinusitis: Follow-up with ENT. Patient has seen ENT in the past. Patient stated he smoked for about 10 years about 1 pack/day. Has quit. #10 DVT prophylaxis: SCDs, subcu heparin. Laboratory Results 01/30/19 04:50: Sodium 140, Potassium 4.4, Chloride 114 H, Carbon Dioxide 18.0 L, Anion Gap 8, BUN 13, Creatinine 1.34 H, Estim Creat Clear Calc 46.95, Est GFR (MDRD) Af Amer 68, Est GFR (MDRD) Non-Af 56 L, BUN/Creatinine Ratio 9.7 L, Glucose 220 H, Calcium 7.9 L 01/30/19 12:10: POC Glucose 146 H 01/30/19 17:17: POC Glucose 42 L* 01/30/19 17:44: POC Glucose 35 L* 01/30/19 18:00: Glucose 37 L* 01/30/19 18:34: POC Glucose 104 01/30/19 18:46: Magnesium 2.0 01/30/19 20:38: POC Glucose 72 01/30/19 20:39: Tacrolimus Pending 01/30/19 22:10: Urine Color Yellow, Urine Clarity Clear, Urine pH 6.0, Ur Specific [place] 1.020, Urine Protein 100 H, Urine Glucose (UA) 50 H, Urine Ketones Negative, Urine Occult Blood 25 H, Urine Nitrite Negative, Urine Bilirubin Negative, Urine Urobilinogen Normal, Ur Leukocyte Esterase Negative 01/31/19 05:45: WBC 5.4, RBC 2.86 L, Hgb 8.9 L, Hct 26.1 L, MCV 91.3, MCH 31.1, MCHC 34.1, RDW 14.0, RDW Differential 44.8 H, Plt Count 123 L, MPV 10.2, Immature Gran % (Auto) 0.200, Neut % (Auto) 74.0 H, Lymph % (Auto) 14.7 L, [place] % (Auto) 10.7 H, Eos % (Auto) 0.4, Baso % (Auto) 0.0, Absolute Neuts (auto) 4.1, Absolute Lymphs (auto) 0.81 L, Total Counted Not Reportable 01/31/19 05:45: Sodium 137, Potassium 4.1, Chloride 112 H, Carbon Dioxide 17.0 L, Anion Gap 8, BUN 17, Creatinine 1.27, Estim Creat Clear Calc 49.54, Est GFR (MDRD) Af Amer 72, Est GFR (MDRD) Non-Af 60, BUN/Creatinine Ratio 13.4, Glucose 93, Calcium 8.2 L, Total Bilirubin 0.40, AST 19, ALT 12 L, Alkaline Phosphatase 58, Total Protein 4.8 L, Albumin 2.6 L, Globulin 2.2, Albumin/Globulin Ratio 1.2 01/31/19 06:06: POC Glucose 92 07/01/19 12:16: POC Glucose 166 H Code Visit Inpatient E&M: 13644 Subs Hosp L3
[2019-01-31] MEDS: Aspirin 81 MG TAB.CHEW PO (09:55)
[2019-01-31] MEDS: Smz/Tmp Ds Tablet 0.5 TABLET PO (09:56)
[2019-01-31] MEDS: Mycophenolate Mofetil 250 MG Capsule 500 MG PO (09:56)
[2019-01-31] MEDS: Tacrolimus Anhydrous 1 MG Capsule 3 MG PO (09:57)
[2019-01-31] MEDS: Magnesium Oxide 400 MG Tablet PO (09:57)
[2019-01-31] MEDS: Pantoprazole Sodium 40 MG Tablet PO (09:57)
[2019-01-31] MEDS: Senna/Docusate Sodium 1 Tablet 2 TABLET PO (09:57)
[2019-01-31] MEDS: Ensure Surgery 237 ML LIQUID PO ×2 (10:00→17:44)
[2019-01-31] MEDS: traMADol 50 MG Tablet PO (10:08)
--- NOTE | 2019-01-31 10:39 | PCM.CONS.R ---
Problem List (1) Chronic kidney disease, stage IV (severe) Status: Chronic Consultation - Renal PCP/ Referring MD: Requesting physician: [] Primary care physician: Rojelio Lee DO - History of Present Illness History of Present Illness: The patient is a 69 year old M PMH of ESRD s/p renal transplant in 2011 at [facility]. 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 Pt is taking cellcept 500 mg PO BID, Prograf 3 mg PO BID and prednisone 5 mg PO daily. 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 Pt was admitted for mechanical fall . He sustained right hip neck fracture. pt had right hip hemiarthroplasty . Renal UOP was consulted for decreased UOP. Pt has 200 cc UOP. straight cath was tried twice but was not successful . Pt refused more attempt. Bladder scan showed increased urine residual. Last one showed 400 cc. Pt has been having poor appetite. No nausea No vomiting ROS: 12 systems review is negative except decreased oral intake and poor appetite in addition to right hip pain] - Allergies Allergies: Allergies oxycodone HCl [From Percocet] Adverse Reaction (Verified 01/28/19 22:33) TOO MUCH CAUSES HALLUCINATIONS TOO MUCH - Current Medications Current Medications: Current Medications Acetaminophen (Tylenol) 650 mg PO Q6H PRN PRN PRN Reason: Mild Pain (1-3)/Temp > 100.7 F Last Admin: 01/30/19 14:34 Dose: 650 mg Documented by: Amlodipine Besylate (Norvasc) 10 mg PO QHS [facility] Last Admin: 01/30/19 20:55 Dose: 10 mg Documented by: Aspirin (Aspirin, Baby) 81 mg PO DAILY@0800 [facility] Last Admin: 01/31/19 09:55 Dose: 81 mg Documented by: Dextrose (D50w Syringe) 0 gm IV X1 PRN; Protocol PRN Reason: Hypoglycemia Enteral Nutritional Formula (Ensure Surgery) 237 ml PO TIDCM [facility] Last Admin: 01/31/19 10:00 Dose: 237 ml Documented by: Ferrous Sulfate (Ferrous Sulfate) 325 mg PO 1200,1700 [facility] Last Admin: 01/30/19 17:03 Dose: 325 mg Documented by: Glucagon () 1 mg IM .X1 PRN PRN Reason: Hypoglycemia Heparin Sodium (Porcine) (Heparin Na) 5,000 unit SC Q8 [facility] Last Admin: 01/31/19 05:38 Dose: 5,000 unit Documented by: Labetalol HCl (Trandate) 200 mg PO BID [facility] Last Admin: 01/30/19 20:56 Dose: 200 mg Documented by: Magnesium Oxide (Mag-Ox 400) 400 mg PO BID [facility] Last Admin: 01/31/19 09:57 Dose: 400 mg Documented by: Melatonin (Melatonin) 3 mg PO QHS PRN PRN PRN Reason: INSOMNIA Last Admin: 01/30/19 20:55 Dose: 3 mg Documented by: Morphine Sulfate () 1 - 2 mg IV Q4H PRN PRN PRN Reason: Moderate Pain (pain scale 4-5) Last Admin: 01/29/19 02:25 Dose: 2 mg Documented by: Mycophenolate Mofetil (Cellcept) 500 mg PO BID [facility] Last Admin: 01/31/19 09:56 Dose: 500 mg Documented by: Ondansetron HCl (Zofran) 4 mg IV Q8H PRN PRN PRN Reason: Nausea Pantoprazole Sodium (Protonix) 40 mg PO DAILY [facility] Last Admin: 01/31/19 09:57 Dose: 40 mg Documented by: Prednisone () 5 mg PO DAILY@0800 [facility] Promethazine HCl (Phenergan) 12.5 mg IM Q6H PRN PRN; Protocol PRN Reason: NAUSEA/VOMITING Senna/Docusate Sodium (Senokot-S, Charito-Colace) 2 tablet PO BID [facility] Last Admin: 01/31/19 09:57 Dose: 2 tablet Documented by: Sodium Chloride () 10 - 40 ml IV UD PRN PRN Reason: SALINE FLUSH Last Admin: 01/30/19 05:52 Dose: 10 ml Documented by: Tacrolimus (Prograf) 3 mg PO BID [facility] Last Admin: 01/31/19 09:57 Dose: 3 mg Documented by: Tamsulosin HCl (Flomax) 0.8 mg PO DAILY@1730 [facility] Tramadol HCl (Ultram) 50 mg PO BID PRN PRN PRN Reason: PAIN Last Admin: 01/31/19 10:08 Dose: 50 mg Documented by: Trimethoprim/Sulfamethoxazole (Bactrim Ds) [facility] Admin: 01/31/19 09:56 Dose: 0.5 tablet Documented by: - Past Medical History Past Medical History (Chronic Problems): Chronic Problems (Last Updated 06/02/18 @ 09:32 by Sandy Crouch) Pulmonary hypertension (Chronic) Chronic pancreatitis (Chronic) GERD (gastroesophageal reflux disease) (Chronic) History of renal transplant (Chronic) Type 2 diabetes mellitus (Chronic) Chronic kidney disease, stage IV (severe) (Chronic) Chronic diastolic (congestive) heart failure (Chronic) Nonrheumatic pulmonary valve insufficiency (Chronic) Nonrheumatic tricuspid valve regurgitation (Chronic) Secondary pulmonary arterial hypertension (Chronic) Non-rheumatic aortic regurgitation (Chronic) Hypertension (Chronic) - Past Surgical History Surgical History: cholecystectomy, - - Kidney transplant, sphincterotomy, left wrist fusion - Social History Smoking Status: Former smoker Alcohol: None Drugs: None - Family History Maternal History Items: Diabetes Paternal History Items: No pertinent history Sibling History Items: Cancer - Throat Patient Problems: Active and Suspected Problems (Last Updated 06/02/18 @ 09:32 by Sandy Crouch) Fracture of femoral neck, right (Acute) - Physical Exam General: Alert, Oriented x3 HEENT: Atraumatic Oral: Moist Mucosa Neck: Supple, No JVD Lungs: Clear to auscultation, Normal air movement, No rhonchi, No wheeze Cardiovascular: Regular rate, Regular Rhythm, Normal S1, Normal S2 Abdomen: Bowel Sounds Present, Soft, Non Tender, Non-Distended Extremities: No clubbing, No cyanosis, No edema Skin: No rashes Musculoskeletal: Cachexia Neurological: Cranial nerves II-XII grossly intact, Neuro grossly intact Psych/Mental Status: Appropriate Vital Signs Temp Pulse Resp BP Pulse Ox 98.1 F 64 18 140/60 H 97 01/31/19 08:06 01/31/19 08:06 01/31/19 08:06 01/31/19 08:06 01/31/19 08:06 Oxygen Delivery Method Room Air Weight: 63.8 kg Body Mass Index (BMI) 18.5 Finger Stick Blood Glucose 132 Intake and Output for Last 24 Hours 01/29/19 01/30/19 01/31/19 23:59 23:59 23:59 Intake Total 1550 / 3597 3597 / 3837 1756 / 1756 Output Total 525 / 525 150 / 350 400 / 400 Balance 1025 / 3072 3447 / 3487 1356 / 1356 Laboratory Tests Past 24 Hrs 01/30/19 01/30/19 01/30/19 18:00 18:46 20:39 WBC RBC Hgb Hct MCV MCH MCHC RDW RDW Differential Plt Count MPV Immature Gran % (Auto) Neut % (Auto) Lymph % (Auto) [place] % (Auto) Eos % (Auto) Baso % (Auto) Absolute Neuts (auto) Absolute Lymphs (auto) Total Counted Sodium Potassium Chloride Carbon Dioxide Anion Gap BUN Creatinine Estim Creat Clear Calc Est GFR (MDRD) Af Amer Est GFR (MDRD) Non-Af BUN/Creatinine Ratio Glucose 37 L* Calcium Magnesium 2.0 Total Bilirubin AST ALT Alkaline Phosphatase Total Protein Albumin Globulin Albumin/Globulin Ratio Urine Color Urine Clarity Urine pH Ur Specific [place] Urine Protein Urine Glucose (UA) Urine Ketones Urine Occult Blood Urine Nitrite Urine Bilirubin Urine Urobilinogen Ur Leukocyte Esterase Tacrolimus Pending 01/30/19 01/31/19 01/31/19 22:10 05:45 05:45 WBC 5.4 RBC 2.86 L Hgb 8.9 L Hct 26.1 L MCV 91.3 MCH 31.1 MCHC 34.1 RDW 14.0 RDW Differential 44.8 H Plt Count 123 L MPV 10.2 Immature Gran % (Auto) 0.200 Neut % (Auto) 74.0 H Lymph % (Auto) 14.7 L [place] % (Auto) 10.7 H Eos % (Auto) 0.4 Baso % (Auto) 0.0 Absolute Neuts (auto) 4.1 Absolute Lymphs (auto) 0.81 L Total Counted Not Reportable Sodium 137 Potassium 4.1 Chloride 112 H Carbon Dioxide 17.0 L Anion Gap 8 BUN 17 Creatinine 1.27 Estim Creat Clear Calc 49.54 Est GFR (MDRD) Af Amer 72 Est GFR (MDRD) Non-Af 60 BUN/Creatinine Ratio 13.4 Glucose 93 Calcium 8.2 L Magnesium Total Bilirubin 0.40 AST 19 ALT 12 L Alkaline Phosphatase 58 Total Protein 4.8 L Albumin 2.6 L Globulin 2.2 Albumin/Globulin Ratio 1.2 Urine Color Yellow Urine Clarity Clear Urine pH 6.0 Ur Specific [place] 1.020 Urine Protein 100 H Urine Glucose (UA) 50 H Urine Ketones Negative Urine Occult Blood 25 H Urine Nitrite Negative Urine Bilirubin Negative Urine Urobilinogen Normal Ur Leukocyte Esterase Negative Tacrolimus POC Glucose 01/31/19 01/30/19 01/30/19 06:06 20:38 18:34 POC Glucose 92 72 104 01/30/19 01/30/19 01/30/19 17:44 17:17 12:10 POC Glucose 35 L* 42 L* 146 H Assessment/Plan All Active Problems (Last Updated 06/02/18 @ 09:32 by Sandy Crouch) Fracture of femoral neck, right (Acute) 1- s/p renal transplant in 2101. Pt has allograft dysfunction. Baseline Cr 1.4-1.8 mg d/L Cr is at baseline. i will continue the same IS which includes cellcept, prograf and prednisone Continue to monitor function 2- acute urinary retention . most probably related to BPH Continue flomax. please consult urology for spivey cath placement 3- HTN: BP is well controlled. continue the same dose of norvasc and labetalol 4- right hip neck fracture. s/p hemiarthroplasty Ortho surgery team is following. PT/OT Thank you for the consult. Renal team will continue to follow Please call if any question at [phone] d/w Dr. Niels Schwartz MD
--- NOTE | 2019-01-31 11:45 | PCM.TXEXTCAR ---
- Diet 01/29/19 12:41 Diet: Regular Diet Type of Dietary Supplement:: Glucerna 1.5 kaylen Is pt able to select menu?: No - Routine Orders/Code Status Suppository Type: Dulcolax 10mg Suppository Frequency: Daily PRN Routine Lab Work: CBC - weekly on DVT prophylaxis, BMP - weekly on immunosupressants - Wound(s) right elbow Wound Type: Skin Tear RIGHT HIP Wound Type: Surgical Incision - Therapies Weight Bearing: Weight bearing as tolerated - Allergies/Procedures Done in Hospital Allergies/Adverse Reactions: Allergies oxycodone HCl [From Percocet] Adverse Reaction (Verified 01/28/19 22:33) TOO MUCH CAUSES HALLUCINATIONS TOO MUCH - Type of Care/Length of Stay Estimated LOS: Convalescent Care Less Than 30 days Type of Care Needed: Skilled Rehab Potential: Good Prognosis: Good - Additional Orders/Day of Discharge Day of Discharge: 01/31/19 - Dietary and Speech Recommendations Dietitian Recommendations/Changes: Rec continue liberal Regular diet d/t decreased po intake - will provide ensure pudding or magic cup w/ meals instead of glucerna 1.5 as ordered for increased nutrition if consumed - Follow Up Care Primary Care Physician: Rojelio Lee DO [Primary Care Provider] - Please follow up with your Primary Care Physician in: in 1-2 weeks Please Follow Up With: Lis Schwartz MD When: in 3-4 weeks Please Follow Up With: Bryn Bonilla MD When: in 2 weeks for BPH and urine retention Please Follow Up With: Mason Holley MD When: in 2 weeks
[2019-01-31] MEDS: Labetalol 200 MG Tablet PO (12:03)
[2019-01-31] MEDS: Ferrous Sulfate 325 MG Tablet PO ×2 (12:03→17:40)
[2019-01-31 12:26] LABS: Bedside Glucose 166 mg/dL (70-110)
--- NOTE | 2019-01-31 12:47 | CON.PCM_ITS ---
Reason for Consult Date of Consultation: 01/31/19 Reason for Consultation: Incomplete bladder emptying History of Present Illness: The patient is a 69 year old male with a history of kidney transplant presents the hospital after a fall, has been reported to have decreased urine output and PVR residuals have been around 200 cc, recently was able to urinate and a PVR residual 300 cc was recently started on tamsulosin. Denies any straining to urinate denies difficult to get the urine started denies any gross hematuria no urinary tract infection. Past Medical History Past Medical History (Chronic Problems): Chronic Problems (Last Reviewed 01/31/19 @ 12:48 by Bryn Bonilla MD) Pulmonary hypertension (Chronic) Chronic pancreatitis (Chronic) GERD (gastroesophageal reflux disease) (Chronic) History of renal transplant (Chronic) Type 2 diabetes mellitus (Chronic) Chronic kidney disease, stage IV (severe) (Chronic) Chronic diastolic (congestive) heart failure (Chronic) Nonrheumatic pulmonary valve insufficiency (Chronic) Nonrheumatic tricuspid valve regurgitation (Chronic) Secondary pulmonary arterial hypertension (Chronic) Non-rheumatic aortic regurgitation (Chronic) Hypertension (Chronic) Medical History: Medical History (Last Reviewed 01/31/19 @ 12:48 by Bryn Bonilla MD) Chronic diastolic (congestive) heart failure (Chronic) I50.32 Nonrheumatic pulmonary valve insufficiency (Chronic) I37.1 Nonrheumatic tricuspid valve regurgitation (Chronic) I36.1 Secondary pulmonary arterial hypertension (Chronic) I27.21 Non-rheumatic aortic regurgitation (Chronic) I35.1 Hypertension (Chronic) I10 Anemia in chronic kidney disease N18.9, D63.1 Chronic pancreatitis K86.1 Secondary hypoparathyroidism E20.8 Type 2 diabetes mellitus E11.9 Dx : 20+ years ago Last exacerbation : DKA : never Hypoglycemic episode : 04/20 ER visit : 04/20 Allergies oxycodone HCl [From Percocet] Adverse Reaction (Verified 01/28/19 22:33) TOO MUCH CAUSES HALLUCINATIONS TOO MUCH Home Medications: Ambulatory Orders Medication Instructions Recorded Labetalol [Trandate (Beta Lisa)] 200 mg PO BID 12/19/13 Pantoprazole Sodium [Protonix] 40 mg PO DAILY 12/19/13 predniSONE tablet 5 mg PO DAILY 12/19/13 Aspirin [Aspirin, Baby] 81 mg PO DAILY@0800 08/16/15 Cholecalciferol (VIT D3) [Vitamin 1,000 unit PO DAILY 12/09/15 D3] amlodipine 10 mg tablet 10 mg PO QHS 12/02/17 magnesium oxide 400 mg (241.3 mg 400 mg PO BID tab 12/02/17 magnesium) tablet mycophenolate mofetil 250 mg 500 mg PO BID cap 12/02/17 capsule sulfamethoxazole 400 1 tab PO QDAY 12/02/17 mg-trimethoprim 80 mg tablet tacrolimus 1 mg capsule 3 mg PO BID cap 12/02/17 tramadol 50 mg tablet 50 mg PO BID PRN tab 12/02/17 Insulin Glargine [Lantus SoloStar 8 units SC BREAKFAST 11/30/18 Pen] Melatonin 3 mg PO QHS PRN PRN tablet 11/30/18 Acetaminophen [Tylenol] 1,000 mg PO Q6H PRN tablet 12/09/18 Mineral Oil/Petrolatum,White 1 applic TOPICAL 0600,2200 jar 12/09/18 [Eucerin] Surgical History: Surgical History (Last Reviewed 01/31/19 @ 12:48 by Bryn Bonilla MD) Hx of cholecystectomy Z90.49 Kidney replaced by transplant Onset Date: ~10/15/11 Z94.0 Right Surgical History: cholecystectomy, - - Kidney transplant, sphincterotomy, left wrist fusion Psychiatric History: No pertinent psych hx Lives: Spouse/ Significant Other Smoking Status: Former smoker Alcohol: None Drugs: None - *Family History Maternal History Items: Diabetes Paternal History Items: No pertinent history Sibling History Items: Cancer - Throat Review of Systems Constitutional: Denies: Chills, Fever, Weight Change HEENT: Denies: Head Aches, Sinus Congestion, Sinus Drainage Cardiovascular: Denies: Chest Pain, Palpitations Respiratory: Denies: Cough, Shortness of breath at rest, Sputum production Gastrointestinal: Denies: Abdominal Pain, Nausea, Vomiting Genitourinary: Reports: - - Incomplete bladder emptying. Denies: Dysuria Musculoskeletal: Denies: Joint Pain, Joint Tenderness Skin: Denies: Rash, Wounds Neurological: Denies: Numbness, Tingling, Focal weakness Psychiatric: Denies: Anxiety, Depression, Homicidal Ideations, Suicidal Ideations Hematologic/ Lymphatic: Denies: Easy Bruising, Easy Bleeding Physical Exam - Physical Exam Vital Signs Temp 98.1 F 01/31/19 08:06 Pulse 64 01/31/19 08:06 Resp 18 01/31/19 08:06 BP 140/60 H 01/31/19 08:06 Pulse Ox 97 01/31/19 08:06 Intake & Output 01/29/19 01/30/19 01/31/19 23:59 23:59 23:59 Intake Total 1550 / 3597 3597 / 3837 1995 Output Total 525 / 525 150 / 350 700 / 700 Balance 1025 / 3072 3447 / 3487 1296 / 1296 Weight: 63.8 kg Intake: Oral 100 / 600 890 / 1130 720 / 720 IV fluid/meds 1450 / 2997 2707 / 2707 1276 / 1276 IV #2 1000 / 1000 Output: Urine 525 / 525 150 / 350 700 / 700 Other: Number of Voids 1 Number of Bowel Movements 1 General: Alert, Cooperative HEENT: Atraumatic Oral: Moist Mucosa Neck: Supple Lungs: Normal air movement Cardiovascular: Regular rate Abdomen: Soft Rectal: Exam deferred Laboratory Tests Past 24 Hrs 01/30/19 01/30/19 01/30/19 18:00 18:46 20:39 WBC RBC Hgb Hct MCV MCH MCHC RDW RDW Differential Plt Count MPV Immature Gran % (Auto) Neut % (Auto) Lymph % (Auto) [place] % (Auto) Eos % (Auto) Baso % (Auto) Absolute Neuts (auto) Absolute Lymphs (auto) Total Counted Sodium Potassium Chloride Carbon Dioxide Anion Gap BUN Creatinine Estim Creat Clear Calc Est GFR (MDRD) Af Amer Est GFR (MDRD) Non-Af BUN/Creatinine Ratio Glucose 37 L* Calcium Magnesium 2.0 Total Bilirubin AST ALT Alkaline Phosphatase Total Protein Albumin Globulin Albumin/Globulin Ratio Urine Color Urine Clarity Urine pH Ur Specific [place] Urine Protein Urine Glucose (UA) Urine Ketones Urine Occult Blood Urine Nitrite Urine Bilirubin Urine Urobilinogen Ur Leukocyte Esterase Tacrolimus Pending 01/30/19 01/31/19 01/31/19 22:10 05:45 05:45 WBC 5.4 RBC 2.86 L Hgb 8.9 L Hct 26.1 L MCV 91.3 MCH 31.1 MCHC 34.1 RDW 14.0 RDW Differential 44.8 H Plt Count 123 L MPV 10.2 Immature Gran % (Auto) 0.200 Neut % (Auto) 74.0 H Lymph % (Auto) 14.[address] [place] % (Auto) 10.7 H Eos % (Auto) 0.4 Baso % (Auto) 0.0 Absolute Neuts (auto) 4.1 Absolute Lymphs (auto) 0.81 L Total Counted Not Reportable Sodium 137 Potassium 4.1 Chloride 112 H Carbon Dioxide 17.0 L Anion Gap 8 BUN 17 Creatinine 1.27 Estim Creat Clear Calc 49.54 Est GFR (MDRD) Af Amer 72 Est GFR (MDRD) Non-Af 60 BUN/Creatinine Ratio 13.4 Glucose 93 Calcium 8.2 L Magnesium Total Bilirubin 0.40 AST 19 ALT 12 L Alkaline Phosphatase 58 Total Protein 4.8 L Albumin 2.6 L Globulin 2.2 Albumin/Globulin Ratio 1.2 Urine Color Yellow Urine Clarity Clear Urine pH 6.0 Ur Specific [place] 1.020 Urine Protein 100 H Urine Glucose (UA) 50 H Urine Ketones Negative Urine Occult Blood 25 H Urine Nitrite Negative Urine Bilirubin Negative Urine Urobilinogen Normal Ur Leukocyte Esterase Negative Tacrolimus Assessment/Plan All Active Problems (Last Reviewed 01/31/19 @ 12:48 by Bryn Bonilla MD) Fracture of femoral neck, right (Acute) 69-year-old male with BPH and obstruction history of kidney transplant creatinine is close to baseline, he does have complete bladder emptying with a residual around 300 cc. He was just able to void freely. Not having any pain or discomfort in the bladder. He refused straight cath as it is painful. For now continue with Flomax 0.4 mg daily weekly and increase this to twice a day as tolerated. He can follow-up as an outpatient for further checkup he may have mild BPH symptoms could add Avodart or Proscar to shrink the prostate could consider a cystoscopy if his residuals continue to be high. Call with questions he can follow-up as outpatient.
[2019-01-31 14:00] VITALS: BP 157/70; PULSE 72; RESP 18; TEMP 36.9; O2SAT 95
--- NOTE | 2019-01-31 15:15 | CHAPLAIN ---
Type of Pastoral Visit _x__ Initial Visit ___ Follow-up Visit ___ On-call Visit ___ General Patient Visit ___ Spiritual Assessment ___ Family Conference ___ Bereavement ___ Rapid Response ___ Code Blue ___ Other (describe below) Pastoral Care Referral From _x__ Patient ___ Family ___ Nurse ___ Physician ___ Psychiatric Therapist ___ Mice Raiser ___ Other (describe below) Sacrament/Intervention _x__ Active listening ___ Anointing ___ Orthodoxy ___ Bereavement ___ Communion _x__ Jennifer exploration ___ _x__ Life review _x__ Prayer ___ Reconciliation ___ Sacrament of Sick _x__ Supportive presence ___ Wedding ___ Other (describe below) Pastoral Comments
--- NOTE | 2019-01-31 15:59 | CASEMGMT ---
Social Work Note CHARLIE received call from Albertina in TCU stating pre-cert has been obtained and pt is able to discharge today. CHARLIE informed Albertina that pt may be medically cleared for today and that this worker will update physician. Physician updated. Plan: TCU today Heidi Ramirez [employer], [employer]OM[employer]RY TE[employer]ER
[2019-01-31 16:36] LABS: Bedside Glucose 260 mg/dL (70-110)
--- NOTE | 2019-01-31 16:40 | DS.PCM_ITS ---
Discharge Date and Diagnosis Date of Admission: 01/29/19 Date of Discharge: 01/31/19 - Secondary Discharge Diagnosis Chronic Problems (Last Reviewed 01/31/19 @ 12:48 by Bryn Bonilla MD) Pulmonary hypertension (Chronic) Chronic pancreatitis (Chronic) GERD (gastroesophageal reflux disease) (Chronic) History of renal transplant (Chronic) Type 2 diabetes mellitus (Chronic) Chronic kidney disease, stage IV (severe) (Chronic) Chronic diastolic (congestive) heart failure (Chronic) Nonrheumatic pulmonary valve insufficiency (Chronic) Nonrheumatic tricuspid valve regurgitation (Chronic) Secondary pulmonary arterial hypertension (Chronic) Non-rheumatic aortic regurgitation (Chronic) Hypertension (Chronic) Hospital Course and Treatment Operations: None Summary of Care Provided: [] This is a 68 years old male patient presented to the medicine because of fall and right hip pain, found to have right femoral neck fracture and is being admitted for treatment. #1 acute traumatic right hip displaced transcervical femoral neck fracture with varus angulation: X-ray of the right hip and pelvis reviewed. Patient had right direct anterior hip hemiarthroplasty done on 01/29. Supportive management with IV antiemetics, PT, OT evaluation and management. The patient discharged on Lovenox 30 mg subcu daily with concern of anemia and mild thrombocytopenia. Nursing staff was given instruction to give signout to the accepting nurse in a detention to follow CBC daily starting 02/11/2019. If hemoglobin drops less than 8 g or platelet count drops less than 70,000, discontinue Lovenox. Baby aspirin is on hold til the patient is on Lovenox subcu for 2 weeks for DVT prophylaxis. Patient is not a candidate for Xarelto or apixaban secondary to drug drug interaction CYP metabolism with tacrolimus and mycophenolate. #2 perioperative evaluation: patient with multiple medical problems including kidney transplant, on long- term steroids as well as immunosuppressive agents with low functional capacity. He lives at home, partially dependent, using a walker at home. EKG revealed normal sinus rhythm with PACs, no acute changes. Chest x-ray reviewed, no acute findings. Based on his age, functional status, serum creatinine, past medical history and type of surgery, estimated risk for perioperative myocardial infarction or cardiac arrest is 1.23%. During perioperative., Will keep on IV steroid hydrocortisone 50 mg every 8 hourly and transition to oral. Home medications continued including labetalol, aspirin, amlodipine CellCept Prograf and Bactrim DS. #3 stage IV chronic kidney disease, status post kidney transplant with transient oliguria with urine retention, concern of BPH: Baseline creatinine has been around 1.4 to 1.9 mg/dL. Kidney function overall improved with this 20 creatinine 50, creatinine 1.27. Admission creatinine is 1.48, stable at baseline. Repeat BUN/creatinine /1.37. Patient had oliguria on 01/30 but today he voided twice each time about 300 mL. With concern of postvoid residual and urinary retention, the urologist was consulted. Dr. Bonilla saw the patient and agree with Flomax 0.4 mg daily for week and then increase to twice daily. Follow-up in the office. As patient voided spontaneously no plan for catheterization. continue tacrolimus, mycophenolate, prophylactic Bactrim, IV hydrocortisone, hold prednisone. Monitor BMP daily. Apprentice Architect was also consulted. She could not tell who is regular supervisor estimator and drafter as an outpatient. #4 type 2 diabetes mellitus with hypoglycemia: Clear liquids, Accu-Cheks, insulin sliding scale, continue home dose of Lantus. Blood sugars are controlled. Patient glucose dropped to 37 which did not have good response with the oral glucose supplement and therefore was put on D10. Lantus insulin discontinued. On Accu-Cheks before meals and at bedtime and cover with Humalog sliding scale. Last Accu-Chek 166. #5 chronic diastolic CHF: Patient stable, compensated. Plan for gentle IV fluids for hydration, monitor volume status, continue Lipitor. Echo in December 2017 reported as left ventricular normal size, EF 55%, mild concentric LVH, stage II diastolic dysfunction and no wall motion abnormality. RV normal in size and systolic function. RVSP 37 ABG consistent with mild pulmonary hypertension. LA dilated. RA normal. Mild MR mild TR, moderate AR with centrally directed regurgitant jet. #6 hypertension: Blood pressure slightly elevated, continue Norvasc and labetalol. #7 Acute mild anemia, secondary to postoperative blood loss on baseline chronic anemia: Patient with asymptomatic signs and symptoms of anemia. H&H 9.02/27 from . Started on ferrous sulfate 325 mg twice daily. Baseline hemoglobin around 11 g/dL. #8 chronic pulmonary hypertension: Stable. #9 GERD: Continue PPI. Chronic cough possible postnasal drip syndrome/sinusitis: Follow-up with ENT. Patient has seen ENT in the past. Patient stated he smoked for about 10 years a bout 1 pack/day. Has quit. #10 DVT prophylaxis: As mentioned above Discharge medication reconciliation done. Discharge follow-up instructions completed. Discharge process discussed with the patient and all questions were answered to patient's satisfaction. Follow-up with urologist, supervisor estimator and drafter, orthopedic surgeon and PCP admission date discharge instruction. Total time spent, exact 35 minutes on discharge meds reconciliation, examination, review of imaging and blood test and discussion with the patient on follow-up instructions. Subjective: The patient was seen and examined on the day of discharge. Please see the progress note. - Physical Exam Vital Signs Temp Pulse Resp BP Pulse Ox 98.4 F 72 18 157/70 H 95 01/31/19 14:00 01/31/19 14:00 01/31/19 14:00 01/31/19 14:00 01/31/19 14:00 Oxygen Delivery Method Room Air Weight: 140 lb 10.479 oz Body Mass Index (BMI) 18.5 Finger Stick Blood Glucose 132 Intake and Output for Last 24 Hours 01/29/19 01/30/19 01/31/19 23:59 23:59 23:59 Intake Total 1550 / 3597 3597 / 3837 1995 Output Total 525 / 525 150 / 350 700 / 700 Balance 1025 / 3072 3447 / 3487 1296 / 1296 Laboratory Tests Past 24 Hrs 01/30/19 01/30/19 01/30/19 18:00 18:46 20:39 WBC RBC Hgb Hct MCV MCH MCHC RDW RDW Differential Plt Count MPV Immature Gran % (Auto) Neut % (Auto) Lymph % (Auto) Warren % (Auto) Eos % (Auto) Baso % (Auto) Absolute Neuts (auto) Absolute Lymphs (auto) Total Counted Sodium Potassium Chloride Carbon Dioxide Anion Gap BUN Creatinine Estim Creat Clear Calc Est GFR (MDRD) Af Amer Est GFR (MDRD) Non-Af BUN/Creatinine Ratio Glucose 37 L* Calcium Magnesium 2.0 Total Bilirubin AST ALT Alkaline Phosphatase Total Protein Albumin Globulin Albumin/Globulin Ratio Urine Color Urine Clarity Urine pH Ur Specific [place] Urine Protein Urine Glucose (UA) Urine Ketones Urine Occult Blood Urine Nitrite Urine Bilirubin Urine Urobilinogen Ur Leukocyte Esterase Tacrolimus Pending 01/30/19 01/31/19 01/31/19 22:10 05:45 05:45 WBC 5.4 RBC 2.86 L Hgb 8.9 L Hct 26.1 L MCV 91.3 MCH 31.1 MCHC 34.1 RDW 14.0 RDW Differential 44.8 H Plt Count 123 L MPV 10.2 Immature Gran % (Auto) 0.200 Neut % (Auto) 74.0 H Lymph % (Auto) 14.7 L Warren % (Auto) 10.7 H Eos % (Auto) 0.4 Baso % (Auto) 0.0 Absolute Neuts (auto) 4.1 Absolute Lymphs (auto) 0.81 L Total Counted Not Reportable Sodium 137 Potassium 4.1 Chloride 112 H Carbon Dioxide 17.0 L Anion Gap 8 BUN 17 Creatinine 1.27 Estim Creat Clear Calc 49.54 Est GFR (MDRD) Af Amer 72 Est GFR (MDRD) Non-Af 60 BUN/Creatinine Ratio 13.4 Glucose 93 Calcium 8.2 L Magnesium Total Bilirubin 0.40 AST 19 ALT 12 L Alkaline Phosphatase 58 Total Protein 4.8 L Albumin 2.6 L Globulin 2.2 Albumin/Globulin Ratio 1.2 Urine Color Yellow Urine Clarity Clear Urine pH 6.0 Ur Specific [place] 1.020 Urine Protein 100 H Urine Glucose (UA) 50 H Urine Ketones Negative Urine Occult Blood 25 H Urine Nitrite Negative Urine Bilirubin Negative Urine Urobilinogen Normal Ur Leukocyte Esterase Negative Tacrolimus POC Glucose 01/31/19 01/31/19 01/31/19 16:30 12:16 06:06 POC Glucose 260 H 166 H 92 01/30/19 01/30/19 01/30/19 20:38 18:34 17:44 POC Glucose 72 104 35 L* 01/30/19 17:17 POC Glucose 42 L* Home Medications: Medications to take at Discharge Labetalol [Trandate (Beta Lisa)] 200 mg PO BID 12/19/13 Pantoprazole Sodium [Protonix] 40 mg PO DAILY 12/19/13 predniSONE tablet 5 mg PO DAILY 12/19/13 Cholecalciferol (VIT D3) [Vitamin D3] 1,000 unit PO DAILY 12/09/15 amlodipine 10 mg tablet 10 mg PO QHS 12/02/17 magnesium oxide 400 mg (241.3 mg magnesium) tablet 400 mg PO BID tab 12/02/17 mycophenolate mofetil 250 mg capsule 500 mg PO BID cap 12/02/17 sulfamethoxazole 400 mg-trimethoprim 80 mg tablet 1 tab PO QDAY 12/02/17 tacrolimus 1 mg capsule 3 mg PO BID cap 12/02/17 Melatonin 3 mg PO QHS PRN PRN tablet 11/30/18 Acetaminophen [Tylenol] 1,000 mg PO Q6H PRN tablet 12/09/18 Aspirin [Aspirin, Baby] 81 mg PO DAILY@0800 #0 01/31/19 Enoxaparin [Lovenox] 30 mg SUBCUT DAILY@0600 01/31/19 Ferrous Sulfate 325 mg PO 1200,1700 01/31/19 Insulin Lispro [Humalog KwikPen] See Protocol SUBCUT ACHS 01/31/19 Mineral Oil/Petrolatum,White [Eucerin] 1 applic TOPICAL 0600,2200 01/31/19 Senna/Docusate Sodium [Senokot-S] 2 tab PO BID PRN PRN tab 01/31/19 Tamsulosin HCl [Flomax] 0.4 mg PO DAILY@1730 01/31/19 traMADol [Ultram] 50 mg PO BID PRN #14 tab 01/31/19 Following Prescrptions Were Given to Patient: traMADol [Ultram] 50 mg PO BID PRN #14 tab PRN Reason: Severe Pain (6-05/12) Prescription Printed Primary Care Physician: Rojelio Lee DO [Primary Care Provider] - Please follow up with your Primary Care Physician in: in 1-2 weeks Please Follow Up With: Lis Schwartz MD When: in 3-4 weeks Please Follow Up With: Bryn Bonilla MD When: in 2 weeks for BPH and urine retention Please Follow Up With: Mason Holley MD When: in 2 weeks Medical Necessity - Tobacco Use Smoking Status: Former smoker Meaningful Use Info Meaningful Use Diagnoses (Choose all that apply): None applicable Code Visit Inpatient E&M: 50818 Disch Hosp
[2019-01-31] MEDS: Insulin Lispro 100 UNIT/ML INSULN.PEN SC (17:41)
[2019-01-31] MEDS: Tamsulosin HCl 0.4 MG Capsule 0.8 MG PO (17:41)
--- NOTE | 2019-01-31 18:39 | NURSING ---
REPORT CALLED TO TCU
[2019-01-31 19:42] VITALS: BP 142/65; PULSE 71; RESP 28; TEMP 37.3; O2SAT 97
[2019-02-04 17:17] LABS: Tacrolimus (FK506) 7.3 ng/mL (2.0-20.0)
== END 2019-01-31 20:05 | disposition skilled nursing facility (03) | DRG 470 ==
LOC: ED 23:01 → MS3 01-29 00:34
PROVIDERS: Anesthesiology; Specialist; Admitting Provider Hospitalist; Emergency Provider Emergency Medicine; Family Provider Student in an Organized Health Care Education/Training Program; PCP Student in an Organized Health Care Education/Training Program; Visit Provider Internal Medicine
PROC: 0SRR019 Replacement of Right Hip Joint, Femoral Surface with Metal Synthetic Substitute, Cemented, Open Approach (ICD-10-PCS; CPT 27125; principal; 2019-01-29 12:00)
DX: S72.031A Displaced midcervical fracture of right femur, initial encounter for closed fracture (principal); Z94.0 Kidney transplant status; I50.32 Chronic diastolic (congestive) heart failure; I13.2 Hypertensive heart and chronic kidney disease with heart failure and with stage 5 chronic kidney disease, or end stage renal disease; K86.1 Other chronic pancreatitis; I13.0 Hypertensive heart and chronic kidney disease with heart failure and stage 1 through stage 4 chronic kidney disease, or unspecified chronic kidney disease; N18.4 Chronic kidney disease, stage 4 (severe); D62 Acute posthemorrhagic anemia; W18.30XA Fall on same level, unspecified, initial encounter; Z96.642 Presence of left artificial hip joint; R33.9 Retention of urine, unspecified; Z79.52 Long term (current) use of systemic steroids; R05 Cough; Z79.899 Other long term (current) drug therapy; Z79.4 Long term (current) use of insulin; K21.9 Gastro-esophageal reflux disease without esophagitis; E11.22 Type 2 diabetes mellitus with diabetic chronic kidney disease
CPT/HCPCS: 36415; 71045; 72100; 73501; 73502; 76000; 80048; 80053; 80197; 81002; 82947; 82962; 83036; 83735; 85014; 85018; 85025; 85027; 85610; 85730; 86850; 86900; 88305; 88311; 93005; 97110; 97162; 97165; 97530; 99251; 99285; C1776; J7030; J7120; A4216; G0463; J2405

== ENCOUNTER 2019-01-31 20:15 | Inpatient (IN) | payer MEDICARE, SELFPAY ==
[2019-01-31 20:29] VITALS: BMI 18.1
[2019-01-31 20:39] VITALS: BP 152/68; PULSE 74; RESP 20; TEMP 37.1; O2SAT 93; BMI 19.2
--- NOTE | 2019-01-31 21:30 | HP.PCM_ITS ---
Problem List (1) Fracture of femoral neck, right Status: Acute (2) Pulmonary hypertension Status: Chronic (3) Chronic pancreatitis Status: Chronic (4) GERD (gastroesophageal reflux disease) Status: Chronic (5) Type 2 diabetes mellitus Status: Chronic (6) Chronic diastolic (congestive) heart failure Status: Chronic (7) Hypertension Status: Chronic Qualifiers: History of Present Illness Date of Admission: 01/31/19 Chief Complaint: Here for rehabilitation, strengthening, prior to discharge home with spouse. The patient is a 69 year old Male with below past medical history presented to [facility] Emergency Department 01/28/2019 with right hip pain. 01/28/2019 Chest X-ray normal. 01/28/2019 X-ray LS spine, L5-S1 degenerative disc disease. Tripped, fell on right hip. X-ray right hip showed femoral neck fracture. EKG showed left bundle branch block, negative ischemia. Cr 1.4, Hemoglobin 11. Morphine for pain. 01/29/2019 Admit to Hospital. IV fluids, pain control, PT/OT, consult orthopedics. IV stress dose steroids. 01/29/2019 Dr. Holley performed right direct anterior hip hemiarthroplasty. 01/31/2019 Dr. Bonilla consulted for urinary retention, patient refused straight cath due to pain. Tamsulosin 0.4MG daily, then twice daily. 01/31/2019 Admit to TCU with debility, here for rehabilitation, strengthening, prior to discharge home with spouse. Past Medical History Past Medical History (Chronic Problems): Chronic Problems (Last Reviewed 01/31/19 @ 12:48 by Bryn Boinlla MD) Pulmonary hypertension (Chronic) Chronic pancreatitis (Chronic) GERD (gastroesophageal reflux disease) (Chronic) History of renal transplant (Chronic) Type 2 diabetes mellitus (Chronic) Chronic kidney disease, stage IV (severe) (Chronic) Chronic diastolic (congestive) heart failure (Chronic) Nonrheumatic pulmonary valve insufficiency (Chronic) Nonrheumatic tricuspid valve regurgitation (Chronic) Secondary pulmonary arterial hypertension (Chronic) Non-rheumatic aortic regurgitation (Chronic) Hypertension (Chronic) Medical History: Medical History (Last Reviewed 01/31/19 @ 12:48 by Bryn Bonilla MD) Chronic diastolic (congestive) heart failure (Chronic) I50.32 Nonrheumatic pulmonary valve insufficiency (Chronic) I37.1 Nonrheumatic tricuspid valve regurgitation (Chronic) I36.1 Secondary pulmonary arterial hypertension (Chronic) I27.21 Non-rheumatic aortic regurgitation (Chronic) I35.1 Hypertension (Chronic) I10 Anemia in chronic kidney disease N18.9, D63.1 Chronic pancreatitis K86.1 Secondary hypoparathyroidism E20.8 Type 2 diabetes mellitus E11.9 Dx : 20+ years ago Last exacerbation : DKA : never Hypoglycemic episode : 04/20 ER visit : 04/20 Allergies oxycodone HCl [From Percocet] Adverse Reaction (Verified 01/28/19 22:33) TOO MUCH CAUSES HALLUCINATIONS TOO MUCH Home Medications: Ambulatory Orders Medication Instructions Recorded Labetalol [Trandate (Beta Lisa)] 200 mg PO BID 12/19/13 Pantoprazole Sodium [Protonix] 40 mg PO DAILY 12/19/13 predniSONE tablet 5 mg PO DAILY 12/19/13 Cholecalciferol (VIT D3) [Vitamin 1,000 unit PO DAILY 12/09/15 D3] amlodipine 10 mg tablet 10 mg PO QHS 12/02/17 magnesium oxide 400 mg (241.3 mg 400 mg PO BID tab 12/02/17 magnesium) tablet mycophenolate mofetil 250 mg 500 mg PO BID cap 12/02/17 capsule sulfamethoxazole 400 1 tab PO QDAY 12/02/17 mg-trimethoprim 80 mg tablet tacrolimus 1 mg capsule 3 mg PO BID cap 12/02/17 Melatonin 3 mg PO QHS PRN PRN tablet 11/30/18 Acetaminophen [Tylenol] 1,000 mg PO Q6H PRN tablet 12/09/18 Aspirin [Aspirin, Baby] 81 mg PO DAILY@0800 #0 01/31/19 Enoxaparin [Lovenox] 30 mg SUBCUT DAILY@0600 01/31/19 Ferrous Sulfate 325 mg PO 1200,1700 01/31/19 Insulin Lispro [Humalog KwikPen] See Protocol SUBCUT ACHS 01/31/19 Mineral Oil/Petrolatum,White 1 applic TOPICAL 0600,2200 01/31/19 [Eucerin] Senna/Docusate Sodium [Senokot-S] 2 tab PO BID PRN PRN tab 01/31/19 Tamsulosin HCl [Flomax] 0.4 mg PO DAILY@1730 01/31/19 traMADol [Ultram] 50 mg PO BID PRN #14 tab 01/31/19 Surgical History: Surgical History (Last Reviewed 01/31/19 @ 12:48 by Bryn Bonilla MD) Hx of cholecystectomy Z90.49 Kidney replaced by transplant Onset Date: ~10/15/11 Z94.0 Right Surgical History: cholecystectomy, total hip arthroplasty - Bilateral., - - Kidney transplant, sphincterotomy, left wrist fusion Psychiatric History: No pertinent psych hx Lives: Spouse/ Significant Other Smoking Status: Former smoker Tobacco Use: Cigars Alcohol: None Drugs: None - *Family History Maternal History Items: No pertinent history Paternal History Items: No pertinent history Review of Systems Constitutional: Denies: Chills, Fever, Weight Change HEENT: Denies: Head Aches, Sinus Congestion, Sinus Drainage Cardiovascular: Denies: Chest Pain, Palpitations Respiratory: Denies: Cough, Shortness of breath at rest, Sputum production Gastrointestinal: Denies: Abdominal Pain, Nausea, Vomiting Genitourinary: Denies: Dysuria Musculoskeletal: Denies: Joint Pain, Joint Tenderness Skin: Denies: Rash, Wounds Neurological: Denies: Numbness, Tingling, Focal weakness Psychiatric: Denies: Anxiety, Depression, Homicidal Ideations, Suicidal Ideations Hematologic/ Lymphatic: Denies: Easy Bruising, Easy Bleeding VTE Information - Inpt Only VTE Present on Admission: No VTE Mechan Device Prophylaxis: Knee High JOHNNY Hose VTE Pharm Prophylaxis ordered?: Yes - Physical Exam General: Alert, Oriented x3, Cooperative HEENT: Atraumatic, PERRLA, EOMI, Normocephalic Neck: Supple, No JVD, Negative Carotid Bruits Lungs: Clear to auscultation, Normal air movement Cardiovascular: Regular rate, No murmurs Abdomen: Bowel Sounds Present, Soft, Non Tender Extremities: No edema, Capillary Refill Less than 3 Seconds Skin: No rashes, No breakdown, Incision - Right hip clean, dry, intact. Musculoskeletal: No Tenderness to Palpation of Joints or Extremities Neurological: Cranial nerves II-XII grossly intact Psych/Mental Status: Normal Affect, Appropriate Vital Signs Temp Pulse Resp BP Pulse Ox 98.8 F 74 20 H 152/68 H 93 01/31/19 20:39 01/31/19 20:39 01/31/19 20:39 01/31/19 20:39 07/01/19 20:39 Oxygen Delivery Method Room Air Weight: 67.9 kg Body Mass Index (BMI) 19.2 Finger Stick Blood Glucose 60 Assessment/Plan All Active Problems (Last Reviewed 01/31/19 @ 12:48 by Bryn Bonilla MD) Fracture of femoral neck, right (Acute) 69 year old male with below past medical history hospitalized for right hip fracture, underwent right direct anterior hip hemiarthroplasty 01/29/[address] Holley, admitted to TCU with debility, here for rehabilitation, strengthening, prior to discharge home with spouse. * Debility - PT/OT. * Pain - Tylenol 1000MG Q6H PRN mild pain, Tramadol 50MG BID PRN severe pain. * Bowel - Miralax 17GM daily, Senna/colace 1 tablet BID, Dulcolax 10MG daily PRN. * Pneumonia vaccination - Administer Prevnar 13 and/or Pneumovax 23 as necessary. * DVT prophylaxis - Lovenox 30MG SC daily. * Hypertension - Labetalol 200MG BID, Amlodipine 10MG QHS. * Vitamin D deficiency - D3 1000IU daily. * Iron deficiency anemia - Ferrex 150MG daily. * Nutrition - Glucerna 120ML 4x/day. * Diabetes Mellitus II - Lantus 8 units QAM. * Hypomagnesemia - Magnesium Oxide 400MG BID. * Insomnia - Melatonin 3MG QHS PRN. * Skin irritation - Eucerin BID. * Kidney transplant - Cellcept 500MG BID, Prednisone 5MG daily, Prograf 3MG BID. * PCJ prophylaxis - Bactrim 1 tablet daily. * GERD - Pantoprazole 40MG daily. * Urinary retention - Tamsulosin 0.4MG daily thru 02/05/2019, then 0.4MG BID.
--- NOTE | 2019-01-31 21:33 | NURSING ---
Pt arrived via cot from [facility] at 2014.
[2019-01-31 22:06] LABS: Bedside Glucose 188 mg/dL (70-110)
[2019-01-31] MEDS: Glucerna Shake 120 ML LIQUID PO (22:09)
[2019-01-31] MEDS: MELATONIN 3 MG TABLET PO (22:12)
[2019-01-31] MEDS: Mycophenolate Mofetil 250 MG Capsule 500 MG PO (22:13)
[2019-01-31] MEDS: Tacrolimus Anhydrous 1 MG Capsule 3 MG PO (22:14)
[2019-01-31] MEDS: Labetalol 200 MG Tablet PO (22:15)
[2019-01-31] MEDS: Magnesium Oxide 400 MG Tablet PO (22:15)
[2019-01-31] MEDS: amLODIPine 10 MG Tablet PO (22:16)
[2019-02-01] MEDS: Glucerna Shake 120 ML LIQUID PO ×4 (05:09→20:00)
[2019-02-01] MEDS: Mycophenolate Mofetil 250 MG Capsule 500 MG PO ×2 (05:11→18:16)
[2019-02-01] MEDS: Tacrolimus Anhydrous 1 MG Capsule 3 MG PO ×2 (05:11→18:17)
[2019-02-01] MEDS: Magnesium Oxide 400 MG Tablet PO ×2 (05:11→18:16)
[2019-02-01] MEDS: Pantoprazole Sodium 40 MG Tablet PO (05:11)
[2019-02-01] MEDS: Labetalol 200 MG Tablet PO ×2 (05:11→18:18)
[2019-02-01 05:54] LABS: Absolute Lymphocyte Count 0.57 X10^3/ul (0.83-4.51); Absolute Neutrophil Count 3.2 X10^3/uL (2.0-7.7); Eosinophil# 0.03 X10^3/uL; Eosinophils% 0.7 % (0-5); Hematocrit 26.4 % (40-54); Hemoglobin 8.9 g/dl (13.0-16.5); Lymphocyte # 0.57 X10^3/ul (4.0); Mean Corp Hgb Conc 33.7 g/gl (32-36); Mean Platelet Vol. 10.6 fl (6.2-12.0); Monocyte# 0.55 X10^3/uL; Monocyte% 12.5 % (0-10); Neutrophil # 3.24 X10^3/uL (2.7-7.7); Neutrophil % 73.6 % (47-70); Platelet Count 119 K/mm3 (150-450); RBC Distribution Width CV 13.9 % (11.6-14.6); RBC Distribution Width SD 44.9 fl (35.1-43.9); Red Blood Count 2.87 M/mm3 (4.6-6.2); White Blood Count 4.4 K/mm3 (4.4-11.0)
[2019-02-01 05:55] LABS: Differential Indicated SCAN CRITERIA MET; POSITIVE COUNT NO; POSITIVE DIFFERENTIAL YES; POSITIVE MORPHOLOGY NO
[2019-02-01 06:00] LABS: Anion Gap 13 (5-15); BUN 20 mg/dL (7-18); BUN/Creat Ratio 14.8 RATIO (10-20); Calcium,Total 8.5 mg/dL (8.5-10.1); Chloride 110 mmol/L (98-107); Creatinine, Serum 1.35 mg/dL (0.70-1.30); EST Glomerular Filtration Rate 56 mL/min (>60); Est Glom Filt Rate - Afr Amer 67 mL/min (>60); Glucose 262 mg/dL (74-106); Potassium 4.3 mmol/L (3.5-5.1); Sodium Level 139 mmol/L (136-145)
[2019-02-01 06:45] VITALS: PULSE 70; RESP 16; O2SAT 95
[2019-02-01] MEDS: Enoxaparin 30 MG/0.3 ML Syringe SC (06:47)
[2019-02-01 06:51] LABS: Bedside Glucose 274 mg/dL (70-110)
[2019-02-01] MEDS: Smz/Tmp Ds Tablet 0.5 TABLET PO (08:09)
[2019-02-01] MEDS: predniSONE 5 MG Tablet PO (08:10)
[2019-02-01] MEDS: Iron Polysaccharide Complex 150 MG CAPSULE PO ×2 (08:10→18:15)
[2019-02-01] MEDS: Tuberculin,Purif.prot.deriv. 50 TU/ML Vial 5 ML ID (09:53)
--- NOTE | 2019-02-01 11:04 | PCM.PN.RX ---
<GenWiliam ramsay D - Last Filed: 02/01/19 11:04> Progress Note - Pharmacy Subjective: TCU Admission Objective: Allergies oxycodone HCl [From Percocet] Adverse Reaction (Verified 01/28/19 22:33) TOO MUCH CAUSES HALLUCINATIONS TOO MUCH Current Medications Generic Name Dose Route Start Last Admin Trade Name Freq PRN Reason Stop Dose Admin Acetaminophen 1,000 mg 01/31/19 20:48 Tylenol PO Q6H PRN PRN MILD PAIN (1-10/10) Amlodipine Besylate 10 mg 01/31/19 22:00 01/31/19 22:16 Norvasc PO 10 mg QHS JOSÉ Administration Bisacodyl 10 mg 01/31/19 21:01 Dulcolax RECTAL DAILY PRN Constipation Cholecalciferol 1,000 unit 02/01/19 06:00 02/01/19 05:11 Vitamin D PO 1,000 unit DAILY JOSÉ Administration Enoxaparin Sodium 30 mg 02/01/19 06:00 02/01/19 06:47 Lovenox SC 30 mg DAILY@0600 JOSÉ Administration Insulin Glargine 8 units 02/02/19 08:00 Lantus (Bkc) SC BREAKFAST JOSÉ Labetalol HCl 200 mg 01/31/19 20:50 02/01/19 05:11 Trandate PO 200 mg BID JOSÉ Administration Magnesium Oxide 400 mg 01/31/19 20:50 02/01/19 05:11 Mag-Ox 400 PO 400 mg BID JOSÉ Administration Melatonin 3 mg 01/31/19 20:48 01/31/19 22:12 Melatonin PO 3 mg QHS PRN PRN Administration INSOMNIA Multi-Ingredient Cream 1 applic 01/31/19 22:00 02/01/19 05:12 Eucerin TOPICAL 1 applicatio 0600,2200 [facility] Administration Protocol Mycophenolate Mofetil 500 mg 01/31/19 20:51 02/01/19 05:11 Cellcept PO 500 mg BID JOSÉ Administration Nutritional Formula (Lactose Free) 120 ml 01/31/19 22:00 02/01/19 05:09 Glucerna Shake PO 120 ml 4X/DAY JOSÉ Administration Pantoprazole Sodium 40 mg 02/01/19 06:00 02/01/19 05:11 Protonix PO 40 mg DAILY JOSÉ Administration Polyethylene Glycol 17 gm 02/01/19 06:00 02/01/19 05:11 Miralax PO Not Given DAILY [facility] Polysaccharide Iron Complex 150 mg 02/01/19 08:00 02/01/19 08:10 Ferrex 150 PO 150 mg BIDCM JOSÉ Administration Prednisone 5 mg 02/01/19 08:00 02/01/19 08:10 PO 5 mg DAILYCM JOSÉ Administration Senna/Docusate Sodium 1 tablet 02/01/19 06:00 02/01/19 05:11 Senokot-S, Charito-Colace PO Not Given BID [facility] Tacrolimus 3 mg 01/31/19 20:51 02/01/19 05:11 Prograf PO 3 mg BID JOSÉ Administration Tamsulosin HCl 0.4 mg 02/01/19 17:30 Flomax PO 02/05/19 18:00 DAILY@1730 JOSÉ Tamsulosin HCl 0.4 mg 02/06/19 06:00 Flomax PO BID JOSÉ Tramadol HCl 50 mg 01/31/19 20:48 Ultram PO BID PRN PRN SEVERE PAIN (6-05/12) Trimethoprim/Sulfamethoxazole 0.5 tablet 02/01/19 08:00 02/01/19 08:09 Bactrim Ds PO 0.5 tablet DAILYCM JOSÉ Administration Tuberculin PPD 5 tu 02/08/19 10:00 Tubersol, Aplisol, Ppd ID 02/08/19 10:01 X1 ONE Vital Signs Temp Pulse Resp BP Pulse Ox 98.8 F 70 16 152/68 H 95 01/31/19 20:39 02/01/19 06:45 02/01/19 06:45 01/31/19 20:39 02/01/19 06:45 Oxygen Delivery Method Room Air Weight: 67.812 kg Body Mass Index (BMI) 19.2 Finger Stick Blood Glucose 60 Sodium 139 mmol/L (136-145) 02/01/19 05:05 Potassium 4.3 mmol/L (3.5-5.1) 02/01/19 05:05 Chloride 110 mmol/L (98-107) H 02/01/19 05:05 Carbon Dioxide 16.0 mmol/L (21.0-32.0) L 02/01/19 05:05 13 (5-15) 02/01/19 05:05 BUN 20 mg/dL (7-18) H 02/01/19 05:05 1.35 mg/dL (0.70-1.30) H 02/01/19 05:05 Est GFR (MDRD) Af Amer 67 mL/min (>60) 02/01/19 05:05 Est GFR (MDRD) Non-Af 56 mL/min (>60) L 02/01/19 05:05 14.8 RATIO (10-20) 02/01/19 05:05 Glucose 262 mg/dL (74-106) H 02/01/19 05:05 Assessment/Plan: 1) Pain APAP for mild pain, tramadol for severe pain. Continue to monitor prn medication use, daily pain scores. 2) Kidney Transplant Mycophenolate, tacrolimus, prednisone. Continue to monitor clinically. 3) HTN Labetalol, amlodipine. Continue to monitor BP/HR. 4) DM2 Insulin glargine. Continue to monitor BGT, s/s hyper/hypoglycemia. 5) DVT PPx Enoxaparin. Continue to monitor for bleeding/clot. 6) PCJ PPx SMX/TMP. Continue to monitor s/s infection. 7) Nutrition Mg, Fe, Glucerna, D. Continue to monitor electrolytes. 8) GI Pantoprazole. Continue to monitor s/s GI distress. 9) BPH Tamsulosin. Continue to monitor for symptoms. Psychotropic Medications: None Unnecessary Medications: None Bowel Regimen: 10) Senna/s, PEG, prn bisacodyl. Continue to monitor prn medication use, for constipation/diarrhea. Date of Note:: 02/01/19 - Provider Comments Provider responsibility: Provider responsible to enter orders to implement recommendations <Bethel Cramer Chi - Last Filed: 02/01/19 17:03> Progress Note - Pharmacy Subjective: [] Objective: Allergies oxycodone HCl [From Percocet] Adverse Reaction (Verified 01/28/19 22:33) TOO MUCH CAUSES HALLUCINATIONS TOO MUCH Current Medications Generic Name Dose Route Start Last Admin Trade Name Freq PRN Reason Stop Dose Admin Acetaminophen 1,000 mg 01/31/19 20:48 Tylenol PO Q6H PRN PRN MILD PAIN (1-3/10) Amlodipine Besylate 10 mg 01/31/19 22:00 01/31/19 22:16 Norvasc PO 10 mg QHS JOSÉ Administration Bisacodyl 10 mg 01/31/19 21:01 Dulcolax RECTAL DAILY PRN Constipation Cholecalciferol 1,000 unit 02/01/19 06:00 02/01/19 05:11 Vitamin D PO 1,000 unit DAILY [facility] Administration Enoxaparin Sodium 30 mg 02/01/19 06:00 02/01/19 06:47 Lovenox SC 30 mg DAILY@0600 [facility] Administration Insulin Glargine 8 units 02/02/19 08:00 Lantus (Bkc) SC BREAKFAST [facility] Labetalol HCl 200 mg 01/31/19 20:50 02/01/19 05:11 Trandate PO 200 mg BID [facility] Administration Magnesium Oxide 400 mg 01/31/19 20:50 02/01/19 05:11 Mag-Ox 400 PO 400 mg BID [facility] Administration Melatonin 3 mg 01/31/19 20:48 01/31/19 22:12 Melatonin PO 3 mg QHS PRN PRN Administration INSOMNIA Multi-Ingredient Cream 1 applic 01/31/19 22:00 02/01/19 05:12 Eucerin TOPICAL 1 applicatio 0600,2200 [facility] Administration Protocol Mycophenolate Mofetil 500 mg 01/31/19 20:51 02/01/19 05:11 Cellcept PO 500 mg BID [facility] Administration Nutritional Formula (Lactose Free) 120 ml 01/31/19 22:00 02/01/19 11:41 Glucerna Shake PO 120 ml 4X/DAY [facility] Administration Pantoprazole Sodium 40 mg 02/01/19 06:00 02/01/19 05:11 Protonix PO 40 mg DAILY [facility] Administration Polyethylene Glycol 17 gm 02/01/19 06:00 02/01/19 05:11 Miralax PO Not Given DAILY [facility] Polysaccharide Iron Complex 150 mg 02/01/19 08:00 02/01/19 08:10 Ferrex 150 PO 150 mg BIDCM [facility] Administration Prednisone 5 mg 02/01/19 08:00 02/01/19 08:10 PO 5 mg DAILYCM [facility] Administration Senna/Docusate Sodium 1 tablet 02/01/19 06:00 02/01/19 05:11 Senokot-S, Charito-Colace PO Not Given BID [facility] Tacrolimus 3 mg 01/31/19 20:51 02/01/19 05:11 Prograf PO 3 mg BID [facility] Administration Tamsulosin HCl 0.4 mg 02/01/19 17:30 Flomax PO 02/05/19 18:00 DAILY@1730 [facility] Tamsulosin HCl 0.4 mg 02/06/19 06:00 Flomax PO BID JOSÉ Tramadol HCl 50 mg 01/31/19 20:48 Ultram PO BID PRN PRN SEVERE PAIN (6-10/10) Trimethoprim/Sulfamethoxazole 0.5 tablet 02/01/19 08:00 02/01/19 08:09 [facility] Tuberculin PPD 5 tu 02/08/19 10:00 Tubersol, Aplisol, Ppd ID 02/08/19 10:01 X1 ONE Vital Signs Temp Pulse Resp BP Pulse Ox 98.1 F 69 18 134/59 H 96 02/01/19 15:38 02/01/19 15:38 02/01/19 15:38 02/01/19 15:38 02/01/19 15:38 Oxygen Delivery Method Room Air Weight: 67.812 kg Body Mass Index (BMI) 19.2 Finger Stick Blood Glucose 60 Sodium 139 mmol/L (136-145) 02/01/19 05:05 Potassium 4.3 mmol/L (3.5-5.1) 02/01/19 05:05 Chloride 110 mmol/L (98-107) H 02/01/19 05:05 Carbon Dioxide 16.0 mmol/L (21.0-32.0) L 02/01/19 05:05 13 (5-15) 02/01/19 05:05 BUN 20 mg/dL (7-18) H 02/01/19 05:05 1.35 mg/dL (0.70-1.30) H 02/01/19 05:05 Est GFR (MDRD) Af Amer 67 mL/min (>60) 02/01/19 05:05 Est GFR (MDRD) Non-Af 56 mL/min (>60) L 02/01/19 05:05 14.8 RATIO (10-20) 02/01/19 05:05 Glucose 262 mg/dL (74-106) H 02/01/19 05:05 Assessment/Plan: Psychotropic Medications: Unnecessary Medications: Bowel Regimen: - Provider Comments Provider responsibility: Provider responsible to enter orders to implement recommendations Provider Comments to Recommendations by Pharmacy: Agree
[2019-02-01 11:11] LABS: Bedside Glucose 357 mg/dL (70-110)
[2019-02-01 15:38] VITALS: BP 134/59; PULSE 69; RESP 18; TEMP 36.7; O2SAT 96
--- NOTE | 2019-02-01 16:08 | CHAPLAIN ---
patient is sleeping, left calling card
[2019-02-01 17:05] LABS: Bedside Glucose 383 mg/dL (70-110)
[2019-02-01] MEDS: Tamsulosin HCl 0.4 MG Capsule PO (18:16)
[2019-02-01] MEDS: amLODIPine 10 MG Tablet PO (20:02)
--- NOTE | 2019-02-01 21:23 | NURSING ---
Dr. Cramer notified of patient's blood sugar of 458. Patient is on prednisone. Patient has not eaten very much today. Dr. Cramer notified of this. New orders for 3 units humalog x 1 and to change acuchecks to BID.
[2019-02-01 21:35] LABS: Bedside Glucose 458 mg/dL (70-110)
[2019-02-01] MEDS: Insulin Lispro 100 UNIT/ML INSULN.PEN SC (21:59)
[2019-02-02] MEDS: Glucerna Shake 120 ML LIQUID PO ×4 (04:45→19:49)
[2019-02-02] MEDS: Magnesium Oxide 400 MG Tablet PO ×2 (04:46→17:49)
[2019-02-02] MEDS: Pantoprazole Sodium 40 MG Tablet PO (04:47)
[2019-02-02] MEDS: Tacrolimus Anhydrous 1 MG Capsule 3 MG PO ×2 (04:47→17:49)
[2019-02-02] MEDS: Mycophenolate Mofetil 250 MG Capsule 500 MG PO ×2 (04:48→17:48)
[2019-02-02] MEDS: Labetalol 200 MG Tablet PO ×2 (04:48→17:49)
[2019-02-02] MEDS: Enoxaparin 30 MG/0.3 ML Syringe SC (06:50)
[2019-02-02 07:06] LABS: Bedside Glucose 434 mg/dL (70-110)
[2019-02-02 07:22] LABS: Absolute Lymphocyte Count 0.78 X10^3/ul (0.83-4.51); Absolute Neutrophil Count 3.2 X10^3/uL (2.0-7.7); Eosinophil# 0.03 X10^3/uL; Eosinophils% 0.7 % (0-5); Hematocrit 25.4 % (40-54); Hemoglobin 8.6 g/dl (13.0-16.5); Lymphocyte # 0.78 X10^3/ul (4.0); Lymphocyte % 17.1 % (19-41); Mean Corp Hgb Conc 33.9 g/gl (32-36); Mean Corpuscular Hgb 30.8 pg (27.0-32.0); Mean Platelet Vol. 10.5 fl (6.2-12.0); Monocyte# 0.54 X10^3/uL; Monocyte% 11.8 % (0-10); Platelet Count 126 K/mm3 (150-450); RBC Distribution Width CV 13.5 % (11.6-14.6); Red Blood Count 2.79 M/mm3 (4.6-6.2); White Blood Count 4.6 K/mm3 (4.4-11.0)
[2019-02-02 07:23] LABS: POSITIVE COUNT NO; POSITIVE DIFFERENTIAL NO; POSITIVE MORPHOLOGY NO
--- NOTE | 2019-02-02 09:11 | CASEMGMT ---
Insurance Clinical updates faxed. Will await continued stay determination. Auth# [id number] ELIZABETH Russo
[2019-02-02] MEDS: Smz/Tmp Ds Tablet 0.5 TABLET PO (09:16)
[2019-02-02] MEDS: Iron Polysaccharide Complex 150 MG CAPSULE PO ×2 (09:16→17:48)
[2019-02-02] MEDS: predniSONE 5 MG Tablet PO (09:16)
[2019-02-02] MEDS: Bisacodyl 10 MG Suppository RECTAL (09:18)
[2019-02-02] MEDS: Acetaminophen 500 MG Tablet 1000 MG PO (09:18)
--- NOTE | 2019-02-02 09:20 | NURSING ---
pt stating his stomach is upset and he has not had a bm in days. bowel sounds present and active at this time. pt requests rectal suppository for bowel movement. rectal suppos given at this time. pt tolerated well.
[2019-02-02 10:00] VITALS: PULSE 68; RESP 16; O2SAT 97
[2019-02-02 11:50] LABS: Bedside Glucose 355 mg/dL (70-110)
--- NOTE | 2019-02-02 12:04 | CHAPLAIN ---
Type of Pastoral Visit ___ Initial Visit _x__ Follow-up Visit ___ On-call Visit ___ General Patient Visit ___ Spiritual Assessment ___ Family Conference ___ Bereavement ___ Rapid Response ___ Code Blue ___ Other (describe below) Pastoral Care Referral From _x__ Patient _x__ Family ___ Nurse ___ Physician ___ Airport Planner ___ Qlikview Developer ___ Other (describe below) Sacrament/Intervention _x__ Active listening ___ Anointing ___ Restorationist ___ Bereavement ___ Communion ___ Jenniefr exploration ___ ___ Life review _x__ Prayer ___ Reconciliation ___ Sacrament of Sick ___ Supportive presence ___ Wedding ___ Other (describe below) Pastoral Comments
[2019-02-02 15:46] VITALS: BP 142/64; PULSE 66; RESP 18; TEMP 37.1; O2SAT 92
[2019-02-02 17:06] LABS: Bedside Glucose 342 mg/dL (70-110)
[2019-02-02] MEDS: Tamsulosin HCl 0.4 MG Capsule PO (17:48)
[2019-02-02] MEDS: amLODIPine 10 MG Tablet PO (19:49)
[2019-02-02 21:41] LABS: Bedside Glucose 399 mg/dL (70-110)
[2019-02-03] MEDS: Glucerna Shake 120 ML LIQUID PO ×4 (06:10→20:46)
[2019-02-03] MEDS: Enoxaparin 30 MG/0.3 ML Syringe SC (06:11)
[2019-02-03] MEDS: Tacrolimus Anhydrous 1 MG Capsule 3 MG PO ×2 (06:13→17:27)
[2019-02-03] MEDS: Labetalol 200 MG Tablet PO ×2 (06:13→17:27)
[2019-02-03] MEDS: Pantoprazole Sodium 40 MG Tablet PO (06:14)
[2019-02-03] MEDS: Magnesium Oxide 400 MG Tablet PO ×2 (06:14→17:26)
[2019-02-03] MEDS: Mycophenolate Mofetil 250 MG Capsule 500 MG PO ×2 (06:14→17:25)
[2019-02-03] MEDS: Senna/Docusate Sodium 1 Tablet PO (06:16)
[2019-02-03 06:46] LABS: Bedside Glucose 391 mg/dL (70-110)
[2019-02-03] MEDS: Smz/Tmp Ds Tablet 0.5 TABLET PO (08:50)
[2019-02-03] MEDS: Iron Polysaccharide Complex 150 MG CAPSULE PO ×2 (08:51→17:23)
[2019-02-03] MEDS: predniSONE 5 MG Tablet PO (08:51)
[2019-02-03 10:00] VITALS: PULSE 70; RESP 16; O2SAT 96
[2019-02-03 10:02] LABS: Absolute Lymphocyte Count 0.69 X10^3/ul (0.83-4.51); Absolute Neutrophil Count 3.7 X10^3/uL (2.0-7.7); Eosinophil# 0.08 X10^3/uL; Eosinophils% 1.6 % (0-5); Hematocrit 26.9 % (40-54); Hemoglobin 9.4 g/dl (13.0-16.5); Lymphocyte # 0.69 X10^3/ul (4.0); Lymphocyte % 13.9 % (19-41); Mean Corp Hgb Conc 34.9 g/gl (32-36); Mean Corpuscular Hgb 31.2 pg (27.0-32.0); Mean Corpuscular Volume 89.4 fL (80-94); Mean Platelet Vol. 10.5 fl (6.2-12.0); Monocyte# 0.53 X10^3/uL; Monocyte% 10.6 % (0-10); Neutrophil # 3.67 X10^3/uL (2.7-7.7); Neutrophil % 73.7 % (47-70); POSITIVE COUNT NO; POSITIVE DIFFERENTIAL NO; POSITIVE MORPHOLOGY NO; Platelet Count 140 K/mm3 (150-450); RBC Distribution Width SD 40.9 fl (35.1-43.9); Red Blood Count 3.01 M/mm3 (4.6-6.2)
[2019-02-03] MEDS: Acetaminophen 500 MG Tablet 1000 MG PO (12:52)
--- NOTE | 2019-02-03 13:39 | NURSING ---
Patient noted to have a moist, [employer] cough. LSCTA, c/o sinus drainage, sinuses non-tender, afebrile. Dr. Cramer notified, new order for loratadine 10mg PO x1 now then 10mg daily and Flonase nasal spray, 1 spray qHS.
[2019-02-03 14:19] VITALS: BP 139/64; PULSE 63; RESP 16; TEMP 36.4; O2SAT 95
[2019-02-03] MEDS: Loratadine 10 MG Tablet PO (14:53)
--- NOTE | 2019-02-03 15:00 | NURSING ---
Mepilex removed from rt hip. Steri strips intact. Will monitor for drainage.
[2019-02-03 17:01] LABS: Bedside Glucose 434 mg/dL (70-110)
--- NOTE | 2019-02-03 17:17 | NURSING ---
Patient's blood sugar [address] Cramer notified. New order to increase Lantus to 18 units starting tomorrow morning and give 3 units of humalog x1 now.
[2019-02-03] MEDS: Insulin Lispro 100 UNIT/ML INSULN.PEN SC (17:24)
[2019-02-03] MEDS: Tamsulosin HCl 0.4 MG Capsule PO (17:25)
[2019-02-03] MEDS: Fluticasone 0.05% 1 SPRAY NASAL.SRY NASAL (17:26)
[2019-02-03] MEDS: amLODIPine 10 MG Tablet PO (20:46)
--- NOTE | 2019-02-04 04:45 | NURSING ---
This nurse into Pt room with Nesha AKERS PT very upset and throwing things around in his room, States he wants out of his room nothing works. Pt alarm battery is out and thrown on floor, call light was across the room. This nurse and COMMISSARY STEWARD assisted Pt with getting dressed after he insisted, Pt very mean and refused to get into his chair or lay back down. Reported to RN
[2019-02-04 04:55] LABS: Bedside Glucose 496 mg/dL (70-110)
--- NOTE | 2019-02-04 04:56 | NURSING ---
Pt throwing call light. Cussing at staff. Pt blood sugar 496. Dr. Cramer notified. New order for 3 units Humalog now.
[2019-02-04] MEDS: Insulin Lispro 100 UNIT/ML INSULN.PEN SC ×4 (05:17→17:47)
--- NOTE | 2019-02-04 05:20 | NURSING ---
This nurse into give Pt Stat dose of insulin, Pt very mean and argumentative> this nurse gave the ordered dose of insulin, Pt then grabbed this nurses hand and told me to get out This nurse excused herself from Pt room, and reported to HERNÁN Lind
[2019-02-04 05:42] LABS: Absolute Lymphocyte Count 0.85 X10^3/ul (0.83-4.51); Absolute Neutrophil Count 2.7 X10^3/uL (2.0-7.7); Eosinophil# 0.07 X10^3/uL; Eosinophils% 1.7 % (0-5); Hematocrit 26.5 % (40-54); Hemoglobin 9.2 g/dl (13.0-16.5); Lymphocyte # 0.85 X10^3/ul (4.0); Lymphocyte % 21.1 % (19-41); Mean Corp Hgb Conc 34.7 g/gl (32-36); Mean Corpuscular Volume 89.2 fL (80-94); Mean Platelet Vol. 10.9 fl (6.2-12.0); Monocyte# 0.42 X10^3/uL; Monocyte% 10.4 % (0-10); Neutrophil # 2.67 X10^3/uL (2.7-7.7); Neutrophil % 66.6 % (47-70); POSITIVE COUNT NO; POSITIVE DIFFERENTIAL NO; POSITIVE MORPHOLOGY NO; Platelet Count 143 K/mm3 (150-450); RBC Distribution Width CV 13.2 % (11.6-14.6); Red Blood Count 2.97 M/mm3 (4.6-6.2)
[2019-02-04 06:26] LABS: Bedside Glucose 466 mg/dL (70-110)
[2019-02-04] MEDS: Mycophenolate Mofetil 250 MG Capsule 500 MG PO ×2 (08:50→17:48)
[2019-02-04] MEDS: Fluticasone 0.05% 1 SPRAY NASAL.SRY NASAL ×2 (08:51→17:49)
[2019-02-04] MEDS: Loratadine 10 MG Tablet PO (08:51)
[2019-02-04] MEDS: Senna/Docusate Sodium 1 Tablet PO (08:53)
[2019-02-04] MEDS: Magnesium Oxide 400 MG Tablet PO ×2 (08:53→17:50)
[2019-02-04] MEDS: Tacrolimus Anhydrous 1 MG Capsule 3 MG PO ×2 (08:53→17:50)
[2019-02-04] MEDS: Labetalol 200 MG Tablet PO ×2 (08:53→17:50)
[2019-02-04] MEDS: Pantoprazole Sodium 40 MG Tablet PO (08:53)
[2019-02-04] MEDS: Iron Polysaccharide Complex 150 MG CAPSULE PO ×2 (08:54→17:47)
[2019-02-04] MEDS: predniSONE 5 MG Tablet PO (08:54)
[2019-02-04] MEDS: Smz/Tmp Ds Tablet 0.5 TABLET PO (08:54)
[2019-02-04] MEDS: Enoxaparin 30 MG/0.3 ML Syringe SC (09:09)
[2019-02-04 11:36] LABS: Bedside Glucose > 500 mg/dL (70-110)
[2019-02-04 12:16] LABS: Glucose 605 mg/dL (74-106)
--- NOTE | 2019-02-04 12:54 | NURSING ---
Pt c/o right ear pain. States pain radiates down right side of face towards jaw. Suzanne JIM made aware. Also added to list for Dr. Cramer when he visits the floor.
--- NOTE | 2019-02-04 13:50 | PCM.TCUNOT ---
Subjective: Resident seen in room, lying in bed. He complained of right ear pain. Vitals/I&O's: Vital Signs Temp Pulse Resp BP Pulse Ox 97.6 F L 63 16 139/64 H 95 02/03/19 14:19 02/03/19 14:19 02/03/19 14:19 02/03/19 14:19 02/03/19 14:19 Oxygen Delivery Method Room Air Weight: 67.812 kg Body Mass Index (BMI) 19.2 Finger Stick Blood Glucose 60 Intake and Output for Last 24 Hours 02/02/19 02/03/19 02/04/19 23:59 23:59 23:59 Intake Total 960 / 960 840 / 840 640 / 640 Output Total 200 / 200 300 / 300 Balance 760 / 760 540 / 540 640 / 640 Laboratory Results 02/03/19 16:47: POC Glucose 434 H 02/04/19 04:48: POC Glucose 496 H* 02/04/19 05:10: WBC 4.0 L, RBC 2.97 L, Hgb 9.2 L, Hct 26.5 L, MCV 89.2, MCH 31.0, MCHC 34.7, RDW 13.2, RDW Differential 41.0, Plt Count 143 L, MPV 10.9, Immature Gran % (Auto) 0.200, Neut % (Auto) 66.6, Lymph % (Auto) 21.1, Collier % (Auto) 10.4 H, Eos % (Auto) 1.7, Baso % (Auto) 0.0, Absolute Neuts (auto) 2.7, Absolute Lymphs (auto) 0.85, Total Counted Not Reportable 02/04/19 06:21: POC Glucose 466 H* 02/04/19 11:31: POC Glucose > 500 H* 02/04/19 11:47: Glucose 605 H* Past Medical History Past Medical History (Chronic Problems): Chronic Problems (Last Reviewed 01/31/19 @ 12:48 by Bryn Bonilla MD) Pulmonary hypertension (Chronic) Chronic pancreatitis (Chronic) GERD (gastroesophageal reflux disease) (Chronic) History of renal transplant (Chronic) Type 2 diabetes mellitus (Chronic) Chronic kidney disease, stage IV (severe) (Chronic) Chronic diastolic (congestive) heart failure (Chronic) Nonrheumatic pulmonary valve insufficiency (Chronic) Nonrheumatic tricuspid valve regurgitation (Chronic) Secondary pulmonary arterial hypertension (Chronic) Non-rheumatic aortic regurgitation (Chronic) Hypertension (Chronic) Medical History: Medical History (Last Reviewed 01/31/19 @ 12:48 by Bryn Bonilla MD) Chronic diastolic (congestive) heart failure (Chronic) I50.32 Nonrheumatic pulmonary valve insufficiency (Chronic) I37.1 Nonrheumatic tricuspid valve regurgitation (Chronic) I36.1 Secondary pulmonary arterial hypertension (Chronic) I27.21 Non-rheumatic aortic regurgitation (Chronic) I35.1 Hypertension (Chronic) I10 Anemia in chronic kidney disease N18.9, D63.1 Chronic pancreatitis K86.1 Secondary hypoparathyroidism E20.8 Type 2 diabetes mellitus E11.9 Dx : 20+ years ago Last exacerbation : DKA : never Hypoglycemic episode : 04/20 ER visit : 04/20 Allergies oxycodone HCl [From Percocet] Adverse Reaction (Verified 01/28/19 22:33) TOO MUCH CAUSES HALLUCINATIONS TOO MUCH Home Medications: Ambulatory Orders Medication Instructions Recorded Labetalol [Trandate (Beta Lisa)] 200 mg PO BID 12/19/13 Pantoprazole Sodium [Protonix] 40 mg PO DAILY 12/19/13 predniSONE tablet 5 mg PO DAILY 12/19/13 Cholecalciferol (VIT D3) [Vitamin 1,000 unit PO DAILY 12/09/15 D3] amlodipine 10 mg tablet 10 mg PO QHS 12/02/17 magnesium oxide 400 mg (241.3 mg 400 mg PO BID tab 12/02/17 magnesium) tablet mycophenolate mofetil 250 mg 500 mg PO BID cap 12/02/17 capsule sulfamethoxazole 400 1 tab PO QDAY 12/02/17 mg-trimethoprim 80 mg tablet tacrolimus 1 mg capsule 3 mg PO BID cap 12/02/17 Melatonin 3 mg PO QHS PRN PRN tablet 11/30/18 Acetaminophen [Tylenol] 1,000 mg PO Q6H PRN tablet 12/09/18 Aspirin [Aspirin, Baby] 81 mg PO DAILY@0800 #0 01/31/19 Enoxaparin [Lovenox] 30 mg SUBCUT DAILY@0600 01/31/19 Ferrous Sulfate 325 mg PO 1200,1700 01/31/19 Insulin Lispro [Humalog KwikPen] See Protocol SUBCUT ACHS 01/31/19 Mineral Oil/Petrolatum,White 1 applic TOPICAL 0600,2200 01/31/19 [Eucerin] Senna/Docusate Sodium [Senokot-S] 2 tab PO BID PRN PRN tab 01/31/19 Tamsulosin HCl [Flomax] 0.4 mg PO DAILY@1730 01/31/19 traMADol [Ultram] 50 mg PO BID PRN #14 tab 01/31/19 Surgical History: Surgical History (Last Reviewed 01/31/19 @ 12:48 by Bryn Bonilla MD) Hx of cholecystectomy Z90.49 Kidney replaced by transplant Onset Date: ~10/15/11 Z94.0 Right Surgical History: cholecystectomy, total hip arthroplasty - Bilateral., - - Kidney transplant, sphincterotomy, left wrist fusion Psychiatric History: No pertinent psych hx Lives: Spouse/ Significant Other Smoking Status: Former smoker Tobacco Use: Cigars Alcohol: None Drugs: None - *Family History Maternal History Items: No pertinent history Paternal History Items: No pertinent history Sibling History Items: Cancer - Throat Capacity - Capacity Assessment Tool Can the patient make a choice & communicate that choice?: Yes Can the patient understand benefits, risks and alternatives?: Yes Can the patient make a logical, rational choice?: Yes Is the choice the patient makes consistent w/ their values?: Yes Is there an impending, emergent risk to the patient?: No Does the patient have an Advance Directive?: No Is there a Surrogate Available?: Yes i.e. HCPOA: Yes i.e. close relative (spouse, child, parent, sibling)?: Yes Review of Systems Constitutional: Denies: Chills, Fever, Weight Change HEENT: Denies: Head Aches, Sinus Congestion, Sinus Drainage Cardiovascular: Denies: Chest Pain, Palpitations Respiratory: Denies: Cough, Shortness of breath at rest, Sputum production Gastrointestinal: Denies: Abdominal Pain, Nausea, Vomiting Genitourinary: Denies: Dysuria Musculoskeletal: Denies: Joint Pain, Joint Tenderness Skin: Denies: Rash, Wounds Neurological: Denies: Numbness, Tingling, Focal weakness Psychiatric: Denies: Anxiety, Depression, Homicidal Ideations, Suicidal Ideations Hematologic/ Lymphatic: Denies: Easy Bruising, Easy Bleeding - Physical Exam General: Alert, Oriented x3, Cooperative HEENT: Atraumatic, PERRLA, EOMI, Normocephalic, - - Right ear canal injected. Neck: Supple, No JVD, Negative Carotid Bruits Lungs: Clear to auscultation, Normal air movement Cardiovascular: Regular rate, No murmurs Abdomen: Bowel Sounds Present, Soft, Non Tender Extremities: No edema, Capillary Refill Less than 3 Seconds Skin: No rashes, No breakdown Musculoskeletal: No Tenderness to Palpation of Joints or Extremities Neurological: Cranial nerves II-XII grossly intact Psych/Mental Status: Normal Affect, Appropriate Vital Signs Temp Pulse Resp BP Pulse Ox 97.6 F L 63 16 139/64 H 95 02/03/19 14:02/03/19 14:19 02/03/19 14:19 02/03/19 14:02/03/19 14:19 Oxygen Delivery Method Room Air Weight: 67.812 kg Body Mass Index (BMI) 19.2 Finger Stick Blood Glucose 60 Intake and Output for Last 24 Hours 02/02/19 02/03/19 02/04/19 23:59 23:59 23:59 Intake Total 960 / 960 840 / 840 640 / 640 Output Total 200 / 200 300 / 300 Balance 760 / 760 540 / 540 640 / 640 Laboratory Tests Past 24 Hrs 02/04/19 02/04/19 05:10 11:47 WBC 4.0 L RBC 2.97 L Hgb 9.2 L Hct 26.5 L MCV 89.2 MCH 31.0 MCHC 34.7 RDW 13.2 RDW Differential 41.0 Plt Count 143 L MPV 10.9 Immature Gran % (Auto) 0.200 Neut % (Auto) 66.6 Lymph % (Auto) 21.1 Collier % (Auto) 10.4 H Eos % (Auto) 1.7 Baso % (Auto) 0.0 Absolute Neuts (auto) 2.7 Absolute Lymphs (auto) 0.85 Total Counted Not Reportable Glucose 605 H* POC Glucose 02/04/19 02/04/19 02/04/19 11:31 06:21 04:48 POC Glucose > 500 H* 466 H* 496 H* 02/03/19 16:47 POC Glucose 434 H Assessment/Plan All Active Problems (Last Reviewed 01/31/19 @ 12:48 by Bryn Bonilla MD) Fracture of femoral neck, right (Acute) 69 year old male with below past medical history hospitalized for right hip fracture, underwent right direct anterior hip hemiarthroplasty 01/29/[address] Holley, admitted to TCU with debility, here for rehabilitation, strengthening, prior to discharge home with spouse. Right otitis externa - Rx Cortisporin OTIC drops right ear x 10 days.
[2019-02-04 13:56] LABS: Bedside Glucose > 500 mg/dL (70-110)
--- NOTE | 2019-02-04 14:10 | NURSING ---
BS 1130 of 518. STAT chem backup lab ordered for BS. Chem backup lab results- BS 605. Give Humalog 4u SC X [address] Cramer. Recheck in 1 hour. Insulin given. BS at [address] Cramer on floor and updated of recheck. No STAT chem backup lab per Dr Cramer. Give Humalog 4u X 1 dose NOW. Recheck in 1 hour.
[2019-02-04 15:16] LABS: Bedside Glucose > 500 mg/dL (70-110)
[2019-02-04 15:31] VITALS: BP 144/67; PULSE 71; RESP 14; TEMP 36.8; O2SAT 95
--- NOTE | 2019-02-04 16:58 | NURSING ---
BS recheck at [address] Cramer here on floor and updated. Recheck BS before dinner meal per Dr. Cramer. BS check before dinner was 511. Suzanne JIM made aware.
[2019-02-04 17:06] LABS: Bedside Glucose > 500 mg/dL (70-110)
[2019-02-04] MEDS: Tamsulosin HCl 0.4 MG Capsule PO (17:48)
--- NOTE | 2019-02-04 17:59 | NURSING ---
Humalog 3u SC x 1 dose NOW given per Dr. Kwok. Lees BS at 1999.
[2019-02-04] MEDS: Neomycin Sulfate/Polymyxin/Hc Susp 10 ML Bottle 4 DRP OTIC ×2 (18:46→20:32)
[2019-02-04] MEDS: amLODIPine 10 MG Tablet PO (20:28)
[2019-02-04 20:31] LABS: Bedside Glucose 473 mg/dL (70-110)
[2019-02-04 20:35] VITALS: PULSE 72; RESP 16; O2SAT 95
--- NOTE | 2019-02-04 21:09 | NURSING ---
Addendum entered by Carola German 02/05/19 02:45: 7/5: 2042 Dr. Cramer aware of blood sugar. N.N.O Original Note: Pt blood sugar recheck at 20:20 473 HERNÁN Srivastava made aware.
[2019-02-04 23:46] LABS: Bedside Glucose 415 mg/dL (70-110)
[2019-02-05] MEDS: Neomycin Sulfate/Polymyxin/Hc Susp 10 ML Bottle 4 DRP OTIC ×3 (06:14→20:05)
[2019-02-05] MEDS: Tacrolimus Anhydrous 1 MG Capsule 3 MG PO ×2 (06:15→17:55)
[2019-02-05] MEDS: Pantoprazole Sodium 40 MG Tablet PO (06:15)
[2019-02-05] MEDS: Labetalol 200 MG Tablet PO ×2 (06:15→18:00)
[2019-02-05] MEDS: Mycophenolate Mofetil 250 MG Capsule 500 MG PO ×2 (06:15→17:58)
[2019-02-05] MEDS: Magnesium Oxide 400 MG Tablet PO ×2 (06:15→17:58)
[2019-02-05] MEDS: Senna/Docusate Sodium 1 Tablet PO (06:15)
[2019-02-05] MEDS: Fluticasone 0.05% 1 SPRAY NASAL.SRY NASAL ×2 (06:19→17:58)
[2019-02-05] MEDS: Enoxaparin 30 MG/0.3 ML Syringe SC (06:24)
[2019-02-05 06:51] LABS: Bedside Glucose 488 mg/dL (70-110)
[2019-02-05 07:43] LABS: Absolute Lymphocyte Count 0.84 X10^3/ul (0.83-4.51); Absolute Neutrophil Count 2.8 X10^3/uL (2.0-7.7); Eosinophil# 0.08 X10^3/uL; Eosinophils% 1.8 % (0-5); Hematocrit 26.6 % (40-54); Hemoglobin 9.1 g/dl (13.0-16.5); Lymphocyte # 0.84 X10^3/ul (4.0); Mean Corp Hgb Conc 34.2 g/gl (32-36); Mean Corpuscular Hgb 30.5 pg (27.0-32.0); Mean Corpuscular Volume 89.3 fL (80-94); Mean Platelet Vol. 10.6 fl (6.2-12.0); Monocyte# 0.65 X10^3/uL; Monocyte% 14.7 % (0-10); Neutrophil # 2.84 X10^3/uL (2.7-7.7); Platelet Count 144 K/mm3 (150-450); RBC Distribution Width CV 13.2 % (11.6-14.6); RBC Distribution Width SD 40.6 fl (35.1-43.9); Red Blood Count 2.98 M/mm3 (4.6-6.2); White Blood Count 4.4 K/mm3 (4.4-11.0)
[2019-02-05 07:52] LABS: POSITIVE COUNT NO; POSITIVE DIFFERENTIAL NO; POSITIVE MORPHOLOGY NO
--- NOTE | 2019-02-05 08:57 | NURSING ---
Pt very upset this Am states he want to the bathroom and came back and something happened to his food. Pt had a coffee cup sitting in the middle of his breakfast tray, in his food and another coffee cup sitting on the tray. Pt stating he only had one cup of coffee and doesn't know where the other came from. He stated when he went to restroom he only had 1 cup of coffee, he heard some girls talking in his room and came out to another cup in his food.Pt called his and she is going to come in. At this time Pt would only take his prednisone.
[2019-02-05 09:53] VITALS: PULSE 76; RESP 16; O2SAT 94
[2019-02-05 11:06] LABS: Bedside Glucose > 500 mg/dL (70-110)
[2019-02-05] MEDS: Insulin Lispro 100 UNIT/ML INSULN.PEN SC ×2 (11:37→14:25)
[2019-02-05] MEDS: 0.9% Normal Saline 1,000 ML 500 ML IV (14:13)
[2019-02-05 14:20] LABS: Bedside Glucose > 500 mg/dL (70-110)
--- NOTE | 2019-02-05 14:24 | NURSING ---
Pt blood glucose continues to elevate. currently 561. Dr. Cramer ordered 5 units of humalog to be given at this time if Pt approves as Pt is a brittle diabetic. This nurse called PT she stated it is ok to give the 5 units. Medication given at this time, will closely monitor blood sugar. Heidi JIM aware
[2019-02-05] MEDS: 0.9% Normal Saline 1,000 ML 60 ML IV (15:51)
[2019-02-05 15:53] VITALS: BP 171/86; PULSE 86; RESP 17; TEMP 36.9; O2SAT 99
[2019-02-05 16:41] LABS: Bedside Glucose > 500 mg/dL (70-110)
--- NOTE | 2019-02-05 16:46 | NURSING ---
Discussed with Pt's , Rufina, pt's current blood sugar and Dr. Cramer's order for 10units Humalog and to recheck blood sugar in 1 hour. Pt's okay with order.
[2019-02-05] MEDS: Insulin Lispro 100 UNIT/ML INSULN.PEN 10 UNIT SC (16:55)
[2019-02-05] MEDS: Tamsulosin HCl 0.4 MG Capsule PO (17:51)
[2019-02-05] MEDS: Iron Polysaccharide Complex 150 MG CAPSULE PO ×2 (17:51→17:58)
[2019-02-05 18:05] LABS: Bedside Glucose 366 mg/dL (70-110)
[2019-02-05 19:05] LABS: Bedside Glucose 243 mg/dL (70-110)
[2019-02-05] MEDS: amLODIPine 10 MG Tablet PO (20:05)
[2019-02-05 20:06] LABS: Bedside Glucose 225 mg/dL (70-110)
[2019-02-05] MEDS: Acetaminophen 500 MG Tablet 1000 MG PO (20:10)
[2019-02-05 21:16] LABS: Bedside Glucose 291 mg/dL (70-110)
[2019-02-05 22:06] LABS: Bedside Glucose 281 mg/dL (70-110)
[2019-02-05 23:00] LABS: Bedside Glucose 301 mg/dL (70-110)
[2019-02-06 00:06] LABS: Bedside Glucose 306 mg/dL (70-110)
[2019-02-06 03:11] LABS: Bedside Glucose 311 mg/dL (70-110)
[2019-02-06] MEDS: traMADol 50 MG Tablet PO ×2 (03:44→15:51)
[2019-02-06] MEDS: Magnesium Oxide 400 MG Tablet PO ×2 (06:24→17:07)
[2019-02-06] MEDS: Senna/Docusate Sodium 1 Tablet PO (06:24)
[2019-02-06] MEDS: Tamsulosin HCl 0.4 MG Capsule PO ×2 (06:24→17:07)
[2019-02-06] MEDS: Pantoprazole Sodium 40 MG Tablet PO (06:24)
[2019-02-06] MEDS: Tacrolimus Anhydrous 1 MG Capsule 3 MG PO ×2 (06:24→17:05)
[2019-02-06] MEDS: Labetalol 200 MG Tablet PO ×2 (06:24→17:05)
[2019-02-06] MEDS: Mycophenolate Mofetil 250 MG Capsule 500 MG PO ×2 (06:24→17:06)
[2019-02-06] MEDS: Enoxaparin 30 MG/0.3 ML Syringe SC (06:25)
[2019-02-06] MEDS: Neomycin Sulfate/Polymyxin/Hc Susp 10 ML Bottle 4 DRP OTIC ×3 (06:26→20:26)
[2019-02-06] MEDS: Fluticasone 0.05% 1 SPRAY NASAL.SRY NASAL ×2 (06:26→17:07)
[2019-02-06 06:30] VITALS: PULSE 70; RESP 14; O2SAT 94
[2019-02-06 06:51] LABS: Bedside Glucose 316 mg/dL (70-110)
--- NOTE | 2019-02-06 07:22 | NURSING ---
During this am assessment it was noted that patient has red area on right lower inner leg also sl warm to touch. Denies any pain or tenderness at sight. Will cont to monitor. Reported to HERNÁN Lind.
[2019-02-06 07:23] LABS: Absolute Lymphocyte Count 1.05 X10^3/ul (0.83-4.51); Absolute Neutrophil Count 2.2 X10^3/uL (2.0-7.7); Eosinophil# 0.09 X10^3/uL; Eosinophils% 2.3 % (0-5); Hematocrit 25.8 % (40-54); Hemoglobin 8.7 g/dl (13.0-16.5); Lymphocyte # 1.05 X10^3/ul (4.0); Lymphocyte % 27.2 % (19-41); Mean Corp Hgb Conc 33.7 g/gl (32-36); Mean Corpuscular Hgb 30.5 pg (27.0-32.0); Mean Corpuscular Volume 90.5 fL (80-94); Mean Platelet Vol. 10.7 fl (6.2-12.0); Monocyte# 0.54 X10^3/uL; Neutrophil # 2.15 X10^3/uL (2.7-7.7); Neutrophil % 55.7 % (47-70); Platelet Count 162 K/mm3 (150-450); RBC Distribution Width CV 13.5 % (11.6-14.6); RBC Distribution Width SD 42.6 fl (35.1-43.9); Red Blood Count 2.85 M/mm3 (4.6-6.2); White Blood Count 3.9 K/mm3 (4.4-11.0)
[2019-02-06 07:24] LABS: POSITIVE COUNT NO; POSITIVE DIFFERENTIAL NO; POSITIVE MORPHOLOGY NO
[2019-02-06 07:43] LABS: Anion Gap 10 (5-15); BUN 13 mg/dL (7-18); BUN/Creat Ratio 9.7 RATIO (10-20); Calcium,Total 7.8 mg/dL (8.5-10.1); Chloride 108 mmol/L (98-107); Creatinine, Serum 1.34 mg/dL (0.70-1.30); EST Glomerular Filtration Rate 56 mL/min (>60); Est Glom Filt Rate - Afr Amer 68 mL/min (>60); Glucose 332 mg/dL (74-106); Potassium 3.5 mmol/L (3.5-5.1); Sodium Level 135 mmol/L (136-145)
--- NOTE | 2019-02-06 09:42 | NURSING ---
Pt refusing to take meds execpt insulin at this time. He stated he wanted to wait for his . He is refusing hourly finger sticks for blood sugar and doesn't want IV any longer. Tod JIM aware
[2019-02-06 10:56] LABS: Bedside Glucose 376 mg/dL (70-110)
[2019-02-06] MEDS: Smz/Tmp Ds Tablet 0.5 TABLET PO (11:23)
[2019-02-06 15:32] VITALS: BP 135/69; PULSE 90; RESP 17; TEMP 36.6; O2SAT 97
[2019-02-06 17:01] LABS: Bedside Glucose 397 mg/dL (70-110)
[2019-02-06] MEDS: Iron Polysaccharide Complex 150 MG CAPSULE PO (17:09)
[2019-02-06] MEDS: amLODIPine 10 MG Tablet PO (20:28)
--- NOTE | 2019-02-06 21:21 | NURSING ---
Addendum entered by Shona Randolph 02/06/19 21:27: Pts Rufina updated on new orders. Original Note: Dr. Cramer updated on BS 476. New order for 5units Humalog x1 and increase Lantus to 65units daily.
[2019-02-06 21:26] LABS: Bedside Glucose 476 mg/dL (70-110)
[2019-02-06] MEDS: Insulin Lispro 100 UNIT/ML INSULN.PEN SC ×2 (21:36→22:54)
[2019-02-06 22:45] LABS: Bedside Glucose 477 mg/dL (70-110)
--- NOTE | 2019-02-06 22:45 | NURSING ---
Dr Cramer aware pt's blood sugar 477. Dr Cramer aware N.O. Humalog 5 units now. Recheck blood sugar 0200.
[2019-02-07] MEDS: traMADol 50 MG Tablet PO ×3 (01:20→20:23)
[2019-02-07 02:06] LABS: Bedside Glucose 429 mg/dL (70-110)
[2019-02-07 05:56] LABS: Absolute Lymphocyte Count 0.91 X10^3/ul (0.83-4.51); Basophil# 0.01 X10^3/uL; Basophil% 0.2 % (0-1); Eosinophil# 0.09 X10^3/uL; Hematocrit 26.6 % (40-54); Hemoglobin 9.1 g/dl (13.0-16.5); Lymphocyte # 0.91 X10^3/ul (4.0); Lymphocyte % 20.1 % (19-41); Mean Corp Hgb Conc 34.2 g/gl (32-36); Mean Corpuscular Hgb 31.3 pg (27.0-32.0); Mean Corpuscular Volume 91.4 fL (80-94); Mean Platelet Vol. 10.2 fl (6.2-12.0); Monocyte# 0.45 X10^3/uL; Monocyte% 9.9 % (0-10); Neutrophil # 3.04 X10^3/uL (2.7-7.7); Neutrophil % 67.1 % (47-70); Platelet Count 181 K/mm3 (150-450); RBC Distribution Width CV 14.4 % (11.6-14.6); RBC Distribution Width SD 48.1 fl (35.1-43.9); Red Blood Count 2.91 M/mm3 (4.6-6.2); White Blood Count 4.5 K/mm3 (4.4-11.0)
[2019-02-07] MEDS: Enoxaparin 30 MG/0.3 ML Syringe SC (06:23)
[2019-02-07] MEDS: Labetalol 200 MG Tablet PO ×2 (06:24→18:09)
[2019-02-07] MEDS: Senna/Docusate Sodium 1 Tablet PO ×2 (06:24→18:09)
[2019-02-07] MEDS: Acetaminophen 500 MG Tablet 1000 MG PO ×2 (06:24→18:10)
[2019-02-07] MEDS: Tamsulosin HCl 0.4 MG Capsule PO ×2 (06:24→18:07)
[2019-02-07] MEDS: Pantoprazole Sodium 40 MG Tablet PO (06:25)
[2019-02-07] MEDS: Magnesium Oxide 400 MG Tablet PO ×2 (06:25→18:09)
[2019-02-07] MEDS: Mycophenolate Mofetil 250 MG Capsule 500 MG PO ×2 (06:25→18:07)
[2019-02-07] MEDS: Tacrolimus Anhydrous 1 MG Capsule 3 MG PO ×2 (06:25→18:09)
[2019-02-07] MEDS: Neomycin Sulfate/Polymyxin/Hc Susp 10 ML Bottle 4 DRP OTIC ×3 (06:26→20:22)
[2019-02-07] MEDS: Fluticasone 0.05% 1 SPRAY NASAL.SRY NASAL ×2 (06:27→18:08)
[2019-02-07 06:31] LABS: POSITIVE COUNT NO; POSITIVE DIFFERENTIAL NO; POSITIVE MORPHOLOGY NO
[2019-02-07 06:41] LABS: Bedside Glucose 447 mg/dL (70-110)
--- NOTE | 2019-02-07 07:18 | NURSING ---
Pt c/o cough. Rhonchi noted to upper lobes. Pt with moist cough. Sputum noted to be thick, tenacious, and dark yellow. Pt tongue noted to be coated and pt c/o foods tasting off. Pt continue to c/o of rt ear pain. Will update Dr Cramer.
--- NOTE | 2019-02-07 08:17 | RAD_ITS ---
STUDY: X-RAY CHEST REASON FOR EXAM: Male, 69 years old. Productive cough. TECHNIQUE: AP and lateral views of the chest. COMPARISON: Comparison is made with prior study dated January 28, 2019. FINDINGS: Blunting of the left cardiac phrenic angle. Mild increased markings at the left lung base. Follow-up is recommended. Normal size heart. Normal mediastinum and bi. Normal visualized pulmonary arteries. Normal visualized aortic arch and descending thoracic aorta. Normal visualized thoracic spine. Deformity of the proximal right humerus most likely secondary to old injury. There is no demonstrated abnormality of the visualized soft tissue structures of the upper abdomen. RAD/Chest PA and Lateral IMPRESSION: Blunting of the left costophrenic angle with mild increased markings at the left lung base suggestive of atelectasis. Electronically Signed: Bakari Draper, at 11:06 EDT , Service support ,
--- NOTE | 2019-02-07 09:00 | NURSING ---
pt's notified of blood sugars, tests, and new orders
[2019-02-07] MEDS: Smz/Tmp Ds Tablet 0.5 TABLET PO (09:07)
[2019-02-07] MEDS: Iron Polysaccharide Complex 150 MG CAPSULE PO ×2 (09:07→18:05)
[2019-02-07] MEDS: Insulin Lispro 100 UNIT/ML INSULN.PEN 10 UNIT SC ×2 (09:08→18:07)
[2019-02-07] MEDS: Azithromycin 250 MG Tablet 500 MG PO (09:10)
[2019-02-07 10:00] VITALS: PULSE 78; O2SAT 97
[2019-02-07 10:55] LABS: Bedside Glucose 452 mg/dL (70-110)
[2019-02-07 14:20] LABS: Bedside Glucose 450 mg/dL (70-110)
--- NOTE | 2019-02-07 15:13 | MDS.RN ---
Resident resting in bed, attempted pain assessment pulled blanket over head, will do staff assessment for pain.
[2019-02-07 16:00] VITALS: BP 132/70; PULSE 75; RESP 16; TEMP 36.6; O2SAT 97
[2019-02-07 17:06] LABS: Bedside Glucose > 500 mg/dL (70-110)
[2019-02-07] MEDS: Cefdinir 300 MG Capsule PO (18:09)
--- NOTE | 2019-02-07 18:21 | NURSING ---
Pt BS 1050 of 452. Reported to Tod JIM.
--- NOTE | 2019-02-07 18:23 | NURSING ---
Pt BS at [address] of 465[address] Reported to Dr Cramer. N.O. for Humalog 10 units SC X 1 dose. Tod JIM aware.
[2019-02-07 20:00] VITALS: RESP 18
[2019-02-07] MEDS: amLODIPine 10 MG Tablet PO (20:22)
[2019-02-07 21:36] LABS: Bedside Glucose 372 mg/dL (70-110)
[2019-02-08 00:10] LABS: Bedside Glucose 366 mg/dL (70-110)
[2019-02-08 03:26] LABS: Bedside Glucose 371 mg/dL (70-110)
[2019-02-08] MEDS: Tamsulosin HCl 0.4 MG Capsule PO ×2 (05:53→18:16)
[2019-02-08] MEDS: Labetalol 200 MG Tablet PO ×2 (05:53→18:17)
[2019-02-08] MEDS: Enoxaparin 30 MG/0.3 ML Syringe SC (05:53)
[2019-02-08] MEDS: Pantoprazole Sodium 40 MG Tablet PO (05:53)
[2019-02-08] MEDS: Tacrolimus Anhydrous 1 MG Capsule 3 MG PO ×2 (05:53→18:17)
[2019-02-08] MEDS: Mycophenolate Mofetil 250 MG Capsule 500 MG PO ×2 (05:53→18:16)
[2019-02-08] MEDS: Magnesium Oxide 400 MG Tablet PO ×2 (05:53→18:16)
[2019-02-08] MEDS: Cefdinir 300 MG Capsule PO ×2 (05:53→18:16)
[2019-02-08] MEDS: Neomycin Sulfate/Polymyxin/Hc Susp 10 ML Bottle 4 DRP OTIC ×3 (05:57→22:04)
[2019-02-08] MEDS: Fluticasone 0.05% 1 SPRAY NASAL.SRY NASAL (05:58)
[2019-02-08 06:13] LABS: Absolute Neutrophil Count 3.3 X10^3/uL (2.0-7.7); Basophil# 0.01 X10^3/uL; Basophil% 0.2 % (0-1); Eosinophil# 0.08 X10^3/uL; Eosinophils% 1.7 % (0-5); Hematocrit 28.9 % (40-54); Lymphocyte % 14.9 % (19-41); Mean Corp Hgb Conc 34.6 g/gl (32-36); Mean Corpuscular Hgb 31.2 pg (27.0-32.0); Mean Platelet Vol. 10.3 fl (6.2-12.0); Monocyte% 12.8 % (0-10); Neutrophil # 3.28 X10^3/uL (2.7-7.7); Neutrophil % 69.8 % (47-70); Platelet Count 188 K/mm3 (150-450); RBC Distribution Width CV 13.9 % (11.6-14.6); RBC Distribution Width SD 43.9 fl (35.1-43.9); Red Blood Count 3.21 M/mm3 (4.6-6.2); White Blood Count 4.7 K/mm3 (4.4-11.0)
[2019-02-08 06:16] LABS: POSITIVE COUNT NO; POSITIVE DIFFERENTIAL NO; POSITIVE MORPHOLOGY NO
[2019-02-08 06:17] LABS: Anion Gap 11 (5-15); BUN 9 mg/dL (7-18); BUN/Creat Ratio 6.8 RATIO (10-20); Calcium,Total 8.2 mg/dL (8.5-10.1); Chloride 106 mmol/L (98-107); Creatinine, Serum 1.32 mg/dL (0.70-1.30); EST Glomerular Filtration Rate 57 mL/min (>60); Est Glom Filt Rate - Afr Amer 69 mL/min (>60); Estimated Creatinine Clearance 50.66 ml/min; Glucose 348 mg/dL (74-106); Potassium 3.5 mmol/L (3.5-5.1); Sodium Level 136 mmol/L (136-145)
[2019-02-08 06:36] LABS: Bedside Glucose 375 mg/dL (70-110)
--- NOTE | 2019-02-08 08:08 | NURSING ---
New order for humalog 5 units x1 now.
[2019-02-08] MEDS: Smz/Tmp Ds Tablet 0.5 TABLET PO (08:47)
[2019-02-08] MEDS: Iron Polysaccharide Complex 150 MG CAPSULE PO ×2 (08:48→18:16)
[2019-02-08] MEDS: Insulin Lispro 100 UNIT/ML INSULN.PEN SC ×3 (08:50→22:14)
[2019-02-08 10:00] VITALS: PULSE 76; O2SAT 96
[2019-02-08 10:01] LABS: Bedside Glucose 365 mg/dL (70-110)
[2019-02-08] MEDS: traMADol 50 MG Tablet PO (11:25)
[2019-02-08] MEDS: Azithromycin 250 MG Tablet PO (11:25)
[2019-02-08] MEDS: Tuberculin,Purif.prot.deriv. 50 TU/ML Vial 5 ML ID (11:25)
[2019-02-08 11:35] LABS: Bedside Glucose 367 mg/dL (70-110)
--- NOTE | 2019-02-08 12:41 | NURSING ---
Addendum entered by Jasmin Bravo 02/08/19 15:31: Order to D/C keflex and doxy d/t patient already being on ceftin and azithromycin. Appointment scheduled for 02/09/19 at 0930 with LENARD Joe. Patient's , Rufina, to transport patient to appointment. Original Note: Right hip incision with area of redness and edema, patient reports increased pain to leg in the past [address] Cramer updated, new order for keflex 500mg PO BID x 7 days and doxycycline 100mg PO BID x [address] Mckay, patient's barker peeler, per wifes request, to verify that antibiotics are okay for patient to take.
--- NOTE | 2019-02-08 15:07 | NURSING ---
Pt BS at 1500 was 467. Jasmin JIM made aware.
[2019-02-08 15:11] LABS: Bedside Glucose 467 mg/dL (70-110)
--- NOTE | 2019-02-08 15:21 | NURSING ---
Patient's blood sugar 467, Dr. Cramer notified, new order for humalog 5 units x1 now.
[2019-02-08 15:26] VITALS: BP 152/69; PULSE 71; RESP 16; TEMP 37.7; O2SAT 97
[2019-02-08 16:55] LABS: Bedside Glucose 442 mg/dL (70-110)
--- NOTE | 2019-02-08 18:11 | NURSING ---
Alonzo Child, with Dr. Mckay's office, okay for patient to have Omnicef and Zithromax.
--- NOTE | 2019-02-08 18:23 | NURSING ---
New order to D/C Annaus, start Humalog 10units TIDAC and give 10 units x1 now, D/C Flonase and Flomax.
[2019-02-08] MEDS: Insulin Lispro 100 UNIT/ML INSULN.PEN 10 UNIT SC (18:43)
[2019-02-08 18:50] LABS: Bedside Glucose 435 mg/dL (70-110)
[2019-02-08 21:31] LABS: Bedside Glucose 466 mg/dL (70-110)
[2019-02-08] MEDS: amLODIPine 10 MG Tablet PO (22:03)
[2019-02-08] MEDS: Acetaminophen 500 MG Tablet 1000 MG PO (22:03)
--- NOTE | 2019-02-08 23:51 | NURSING ---
Dr Cramer aware of blood sugar 466. N.O. Humalog 5 units X1
[2019-02-09 02:01] LABS: Bedside Glucose 265 mg/dL (70-110)
[2019-02-09 02:11] LABS: Bedside Glucose 269 mg/dL (70-110)
[2019-02-09] MEDS: Senna/Docusate Sodium 1 Tablet PO (04:58)
[2019-02-09] MEDS: Tacrolimus Anhydrous 1 MG Capsule 3 MG PO ×2 (04:59→18:11)
[2019-02-09] MEDS: Mycophenolate Mofetil 250 MG Capsule 500 MG PO ×2 (04:59→18:10)
[2019-02-09] MEDS: Magnesium Oxide 400 MG Tablet PO ×2 (04:59→18:09)
[2019-02-09] MEDS: Pantoprazole Sodium 40 MG Tablet PO (04:59)
[2019-02-09] MEDS: Cefdinir 300 MG Capsule PO ×2 (04:59→18:09)
[2019-02-09] MEDS: Neomycin Sulfate/Polymyxin/Hc Susp 10 ML Bottle 4 DRP OTIC (04:59)
[2019-02-09] MEDS: Enoxaparin 30 MG/0.3 ML Syringe SC (05:00)
[2019-02-09] MEDS: traMADol 50 MG Tablet PO ×2 (05:01→13:53)
[2019-02-09] MEDS: Labetalol 200 MG Tablet PO ×2 (05:02→18:09)
[2019-02-09 06:03] LABS: Basophil# 0.01 X10^3/uL; Basophil% 0.2 % (0-1); Eosinophil# 0.07 X10^3/uL; Eosinophils% 1.2 % (0-5); Hematocrit 29.4 % (40-54); Hemoglobin 10.2 g/dl (13.0-16.5); Lymphocyte % 17.3 % (19-41); Mean Corp Hgb Conc 34.7 g/gl (32-36); Mean Corpuscular Volume 89.4 fL (80-94); Mean Platelet Vol. 10.5 fl (6.2-12.0); Monocyte# 0.65 X10^3/uL; Monocyte% 11.3 % (0-10); Neutrophil % 69.3 % (47-70); Platelet Count 204 K/mm3 (150-450); RBC Distribution Width CV 13.9 % (11.6-14.6); RBC Distribution Width SD 43.5 fl (35.1-43.9); Red Blood Count 3.29 M/mm3 (4.6-6.2); White Blood Count 5.8 K/mm3 (4.4-11.0)
[2019-02-09 06:09] LABS: POSITIVE COUNT NO; POSITIVE DIFFERENTIAL NO; POSITIVE MORPHOLOGY NO
[2019-02-09 06:30] LABS: Bedside Glucose 288 mg/dL (70-110)
[2019-02-09] MEDS: predniSONE 5 MG Tablet PO (08:57)
[2019-02-09] MEDS: Smz/Tmp Ds Tablet 0.5 TABLET PO (08:57)
[2019-02-09] MEDS: Iron Polysaccharide Complex 150 MG CAPSULE PO ×2 (08:57→18:09)
[2019-02-09] MEDS: Acetaminophen 500 MG Tablet 1000 MG PO ×2 (08:57→19:57)
[2019-02-09] MEDS: Azithromycin 250 MG Tablet PO (08:57)
[2019-02-09] MEDS: Insulin Lispro 100 UNIT/ML INSULN.PEN 15 UNIT SC ×3 (09:01→18:08)
[2019-02-09 10:00] VITALS: PULSE 80; O2SAT 97
[2019-02-09 11:15] LABS: Bedside Glucose 383 mg/dL (70-110)
--- NOTE | 2019-02-09 11:21 | VDLE_ITS ---
Reason For Study: RLE swelling RIGHT GSV is normal. FV is compressible, spontaneous, phasic, competent and demonstrates normal augmentation. T/P Trunk is compressible. PTV is compressible. RT PerV is compressible. POP V is spontaneous, phasic, competent and demonstrates normal augmentation. Procedure Exam performed portable in patient room. The study was technically difficult. The study was technically limited. PT would not let me scan his groin (CFV & SFJ). PT could not tolerate compressions; had to rely on color doppler. A preliminary report was called and/or faxed to TCU. Interpretation Summary Deep veins of the right lower extremity appear patent. There is no evidence of right lower extremity deep vein thrombosis. Valvular competence appears intact within the right femoral vein and popliteal vein. The right common femoral vein and sapheno-femoral junction were not visualized. The right greater saphenous vein appears patent and compressible segmentally. Ordering Physician: Bethel Cramer Referring Physician: Rojelio Mckeon Performed By: Clarice Garcia, LOKI, RVT
--- NOTE | 2019-02-09 11:22 | NURSING ---
Addendum entered by Brandi Alvarado 02/09/19 14:56: doppler negative. Original Note: pt returned from appt with LENARD Queen had f/u d/t redness, edema RLE. positive homans sign. New order for doppler to rule out DVT.
--- NOTE | 2019-02-09 14:37 | CASEMGMT ---
Social Work IDT met with patient and for care plan meeting. Discussed patient recent decline and requiring total assistance for all ADLs, transfers. Discussed with other options than returning home and having her be primary caregiver. also needs upcoming back surgery and was considering respite stay at a facility. Lists already provided. IDT encouraged to tour facilitates and strongly considering a short term stay to potentially become medically stable, stronger to where she can care for him at home. Discussed Palliative Care with - agreeable to referral for further pain and symptom management. Referral made to [facility] - they will schedule assessment with . Have not received outcome from insurance update 02/02. Will discuss discharge plans with that outcome. Will continue to follow to assist. Mihaela Womack, ERNESTINE CASTILLOW
[2019-02-09 15:38] VITALS: BP 163/70; PULSE 69; RESP 18; TEMP 36.6; O2SAT 98
[2019-02-09 17:00] LABS: Bedside Glucose 455 mg/dL (70-110)
[2019-02-09] MEDS: Insulin Lispro 100 UNIT/ML INSULN.PEN 10 UNIT SC ×2 (18:08→21:56)
[2019-02-09] MEDS: amLODIPine 10 MG Tablet PO (19:51)
--- NOTE | 2019-02-09 21:34 | NURSING ---
evening blood sugar 479. Dr Cramer aware N.O. Humalog 10 units
[2019-02-10 02:11] LABS: Bedside Glucose 487 mg/dL (70-110)
[2019-02-10] MEDS: traMADol 50 MG Tablet PO (04:08)
[2019-02-10] MEDS: Labetalol 200 MG Tablet PO ×2 (04:09→18:30)
[2019-02-10] MEDS: Magnesium Oxide 400 MG Tablet PO ×2 (04:09→18:30)
[2019-02-10] MEDS: Mycophenolate Mofetil 250 MG Capsule 500 MG PO ×2 (04:10→18:30)
[2019-02-10] MEDS: Pantoprazole Sodium 40 MG Tablet PO (04:10)
[2019-02-10] MEDS: Tacrolimus Anhydrous 1 MG Capsule 3 MG PO ×2 (04:10→18:30)
[2019-02-10] MEDS: Cefdinir 300 MG Capsule PO ×2 (04:10→18:29)
[2019-02-10 05:50] LABS: Absolute Neutrophil Count 3.1 X10^3/uL (2.0-7.7); Eosinophil# 0.03 X10^3/uL; Eosinophils% 0.7 % (0-5); Hematocrit 29.2 % (40-54); Lymphocyte % 16.4 % (19-41); Mean Corp Hgb Conc 34.2 g/gl (32-36); Mean Corpuscular Hgb 31.2 pg (27.0-32.0); Mean Platelet Vol. 9.5 fl (6.2-12.0); Monocyte# 0.45 X10^3/uL; Monocyte% 10.6 % (0-10); Neutrophil # 3.07 X10^3/uL (2.7-7.7); Neutrophil % 72.1 % (47-70); Platelet Count 187 K/mm3 (150-450); RBC Distribution Width CV 14.7 % (11.6-14.6); RBC Distribution Width SD 48.2 fl (35.1-43.9); Red Blood Count 3.21 M/mm3 (4.6-6.2); White Blood Count 4.3 K/mm3 (4.4-11.0)
[2019-02-10 06:15] LABS: POSITIVE COUNT NO; POSITIVE DIFFERENTIAL NO; POSITIVE MORPHOLOGY NO
--- NOTE | 2019-02-10 06:30 | NURSING ---
Patient very irritable during assessment. Pulling off attends because it is not fitting. Wanted blankets fixed, this nurse adjusted blanket and patient pulled off blanket. Feels that you guys are giving me something to make my sugars go up, they were never this high at home. This nurse explained how prednisone can elevate glucose. Teaching on Diab done patient verbalized understanding but needs reinforcement. Patient upset about trying to find the family that raised him. I have not heard from them in 57 years. This nurse suggested that his may know something. Patient yelled I do not want to talk about it! Given reassurance with some effect. Will cont to monitor behavior. Same reported to HERNÁN Lind.
[2019-02-10 06:45] LABS: Bedside Glucose 457 mg/dL (70-110)
[2019-02-10] MEDS: Enoxaparin 30 MG/0.3 ML Syringe SC (06:58)
[2019-02-10 07:00] VITALS: PULSE 64; RESP 16; O2SAT 97
[2019-02-10 07:10] LABS: Bedside Glucose 479 mg/dL (70-110)
[2019-02-10 07:10] LABS: Bedside Glucose > 500 mg/dL (70-110)
--- NOTE | 2019-02-10 08:05 | NURSING ---
New order for humalog 10 units x1 now and increase mealtime humalog to 25units.
[2019-02-10] MEDS: Azithromycin 250 MG Tablet PO (08:23)
[2019-02-10] MEDS: predniSONE 5 MG Tablet PO (08:24)
[2019-02-10] MEDS: Insulin Lispro 100 UNIT/ML INSULN.PEN 20 UNIT SC (08:24)
[2019-02-10] MEDS: Iron Polysaccharide Complex 150 MG CAPSULE PO ×2 (08:24→18:30)
[2019-02-10] MEDS: Smz/Tmp Ds Tablet 0.5 TABLET PO (08:24)
[2019-02-10] MEDS: Insulin Lispro 100 UNIT/ML INSULN.PEN 10 UNIT SC (08:25)
--- NOTE | 2019-02-10 10:48 | MDS.RN ---
Information for the mds was obtained from review of the clinical record, interview of resident, staff, and direct observation of resident's care.
[2019-02-10 11:26] LABS: Bedside Glucose 163 mg/dL (70-110)
[2019-02-10 15:54] VITALS: BP 131/63; PULSE 68; RESP 16; TEMP 36.7; O2SAT 98
[2019-02-10 17:20] LABS: Bedside Glucose 137 mg/dL (70-110)
--- NOTE | 2019-02-10 17:29 | NURSING ---
New order for mirtazapine 7.5mg PO qHS.
--- NOTE | 2019-02-10 17:33 | NURSING ---
New order to decrease ultram to 25mg PO BID PRN.
[2019-02-10] MEDS: Mirtazapine 15 MG Tablet 7.5 MG PO (21:26)
[2019-02-10] MEDS: amLODIPine 10 MG Tablet PO (21:28)
[2019-02-10] MEDS: traMADol 50 MG Tablet 25 MG PO (21:34)
[2019-02-10 21:50] LABS: Bedside Glucose 283 mg/dL (70-110)
[2019-02-11 02:01] LABS: Bedside Glucose 275 mg/dL (70-110)
[2019-02-11] MEDS: Labetalol 200 MG Tablet PO ×2 (04:51→18:13)
[2019-02-11] MEDS: Cefdinir 300 MG Capsule PO ×2 (04:52→18:13)
[2019-02-11] MEDS: Mycophenolate Mofetil 250 MG Capsule 500 MG PO ×2 (04:52→18:12)
[2019-02-11] MEDS: Magnesium Oxide 400 MG Tablet PO ×2 (04:52→18:12)
[2019-02-11] MEDS: Tacrolimus Anhydrous 1 MG Capsule 3 MG PO ×2 (04:52→18:13)
[2019-02-11] MEDS: Pantoprazole Sodium 40 MG Tablet PO (04:53)
[2019-02-11 06:01] LABS: Absolute Lymphocyte Count 0.85 X10^3/ul (0.83-4.51); Absolute Neutrophil Count 3.3 X10^3/uL (2.0-7.7); Eosinophil# 0.05 X10^3/uL; Hematocrit 30.2 % (40-54); Hemoglobin 10.4 g/dl (13.0-16.5); Lymphocyte # 0.85 X10^3/ul (4.0); Lymphocyte % 17.7 % (19-41); Mean Corp Hgb Conc 34.4 g/gl (32-36); Mean Corpuscular Hgb 30.8 pg (27.0-32.0); Mean Corpuscular Volume 89.3 fL (80-94); Mean Platelet Vol. 10.2 fl (6.2-12.0); Monocyte# 0.58 X10^3/uL; Monocyte% 12.1 % (0-10); Neutrophil # 3.31 X10^3/uL (2.7-7.7); Neutrophil % 68.8 % (47-70); Platelet Count 227 K/mm3 (150-450); RBC Distribution Width CV 14.1 % (11.6-14.6); RBC Distribution Width SD 44.3 fl (35.1-43.9); Red Blood Count 3.38 M/mm3 (4.6-6.2); White Blood Count 4.8 K/mm3 (4.4-11.0)
[2019-02-11 06:07] LABS: POSITIVE COUNT NO; POSITIVE DIFFERENTIAL NO; POSITIVE MORPHOLOGY NO
[2019-02-11 06:41] LABS: Bedside Glucose 329 mg/dL (70-110)
[2019-02-11] MEDS: Enoxaparin 30 MG/0.3 ML Syringe SC (06:44)
[2019-02-11] MEDS: Iron Polysaccharide Complex 150 MG CAPSULE PO ×2 (08:37→18:12)
[2019-02-11] MEDS: predniSONE 5 MG Tablet PO (08:37)
[2019-02-11] MEDS: Smz/Tmp Ds Tablet 0.5 TABLET PO (08:37)
[2019-02-11] MEDS: Insulin Lispro 100 UNIT/ML INSULN.PEN SC (08:40)
[2019-02-11] MEDS: Azithromycin 250 MG Tablet PO (09:56)
[2019-02-11 11:55] LABS: Bedside Glucose 463 mg/dL (70-110)
[2019-02-11] MEDS: Insulin Lispro 100 UNIT/ML INSULN.PEN 10 UNIT SC ×2 (12:15→18:10)
--- NOTE | 2019-02-11 12:16 | NURSING ---
Blood sugar 463 at lunch, new order to give 10 units of humalog now and restart humalog 10 units at meals
[2019-02-11] MEDS: traMADol 50 MG Tablet 25 MG PO (15:21)
[2019-02-11 16:00] VITALS: BP 146/65; PULSE 68; RESP 22; TEMP 37.4; O2SAT 98
--- NOTE | 2019-02-11 17:10 | CASEMGMT ---
Insurance: Continued stay review approved. Next update due 02/16/19. Auth #[id number]
[2019-02-11 17:20] LABS: Bedside Glucose 371 mg/dL (70-110)
[2019-02-11] MEDS: Mirtazapine 15 MG Tablet 7.5 MG PO (21:09)
[2019-02-11] MEDS: amLODIPine 10 MG Tablet PO (21:09)
--- NOTE | 2019-02-11 21:25 | NURSING ---
Dr. Cramer notified of patient blood sugar of 457. New orders given for Humalog 7 units x 1.
[2019-02-11 21:41] LABS: Bedside Glucose 457 mg/dL (70-110)
[2019-02-11] MEDS: Insulin Lispro 100 UNIT/ML INSULN.PEN 7 UNIT SC (23:02)
[2019-02-12 02:21] LABS: Bedside Glucose 299 mg/dL (70-110)
[2019-02-12 06:36] LABS: Bedside Glucose 299 mg/dL (70-110)
[2019-02-12] MEDS: Tacrolimus Anhydrous 1 MG Capsule 3 MG PO ×2 (07:22→17:31)
[2019-02-12] MEDS: Mycophenolate Mofetil 250 MG Capsule 500 MG PO ×2 (07:22→17:31)
[2019-02-12] MEDS: Cefdinir 300 MG Capsule PO ×2 (07:22→17:31)
[2019-02-12] MEDS: Labetalol 200 MG Tablet PO ×2 (07:23→17:37)
[2019-02-12] MEDS: Enoxaparin 30 MG/0.3 ML Syringe SC (07:23)
[2019-02-12] MEDS: Magnesium Oxide 400 MG Tablet PO ×2 (07:23→17:31)
[2019-02-12] MEDS: Insulin Lispro 100 UNIT/ML INSULN.PEN 15 UNIT SC ×3 (07:25→17:32)
[2019-02-12] MEDS: Pantoprazole Sodium 40 MG Tablet PO (07:32)
[2019-02-12 08:16] LABS: Absolute Lymphocyte Count 0.89 X10^3/ul (0.83-4.51); Absolute Neutrophil Count 2.2 X10^3/uL (2.0-7.7); Basophil# 0.01 X10^3/uL; Basophil% 0.3 % (0-1); Eosinophil# 0.07 X10^3/uL; Hemoglobin 10.4 g/dl (13.0-16.5); Lymphocyte # 0.89 X10^3/ul (4.0); Lymphocyte % 24.9 % (19-41); Mean Corp Hgb Conc 34.7 g/gl (32-36); Mean Corpuscular Volume 89.6 fL (80-94); Mean Platelet Vol. 9.7 fl (6.2-12.0); Monocyte# 0.42 X10^3/uL; Monocyte% 11.8 % (0-10); Neutrophil # 2.17 X10^3/uL (2.7-7.7); Neutrophil % 60.7 % (47-70); Platelet Count 229 K/mm3 (150-450); RBC Distribution Width CV 14.3 % (11.6-14.6); RBC Distribution Width SD 45.2 fl (35.1-43.9); Red Blood Count 3.35 M/mm3 (4.6-6.2); White Blood Count 3.6 K/mm3 (4.4-11.0)
[2019-02-12 08:17] LABS: POSITIVE COUNT NO; POSITIVE DIFFERENTIAL NO; POSITIVE MORPHOLOGY NO
--- NOTE | 2019-02-12 08:35 | CASEMGMT ---
Social Work Patient approved by insurance with an update due 02/16 - notified . Will continue to work with therapy and nursing for safe discharge planning. Mihaela Womack, BUSINESS PLANNING MANAGER YOUTH DEVELOPMENT PROFESSIONAL
[2019-02-12] MEDS: Smz/Tmp Ds Tablet 0.5 TABLET PO (08:54)
[2019-02-12] MEDS: Iron Polysaccharide Complex 150 MG CAPSULE PO ×2 (08:54→17:31)
[2019-02-12] MEDS: predniSONE 5 MG Tablet PO (08:54)
--- NOTE | 2019-02-12 09:41 | NURSING ---
PT REFUSED JOHNNY PANTOJA.
[2019-02-12] MEDS: Azithromycin 250 MG Tablet PO (09:43)
--- NOTE | 2019-02-12 11:21 | NURSING ---
PT B.S. IS 488. REPORTED TO HERNÁN STEEN
[2019-02-12 11:40] LABS: Bedside Glucose 488 mg/dL (70-110)
--- NOTE | 2019-02-12 12:55 | NURSING ---
Dr. lincoln notified of lunch time 488 BGT, continue ot monitor
[2019-02-12 15:33] VITALS: BP 148/66; PULSE 67; RESP 16; TEMP 37.2; O2SAT 97
[2019-02-12 16:15] VITALS: PULSE 72; RESP 18; O2SAT 97
--- NOTE | 2019-02-12 16:44 | NURSING ---
PT COMPLAINED OF RIGHT EAR RINGING. PT DAUGHTER IN ROOM STATED THAT HER DAD HAD HIS EAR DRAINED AND WAS DUE TO GO BACK TO DOCTOR AND THEN PT ENDED UP IN HOSPITAL. REPORTED TO HERNÁN STEEN
[2019-02-12 16:51] LABS: Bedside Glucose 270 mg/dL (70-110)
[2019-02-12 21:25] LABS: Bedside Glucose 361 mg/dL (70-110)
--- NOTE | 2019-02-12 21:57 | NURSING ---
This nurse into give Pt medications Pt stated that he would not take medications from this nurse at this time because he believes staff and this nurse are giving him something and making his sugar gil rocket. This nurse reassured Pt that this is not the case and that medications are imortant in his healing, Pt told this nurse to get out reported to Malka JIM
[2019-02-13 04:45] LABS: Bedside Glucose 493 mg/dL (70-110)
[2019-02-13 06:41] LABS: Bedside Glucose 418 mg/dL (70-110)
[2019-02-13] MEDS: Mycophenolate Mofetil 250 MG Capsule 500 MG PO ×2 (06:44→18:13)
[2019-02-13] MEDS: Tacrolimus Anhydrous 1 MG Capsule 3 MG PO ×2 (06:44→18:14)
[2019-02-13] MEDS: Enoxaparin 30 MG/0.3 ML Syringe SC (06:44)
[2019-02-13] MEDS: Labetalol 200 MG Tablet PO ×2 (06:44→18:13)
[2019-02-13] MEDS: Pantoprazole Sodium 40 MG Tablet PO (06:44)
[2019-02-13] MEDS: Cefdinir 300 MG Capsule PO ×2 (06:44→18:13)
[2019-02-13] MEDS: Magnesium Oxide 400 MG Tablet PO ×2 (06:44→18:13)
[2019-02-13 07:08] LABS: Absolute Lymphocyte Count 0.96 X10^3/ul (0.83-4.51); Absolute Neutrophil Count 2.9 X10^3/uL (2.0-7.7); Basophil# 0.01 X10^3/uL; Basophil% 0.2 % (0-1); Eosinophil# 0.04 X10^3/uL; Eosinophils% 0.9 % (0-5); Hematocrit 31.3 % (40-54); Hemoglobin 10.8 g/dl (13.0-16.5); Lymphocyte # 0.96 X10^3/ul (4.0); Lymphocyte % 21.5 % (19-41); Mean Corp Hgb Conc 34.5 g/gl (32-36); Mean Corpuscular Volume 89.9 fL (80-94); Mean Platelet Vol. 9.9 fl (6.2-12.0); Monocyte# 0.53 X10^3/uL; Monocyte% 11.9 % (0-10); Neutrophil % 65.1 % (47-70); Platelet Count 228 K/mm3 (150-450); RBC Distribution Width CV 14.3 % (11.6-14.6); RBC Distribution Width SD 45.7 fl (35.1-43.9); Red Blood Count 3.48 M/mm3 (4.6-6.2); White Blood Count 4.5 K/mm3 (4.4-11.0)
[2019-02-13 07:10] LABS: POSITIVE COUNT NO; POSITIVE DIFFERENTIAL NO; POSITIVE MORPHOLOGY NO
[2019-02-13] MEDS: Insulin Lispro 100 UNIT/ML INSULN.PEN 15 UNIT SC ×3 (07:40→18:12)
[2019-02-13] MEDS: Smz/Tmp Ds Tablet 0.5 TABLET PO (08:36)
[2019-02-13] MEDS: Iron Polysaccharide Complex 150 MG CAPSULE PO ×2 (08:36→18:14)
[2019-02-13] MEDS: predniSONE 5 MG Tablet PO (08:36)
[2019-02-13 11:55] LABS: Bedside Glucose 298 mg/dL (70-110)
[2019-02-13 15:26] VITALS: BP 125/62; PULSE 71; RESP 18; TEMP 36.8; O2SAT 98
[2019-02-13 17:36] LABS: Bedside Glucose 137 mg/dL (70-110)
[2019-02-13 20:00] VITALS: BP 123/60; PULSE 66; RESP 16; TEMP 36.8; O2SAT 100
[2019-02-13] MEDS: Mirtazapine 15 MG Tablet 7.5 MG PO (20:08)
[2019-02-13] MEDS: amLODIPine 10 MG Tablet PO (20:09)
[2019-02-13 21:11] LABS: Bedside Glucose 122 mg/dL (70-110)
[2019-02-14 02:21] LABS: Bedside Glucose 225 mg/dL (70-110)
[2019-02-14 06:14] LABS: Absolute Lymphocyte Count 1.05 X10^3/ul (0.83-4.51); Absolute Neutrophil Count 2.6 X10^3/uL (2.0-7.7); Basophil# 0.01 X10^3/uL; Basophil% 0.2 % (0-1); Eosinophil# 0.04 X10^3/uL; Eosinophils% 0.9 % (0-5); Hematocrit 30.3 % (40-54); Hemoglobin 10.5 g/dl (13.0-16.5); Lymphocyte # 1.05 X10^3/ul (4.0); Lymphocyte % 24.5 % (19-41); Mean Corp Hgb Conc 34.7 g/gl (32-36); Mean Corpuscular Volume 89.4 fL (80-94); Monocyte# 0.58 X10^3/uL; Monocyte% 13.5 % (0-10); Neutrophil # 2.58 X10^3/uL (2.7-7.7); Neutrophil % 60.2 % (47-70); Platelet Count 223 K/mm3 (150-450); RBC Distribution Width CV 14.1 % (11.6-14.6); RBC Distribution Width SD 44.1 fl (35.1-43.9); Red Blood Count 3.39 M/mm3 (4.6-6.2); White Blood Count 4.3 K/mm3 (4.4-11.0)
[2019-02-14 06:20] LABS: POSITIVE COUNT NO; POSITIVE DIFFERENTIAL NO; POSITIVE MORPHOLOGY NO
[2019-02-14 06:26] LABS: Bedside Glucose 307 mg/dL (70-110)
[2019-02-14] MEDS: Mycophenolate Mofetil 250 MG Capsule 500 MG PO ×2 (06:51→17:29)
[2019-02-14] MEDS: Enoxaparin 30 MG/0.3 ML Syringe SC (06:51)
[2019-02-14] MEDS: Pantoprazole Sodium 40 MG Tablet PO (06:52)
[2019-02-14] MEDS: Tacrolimus Anhydrous 1 MG Capsule 3 MG PO ×2 (06:52→17:30)
[2019-02-14] MEDS: Magnesium Oxide 400 MG Tablet PO ×2 (06:52→17:30)
[2019-02-14] MEDS: Labetalol 200 MG Tablet PO ×2 (06:52→17:29)
[2019-02-14] MEDS: Cefdinir 300 MG Capsule PO ×2 (07:07→17:29)
--- NOTE | 2019-02-14 09:24 | NURSING ---
Addendum entered by Jasmin Bravo 02/14/19 09:33: Per Dr. Cramer, okay to hold AM dose of Humalog. Original Note: Pt refused scheduled 0800 PO meds despite multiple attempts of encouragement by this nurse and pt's. Pt stated, I'm not taking those pills. What good are they going to do me? Reported to Jasmin JIM.
[2019-02-14 11:11] LABS: Bedside Glucose 396 mg/dL (70-110)
[2019-02-14] MEDS: Acetaminophen 500 MG Tablet 1000 MG PO ×2 (11:56→18:57)
[2019-02-14] MEDS: Insulin Lispro 100 UNIT/ML INSULN.PEN 15 UNIT SC ×2 (12:25→17:31)
[2019-02-14] MEDS: traMADol 50 MG Tablet 25 MG PO (13:09)
[2019-02-14 15:27] VITALS: BP 168/76; PULSE 75; RESP 17; TEMP 36.7
[2019-02-14 15:30] VITALS: BP 168/76; PULSE 75; RESP 17; TEMP 36.7; O2SAT 98
[2019-02-14 17:10] LABS: Bedside Glucose > 500 mg/dL (70-110)
[2019-02-14] MEDS: Iron Polysaccharide Complex 150 MG CAPSULE PO (17:29)
[2019-02-14 18:51] LABS: Bedside Glucose 478 mg/dL (70-110)
--- NOTE | 2019-02-14 19:01 | NURSING ---
Patient's BS 550 before dinner, given routine 15 units of humalog, 1 hour after meal BS 480. Dr. Cramer notified, NNO.
[2019-02-14 21:26] LABS: Bedside Glucose 485 mg/dL (70-110)
--- NOTE | 2019-02-14 21:45 | NURSING ---
Dr. Cramer updated Blood sugar 485. New order 10units Humalog x1 now.
[2019-02-14 22:00] VITALS: RESP 16; O2SAT 98
[2019-02-14] MEDS: amLODIPine 10 MG Tablet PO (22:08)
[2019-02-14] MEDS: Mirtazapine 15 MG Tablet 7.5 MG PO (22:09)
[2019-02-14] MEDS: Insulin Lispro 100 UNIT/ML INSULN.PEN 10 UNIT SC (22:48)
[2019-02-15 02:21] LABS: Bedside Glucose 281 mg/dL (70-110)
[2019-02-15 05:54] LABS: Absolute Lymphocyte Count 0.92 X10^3/ul (0.83-4.51); Absolute Neutrophil Count 1.5 X10^3/uL (2.0-7.7); Eosinophil# 0.08 X10^3/uL; Eosinophils% 2.7 % (0-5); Hematocrit 31.4 % (40-54); Lymphocyte # 0.92 X10^3/ul (4.0); Mean Corpuscular Hgb 31.2 pg (27.0-32.0); Mean Platelet Vol. 10.2 fl (6.2-12.0); Monocyte# 0.45 X10^3/uL; Monocyte% 15.2 % (0-10); Neutrophil % 50.4 % (47-70); Platelet Count 220 K/mm3 (150-450); RBC Distribution Width CV 14.2 % (11.6-14.6); RBC Distribution Width SD 44.5 fl (35.1-43.9); Red Blood Count 3.53 M/mm3 (4.6-6.2)
[2019-02-15] MEDS: Magnesium Oxide 400 MG Tablet PO ×2 (06:01→18:05)
[2019-02-15] MEDS: Labetalol 200 MG Tablet PO ×2 (06:01→18:05)
[2019-02-15 06:02] LABS: POSITIVE COUNT NO; POSITIVE DIFFERENTIAL NO; POSITIVE MORPHOLOGY NO
[2019-02-15] MEDS: Mycophenolate Mofetil 250 MG Capsule 500 MG PO ×2 (06:02→18:05)
[2019-02-15] MEDS: Pantoprazole Sodium 40 MG Tablet PO (06:02)
[2019-02-15] MEDS: Tacrolimus Anhydrous 1 MG Capsule 3 MG PO ×2 (06:02→18:05)
[2019-02-15] MEDS: Acetaminophen 500 MG Tablet 1000 MG PO ×3 (06:04→18:06)
[2019-02-15] MEDS: Enoxaparin 30 MG/0.3 ML Syringe SC (06:04)
[2019-02-15 06:13] LABS: Anion Gap 7 (5-15); BUN 11 mg/dL (7-18); Calcium,Total 8.8 mg/dL (8.5-10.1); Chloride 107 mmol/L (98-107); Creatinine, Serum 1.37 mg/dL (0.70-1.30); EST Glomerular Filtration Rate 55 mL/min (>60); Est Glom Filt Rate - Afr Amer 66 mL/min (>60); Estimated Creatinine Clearance 47.04 ml/min; Glucose 299 mg/dL (74-106); Potassium 3.8 mmol/L (3.5-5.1); Sodium Level 136 mmol/L (136-145)
[2019-02-15 06:41] LABS: Bedside Glucose 324 mg/dL (70-110)
[2019-02-15] MEDS: Insulin Lispro 100 UNIT/ML INSULN.PEN 15 UNIT SC ×2 (08:39→12:25)
--- NOTE | 2019-02-15 08:59 | NURSING ---
PT REFUSING MORNING MEDS. PT STATED WHEN I GET DONE EATING I WILL TAKE THEM.
[2019-02-15] MEDS: Smz/Tmp Ds Tablet 0.5 TABLET PO (09:42)
[2019-02-15] MEDS: Iron Polysaccharide Complex 150 MG CAPSULE PO ×2 (09:42→18:06)
[2019-02-15] MEDS: predniSONE 5 MG Tablet PO (09:42)
[2019-02-15 09:45] VITALS: PULSE 67; RESP 18; O2SAT 98
--- NOTE | 2019-02-15 09:53 | NURSING ---
PT REFUSED TEDHOSE.
[2019-02-15 11:10] LABS: Bedside Glucose 212 mg/dL (70-110)
[2019-02-15 15:40] VITALS: BP 123/62; PULSE 69; RESP 18; TEMP 36.6; O2SAT 95
--- NOTE | 2019-02-15 16:04 | NURSING ---
Addendum entered by Brandi Alvarado 02/15/19 17:00: ACCUCHECK REDONE AT 75, WILL ADMIN OJ 240CC JUST UNTIL SUPPER ARRIVES. Original Note: ACCUCHECK 40, REPORTED PT SWEATY. LAB CALLED FOR BLOOD GLUCOSE CHECK.
[2019-02-15 16:06] LABS: Bedside Glucose 40 mg/dL (70-110)
[2019-02-15 16:31] LABS: Bedside Glucose 74 mg/dL (70-110)
--- NOTE | 2019-02-15 16:45 | CHAPLAIN ---
Type of Pastoral Visit ___ Initial Visit _x__ Follow-up Visit ___ On-call Visit ___ General Patient Visit ___ Spiritual Assessment ___ Family Conference ___ Bereavement ___ Rapid Response ___ Code Blue ___ Other (describe below) Pastoral Care Referral From _x__ Patient ___ Family ___ Nurse ___ Physician ___ Multiple Needle Stitcher ___ Termite Renewal Inspector ___ Other (describe below) Sacrament/Intervention _x__ Active listening ___ Anointing ___ Tenriism ___ Bereavement ___ Communion ___ Jennifer exploration ___ ___ Life review _x__ Prayer ___ Reconciliation ___ Sacrament of Sick _x__ Supportive presence ___ Wedding ___ Other (describe below) Pastoral Comments
[2019-02-15 17:01] LABS: Bedside Glucose 73 mg/dL (70-110)
[2019-02-15 17:25] LABS: Glucose 64 mg/dL (74-106)
[2019-02-15 20:16] LABS: Bedside Glucose 185 mg/dL (70-110)
[2019-02-15 21:21] LABS: Bedside Glucose 183 mg/dL (70-110)
[2019-02-15] MEDS: amLODIPine 10 MG Tablet PO (21:36)
[2019-02-15] MEDS: Mirtazapine 15 MG Tablet 7.5 MG PO (21:36)
[2019-02-16 02:16] LABS: Bedside Glucose 349 mg/dL (70-110)
[2019-02-16 06:41] LABS: Bedside Glucose 409 mg/dL (70-110)
[2019-02-16] MEDS: Magnesium Oxide 400 MG Tablet PO ×2 (06:49→17:21)
[2019-02-16] MEDS: Pantoprazole Sodium 40 MG Tablet PO (06:50)
[2019-02-16] MEDS: Acetaminophen 500 MG Tablet 1000 MG PO ×3 (06:50→23:29)
[2019-02-16] MEDS: Labetalol 200 MG Tablet PO ×2 (06:50→17:21)
[2019-02-16] MEDS: Mycophenolate Mofetil 250 MG Capsule 500 MG PO ×2 (06:50→17:22)
[2019-02-16] MEDS: Tacrolimus Anhydrous 1 MG Capsule 3 MG PO ×2 (06:51→17:21)
[2019-02-16] MEDS: Enoxaparin 30 MG/0.3 ML Syringe SC (06:51)
[2019-02-16] MEDS: Insulin Lispro 100 UNIT/ML INSULN.PEN 10 UNIT SC ×2 (08:00→17:28)
[2019-02-16] MEDS: Smz/Tmp Ds Tablet 0.5 TABLET PO (09:07)
[2019-02-16] MEDS: predniSONE 5 MG Tablet PO (09:08)
[2019-02-16] MEDS: Insulin Lispro 100 UNIT/ML INSULN.PEN SC (09:10)
[2019-02-16] MEDS: Iron Polysaccharide Complex 150 MG CAPSULE PO ×2 (10:00→17:21)
[2019-02-16 10:46] LABS: Bedside Glucose 275 mg/dL (70-110)
[2019-02-16 11:45] LABS: Bedside Glucose 189 mg/dL (70-110)
--- NOTE | 2019-02-16 11:55 | NURSING ---
PT STATED HE WAS FEELING WEAK,DIZZY AND TIRED. BS 189,116/60, 94%RA, HR 66, R 18. REPORTED TO HERNÁN WORKMAN
[2019-02-16 11:59] VITALS: BP 116/60; PULSE 66; RESP 18; O2SAT 94
--- NOTE | 2019-02-16 12:01 | NURSING ---
BS 189, Dr Cramer updated, new order to hold humalog 10 units at this time. will continue to monitor blood sugars.
--- NOTE | 2019-02-16 12:26 | CASEMGMT ---
Social Work Spoke with patient's at length about discharge plans. Reexplained the insurance coverage in TCU, SNF/LTP, [place] and at home. Rediscussed the recommendations for discharge from therapy. stated she did tour several facilities and receive pricing, along with requirements for Medicaid - pt and are over slightly over income for Medicaid, and cannot afford to pay privately. feels he will be most appropriate for continued stay in TCU until pt stabilizes medically and can work consistently with therapy to return to prior level of independence or discharge to a SNF. states she knows he is too much for her to care for alone, but cannot afford to pay privately at a SNF. Rediscussed resources available in the community, i.e. adult day care, private duty aides. states she has an appointment with [facility] on 02/17 to discuss those options. Reexplained the differences between the two services, and encouraged to get further explanation at the visit. is live-based, and concluded with praying for clarity on the decision and hope to have an outcome tomorrow after the visit. Provided emotional and verbal support to the in the matter. appreciative of the time and explanation, and will notify this SW of decision tomorrow. Will notify and pt of insurance outcome. concluded she will most likely take patient home and try to hire as much help as possible. Will continue to follow for discharge planning and further support. Mihaela Womack, ERNESTINE CASTILLOW
[2019-02-16 15:18] VITALS: BP 144/63; PULSE 60; RESP 16; TEMP 37.2; O2SAT 97
--- NOTE | 2019-02-16 16:39 | CASEMGMT ---
Insurance: Clinical update faxed this day. Auth # [id number].
[2019-02-16 17:00] LABS: Bedside Glucose 264 mg/dL (70-110)
[2019-02-16] MEDS: BACITRACIN 15 GM Tube 1 APPLIC TOPICAL (17:26)
[2019-02-16 20:00] VITALS: PULSE 70; RESP 16; O2SAT 96
[2019-02-16] MEDS: amLODIPine 10 MG Tablet PO (20:01)
[2019-02-16] MEDS: Mirtazapine 15 MG Tablet 7.5 MG PO (20:03)
[2019-02-16 21:01] LABS: Bedside Glucose 284 mg/dL (70-110)
[2019-02-17 02:20] LABS: Bedside Glucose 332 mg/dL (70-110)
[2019-02-17] MEDS: Mycophenolate Mofetil 250 MG Capsule 500 MG PO ×2 (05:45→17:50)
[2019-02-17] MEDS: Enoxaparin 30 MG/0.3 ML Syringe SC (05:45)
[2019-02-17] MEDS: Pantoprazole Sodium 40 MG Tablet PO (05:46)
[2019-02-17] MEDS: Labetalol 200 MG Tablet PO ×2 (05:46→17:51)
[2019-02-17] MEDS: Magnesium Oxide 400 MG Tablet PO ×3 (05:46→17:51)
[2019-02-17] MEDS: Acetaminophen 500 MG Tablet 1000 MG PO ×3 (05:46→17:51)
[2019-02-17] MEDS: Tacrolimus Anhydrous 1 MG Capsule 3 MG PO ×2 (05:47→17:51)
[2019-02-17] MEDS: BACITRACIN 15 GM Tube 1 APPLIC TOPICAL (05:48)
[2019-02-17 07:00] VITALS: PULSE 72; RESP 16; O2SAT 97
[2019-02-17 07:06] LABS: Bedside Glucose 424 mg/dL (70-110)
--- NOTE | 2019-02-17 07:16 | NURSING ---
GLUCOSE ELEVATED THIS AM [address] HERNÁN PEÑA NOT[address] SANDERSON NOTIFIED NNO. WILL CONT TO MONITOR.
[2019-02-17] MEDS: Smz/Tmp Ds Tablet 0.5 TABLET PO (08:40)
[2019-02-17] MEDS: predniSONE 5 MG Tablet PO (08:40)
[2019-02-17] MEDS: Iron Polysaccharide Complex 150 MG CAPSULE PO ×2 (08:40→17:49)
[2019-02-17] MEDS: Insulin Lispro 100 UNIT/ML INSULN.PEN 10 UNIT SC ×4 (08:43→17:47)
[2019-02-17 09:46] LABS: Bedside Glucose 384 mg/dL (70-110)
--- NOTE | 2019-02-17 10:18 | NURSING ---
Pt refused JOHNNY avery this AM.
[2019-02-17 11:16] LABS: Bedside Glucose 429 mg/dL (70-110)
--- NOTE | 2019-02-17 13:02 | NURSING ---
BS checked at 1300 and is 534. Reported to Tod JIM.
[2019-02-17 13:06] LABS: Bedside Glucose > 500 mg/dL (70-110)
--- NOTE | 2019-02-17 15:10 | CASEMGMT ---
Social Work Physician from [facility] spoke with SW about meeting. After further discussion between pt wishes, Palliative and Hospice care, has chosen to take pt home with hospice once therapy is done, and insurance issues NOMNC. would like as much time with therapy for pt to get as strong as possible, then DC pt home to be comfortable with [facility]. Will continue to follow for DC planning and awaiting insurance outcome. Mihaela Womack, BENEFIT SPECIALIST ACADEMIC SERVICES PROFESSIONAL
[2019-02-17 16:00] VITALS: BP 136/71; PULSE 78; RESP 18; TEMP 36.6; O2SAT 97
[2019-02-17 17:01] LABS: Bedside Glucose > 500 mg/dL (70-110)
[2019-02-17 18:52] LABS: Glucose 713 mg/dL (74-106)
[2019-02-17] MEDS: Mirtazapine 15 MG Tablet 7.5 MG PO (19:48)
[2019-02-17] MEDS: amLODIPine 10 MG Tablet PO (19:50)
--- NOTE | 2019-02-17 20:20 | NURSING ---
During routine glucose finger stick patient became very agitated. Afterr nurse did finger stick patient raised his arms and swatted at this nurse. This nurse explained the importance for getting the reading. Patient then allowed the nurse to check the sample. Will cont to monitor. Same reported to Diogo RN and SofiaRN.
--- NOTE | 2019-02-17 20:22 | NURSING ---
Dr. Cramer updated on blood sugar 417. Dr. Cramer aware. New order not to give 10units Humalog x1.
[2019-02-17 20:25] LABS: Bedside Glucose 417 mg/dL (70-110)
[2019-02-18 02:06] LABS: Bedside Glucose 305 mg/dL (70-110)
--- NOTE | 2019-02-18 03:00 | NURSING ---
Addendum entered by Erika Reed 02/18/19 07:18: Patient refused am lovenox inj. I will not take another shot. Reported to Diogo RN and Sofia RN. Original Note: Patients alarm was sounding. Patient found sitting at side of bed. This nurse asked if he needed to go to the bathroom. Patient yelled at this nurse and asked where is the food? Nurse explained the current time and the patient said you are wrong. Patient thought it was morning. Nurse attempted to reorient patient by looking at his cell phone. Patient grabbed his phone and said it was wrong too. Patient refused to get in chair or back to bed. He wanted to sit at side of bed. This nurse made sure personal alarm was in place. Patient thought year was 2017 and month was Aug. Reoriented to date and month. Patient now playing phone messages over and over. Denies any pain or needs at this time. Will cont to monitor. Same reported to HERNÁN Lind and HERNÁN Black.
[2019-02-18 06:36] LABS: Bedside Glucose 375 mg/dL (70-110)
[2019-02-18] MEDS: Pantoprazole Sodium 40 MG Tablet PO (06:38)
[2019-02-18] MEDS: Magnesium Oxide 400 MG Tablet PO ×2 (06:38→17:47)
[2019-02-18] MEDS: Labetalol 200 MG Tablet PO ×2 (06:39→17:47)
[2019-02-18] MEDS: Mycophenolate Mofetil 250 MG Capsule 500 MG PO ×2 (06:39→17:46)
[2019-02-18] MEDS: Tacrolimus Anhydrous 1 MG Capsule 3 MG PO ×2 (06:39→17:48)
[2019-02-18] MEDS: Acetaminophen 500 MG Tablet 1000 MG PO (06:40)
--- NOTE | 2019-02-18 08:17 | CASEMGMT ---
Insurance/Social Work [employer] issued LCD 02/20/19 with DC 02/21/19. Spoke with to provide LCD and DC date. understood and is still having him DC home with hospice. [facility] will transport pt 02/21 at 2 pm home. Hospice will meet pt at home to admit. ERNESTINE DuganW
[2019-02-18] MEDS: Insulin Lispro 100 UNIT/ML INSULN.PEN 10 UNIT SC ×3 (09:36→17:48)
[2019-02-18] MEDS: Iron Polysaccharide Complex 150 MG CAPSULE PO ×2 (09:41→17:48)
[2019-02-18] MEDS: Smz/Tmp Ds Tablet 0.5 TABLET PO (09:41)
[2019-02-18] MEDS: predniSONE 5 MG Tablet PO (09:42)
--- NOTE | 2019-02-18 09:42 | NURSING ---
This nurse informed by therapy staff that Pt not feeling well. This nurse into check Pt and Pt noted to be diaphoretic, short of breath and pale in color. Vital signs obtained. T 98.1 ,P 78 and very irregular, BP 150/80, SPo2 97% on 3l NC. Pt has a history of Afib, and states she isn't feeeling well at all. Reported to Brandi JIM
[2019-02-18 10:56] LABS: Bedside Glucose 481 mg/dL (70-110)
[2019-02-18] MEDS: Insulin Lispro 100 UNIT/ML INSULN.PEN SC (12:46)
[2019-02-18 15:03] VITALS: BP 160/68; PULSE 68; RESP 16; TEMP 36.7; O2SAT 97
[2019-02-18 17:00] LABS: Bedside Glucose > 500 mg/dL (70-110)
--- NOTE | 2019-02-18 17:28 | NURSING ---
blood sugar >500, chem 614. dr lincoln updated, new order for humalog 10 units x1 on top of the scheduled 20 units.
[2019-02-18 17:29] LABS: Glucose 614 mg/dL (74-106)
[2019-02-18] MEDS: Insulin Lispro 100 UNIT/ML INSULN.PEN 20 UNIT SC (17:48)
[2019-02-18 19:06] LABS: Bedside Glucose > 500 mg/dL (70-110)
--- NOTE | 2019-02-18 19:59 | NURSING ---
Addendum entered by Nancy Pond 02/18/19 21:36: DR. Cramer notified of blood sugar of 522. Orders to recheck blood sugars at 2300. Original Note: Dr. Cramer notified of patient having another high blood sugar reading >500 and that patient refused labs to be drawn. Orders given to given 30 units humalog x 1 and recheck in 1 hour.
[2019-02-18 20:00] VITALS: PULSE 75; RESP 18; O2SAT 98
[2019-02-18] MEDS: Insulin Lispro 100 UNIT/ML INSULN.PEN 30 UNIT SC ×2 (20:18→23:46)
[2019-02-18] MEDS: Mirtazapine 15 MG Tablet 7.5 MG PO (20:20)
[2019-02-18] MEDS: amLODIPine 10 MG Tablet PO (20:20)
[2019-02-18 21:26] LABS: Bedside Glucose > 500 mg/dL (70-110)
[2019-02-18 23:05] LABS: Bedside Glucose 401 mg/dL (70-110)
[2019-02-19 02:06] LABS: Bedside Glucose 260 mg/dL (70-110)
[2019-02-19] MEDS: Tacrolimus Anhydrous 1 MG Capsule 3 MG PO ×2 (06:24→18:23)
[2019-02-19] MEDS: Labetalol 200 MG Tablet PO ×2 (06:24→18:23)
[2019-02-19] MEDS: Enoxaparin 30 MG/0.3 ML Syringe SC (06:24)
[2019-02-19] MEDS: Mycophenolate Mofetil 250 MG Capsule 500 MG PO ×2 (06:24→18:23)
[2019-02-19] MEDS: Pantoprazole Sodium 40 MG Tablet PO (06:24)
[2019-02-19] MEDS: Magnesium Oxide 400 MG Tablet PO ×2 (06:24→18:23)
[2019-02-19] MEDS: Acetaminophen 500 MG Tablet 1000 MG PO ×3 (06:26→18:23)
[2019-02-19 07:10] LABS: Bedside Glucose 323 mg/dL (70-110)
[2019-02-19 08:16] LABS: Bedside Glucose 298 mg/dL (70-110)
--- NOTE | 2019-02-19 08:17 | NURSING ---
Pt BS at 0800 was 298. Jasmin JIM aware.
[2019-02-19] MEDS: Smz/Tmp Ds Tablet 0.5 TABLET PO (08:51)
[2019-02-19] MEDS: Iron Polysaccharide Complex 150 MG CAPSULE PO ×2 (08:51→18:22)
[2019-02-19] MEDS: predniSONE 5 MG Tablet PO (08:51)
[2019-02-19] MEDS: Insulin Lispro 100 UNIT/ML INSULN.PEN 30 UNIT SC ×4 (08:54→16:12)
[2019-02-19 10:00] VITALS: PULSE 72; RESP 16; O2SAT 97
[2019-02-19 11:01] LABS: Bedside Glucose 428 mg/dL (70-110)
[2019-02-19 11:16] LABS: Bedside Glucose 437 mg/dL (70-110)
[2019-02-19 12:46] LABS: Bedside Glucose > 500 mg/dL (70-110)
--- NOTE | 2019-02-19 13:36 | NURSING ---
Addendum entered by Jasmin Bravo 02/19/19 15:59: BS pradip Sahu, Dr. Cramer notified, new order to give additional 30 units x1 now. Original Note: New order to give 30 units Humalog x1 now and increase meal time Humalog to 40 units.
[2019-02-19 15:11] LABS: Bedside Glucose 499 mg/dL (70-110)
[2019-02-19 15:43] VITALS: BP 148/59; PULSE 68; RESP 16; TEMP 36.6; O2SAT 96
[2019-02-19 16:11] LABS: Bedside Glucose 482 mg/dL (70-110)
[2019-02-19 17:16] LABS: Bedside Glucose > 500 mg/dL (70-110)
[2019-02-19] MEDS: Insulin Lispro 100 UNIT/ML INSULN.PEN 40 UNIT SC (18:20)
[2019-02-19] MEDS: Mirtazapine 15 MG Tablet 7.5 MG PO (20:04)
[2019-02-19] MEDS: amLODIPine 10 MG Tablet PO (20:04)
[2019-02-19 21:31] LABS: Bedside Glucose > 500 mg/dL (70-110)
[2019-02-19] MEDS: Insulin Lispro 100 UNIT/ML INSULN.PEN 50 UNIT SC (21:57)
[2019-02-19 22:28] LABS: Glucose 631 mg/dL (74-106)
[2019-02-20 02:06] LABS: Bedside Glucose 83 mg/dL (70-110)
--- NOTE | 2019-02-20 02:09 | NURSING ---
Blood sugar checked at 2am 83 this nurse tried to give some orange juice with yogurt at this time. Pt stated, he doesn't understand why I have to eat and drink that orange juice. You wanted my sugar down because it was to high and now you are saying it's low. Leave the orange juice and yogurt on the table and I will eat it when I want. Educated patient on the importance of getting his blood sugar up and patient still refused. HERNÁN Srivastava aware.
[2019-02-20] MEDS: Glucagon 1 MG/ML Syringe IM (03:55)
--- NOTE | 2019-02-20 04:03 | NURSING ---
Addendum entered by Tiara Navas 02/20/19 04:22: Rechecked BS 132 will continue to monitor Original Note: Nurse went in to recheck BS 29 @ 4 am. Given 240 orange juice and yogurt. Pt skin was clammy pt was able to answer question during this time. Pt stated, he knew this would happen with a smile on his face staying that he wanted us to run around to get his blood sugar back up. Dain Srivastava aware.
[2019-02-20 04:06] LABS: Bedside Glucose 29 mg/dL (70-110)
[2019-02-20] MEDS: Magnesium Oxide 400 MG Tablet PO ×2 (04:24→17:19)
[2019-02-20] MEDS: Mycophenolate Mofetil 250 MG Capsule 500 MG PO ×2 (04:24→17:19)
[2019-02-20] MEDS: Pantoprazole Sodium 40 MG Tablet PO (04:24)
[2019-02-20] MEDS: Tacrolimus Anhydrous 1 MG Capsule 3 MG PO ×2 (04:24→17:19)
[2019-02-20] MEDS: Acetaminophen 500 MG Tablet 1000 MG PO ×3 (04:26→17:19)
[2019-02-20] MEDS: Labetalol 200 MG Tablet PO ×2 (04:28→17:19)
[2019-02-20] MEDS: Enoxaparin 30 MG/0.3 ML Syringe SC (04:30)
[2019-02-20 04:36] LABS: Bedside Glucose 132 mg/dL (70-110)
[2019-02-20 05:00] LABS: Glucose 97 mg/dL (74-106)
[2019-02-20 07:31] LABS: Bedside Glucose 244 mg/dL (70-110)
--- NOTE | 2019-02-20 07:38 | NURSING ---
Addendum entered by Juana Bowman 02/20/19 08:45: Pt given Humalog 25 units after eating breakfast per Dr Cramer. Updated Azra JIM. Original Note: Dr. Cramer aware of pts blood sugar this AM. New order to give 25u humalog after breakfast. Will continue to monitor.
[2019-02-20] MEDS: Smz/Tmp Ds Tablet 0.5 TABLET PO (08:34)
[2019-02-20] MEDS: predniSONE 5 MG Tablet PO (08:35)
[2019-02-20] MEDS: Iron Polysaccharide Complex 150 MG CAPSULE PO ×2 (08:35→17:19)
[2019-02-20] MEDS: Insulin Lispro 100 UNIT/ML INSULN.PEN 50 UNIT SC ×2 (08:40→12:23)
[2019-02-20 08:41] LABS: Bedside Glucose 292 mg/dL (70-110)
[2019-02-20 10:00] VITALS: PULSE 70; RESP 18; O2SAT 98
[2019-02-20 11:26] LABS: Bedside Glucose 402 mg/dL (70-110)
[2019-02-20 15:42] VITALS: BP 111/62; PULSE 66; RESP 17; TEMP 36.4; O2SAT 97
[2019-02-20 17:11] LABS: Bedside Glucose 140 mg/dL (70-110)
--- NOTE | 2019-02-20 17:51 | NURSING ---
Pt BS prior to dinner was 140. Dr Cramer notified by Tod JIM. Order changed to Humalog 20 units SC TID.
[2019-02-20] MEDS: Insulin Lispro 100 UNIT/ML INSULN.PEN 20 UNIT SC (18:11)
[2019-02-20] MEDS: Mirtazapine 15 MG Tablet 7.5 MG PO (19:51)
[2019-02-20] MEDS: amLODIPine 10 MG Tablet PO (19:51)
[2019-02-20 21:41] LABS: Bedside Glucose 139 mg/dL (70-110)
[2019-02-21 02:11] LABS: Bedside Glucose 204 mg/dL (70-110)
[2019-02-21 03:06] LABS: Bedside Glucose 223 mg/dL (70-110)
--- NOTE | 2019-02-21 05:44 | NURSING ---
Pt refusing to taken any of his medication states, hasn't eaten anything in the last two days. Pt was offered different things to eat pt only wanted tapioca pudding. He ate all the tapioca pudding offered more to eat and he refused. Educated on the importance of taken his medication pt continue to refuse. Rn made aware. Will try again later.
[2019-02-21] MEDS: Pantoprazole Sodium 40 MG Tablet PO (06:49)
[2019-02-21] MEDS: Magnesium Oxide 400 MG Tablet PO (06:49)
[2019-02-21] MEDS: Labetalol 200 MG Tablet PO (06:49)
[2019-02-21] MEDS: Tacrolimus Anhydrous 1 MG Capsule 3 MG PO (06:49)
[2019-02-21] MEDS: Mycophenolate Mofetil 250 MG Capsule 500 MG PO (06:49)
[2019-02-21] MEDS: Acetaminophen 500 MG Tablet 1000 MG PO ×2 (06:50→11:34)
[2019-02-21] MEDS: Enoxaparin 30 MG/0.3 ML Syringe SC (06:53)
[2019-02-21 07:15] LABS: Bedside Glucose 331 mg/dL (70-110)
--- NOTE | 2019-02-21 08:37 | DCINST_ITS ---
You will use the following diet at home:: No restrictions, Regular Your food should be the consistency of: Regular Your liquids should be the consistency of: Regular/Thin Discharge Activity: Return to Normal Activity, May Shower, Use Walker Weight Bearing Status: Weight bearing as tolerated Call your doctor if you observe: Fever of 101 or Higher, Inability to urinate, Inability to have a bowel movement, Shortness of breath, Chest pain, Uncontrolled pain Allergies/Adverse Reactions: Allergies oxycodone HCl [From Percocet] Adverse Reaction (Verified 01/28/19 22:33) TOO MUCH CAUSES HALLUCINATIONS TOO MUCH Medications to take at Discharge Labetalol [Trandate (Beta Lisa)] 200 mg PO BID 12/19/13 Pantoprazole Sodium [Protonix] 40 mg PO DAILY 12/19/13 predniSONE tablet 5 mg PO DAILY 12/19/13 Cholecalciferol (VIT D3) [Vitamin D3] 1,000 unit PO DAILY 12/09/15 amlodipine 10 mg tablet 10 mg PO QHS 12/02/17 magnesium oxide 400 mg (241.3 mg magnesium) tablet 400 mg PO BID tab 12/02/17 mycophenolate mofetil 250 mg capsule 500 mg PO BID cap 12/02/17 sulfamethoxazole 400 mg-trimethoprim 80 mg tablet 1 tab PO QDAY 12/02/17 tacrolimus 1 mg capsule 3 mg PO BID cap 12/02/17 Melatonin 3 mg PO QHS PRN PRN tablet 11/30/18 Acetaminophen [Tylenol] 1,000 mg PO Q6H PRN tablet 12/09/18 Aspirin [Aspirin, Baby] 81 mg PO DAILY@0800 #0 01/31/19 Mineral Oil/Petrolatum,White [Eucerin] 1 applic TOPICAL 0600,2200 01/31/19 Insulin Lispro [Humalog KwikPen] 20 unit SUBCUT TIDCM #1 insuln.pen 02/21/19 Iron Polysaccharide Complex [Ferrex 150] 150 mg PO BIDCM #60 cap 02/21/19 Mirtazapine [Remeron] 7.5 mg PO QHS #30 tab 02/21/19 Polyethylene Glycol 3350 [Miralax] 17 gm PO DAILY PRN #30 packet 02/21/19 traMADol [Ultram] 50 mg PO BID PRN #14 tab 02/21/19 The following prescriptions were given: Iron Polysaccharide Complex [Ferrex 150] 150 mg PO BIDCM #60 cap Prescription Printed Insulin Lispro [Humalog KwikPen] 20 unit SUBCUT TIDCM #1 insuln.pen Prescription Printed Polyethylene Glycol 3350 [Miralax] 17 gm PO DAILY PRN #30 packet PRN Reason: Constipation Prescription Printed Mirtazapine [Remeron] 7.5 mg PO QHS #30 tab Prescription Printed traMADol [Ultram] 50 mg PO BID PRN #14 tab PRN Reason: Severe Pain (6-05/12) Prescription Printed Primary Care Physician: Rojelio Lee DO [Primary Care Provider] - Please follow up with your Primary Care Physician in: 1 week. Test Results: Test results from this visit will be discussed in further detail at your follow- up appointment, if applicable. Please Follow Up With: Dr Woods When: 2 weeks. Please Follow Up With: Dr Bonilla When: 2 weeks. Please Follow Up With: Dr Holley When: 2 weeks. Proposed Discharge Date: 02/21/19
--- NOTE | 2019-02-21 08:38 | PCM.DC.SUM ---
Discharge Date and Diagnosis Date of Admission: 01/31/19 Date of Discharge: 02/21/19 - Secondary Discharge Diagnosis Chronic Problems (Last Reviewed 01/31/19 @ 12:48 by Bryn Bonilla MD) Pulmonary hypertension (Chronic) Chronic pancreatitis (Chronic) GERD (gastroesophageal reflux disease) (Chronic) History of renal transplant (Chronic) Type 2 diabetes mellitus (Chronic) Chronic kidney disease, stage IV (severe) (Chronic) Chronic diastolic (congestive) heart failure (Chronic) Nonrheumatic pulmonary valve insufficiency (Chronic) Nonrheumatic tricuspid valve regurgitation (Chronic) Secondary pulmonary arterial hypertension (Chronic) Non-rheumatic aortic regurgitation (Chronic) Hypertension (Chronic) Hospital Course and Treatment Imaging Results: 01/31/19 21:00 Diet: Regular Diet Is pt able to select menu?: Yes Clinical Impression(s) from Imaging Studies Chest X-Ray 02/07/19 08:17 IMPRESSION: Blunting of the left costophrenic angle with mild increased markings at the left lung base suggestive of atelectasis. Electronically Signed: Bakari Draper, at 11:06 EDT , Service support , Labs (Last 48 Hours) 02/19/19 02/19/19 02/19/19 10:56 11:04 12:39 Glucose POC Glucose 428 H 437 H > 500 H* 02/19/19 02/19/19 02/19/19 14:50 16:06 16:58 Glucose POC Glucose 499 H* 482 H* > 500 H* 02/19/19 02/19/19 02/20/19 21:23 21:30 02:00 Glucose 631 H* POC Glucose > 500 H* 83 02/20/19 02/20/19 02/20/19 03:50 04:15 04:22 Glucose 97 POC Glucose 29 L* 132 H 02/20/19 02/20/19 02/20/19 06:58 08:39 10:47 Glucose POC Glucose 244 H 292 H 402 H 02/20/19 02/20/19 02/21/19 16:56 21:26 02:07 Glucose POC Glucose 140 H 139 H 204 H 02/21/19 02/21/19 02:59 06:45 Glucose POC Glucose 223 H 331 H Operations: None Procedures: None Summary of Care Provided: The patient is a 69 year old Male with below past medical history hospitalized for right hip fracture, underwent right direct anterior hip hemiarthroplasty 01/29/[address] Holley, admitted to TCU with debility, here for rehabilitation, strengthening, prior to discharge home with spouse. On TCU, blood glucose difficult to manage, resident brittle diabetic. Discharge home with hospice. - Physical Exam Vital Signs Temp Pulse Resp BP Pulse Ox 97.6 F L 66 17 111/62 97 02/20/19 15:42 02/20/19 15:42 02/20/19 15:42 02/20/19 15:42 02/20/19 15:42 Oxygen Delivery Method Room Air Weight: 60.073 kg Body Mass Index (BMI) 19.2 Finger Stick Blood Glucose 60 Intake and Output for Last 24 Hours 02/19/19 02/20/19 02/21/19 23:59 23:59 23:59 Intake Total 660 / 660 480 / 480 60 / 60 Balance 660 / 660 480 / 480 60 / 60 POC Glucose 02/21/19 02/21/19 02/21/19 06:45 02:59 02:07 POC Glucose 331 H 223 H 204 H 02/20/19 02/20/19 02/20/19 21:26 16:56 10:47 POC Glucose 139 H 140 H 402 H 02/20/19 08:39 POC Glucose 292 H Discharge Diet: No Restrictions Discharge Activity: Return to Normal Activity, May Shower, Use Walker Weight Bearing Status: Weight bearing as tolerated Call your doctor if you observe: Fever of 101 or Higher, Inability to urinate, Inability to have a bowel movement, Shortness of breath, Chest pain, Uncontrolled pain Home Medications: Medications to take at Discharge Labetalol [Trandate (Beta Lisa)] 200 mg PO BID 12/19/13 Pantoprazole Sodium [Protonix] 40 mg PO DAILY 12/19/13 predniSONE tablet 5 mg PO DAILY 12/19/13 Cholecalciferol (VIT D3) [Vitamin D3] 1,000 unit PO DAILY 12/09/15 amlodipine 10 mg tablet 10 mg PO QHS 12/02/17 magnesium oxide 400 mg (241.3 mg magnesium) tablet 400 mg PO BID tab 05/02/18 mycophenolate mofetil 250 mg capsule 500 mg PO BID cap 12/02/17 sulfamethoxazole 400 mg-trimethoprim 80 mg tablet 1 tab PO QDAY 12/02/17 tacrolimus 1 mg capsule 3 mg PO BID cap 12/02/17 Melatonin 3 mg PO QHS PRN PRN tablet 11/30/18 Acetaminophen [Tylenol] 1,000 mg PO Q6H PRN tablet 12/09/18 Aspirin [Aspirin, Baby] 81 mg PO DAILY@0800 #0 01/31/19 Mineral Oil/Petrolatum,White [Eucerin] 1 applic TOPICAL 0600,2200 01/31/19 Insulin Lispro [Humalog KwikPen] 20 unit SUBCUT TIDCM #1 insuln.pen 02/21/19 Iron Polysaccharide Complex [Ferrex 150] 150 mg PO BIDCM #60 cap 02/21/19 Mirtazapine [Remeron] 7.5 mg PO QHS #30 tab 02/21/19 Polyethylene Glycol 3350 [Miralax] 17 gm PO DAILY PRN #30 packet 02/21/19 traMADol [Ultram] 50 mg PO BID PRN #14 tab 02/21/19 Following Prescrptions Were Given to Patient: Iron Polysaccharide Complex [Ferrex 150] 150 mg PO BIDCM #60 cap Prescription Printed Insulin Lispro [Humalog KwikPen] 20 unit SUBCUT TIDCM #1 insuln.pen Prescription Printed Polyethylene Glycol 3350 [Miralax] 17 gm PO DAILY PRN #30 packet PRN Reason: Constipation Prescription Printed Mirtazapine [Remeron] 7.5 mg PO QHS #30 tab Prescription Printed traMADol [Ultram] 50 mg PO BID PRN #14 tab PRN Reason: Severe Pain (6-10/10) Prescription Printed Primary Care Physician: Rojelio Lee DO [Primary Care Provider] - Please follow up with your Primary Care Physician in: 1 week. Please Follow Up With: Dr Woods When: 2 weeks. Please Follow Up With: Dr Bonilla When: 2 weeks. Please Follow Up With: Dr Holley When: 2 weeks. Disposition: Home with Hospice Minutes spent on discharge:: 30 Patient Condition:: Guarded Medical Necessity - Tobacco Use Smoking Status: Former smoker Tobacco Use: Cigars Meaningful Use Info Meaningful Use Diagnoses (Choose all that apply): None applicable
[2019-02-21] MEDS: Insulin Lispro 100 UNIT/ML INSULN.PEN 20 UNIT SC ×2 (08:52→11:34)
[2019-02-21] MEDS: Iron Polysaccharide Complex 150 MG CAPSULE PO (08:56)
[2019-02-21] MEDS: predniSONE 5 MG Tablet PO (08:56)
[2019-02-21] MEDS: Smz/Tmp Ds Tablet 0.5 TABLET PO (08:59)
[2019-02-21 10:05] VITALS: PULSE 71; RESP 18; O2SAT 94
[2019-02-21 10:46] LABS: Bedside Glucose 321 mg/dL (70-110)
--- NOTE | 2019-02-22 09:25 | CASEMGMT ---
Insurance notified insurance of d/c home with hospice on 02/21/19. Auth # [id number] ELIZABETH Russo
== END 2019-02-21 14:30 | disposition hospice, home (50) | DRG 560 ==
PROVIDERS: Admitting Provider Family Medicine Geriatric Medicine; Family Provider Student in an Organized Health Care Education/Training Program; PCP Student in an Organized Health Care Education/Training Program; Referring Provider Family Medicine Geriatric Medicine; Visit Provider Family Medicine Geriatric Medicine
DX: S72.001D Fracture of unspecified part of neck of right femur, subsequent encounter for closed fracture with routine healing (principal); I50.32 Chronic diastolic (congestive) heart failure; I13.0 Hypertensive heart and chronic kidney disease with heart failure and stage 1 through stage 4 chronic kidney disease, or unspecified chronic kidney disease; N18.4 Chronic kidney disease, stage 4 (severe); K86.1 Other chronic pancreatitis; Z94.0 Kidney transplant status; W01.0XXD Fall on same level from slipping, tripping and stumbling without subsequent striking against object, subsequent encounter; K21.9 Gastro-esophageal reflux disease without esophagitis; E11.22 Type 2 diabetes mellitus with diabetic chronic kidney disease; D63.1 Anemia in chronic kidney disease; E20.8 Other hypoparathyroidism; Z87.891 Personal history of nicotine dependence; D50.9 Iron deficiency anemia, unspecified; E55.9 Vitamin D deficiency, unspecified
CPT/HCPCS: 36415; 71046; 80048; 82947; 82962; 85025; 93971; 97110; 97116; 97162; 97165; 97530; 97535; 97802; J7030; J1610

== ENCOUNTER 2019-02-21 18:14 | Inpatient (IN) | payer MEDICARE, SELFPAY ==
[2019-01-31 20:39] VITALS: BMI 19.2
[2019-02-21] VITALS (11 sets, daily range): BP systolic 110–178; BP diastolic 62–84; PULSE 59–74; RESP 16–18; TEMP 36.2–36.5; O2SAT 94–100; BMI 18.5; BMI 17.1
[2019-02-21 18:26] LABS: Bedside Glucose 213 mg/dL (70-110)
[2019-02-21 18:51] LABS: Absolute Lymphocyte Count 0.56 X10^3/uL (0.83-4.51); Eosinophil# 0.01 X10^3/uL; Eosinophils% 0.3 % (0-5); Hematocrit 36.9 % (40-54); Hemoglobin 12.8 g/dL (13.0-16.5); Lymphocyte # 0.56 X10^3/ul (4.0); Lymphocyte % 15.2 % (19-41); Mean Corp Hgb Conc 34.7 g/dL (32-36); Mean Corpuscular Hgb 31.8 pg (27.0-32.0); Mean Corpuscular Volume 91.8 fL (80-94); Mean Platelet Vol. 10.7 fl (6.2-12.0); Monocyte# 0.23 X10^3/uL; Monocyte% 6.3 % (0-10); NRBC Flagged by Analyzer 0 % (0-5); Neutrophil # 2.85 X10^3/uL (2.7-7.7); Neutrophil % 77.4 % (47-70); POSITIVE DIFFERENTIAL YES; Platelet Count 219 K/mm3 (150-450); RBC Distribution Width CV 13.7 % (11.6-14.6); RBC Distribution Width SD 46.4 fl (35.1-43.9); Red Blood Count 4.02 M/mm3 (4.6-6.2); White Blood Count 3.7 K/mm3 (4.4-11.0)
[2019-02-21] MEDS: Dextrose 10%-Water 250 ML 100 ML IV (18:55)
[2019-02-21] MEDS: Dextrose 50%-Water 25 GM/50 ML DISP.SYRIN IV ×4 (18:55→23:08)
[2019-02-21 18:56] LABS: Bedside Glucose 53 mg/dL (70-110)
[2019-02-21 19:06] LABS: Differential Indicated SCAN CRITERIA MET
[2019-02-21 19:12] LABS: Anion Gap 10 (5-15); BUN 22 mg/dL (7-18); BUN/Creat Ratio 12.2 RATIO (10-20); Calcium,Total 9.2 mg/dL (8.5-10.1); Chloride 109 mmol/L (98-107); Creatinine, Serum 1.81 mg/dL (0.70-1.30); EST Glomerular Filtration Rate 40 mL/min (>60); Est Glom Filt Rate - Afr Amer 48 mL/min (>60); Estimated Creatinine Clearance 35.63 ml/min; Glucose 9 mg/dL (74-106); Potassium 3.5 mmol/L (3.5-5.1); Sodium Level 140 mmol/L (136-145)
[2019-02-21 19:26] LABS: Bedside Glucose 87 mg/dL (70-110)
--- NOTE | 2019-02-21 19:36 | CM.ED ---
Social Work Consult: Hospice Informant: Dr. Whitaker Met with patient spouse, Rufina in [facility]. Per Rufina patient was on the way to the Inpatient Hospice unit when patient blood sugar dropped and then the ambulance brought patient to the ER. Rufina stating that patient wishes to be a full code. This forensic social worker inquiring as to when patient wishes changed as patient was receiving hospice services. Per Rufina patient has always wanted everything done to keep patient alive. Spoke with hospice nurseAndrew. Andrew confirming to have spoken with patient earlier today and patient wishes to be a full code. This forensic social worker able to meet with patient in room, patient coherent and stating to want to be a full code, to have everything done and wants to live. This forensic social worker spending significant amount of time communicating Full Code vs. DNR to Rufina. Rufina thanking this forensic social worker for time and aware of possible further decisions that Rufina will need to make. Rufina stating to be Health Care Power of Crib Clerk and that when patient made Living Will that patient wishes were to have everything done to keep patient alive accept a tube down the throat. Patient and Rufina meeting with hospice nurseAndrew and revoking hospice services at this time. Support provided. Collaborating with Interdisciplinary Team, this forensic social worker communicating above information. Jhoana Savage MSW, CHRISTY
[2019-02-21 19:45] LABS: Anisocytosis RARE; Macrocytosis RARE; Platelet Estimate ADEQUATE (ADEQ)
--- NOTE | 2019-02-21 20:30 | ED.RN ---
RN NOTIFIED OF GLUCOSE RESULT.
[2019-02-21 20:31] LABS: Bedside Glucose 34 mg/dL (70-110)
--- NOTE | 2019-02-21 21:22 | ED.VISSUMM ---
- ER Visit Summary Date of Service: 02/21/19 Chief Complaint: Hypoglycemia History of Present Illness: The patient is a 69 M who presents with hypoglycemia. He was recently admitted to the TCU after surgery on his hip at the end of January. He was discharged home today. The initial story was confusing. It sounds like the patient was supposed to be transported to hospice, but on further discussion with the family, he is full code. He was found to be hypoglycemic when he got home. He had an altered mental status. It was clarified with the family that he is full code, and he was transported by EMS to the ED. Patient arrives with an altered mental status. He is breathing spontaneously, but not making any purposeful movements. Physical Examination: Afebrile and vital signs unremarkable. Patient is not responding to any stimuli. He is breathing. Lungs are clear. Heart regular. Test Results: White count 3.7, hematoma 12.8, glucose 9, BUN 22, creatinine 1.81. Emergency Department Course and Treatment: Patient was treated with D50 and D10. His mental status improved. Patient had subsequent recurrent hypoglycemia and required additional dextrose. He will need inpatient care for hypoglycemia. He was able to eat and seems to be doing better. Hospitalist was contacted for further care. Treatment Plan: As above Disposition: PCU Impression: 1. Hypoglycemia This note was generated with [employer] dictation software. It may contain incorrect words, spelling, and punctuation that were not noted in review of the chart prior to signing ED Disposition - Plan for ED Patient: Referrals: Rojelio Lee DO [Primary Care Provider] -
[2019-02-21 21:46] LABS: Bedside Glucose 73 mg/dL (70-110)
--- NOTE | 2019-02-21 22:50 | HP.PCM_ITS ---
Problem List (1) Fracture of femoral neck, right Status: Acute (2) Pulmonary hypertension Status: Chronic (3) GERD (gastroesophageal reflux disease) Status: Chronic (4) History of renal transplant Status: Chronic (5) Type 2 diabetes mellitus Status: Chronic (6) Chronic kidney disease, stage IV (severe) Status: Chronic (7) Chronic diastolic (congestive) heart failure Status: Chronic (8) Hypertension Status: Chronic Qualifiers: History of Present Illness Date of Admission: 02/21/19 Chief Complaint: Hypoglycemia The patient is a 69 year old M with PMH as below who presents after going home today from transitional care unit. He was dropped off on hospice and was found to have a blood sugar of 27 that eventually went to 9 after he was given 20 units of insulin. This happened on occasion with him because he has an intermittent diet, sometimes he eats well and sometimes he does not. He was discharged from the TCU after having his second hip fracture repaired in the last 3 months. He initially went home on hospice but there appears to be some confusion as to what hospice entails because he was on hospice while being a f ull code. Initially the squad was called to transport the patient to inpatient hospice however since they saw that he was a full code they were mandated to bring him here to the hospital. At this point hospice was revoked and I was called for admission. He has had declining health over the last 3 months and does not have much in terms of quality of life and he is not nearly back to his baseline prior to his first hip fracture in November. I had a long discussion with the patient and he maintains that he would like to at least continue with physical therapy on an inpatient basis if possible. In the ER his lab work was unremarkable except for glucose of 9, his creatinine of 1.81 is at baseline. He has chronic bilateral lower extremity edema and otherwise is in his usual health. Past Medical History Past Medical History (Chronic Problems): Chronic Problems (Last Reviewed 01/31/19 @ 12:48 by Bryn Bonilla MD) Pulmonary hypertension (Chronic) Chronic pancreatitis (Chronic) GERD (gastroesophageal reflux disease) (Chronic) History of renal transplant (Chronic) Type 2 diabetes mellitus (Chronic) Chronic kidney disease, stage IV (severe) (Chronic) Chronic diastolic (congestive) heart failure (Chronic) Nonrheumatic pulmonary valve insufficiency (Chronic) Nonrheumatic tricuspid valve regurgitation (Chronic) Secondary pulmonary arterial hypertension (Chronic) Non-rheumatic aortic regurgitation (Chronic) Hypertension (Chronic) Medical History: Medical History (Last Reviewed 01/31/19 @ 12:48 by Bryn Bonilla MD) Chronic diastolic (congestive) heart failure (Chronic) I50.32 Nonrheumatic pulmonary valve insufficiency (Chronic) I37.1 Nonrheumatic tricuspid valve regurgitation (Chronic) I36.1 Secondary pulmonary arterial hypertension (Chronic) I27.21 Non-rheumatic aortic regurgitation (Chronic) I35.1 Hypertension (Chronic) I10 Anemia in chronic kidney disease N18.9, D63.1 Chronic pancreatitis K86.1 Secondary hypoparathyroidism E20.8 Type 2 diabetes mellitus E11.9 Dx : 20+ years ago Last exacerbation : DKA : never Hypoglycemic episode : 04/20 ER visit : 04/20 Allergies oxycodone HCl [From Percocet] Adverse Reaction (Verified 01/28/19 22:33) TOO MUCH CAUSES HALLUCINATIONS TOO MUCH Home Medications: Ambulatory Orders Medication Instructions Recorded Labetalol [Trandate (Beta Lisa)] 200 mg PO BID 12/19/13 Pantoprazole Sodium [Protonix] 40 mg PO DAILY 12/19/13 predniSONE tablet 5 mg PO DAILY 12/19/13 Cholecalciferol (VIT D3) [Vitamin 1,000 unit PO DAILY 12/09/15 D3] amlodipine 10 mg tablet 10 mg PO QHS 12/02/17 magnesium oxide 400 mg (241.3 mg 400 mg PO BID tab 12/02/17 magnesium) tablet mycophenolate mofetil 250 mg 500 mg PO BID cap 12/02/17 capsule sulfamethoxazole 400 1 tab PO QDAY 12/02/17 mg-trimethoprim 80 mg tablet tacrolimus 1 mg capsule 3 mg PO BID cap 12/02/17 Melatonin 3 mg PO QHS PRN PRN tablet 11/30/18 Acetaminophen [Tylenol] 1,000 mg PO Q6H PRN tablet 12/09/18 Aspirin [Aspirin, Baby] 81 mg PO DAILY@0800 #0 01/31/19 Mineral Oil/Petrolatum,White 1 applic TOPICAL 0600,2200 01/31/19 [Eucerin] Insulin Lispro [Humalog KwikPen] 20 unit SUBCUT TIDCM #1 insuln.pen 02/21/19 Iron Polysaccharide Complex 150 mg PO BIDCM #60 cap 02/21/19 [Ferrex 150] Mirtazapine [Remeron] 7.5 mg PO QHS #30 tab 02/21/19 Polyethylene Glycol 3350 [Miralax] 17 gm PO DAILY PRN #30 packet 02/21/19 traMADol [Ultram] 50 mg PO BID PRN #14 tab 02/21/19 Surgical History: Surgical History (Last Reviewed 01/31/19 @ 12:48 by Bryn Bonilla MD) Hx of cholecystectomy Z90.49 Kidney replaced by transplant Onset Date: ~10/15/11 Z94.0 Right Surgical History: cholecystectomy, total hip arthroplasty - Bilateral., - - Kidney transplant, sphincterotomy, left wrist fusion Psychiatric History: No pertinent psych hx Smoking Status: Current every day smoker Tobacco Use: Cigarettes Alcohol: None Drugs: None - *Family History Maternal History Items: No pertinent history Paternal History Items: No pertinent history Sibling History Items: Cancer - Throat Review of Systems Constitutional: Reports: Weakness. Denies: Chills, Fever, Weight Change HEENT: Denies: Head Aches, Sinus Congestion, Sinus Drainage Cardiovascular: Denies: Chest Pain, Palpitations Respiratory: Denies: Cough, Shortness of breath at rest, Sputum production Gastrointestinal: Denies: Abdominal Pain, Nausea, Vomiting Genitourinary: Denies: Dysuria Musculoskeletal: Reports: Joint Pain. Denies: Joint Tenderness Skin: Denies: Rash, Wounds Neurological: Denies: Numbness, Tingling, Focal weakness Psychiatric: Denies: Anxiety, Depression Endocrine: Reports: - - Hypoglycemia Hematologic/ Lymphatic: Denies: Easy Bruising, Easy Bleeding VTE Information - Inpt Only VTE Present on Admission: No - Physical Exam General: Alert, Oriented x3, Cooperative, No apparent distress, - - Currently eating a sandwich, cold and a little bit shaky HEENT: Atraumatic, PERRLA, EOMI, Normocephalic Oral: Dry Mucosa Neck: Supple, No JVD Lungs: Clear to auscultation, Normal air movement, No rhonchi, No wheeze, No rales, Diminished Cardiovascular: Regular rate, Regular Rhythm, Normal S1, Normal S2, No murmurs Abdomen: Soft, Non Tender, Non-Distended, No Hepato-splenomegaly Extremities: Capillary Refill Less than 3 Seconds, Edema - Bilateral 2+ pitting edema Skin: No rashes, No breakdown, Incision - Healing well Neurological: Sensory exam intact to light touch and pain, - - Strength is 4 out of 5 in all extremities Psych/Mental Status: Normal Affect, Appropriate Vital Signs Temp Pulse Resp BP Pulse Ox 97.2 F L 59 L 16 151/70 H 100 02/21/19 18:40 02/21/19 20:29 02/21/19 20:29 02/21/19 21:30 02/21/19 20:29 Oxygen Delivery Method Room Air Weight: 144 lb 2.917 oz Body Mass Index (BMI) 18.5 Finger Stick Blood Glucose 73 Laboratory Tests Past 24 Hrs 02/21/19 02/21/19 18:16 18:16 WBC 3.7 L RBC 4.02 L Hgb 12.8 L Hct 36.9 L MCV 91.8 MCH 31.8 MCHC 34.7 RDW Std Deviation 46.4 H RDW Coeff of Ashley 13.7 Plt Count 219 MPV 10.7 Immature Gran % (Auto) 0.800 Neut % (Auto) 77.4 H Lymph % (Auto) 15.2 L Chilton % (Auto) 6.3 Eos % (Auto) 0.3 Baso % (Auto) 0.0 Absolute Neuts (auto) Not Reportable Absolute Lymphs (auto) 0.56 L Absolute Nucleated RBC 0.00 Nucleated RBC % 0 Differential Comment SEE COMMENT Platelet Estimate ADEQUATE Anisocytosis RARE Macrocytosis RARE Sodium 140 Potassium 3.5 Chloride 109 H Carbon Dioxide 21.0 Anion Gap 10 BUN 22 H Creatinine 1.81 H Estim Creat Clear Calc 35.63 Est GFR (MDRD) Af Amer 48 L Est GFR (MDRD) Non-Af 40 L BUN/Creatinine Ratio 12.2 Glucose 9 L* Calcium 9.2 POC Glucose 02/21/19 02/21/19 02/21/19 21:30 20:23 19:20 POC Glucose 73 34 L* 87 02/21/19 02/21/19 18:48 18:20 POC Glucose 53 L 213 H Assessment/Plan All Active Problems (Last Reviewed 01/31/19 @ 12:48 by Bryn Bonilla MD) Fracture of femoral neck, right (Acute) 1. Hypoglycemia/IDDM 2 -He does have a history of insulin-dependent type 2 diabetes and was on 20 units of insulin 3 times a day with meals, he received this dosage and then his blood sugar dropped because he is inconsistent with his eating habits. -Blood sugar has since recovered with multiple interventions including turkey sandwich, and D5 IV fluid -We will monitor with Accu-Cheks -We will hold his insulin for now and monitoring his eating habits, will likely have to adjust his insulin 2. Recent bilateral hip fractures with weakness and inability to complete ADLs at home -Currently he has very limited at home and has difficulty ambulating with even a walker -We will continue with PT/OT to evaluate for discharge planning -They would like to go home if possible, I had a 30-minute discussion with the family on advanced care planning about what hospice entails and the fact that he had to be a DNR CC and what the differences between DNR CC, DNR CCA and being a full code. At this time they elect to stay a full code and to attempt further physical therapy at a [facility]. 3. Pancreatic insufficiency/GERD -Insufficiency is secondary to chronic pancreatitis -Continue with home Creon as well PPI 4. Renal failure status post renal transplant with CKD 4 -He has been on tacrolimus, mycophenolate, and prednisone -He is on half dose Bactrim for chronic prophylaxis 5. Hypertension/hyperlipidemia/chronic diastolic CHF -Blood pressure stable -Continue with Norvasc, aspirin, labetalol DVT: Lovenox Code Visit OBSV E&M: 15218 Initial observation care L3 Procedures: 94098 Advncd Care Plan 30 Min
--- NOTE | 2019-02-21 22:54 | ED.RN ---
HERNÁN ALMONTE NOTIFIED OF BS RESULT OF 45.
[2019-02-21 23:01] LABS: Bedside Glucose 45 mg/dL (70-110)
[2019-02-22 00:10] LABS: Bedside Glucose 159 mg/dL (70-110)
[2019-02-22 03:00] LABS: Bedside Glucose 177 mg/dL (70-110)
[2019-02-22 05:00] VITALS: BP 199/92; PULSE 98; RESP 18; TEMP 36.9; O2SAT 100
[2019-02-22 05:30] VITALS: BP 144/69; PULSE 84
[2019-02-22 05:32] LABS: Absolute Lymphocyte Count 0.61 X10^3/uL (0.83-4.51); Absolute Neutrophil Count 2.6 X10^3/uL (2.0-7.7); Hematocrit 27.8 % (40-54); Hemoglobin 9.8 g/dL (13.0-16.5); Lymphocyte # 0.61 X10^3/ul (4.0); Mean Corp Hgb Conc 35.3 g/dL (32-36); Mean Corpuscular Hgb 31.9 pg (27.0-32.0); Mean Corpuscular Volume 90.6 fL (80-94); Mean Platelet Vol. 10.8 fl (6.2-12.0); Monocyte# 0.37 X10^3/uL; Monocyte% 10.3 % (0-10); NRBC Flagged by Analyzer 0 % (0-5); Neutrophil # 2.57 X10^3/uL (2.7-7.7); Neutrophil % 71.6 % (47-70); Platelet Count 173 K/mm3 (150-450); RBC Distribution Width CV 14.1 % (11.6-14.6); RBC Distribution Width SD 46.3 fl (35.1-43.9); Red Blood Count 3.07 M/mm3 (4.6-6.2); White Blood Count 3.6 K/mm3 (4.4-11.0)
[2019-02-22] MEDS: Tacrolimus Anhydrous 1 MG Capsule 3 MG PO ×2 (05:54→22:12)
[2019-02-22] MEDS: Mycophenolate Mofetil 250 MG Capsule 500 MG PO ×2 (05:56→22:09)
[2019-02-22] MEDS: Smz/Tmp Ds Tablet 0.5 TABLET PO (05:58)
[2019-02-22] MEDS: Labetalol 200 MG Tablet PO ×2 (05:59→22:10)
[2019-02-22] MEDS: 0.9% NaCl Peripheral Flush Adult/Peds IV (06:00)
[2019-02-22 06:23] LABS: Anion Gap 11 (5-15); BUN 19 mg/dL (7-18); BUN/Creat Ratio 12.5 RATIO (10-20); Calcium,Total 8.1 mg/dL (8.5-10.1); Chloride 110 mmol/L (98-107); Creatinine, Serum 1.52 mg/dL (0.70-1.30); EST Glomerular Filtration Rate 49 mL/min (>60); Est Glom Filt Rate - Afr Amer 59 mL/min (>60); Estimated Creatinine Clearance 39.25 ml/min; Glucose 233 mg/dL (74-106); Potassium 3.8 mmol/L (3.5-5.1); Sodium Level 139 mmol/L (136-145)
[2019-02-22 06:35] LABS: Bedside Glucose 232 mg/dL (70-110)
[2019-02-22 08:05] LABS: Hematocrit 29.4 % (40-54); Hemoglobin 10.3 g/dL (13.0-16.5)
[2019-02-22 08:10] LABS: Bedside Glucose < 10 mg/dL (70-110)
[2019-02-22 10:30] VITALS: BP 156/69; PULSE 69; RESP 16; TEMP 36.8; O2SAT 100
[2019-02-22] MEDS: Pantoprazole Sodium 40 MG Tablet PO (10:44)
[2019-02-22] MEDS: Aspirin 81 MG TAB.CHEW PO (10:44)
[2019-02-22] MEDS: Enoxaparin 40 MG/0.4 ML Syringe SC (10:44)
[2019-02-22] MEDS: Iron Polysaccharide Complex 150 MG CAPSULE PO ×2 (10:44→16:53)
[2019-02-22] MEDS: predniSONE 5 MG Tablet PO (10:44)
[2019-02-22 11:31] LABS: Bedside Glucose 452 mg/dL (70-110)
[2019-02-22 12:18] LABS: Glucose 458 mg/dL (74-106)
[2019-02-22 12:21] LABS: Bedside Glucose 498 mg/dL (70-110)
--- NOTE | 2019-02-22 12:36 | CASEMGMT ---
SW and physician sat down with patient's and discussed how they ended up at [facility] and the plan. Patient's said he was home and the Hospice nurse was there doing his evaluation. Patient's blood sugar dropped so Hospice nurse gave him insulin. His blood sugar then dropped really low. Hospice nurse was going to have patient sent to the inpatient Hospice unit to monitor him since his blood sugars fluctuate so much. Squad was called and on the way to the inpatient Hospice unit his blood sugars dropped to the 20's so the squad brought patient to [facility] ED. Physician was very clear and made sure patient's understands Hospice and at this time we feel she does understand. She said all of this happened so fast. Plan is to stabilize patient's blood sugars and develop an insulin plan that works better for patient. Then the plan is discharge home on Hospice. Monica HARRISON MSW
[2019-02-22] MEDS: Insulin Lispro 100 UNIT/ML INSULN.PEN SC ×3 (12:40→22:22)
[2019-02-22] MEDS: 0.9% Normal Saline 1,000 ML 100 ML IV ×2 (12:40→22:16)
[2019-02-22 12:53] LABS: Hemoglobin A1c 8.8 % (4.2-6.3)
[2019-02-22 13:23] LABS: Hematocrit 31.8 % (40-54); Hemoglobin 10.8 g/dL (13.0-16.5)
[2019-02-22 13:36] LABS: Bedside Glucose > 500 mg/dL (70-110)
--- NOTE | 2019-02-22 13:56 | PCM.PN.HOSP ---
Subjective: Patient seen and examined. Met with the at the bedside. She explained that he was discharged from [facility]CU on Thursday with hospice. The hospice nurse met them at home and checked his blood sugar and he was more than 450. He gave him 20 units of insulin. Patient started to look unwell soon after and when he rechecked the blood sugar, it was 70. Plan then was to transfer him to inpatient hospice. An ambulance was called and when the ambulance team got there, patient's blood sugar was 21. The decision was made to transfer the patient to the hospital. In the ED, his blood sugar was 9. He has been admitted, his blood sugar has steadily been improving. The plan is for discharge home with hospice after this hospital stay. Patient denied any new complaints. Denies any chest pain or dizziness or shortness of breath. Vitals/I&O's: Vital Signs Temp Pulse Resp BP Pulse Ox 98.2 F 69 16 156/69 H 100 02/22/19 10:30 02/22/19 10:30 02/22/19 10:30 02/22/19 10:30 02/22/19 10:30 Oxygen Delivery Method Room Air Weight: 60.5 kg Body Mass Index (BMI) 17.1 Finger Stick Blood Glucose 45 Intake and Output for Last 24 Hours 02/20/19 02/21/19 02/22/19 23:59 23:59 23:59 Intake Total 367.7 / 367.7 Output Total 175 / 175 Balance 192.7 / 192.7 General: Alert, Oriented x3, Cooperative, No apparent distress, - - appears chronically unwell HEENT: Atraumatic, PERRLA, EOMI, Normocephalic Oral: Moist Mucosa Neck: Supple Lungs: Clear to auscultation, Normal air movement Cardiovascular: Regular rate, Regular Rhythm, Normal S1, Normal S2, No murmurs Abdomen: Bowel Sounds Present, Soft, Non Tender, Non-Distended, No Hepato-splenomegaly Extremities: No edema Skin: No rashes, No breakdown Musculoskeletal: No Tenderness to Palpation of Joints or Extremities Lymphatic: No Cervical, Supraclavicular, or Inguinal Adenopathy Neurological: Cranial nerves II-XII grossly intact, Neuro grossly intact Psych/Mental Status: Normal Affect, Appropriate Laboratory Results 02/21/19 18:15: POC Glucose < 10 L* 02/21/19 18:16: WBC 3.7 L, RBC 4.02 L, Hgb 12.8 L, Hct 36.9 L, MCV 91.8, MCH 31.8, MCHC 34.7, RDW Std Deviation 46.4 H, RDW Coeff of Ashley 13.7, Plt Count 219, MPV 10.7, Immature Gran % (Auto) 0.800, Neut % (Auto) 77.4 H, Lymph % (Auto) 15.2 L, Donley % (Auto) 6.3, Eos % (Auto) 0.3, Baso % (Auto) 0.0, Absolute Neuts (auto) Not Reportable, Absolute Lymphs (auto) 0.56 L, Absolute Nucleated RBC 0.00, Nucleated RBC % 0, Differential Comment SEE COMMENT, Platelet Estimate ADEQUATE, Anisocytosis RARE, Macrocytosis RARE 02/21/19 18:16: Sodium 140, Potassium 3.5, Chloride 109 H, Carbon Dioxide 21.0, Anion Gap 10, BUN 22 H, Creatinine 1.81 H, Estim Creat Clear Calc 35.63, Est GFR (MDRD) Af Amer 48 L, Est GFR (MDRD) Non-Af 40 L, BUN/Creatinine Ratio 12.2, Glucose 9 L*, Calcium 9.2 02/21/19 18:20: POC Glucose 213 H 02/21/19 18:48: POC Glucose 53 L 02/21/19 19:20: POC Glucose 87 02/21/19 20:23: POC Glucose 34 L* 02/21/19 21:30: POC Glucose 73 02/21/19 22:51: POC Glucose 45 L 02/22/19 00:06: POC Glucose 159 H 02/22/19 02:57: POC Glucose 177 H 02/22/19 04:48: WBC 3.6 L, RBC 3.07 L, Hgb 9.8 L, Hct 27.8 L, MCV 90.6, MCH 31.9, MCHC 35.3, RDW Std Deviation 46.3 H, RDW Coeff of Ashley 14.1, Plt Count 173, MPV 10.8, Immature Gran % (Auto) 1.100 H, Neut % (Auto) 71.6 H, Lymph % (Auto) 17.0 L, Donley % (Auto) 10.3 H, Eos % (Auto) 0.0, Baso % (Auto) 0.0, Absolute Neuts (auto) 2.6, Absolute Lymphs (auto) 0.61 L, Absolute Nucleated RBC 0.00, Nucleated RBC % 0 02/22/19 04:48: Sodium 139, Potassium 3.8, Chloride 110 H, Carbon Dioxide 18.0 L, Anion Gap 11, BUN 19 H, Creatinine 1.52 H, Estim Creat Clear Calc 39.25, Est GFR (MDRD) Af Amer 59 L, Est GFR (MDRD) Non-Af 49 L, BUN/Creatinine Ratio 12.5, Glucose 233 H, Calcium 8.1 L 02/22/19 04:48: Hemoglobin A1c 8.8 H 02/22/19 06:06: POC Glucose 232 H 02/22/19 07:40: Hgb 10.3 L, Hct 29.4 L 02/22/19 11:22: POC Glucose 452 H* 02/22/19 11:38: Glucose 458 H* 02/22/19 12:14: POC Glucose 498 H* 02/22/19 13:15: Hgb 10.8 L, Hct 31.8 L 02/22/19 13:28: POC Glucose > 500 H* Current Medications Acetaminophen (Tylenol) 1,000 mg PO TID [facility] Amlodipine Besylate (Norvasc) 10 mg PO QHS [facility] Aspirin (Aspirin, Baby) 81 mg PO DAILY@0800 [facility] Last Admin: 02/22/19 10:44 Dose: 81 mg Documented by: Cholecalciferol (Vitamin D) 1,000 unit PO DAILY [facility] Last Admin: 02/22/19 10:44 Dose: 1,000 unit Documented by: Dextrose (D50w Syringe) 0 gm IV X1 PRN; Protocol PRN Reason: Hypoglycemia Enoxaparin Sodium (Lovenox) 40 mg SC DAILY@1000 [facility] Last Admin: 02/22/19 10:44 Dose: 40 mg Documented by: Glucagon () 1 mg IM .X1 PRN PRN Reason: Hypoglycemia Sodium Chloride () 1,000 mls @ 100 mls/hr IV .Q10H [facility] Last Admin: 02/22/19 12:40 Dose: 100 mls/hr Documented by: Insulin Human Lispro (Humalog Raz (Bkc)) 10 unit SC X1 ONE Stop: 02/22/19 13:45 Labetalol HCl (Trandate) 200 mg PO BID [facility] Last Admin: 02/22/19 05:59 Dose: 200 mg Documented by: Melatonin (Melatonin) 3 mg PO QHS PRN PRN PRN Reason: INSOMNIA Mirtazapine (Remeron) 7.5 mg PO QHS [facility] Mycophenolate Mofetil (Cellcept) 500 mg PO BID [facility] Last Admin: 02/22/19 05:56 Dose: 500 mg Documented by: Pantoprazole Sodium (Protonix) 40 mg PO DAILY [facility] Last Admin: 02/22/19 10:44 Dose: 40 mg Documented by: Polyethylene Glycol (Miralax) 17 gm PO DAILY PRN PRN Reason: Constipation Polysaccharide Iron Complex (Ferrex 150) [facility] Last Admin: 02/22/19 10:44 Dose: 150 mg Documented by: Prednisone () [facility] Last Admin: 02/22/19 10:44 Dose: 5 mg Documented by: Sodium Chloride () 10 - 40 ml IV UD PRN PRN Reason: SALINE FLUSH Last Admin: 02/22/19 06:00 Dose: 10 ml Documented by: Tacrolimus (Prograf) 3 mg PO BID [facility] Last Admin: 02/22/19 05:54 Dose: 3 mg Documented by: Tramadol HCl (Ultram) 50 mg PO BID PRN PRN PRN Reason: SEVERE PAIN (6-10/10) Trimethoprim/Sulfamethoxazole (Bactrim Ds) 0.5 tablet [facility] Last Admin: 02/22/19 05:58 Dose: 0.5 tablet Documented by: Medical Necessity - Tobacco Use Smoking Status: Former smoker Tobacco Use: Cigarettes Assessment/Plan All Active Problems (Last Reviewed 01/31/19 @ 12:48 by Bryn Bonilla MD) Fracture of femoral neck, right (Acute) 69-year-old male with past medical history of kidney transplant, on immunosuppressants, type II DM on insulin, history of recent bilateral hip fractures, who was discharged from [facility] home with hospice 2 days ago and is being admitted with hypoglycemia. 1. Brittle diabetes, blood sugars have been fluctuating, between hypoglycemia on admission to hypoglycemia, HgbA1c is 8.8, will continue to monitor patient's blood sugar and add insulin sliding scale with Lantus 5 units at night 2. Recent bilateral hip fractures with debility, PT/OT to evaluate and treat 3. Chronic pancreatitis, continue on Creon 4. CKD stage 3, history of renal transplant, continue on tacrolimus, mycophenolate, prednisone 5. Hypertension, controlled, continue home medication 6. Chronic diastolic CHF, no signs of acute exacerbation 7. DVT prophylaxis with no subcu Code Visit Inpatient E&M: 62086 Subs Hosp L3
[2019-02-22] MEDS: Acetaminophen 500 MG Tablet 1000 MG PO ×2 (14:13→22:21)
[2019-02-22] MEDS: Insulin Lispro 100 UNIT/ML INSULN.PEN 10 UNIT SC (15:08)
--- NOTE | 2019-02-22 15:19 | CASEMGMT ---
CHARLIE called Hospice and spoke with Renae. SW let her know the plan. SW to follow for d/c home with Hospice. Monica HARRISON MSW
[2019-02-22 16:30] VITALS: BP 150/72; PULSE 83; RESP 18; TEMP 36.7; O2SAT 98
[2019-02-22 16:56] LABS: Bedside Glucose 454 mg/dL (70-110)
--- NOTE | 2019-02-22 17:59 | NURSING ---
Patient declined check of blood sugar - technically not ordered to be checked until HS.
[2019-02-22 20:19] LABS: Hematocrit 31.2 % (40-54); Hemoglobin 10.6 g/dL (13.0-16.5)
[2019-02-22] MEDS: amLODIPine 10 MG Tablet PO (22:11)
[2019-02-22] MEDS: Mirtazapine 15 MG Tablet 7.5 MG PO (22:11)
[2019-02-22 22:15] VITALS: BP 162/78; PULSE 86; RESP 16; TEMP 37; O2SAT 96
[2019-02-22 22:55] LABS: Bedside Glucose 295 mg/dL (70-110)
[2019-02-23 04:20] VITALS: BP 153/67; PULSE 79; RESP 16; TEMP 36.9; O2SAT 100
[2019-02-23] MEDS: Acetaminophen 500 MG Tablet 1000 MG PO ×3 (05:03→21:44)
[2019-02-23 06:20] LABS: Anion Gap 9 (5-15); BUN 21 mg/dL (7-18); BUN/Creat Ratio 13.5 RATIO (10-20); Calcium,Total 8.2 mg/dL (8.5-10.1); Chloride 112 mmol/L (98-107); Creatinine, Serum 1.55 mg/dL (0.70-1.30); EST Glomerular Filtration Rate 48 mL/min (>60); Est Glom Filt Rate - Afr Amer 57 mL/min (>60); Estimated Creatinine Clearance 38.49 ml/min; Glucose 380 mg/dL (74-106); Potassium 3.8 mmol/L (3.5-5.1); Sodium Level 139 mmol/L (136-145)
[2019-02-23] MEDS: Insulin Lispro 100 UNIT/ML INSULN.PEN SC ×5 (06:39→21:42)
[2019-02-23 06:45] LABS: Bedside Glucose 386 mg/dL (70-110)
[2019-02-23] MEDS: 0.9% Normal Saline 1,000 ML 100 ML IV (08:30)
[2019-02-23 09:00] VITALS: BP 159/59; PULSE 72; RESP 14; TEMP 36.8; O2SAT 97
[2019-02-23] MEDS: Smz/Tmp Ds Tablet 0.5 TABLET PO (09:10)
[2019-02-23] MEDS: Iron Polysaccharide Complex 150 MG CAPSULE PO ×2 (09:10→16:56)
[2019-02-23] MEDS: Aspirin 81 MG TAB.CHEW PO (09:10)
[2019-02-23] MEDS: predniSONE 5 MG Tablet PO (09:11)
[2019-02-23] MEDS: Mycophenolate Mofetil 250 MG Capsule 500 MG PO ×2 (09:11→21:38)
[2019-02-23] MEDS: Tacrolimus Anhydrous 1 MG Capsule 3 MG PO ×2 (09:12→21:43)
[2019-02-23] MEDS: Pantoprazole Sodium 40 MG Tablet PO (09:13)
--- NOTE | 2019-02-23 10:02 | CASEMGMT ---
Patient has a Healthcare POA and Healthcare LW on file at [facility]. 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
[2019-02-23] MEDS: Labetalol 200 MG Tablet PO ×2 (11:00→21:44)
[2019-02-23] MEDS: Enoxaparin 40 MG/0.4 ML Syringe SC (11:05)
[2019-02-23 11:31] LABS: Bedside Glucose 300 mg/dL (70-110)
--- NOTE | 2019-02-23 12:01 | CASEMGMT ---
Call to Renae at Hospice to obtain revokation form from hospice and per Renae, pt/ had never signed papers for hospice and therefore had not yet been admitted to hospice at the time that he was transported to [facility] ED. She is aware that family plans to go home again and would like to have hospice set up at that time. Charlee SW aware and will keep hospice abreast of pt discharge. Óscar JIM CM
--- NOTE | 2019-02-23 14:36 | PCM.PN.HOSP ---
Subjective: Patient was seen and examined. He feels well. He denied any new complains. BS are still not controlled; relatively high. Objective: Physical exam: General: Alert, Oriented x3, Cooperative, No apparent distress, - - appears chronically unwell HEENT: Atraumatic, PERRLA, EOMI, Normocephalic Oral: Moist Mucosa Neck: Supple Lungs: Clear to auscultation, Normal air movement Cardiovascular: Regular rate, Regular Rhythm, Normal S1, Normal S2, No murmurs Abdomen: Bowel Sounds Present, Soft, Non Tender, Non-Distended, No Hepato-splenomegaly Extremities: No edema Skin: No rashes, No breakdown Musculoskeletal: No Tenderness to Palpation of Joints or Extremities Lymphatic: No Cervical, Supraclavicular, or Inguinal Adenopathy Neurological: Cranial nerves II-XII grossly intact, Neuro grossly intact Psych/Mental Status: Normal Affect, Appropriate Vitals/I&O's: Vital Signs Temp Pulse Resp BP Pulse Ox 98.2 F 72 14 159/59 H 97 02/23/19 09:00 02/23/19 09:00 02/23/19 09:00 02/23/19 09:00 02/23/19 09:00 Oxygen Delivery Method Room Air Weight: 60.5 kg Body Mass Index (BMI) 17.1 Finger Stick Blood Glucose 45 Intake and Output for Last 24 Hours 02/21/19 02/22/19 02/23/19 23:59 23:59 23:59 Intake Total 1920.7 / 1920.7 1675 / 1675 Output Total 500 / 500 650 / 650 Balance 1420.7 / 1420.7 1025 / 1025 General: Alert, Oriented x3, Cooperative, No apparent distress HEENT: Atraumatic, PERRLA, EOMI, Normocephalic Oral: Moist Mucosa Neck: Supple Lungs: Clear to auscultation, Normal air movement Cardiovascular: Regular rate, Regular Rhythm, Normal S1, Normal S2, No murmurs Abdomen: Bowel Sounds Present, Soft, Non Tender, Non-Distended, No Hepato-splenomegaly Extremities: No edema Skin: No rashes Musculoskeletal: No Tenderness to Palpation of Joints or Extremities Lymphatic: No Cervical, Supraclavicular, or Inguinal Adenopathy Neurological: Cranial nerves II-XII grossly intact, Neuro grossly intact Psych/Mental Status: Normal Affect, Appropriate Laboratory Results 02/22/19 16:47: POC Glucose 454 H* 02/22/19 20:00: Hgb 10.6 L, Hct 31.2 L 02/22/19 22:05: POC Glucose 295 H 02/23/19 05:20: Sodium 139, Potassium 3.8, Chloride 112 H, Carbon Dioxide 18.0 L, Anion Gap 9, BUN 21 H, Creatinine 1.55 H, Estim Creat Clear Calc 38.49, Est GFR (MDRD) Af Amer 57 L, Est GFR (MDRD) Non-Af 48 L, BUN/Creatinine Ratio 13.5, Glucose 380 H, Calcium 8.2 L 02/23/19 06:37: POC Glucose 386 H 02/23/19 11:09: POC Glucose 300 H Current Medications Acetaminophen (Tylenol) 1,000 mg PO TID [facility] Last Admin: 02/23/19 05:03 Dose: 1,000 mg Documented by: Amlodipine Besylate (Norvasc) 10 mg PO QHS [facility] Last Admin: 02/22/19 22:11 Dose: 10 mg Documented by: Aspirin (Aspirin, Baby) 81 mg PO DAILY@0800 [facility] Last Admin: 02/23/19 09:10 Dose: 81 mg Documented by: Cholecalciferol (Vitamin D) 1,000 unit PO DAILY [facility] Last Admin: 02/23/19 09:13 Dose: 1,000 unit Documented by: Dextrose (D50w Syringe) 0 gm IV X1 PRN; Protocol PRN Reason: Hypoglycemia Enoxaparin Sodium (Lovenox) 40 mg SC DAILY@1000 [facility] Last Admin: 02/23/19 11:05 Dose: 40 mg Documented by: Glucagon () 1 mg IM .X1 PRN PRN Reason: Hypoglycemia Sodium Chloride () 1,000 mls @ 100 mls/hr IV .Q10H [facility] Last Admin: 02/23/19 08:30 Dose: 100 mls/hr Documented by: Insulin Glargine (Lantus (Bkc)) 10 units SC QHS [facility] Insulin Human Lispro (Humalog Kwikpen (Bkc)) 0 unit SC ACHS [facility]; Protocol Last Admin: 02/23/19 11:11 Dose: 3 units Documented by: Labetalol HCl (Trandate) 200 mg PO BID [facility] Last Admin: 02/23/19 11:00 Dose: 200 mg Documented by: Melatonin (Melatonin) 3 mg PO QHS PRN PRN PRN Reason: INSOMNIA Mirtazapine (Remeron) 7.5 mg PO QHS [facility] Last Admin: 02/22/19 22:11 Dose: 7.5 mg Documented by: Mycophenolate Mofetil (Cellcept) 500 mg PO BID [facility] Last Admin: 02/23/19 09:11 Dose: 500 mg Documented by: Nutritional Formula (Lactose Free) (Glucerna Shake) 120 ml PO 4X/DAY [facility] Last Admin: 02/23/19 10:59 Dose: Not Given Documented by: Pantoprazole Sodium (Protonix) 40 mg PO DAILY [facility] Last Admin: 02/23/19 09:13 Dose: 40 mg Documented by: Polyethylene Glycol (Miralax) 17 gm PO DAILY PRN PRN Reason: Constipation Polysaccharide Iron Complex (Ferrex 150) [facility] Last Admin: 02/23/19 09:10 Dose: 150 mg Documented by: Prednisone () 5 [facility] Last Admin: 02/23/19 09:11 Dose: 5 mg Documented by: Sodium Chloride () 10 - 40 ml IV UD PRN PRN Reason: SALINE FLUSH Last Admin: 02/22/19 06:00 Dose: 10 ml Documented by: Tacrolimus (Prograf) 3 mg PO BID [facility] Last Admin: 02/23/19 09:12 Dose: 3 mg Documented by: Tramadol HCl (Ultram) 50 mg PO BID PRN PRN PRN Reason: SEVERE PAIN (6-10/10) Trimethoprim/Sulfamethoxazole (Bactrim Ds) 0.5 tablet [facility] Last Admin: 02/23/19 09:10 Dose: 0.5 tablet Documented by: Medical Necessity - Tobacco Use Smoking Status: Former smoker Tobacco Use: Cigarettes Assessment/Plan All Active Problems (Last Reviewed 01/31/19 @ 12:48 by Bryn Bonilla MD) Fracture of femoral neck, right (Acute) 69-year-old male with past medical history of kidney transplant, on immunosuppressants, type II DM on insulin, history of recent bilateral hip fractures, who was discharged from [facility] home with hospice 2 days ago and is being admitted with hypoglycemia. 1. Brittle diabetes, blood sugars have been fluctuating, between hypoglycemia on admission to hyperglycemia, HgbA1c is 8.8, BS are better but still not controlled, will increase Lantus to 10 units QHS and add 2 unit Lispro premeal Trend BS. 2. Recent bilateral hip fractures with debility, PT/OT to evaluate and treat 3. Chronic pancreatitis, continue on Creon 4. CKD stage 3, history of renal transplant, continue on tacrolimus, mycophenolate, prednisone 5. Hypertension, controlled, continue home medication 6. Chronic diastolic CHF, no signs of acute exacerbation 7. DVT prophylaxis with no subcu Code Visit Inpatient E&M: 70013 Subs Hosp L2
[2019-02-23 15:00] VITALS: BP 134/57; PULSE 63; RESP 18; TEMP 36.6; O2SAT 100
[2019-02-23] MEDS: Glucerna Shake 120 ML LIQUID PO ×2 (15:21→16:56)
[2019-02-23 16:46] LABS: Bedside Glucose 471 mg/dL (70-110)
[2019-02-23 21:00] VITALS: BP 135/66; PULSE 69; RESP 18; TEMP 36.4; O2SAT 100
[2019-02-23] MEDS: amLODIPine 10 MG Tablet PO (21:43)
[2019-02-23] MEDS: Mirtazapine 15 MG Tablet 7.5 MG PO (21:44)
[2019-02-23 22:55] LABS: Bedside Glucose 321 mg/dL (70-110)
[2019-02-24 03:30] VITALS: BP 149/67; PULSE 70; RESP 18; TEMP 36.8; O2SAT 99
--- NOTE | 2019-02-24 03:35 | NURSING ---
VS late due to being in uncooperative patients room
[2019-02-24 06:55] LABS: Bedside Glucose 314 mg/dL (70-110)
--- NOTE | 2019-02-24 09:00 | NURSING ---
into room to take pt's bp, pt refused as he is eating breakfast and doesn't want bothered. will come back after breakfast.
--- NOTE | 2019-02-24 09:26 | PCM.PN.HOSP ---
Subjective: Patient was seen and examined. He feels improved. Blood sugars are still uncontrolled. He was a 3 person assist yesterday and is now a 2 person assist. Discussed with his who states that she is unable to take care of him alone if he is a 2 person assist. She is looking to see if she could get a family member. There was a discussion of may be, patient could go somewhere for couple of weeks pending patient getting stronger and eventually come in home with hospice. Patient at this time does not meet any qualification/criteria for inpatient hospice. He is certainly very weak but has no active medical problems going on except for blood sugars which now elevated. Discussed with patient's and social welfare clerk. Per social welfare clerk,documents will be resubmitted. Objective: Physical exam: General: Alert, Oriented x3, Cooperative, No apparent distress, - - appears chronically unwell HEENT: Atraumatic, PERRLA, EOMI, Normocephalic Oral: Moist Mucosa Neck: Supple Lungs: Clear to auscultation, Normal air movement Cardiovascular: Regular rate, Regular Rhythm, Normal S1, Normal S2, No murmurs Abdomen: Bowel Sounds Present, Soft, Non Tender, Non-Distended, No Hepato-splenomegaly Extremities: No edema Skin: No rashes, No breakdown Musculoskeletal: No Tenderness to Palpation of Joints or Extremities Lymphatic: No Cervical, Supraclavicular, or Inguinal Adenopathy Neurological: Cranial nerves II-XII grossly intact, Neuro grossly intact Psych/Mental Status: Normal Affect, Appropriate Vitals/I&O's: Vital Signs Temp Pulse Resp BP Pulse Ox 98.2 F 70 18 149/67 H 99 02/24/19 03:30 02/24/19 03:30 02/24/19 03:30 02/24/19 03:30 02/24/19 03:30 Oxygen Delivery Method Room Air Weight: 60.5 kg Body Mass Index (BMI) 17.1 Finger Stick Blood Glucose 45 Intake and Output for Last 24 Hours 02/22/19 02/23/19 02/24/19 23:59 23:59 23:59 Intake Total 1920.7 / 1920.7 2715 / 2715 0 / 0 Output Total 500 / 500 1190 / 1190 150 / 150 Balance 1420.7 / 1420.7 1525 / 1525 -150 / -150 Laboratory Results 02/23/19 11:09: POC Glucose 300 H 02/23/19 16:38: POC Glucose 471 H* 02/23/19 21:15: POC Glucose 321 H 02/24/19 06:45: POC Glucose 314 H Current Medications Acetaminophen (Tylenol) 1,000 mg PO TID [facility] Last Admin: 02/24/19 05:56 Dose: Not Given Documented by: Amlodipine Besylate (Norvasc) 10 mg PO QHS [facility] Last Admin: 02/23/19 21:43 Dose: 10 mg Documented by: Aspirin (Aspirin, Baby) 81 mg PO DAILY@0800 [facility] Last Admin: 02/23/19 09:10 Dose: 81 mg Documented by: Cholecalciferol (Vitamin D) 1,000 unit PO DAILY [facility] Last Admin: 02/23/19 09:13 Dose: 1,000 unit Documented by: Dextrose (D50w Syringe) 0 gm IV X1 PRN; Protocol PRN Reason: Hypoglycemia Enoxaparin Sodium (Lovenox) 40 mg SC DAILY@1000 [facility] Last Admin: 02/23/19 11:05 Dose: 40 mg Documented by: Glucagon () 1 mg IM .X1 PRN PRN Reason: Hypoglycemia Insulin Glargine (Lantus (Bkc)) 10 units SC QHS [facility] Last Admin: 02/23/19 21:42 Dose: 10 units Documented by: Insulin Human Lispro (Humalog Kwikpen (Bkc)) 0 unit SC ACHS [facility]; Protocol Last Admin: 02/23/19 21:42 Dose: 3 units Documented by: Insulin Human Lispro (Humalog Kwikpen (Bkc)) 2 unit SC BREAKFAST [facility] Insulin Human Lispro (Humalog Kwikpen (Bkc)) 2 unit SC DINNER [facility] Last Admin: 02/23/19 16:55 Dose: 2 units Documented by: Insulin Human Lispro (Humalog Kwikpen (Bkc)) 2 unit SC LUNCH [facility] Labetalol HCl (Trandate) 200 mg PO BID [facility] Last Admin: 02/23/19 21:44 Dose: 200 mg Documented by: Melatonin (Melatonin) 3 mg PO QHS PRN PRN PRN Reason: INSOMNIA Mirtazapine (Remeron) 7.5 mg PO QHS [facility] Last Admin: 02/23/19 21:44 Dose: 7.5 mg Documented by: Mycophenolate Mofetil (Cellcept) 500 mg PO BID [facility] Last Admin: 02/23/19 21:38 Dose: 500 mg Documented by: Nutritional Formula (Lactose Free) (Glucerna Shake) 120 ml PO 4X/DAY [facility] Last Admin: 02/23/19 21:40 Dose: Not Given Documented by: Pantoprazole Sodium (Protonix) 40 mg PO DAILY [facility] Last Admin: 02/23/19 09:13 Dose: 40 mg Documented by: Polyethylene Glycol (Miralax) 17 gm PO DAILY PRN PRN Reason: Constipation Polysaccharide Iron Complex (Ferrex 150) [facility] Last Admin: 02/23/19 16:56 Dose: 150 mg Documented by: Prednisone () [facility] Last Admin: 02/23/19 09:11 Dose: 5 mg Documented by: Sodium Chloride () 10 - 40 ml IV UD PRN PRN Reason: SALINE FLUSH Last Admin: 02/22/19 06:00 Dose: 10 ml Documented by: Tacrolimus (Prograf) 3 mg PO BID [facility] Last Admin: 02/23/19 21:43 Dose: 3 mg Documented by: Tramadol HCl (Ultram) 50 mg PO BID PRN PRN PRN Reason: SEVERE PAIN (6-10/10) Trimethoprim/Sulfamethoxazole (Bactrim Ds) 0.5 tablet [facility] Last Admin: 02/23/19 09:10 Dose: 0.5 tablet Documented by: Medical Necessity - Tobacco Use Smoking Status: Former smoker Tobacco Use: Cigarettes Assessment/Plan All Active Problems (Last Reviewed 01/31/19 @ 12:48 by Bryn Bonilla MD) Fracture of femoral neck, right (Acute) 69-year-old male with past medical history of kidney transplant, on immunosuppressants, type II DM on insulin, history of recent bilateral hip fractures, who was discharged from [facility] home with hospice 2 days ago and is being admitted with hypoglycemia. 1. Brittle diabetes, blood sugars have been fluctuating, between hypoglycemia on admission to hyperglycemia, HgbA1c is 8.8, Blood sugars are uncontrolled, will switch from regular diet to diabetic diet. He was initially put on regular diet to optimize patient's nutritional status Will increase Lantus to 15 units nightly and continue with pre-meal insulin as well as insulin sliding scale. 2. Recent bilateral hip fractures with debility, PT/OT to evaluate and treat 3. Chronic pancreatitis, continue on Creon 4. CKD stage 3, history of renal transplant, continue on tacrolimus, mycophenolate, prednisone 5. Hypertension, controlled, continue home medication 6. Chronic diastolic CHF, no signs of acute exacerbation 7. Severe protein energy malnutrition, BMI 17.1, on dietary modifications 8. DVT prophylaxis with no subcu 9. Disposition: The initial plan was for patient to go back home with hospice. Patient is a 2-3 person assist in the hospital. He has decompensated so much. He will be evaluated for possible [facility] facility as the is unable to take care of him at home. Code Visit Inpatient E&M: 47985 Subs Hosp L2
[2019-02-24 10:12] VITALS: BP 146/58; PULSE 70; RESP 16; TEMP 36.9; O2SAT 98
[2019-02-24] MEDS: Insulin Lispro 100 UNIT/ML INSULN.PEN SC ×5 (10:16→22:10)
[2019-02-24] MEDS: Labetalol 200 MG Tablet PO ×2 (10:21→21:46)
[2019-02-24] MEDS: Pantoprazole Sodium 40 MG Tablet PO (10:22)
[2019-02-24] MEDS: Iron Polysaccharide Complex 150 MG CAPSULE PO ×2 (10:22→17:43)
[2019-02-24] MEDS: Tacrolimus Anhydrous 1 MG Capsule 3 MG PO ×2 (10:22→21:45)
[2019-02-24] MEDS: Enoxaparin 40 MG/0.4 ML Syringe SC (10:22)
[2019-02-24] MEDS: Smz/Tmp Ds Tablet 0.5 TABLET PO (10:22)
[2019-02-24] MEDS: Aspirin 81 MG TAB.CHEW PO (10:22)
[2019-02-24] MEDS: predniSONE 5 MG Tablet PO (10:22)
[2019-02-24] MEDS: Mycophenolate Mofetil 250 MG Capsule 500 MG PO ×2 (10:22→21:44)
[2019-02-24 12:01] LABS: Bedside Glucose 321 mg/dL (70-110)
--- NOTE | 2019-02-24 14:37 | CASEMGMT ---
CHARLIE along with physician talked with patient's . Patient is now a 2 assist. Patient's cannot care for him alone. It was suggested we try to get him to a SNF skilled for a little while to get him stronger and then home. CHARLIE explained he was just cut by insurance last week and it is very likely he would get approved. They would like to try anyway. CHARLIE told patient's SW would need to know the name of the facility where she would like him to go. CHARLIE explained SW sends information to the [facility] and the [facility] gets the pre-cert. CHARLIE told her SW can get her a list of in network facilities when she comes back. She had to leave as she has an appt. In the meantime SW reviewed patient's chart and he has not even participated in therapy as he does not want to. Therefore, a pre-cert would not be able to be obtained as therapy notes are needed. CHARLIE called [facility] and spoke with Prabha to see if patient's blood sugar instability would qualify him for the unit and if they could have a nurse evaluate him. She did not know the answer to the first question, but would find out. She said they would not be able to get a nurse out today as they do not have availability. She will get back with CHARLIE. Monica HARRISON MSW
[2019-02-24] MEDS: Insulin Lispro 100 UNIT/ML INSULN.PEN 10 UNIT SC ×2 (14:50→17:37)
[2019-02-24 14:51] LABS: Glucose 574 mg/dL (74-106)
[2019-02-24] MEDS: 0.9% Normal Saline 1,000 ML 100 ML IV (14:52)
[2019-02-24] MEDS: Acetaminophen 500 MG Tablet 1000 MG PO ×2 (14:53→21:44)
[2019-02-24 15:51] LABS: Bedside Glucose > 500 mg/dL (70-110)
[2019-02-24 15:51] LABS: Bedside Glucose 496 mg/dL (70-110)
[2019-02-24 15:55] LABS: Bedside Glucose > 500 mg/dL (70-110)
--- NOTE | 2019-02-24 16:00 | NURSING ---
Pt refused vital signs.
[2019-02-24 16:50] LABS: Bedside Glucose > 500 mg/dL (70-110)
[2019-02-24 17:38] VITALS: BP 151/64; PULSE 72; RESP 16; TEMP 36.8; O2SAT 100
[2019-02-24 19:26] LABS: Bedside Glucose 400 mg/dL (70-110)
[2019-02-24 21:40] VITALS: BP 152/70; PULSE 73; RESP 20; TEMP 36.4; O2SAT 98
[2019-02-24] MEDS: amLODIPine 10 MG Tablet PO (21:44)
[2019-02-24] MEDS: Mirtazapine 15 MG Tablet 7.5 MG PO (21:45)
[2019-02-24] MEDS: Glucerna Shake 120 ML LIQUID PO (22:10)
[2019-02-24 22:16] LABS: Bedside Glucose 273 mg/dL (70-110)
[2019-02-24] MEDS: 0.9% NaCl Peripheral Flush Adult/Peds IV (22:54)
[2019-02-25] MEDS: 0.9% Normal Saline 1,000 ML 100 ML IV ×2 (02:02→11:22)
[2019-02-25 03:00] VITALS: BP 157/70; PULSE 72; RESP 20; TEMP 36.7; O2SAT 100
[2019-02-25 08:01] VITALS: BP 136/64; PULSE 69; RESP 18; TEMP 36.9; O2SAT 98
[2019-02-25] MEDS: Tacrolimus Anhydrous 1 MG Capsule 3 MG PO (08:22)
[2019-02-25] MEDS: Smz/Tmp Ds Tablet 0.5 TABLET PO (08:23)
[2019-02-25] MEDS: Pantoprazole Sodium 40 MG Tablet PO (08:23)
[2019-02-25] MEDS: Mycophenolate Mofetil 250 MG Capsule 500 MG PO (08:23)
[2019-02-25] MEDS: Aspirin 81 MG TAB.CHEW PO (08:24)
[2019-02-25] MEDS: Labetalol 200 MG Tablet PO (08:24)
[2019-02-25] MEDS: Enoxaparin 40 MG/0.4 ML Syringe SC (08:26)
[2019-02-25] MEDS: Iron Polysaccharide Complex 150 MG CAPSULE PO (08:26)
[2019-02-25] MEDS: predniSONE 5 MG Tablet PO (08:26)
[2019-02-25] MEDS: Dextrose 50%-Water 25 GM/50 ML DISP.SYRIN IV ×2 (10:03→13:02)
[2019-02-25 10:10] LABS: Bedside Glucose 80 mg/dL (70-110)
[2019-02-25 10:10] LABS: Bedside Glucose 49 mg/dL (70-110)
[2019-02-25 10:10] LABS: Bedside Glucose 52 mg/dL (70-110)
[2019-02-25 10:29] LABS: Pathologist Review Reviewed
[2019-02-25 10:30] LABS: Bedside Glucose 119 mg/dL (70-110)
--- NOTE | 2019-02-25 11:32 | DCINST_ITS ---
- Discharge Diagnoses Reason(s) for Visit for Discharge Instructions: Hypoglycemia You will use the following diet at home:: Regular Your food should be the consistency of: Regular Your liquids should be the consistency of: Regular/Thin Discharge Activity: Return to Normal Activity Allergies/Adverse Reactions: Allergies oxycodone HCl [From Percocet] Adverse Reaction (Verified 01/28/19 22:33) TOO MUCH CAUSES HALLUCINATIONS TOO MUCH Medications to take at Discharge Labetalol [Trandate (Beta Lisa)] 200 mg PO BID 12/19/13 Pantoprazole Sodium [Protonix] 40 mg PO DAILY 12/19/13 predniSONE tablet 5 mg PO DAILY 12/19/13 Cholecalciferol (VIT D3) [Vitamin D3] 1,000 unit PO DAILY 12/09/15 amlodipine 10 mg tablet 10 mg PO QHS 12/02/17 magnesium oxide 400 mg (241.3 mg magnesium) tablet 400 mg PO BID tab 12/02/17 mycophenolate mofetil 250 mg capsule 500 mg PO BID cap 12/02/17 sulfamethoxazole 400 mg-trimethoprim 80 mg tablet 1 tab PO QDAY 12/02/17 tacrolimus 1 mg capsule 3 mg PO BID cap 12/02/17 Melatonin 3 mg PO QHS PRN PRN tablet 11/30/18 Aspirin [Aspirin, Baby] 81 mg PO DAILY@0800 #0 01/31/19 Mineral Oil/Petrolatum,White [Eucerin] 1 applic TOPICAL 0600,2200 01/31/19 Iron Polysaccharide Complex [Ferrex 150] 150 mg PO BIDCM #60 cap 02/21/19 Mirtazapine [Remeron] 7.5 mg PO QHS #30 tab 02/21/19 Polyethylene Glycol 3350 [Miralax] 17 gm PO DAILY PRN #30 packet 02/21/19 traMADol [Ultram] 50 mg PO BID PRN #14 tab 02/21/19 Acetaminophen [Tylenol] 1,000 mg PO TID tab 02/25/19 Insulin Glargine [Lantus SoloStar Pen] 5 units SUBCUT QHS pen 02/25/19 Insulin Lispro [Humalog KwikPen] See Protocol SUBCUT ACHS insuln.pen 02/25/19 Primary Care Physician: Rojelio Lee DO [Primary Care Provider] - Please follow up with your Primary Care Physician in: within 1-2 weeks Test Results: Test results from this visit will be discussed in further detail at your follow- up appointment, if applicable. Proposed Discharge Date: 02/25/19
--- NOTE | 2019-02-25 11:33 | DS.PCM_ITS ---
Discharge Date and Diagnosis Date of Admission: 02/21/19 Date of Discharge: 02/25/19 - Primary Discharge Diagnosis Hypoglycemia Hyperglycemia - Secondary Discharge Diagnosis Chronic Problems (Last Reviewed 01/31/19 @ 12:48 by Bryn Bonilla MD) Pulmonary hypertension (Chronic) Chronic pancreatitis (Chronic) GERD (gastroesophageal reflux disease) (Chronic) History of renal transplant (Chronic) Type 2 diabetes mellitus (Chronic) Chronic kidney disease, stage IV (severe) (Chronic) Chronic diastolic (congestive) heart failure (Chronic) Nonrheumatic pulmonary valve insufficiency (Chronic) Nonrheumatic tricuspid valve regurgitation (Chronic) Secondary pulmonary arterial hypertension (Chronic) Non-rheumatic aortic regurgitation (Chronic) Hypertension (Chronic) Hospital Course and Treatment None Operations: None Procedures: None Summary of Care Provided: 69-year-old male with past medical history of kidney transplant, on immunosuppressants, type II DM on insulin, history of recent bilateral hip fractures, who was [facility] 2 days ago and is being admitted with hypoglycemia. 1. Brittle diabetes, blood sugars have been fluctuating, between hypoglycemia on admission to hyperglycemia, HgbA1c is 8.8, Managed initially on insulin for hyperglycemia, initially on regular diet, later put on diabetic diet, did not drop his blood sugars, Discharged to inpatient hospice facility without long-acting insulin except for insulin sliding scale 2. Recent bilateral hip fractures with debility, PT/OT to evaluate and treat 3. Chronic pancreatitis, continue on Creon 4. CKD stage 3, history of renal transplant, continue on tacrolimus, mycophenolate, prednisone 5. Hypertension, controlled, continue home medication 6. Chronic diastolic CHF, no signs of acute exacerbation 7. Severe protein energy malnutrition, BMI 17.1, on dietary modifications Subjective: On the day of discharge, patient was seen and examined. He denied any new complaints. Discussed extensively with the who said that patient would not do well if he goes to the correction. She agreed to send patient to the inpatient hospice facility for respite pending getting enough help at home to take care of him eventually. Discussed patient's CODE STATUS with her. Discussed in detail, explaining the various types of CODE STATUS-full code, DNR CCA, DNR CC. She chose DNR CCA Time spent discussing CODE STATUS with was 18 min Objective: Physical exam: General: Alert, Oriented x3, Cooperative, No apparent distress, - - appears chronically unwell HEENT: Atraumatic, PERRLA, EOMI, Normocephalic Oral: Moist Mucosa Neck: Supple Lungs: Clear to auscultation, Normal air movement Cardiovascular: Regular rate, Regular Rhythm, Normal S1, Normal S2, No murmurs Abdomen: Bowel Sounds Present, Soft, Non Tender, Non-Distended, No Hepato- splenomegaly Extremities: No edema Skin: No rashes, No breakdown Musculoskeletal: No Tenderness to Palpation of Joints or Extremities Lymphatic: No Cervical, Supraclavicular, or Inguinal Adenopathy Neurological: Cranial nerves II-XII grossly intact, Neuro grossly intact Psych/Mental Status: Normal Affect, Appropriate - Physical Exam Vital Signs Temp Pulse Resp BP Pulse Ox 98.4 F 69 18 136/64 H 98 02/25/19 08:01 02/25/19 08:01 02/25/19 08:01 02/25/19 08:01 02/25/19 08:01 Oxygen Delivery Method Room Air Weight: 60.5 kg Body Mass Index (BMI) 17.1 Finger Stick Blood Glucose 45 Intake and Output for Last 24 Hours 02/23/19 02/24/19 02/25/19 23:59 23:59 23:59 Intake Total 2715 / 2715 1718 / 1718 865 / 865 Output Total 1190 / 1190 950 / 950 100 / 100 Balance 1525 / 1525 768 / 768 765 / 765 Laboratory Tests Past 24 Hrs 02/21/19 02/24/19 18:16 14:25 Diff Path Review Reviewed Glucose 574 H* POC Glucose 02/25/19 02/25/19 02/25/19 10:26 09:15 08:35 POC Glucose 119 H 80 49 L 02/25/19 02/24/19 02/24/19 08:14 22:03 19:17 POC Glucose 52 L 273 H 400 H 02/24/19 02/24/19 02/24/19 16:43 15:46 13:58 POC Glucose > 500 H* > 500 H* > 500 H* 02/24/19 02/24/19 13:56 08:47 POC Glucose 496 H* 321 H Discharge Diet: Low fat/ Low Cholesterol, 2000 mg Sodium Diet Discharge Activity: Return to Normal Activity Home Medications: Medications to take at Discharge Labetalol [Trandate (Beta Lisa)] 200 mg PO BID 05/19/14 Pantoprazole Sodium [Protonix] 40 mg PO DAILY 12/19/13 predniSONE tablet 5 mg PO DAILY 12/19/13 Cholecalciferol (VIT D3) [Vitamin D3] 1,000 unit PO DAILY 12/09/15 amlodipine 10 mg tablet 10 mg PO QHS 12/02/17 magnesium oxide 400 mg (241.3 mg magnesium) tablet 400 mg PO BID tab 12/02/17 mycophenolate mofetil 250 mg capsule 500 mg PO BID cap 12/02/17 sulfamethoxazole 400 mg-trimethoprim 80 mg tablet 1 tab PO QDAY 12/02/17 tacrolimus 1 mg capsule 3 mg PO BID cap 12/02/17 Melatonin 3 mg PO QHS PRN PRN tablet 11/30/18 Aspirin [Aspirin, Baby] 81 mg PO DAILY@0800 #0 01/31/19 Mineral Oil/Petrolatum,White [Eucerin] 1 applic TOPICAL 0600,2200 01/31/19 Iron Polysaccharide Complex [Ferrex 150] 150 mg PO BIDCM #60 cap 02/21/19 Mirtazapine [Remeron] 7.5 mg PO QHS #30 tab 02/21/19 Polyethylene Glycol 3350 [Miralax] 17 gm PO DAILY PRN #30 packet 02/21/19 traMADol [Ultram] 50 mg PO BID PRN #14 tab 02/21/19 Acetaminophen [Tylenol] 1,000 mg PO TID tab 02/25/19 Insulin Lispro [Humalog KwikPen] See Protocol SUBCUT ACHS insuln.pen 02/25/19 Primary Care Physician: Rojelio Lee DO [Primary Care Provider] - Please follow up with your Primary Care Physician in: within 1-2 weeks Disposition: Hospice Medical Facility Minutes spent on discharge:: 40 Patient Condition:: Stable Medical Necessity - Tobacco Use Smoking Status: Former smoker Tobacco Use: Cigarettes Meaningful Use Info Meaningful Use Diagnoses (Choose all that apply): None applicable Code Visit Inpatient E&M: 05129 Disch Hosp Procedures: 99784 Advncd Care Plan 30 Min
--- NOTE | 2019-02-25 12:09 | CASEMGMT ---
Physician and SW feel patient would be appropriate for the Inpatient Hospice Unit. SW spoke with Hospice and they will look over patient's information. Physician spoke with Dr Pete and they accepted patient in the Inpatient Unit. SW called patient's . SW let her know about discussions with Hospice and physician. SW also explained to her that right now patient would not be approved to go to a senior care as he has refused therapy every day. SW explained insurance will not approve patient to go to a senior care if he is not willing to do therapy. SW explained that patient has been approved to go to the Inpatient Hospice Unit. SW explained this would help give her a chance to organize help at home and for his blood sugars to get somewhat stabilized. She seemed to have difficulty with making this decision and understanding what she would do when he is at home and his blood sugars go low etc. SW explained to her that hopefully when he is ready to leave the Hospice Unit they will have his sugars stabilized and also to have a plan in place what to do if it does drop etc. when he is at home. She seemed to be okay and in agreement with this plan. She said she will not be in until today. Physician then wanted to talk with patient's so SW gave her the phone. After their discussion patient's was in agreement with the plan. We will not send patient until his arrives at [facility] and physician talks with her again as well as patient. She did address code status with patient's and he is currently DNRCC-A. CHARLIE spoke with Renae at Hospice and let her know that patient will likely not come until after the arrives around 430. CHARLIE also faxed them a copy of the DNRCC-A form signed by physician. Plan: d/c to [facility] Hospice Inpatient Unit after arrives around 430. Staff to arrange transport when ready. Monica HARRISON LOGISTICS ADMINISTRATOR
[2019-02-25] MEDS: Dextrose 5%/0.9% NaCl 1,000 ML 75 ML IV (12:27)
[2019-02-25] MEDS: Acetaminophen 500 MG Tablet 1000 MG PO (13:03)
[2019-02-25 13:21] LABS: Bedside Glucose 74 mg/dL (70-110)
[2019-02-25 13:21] LABS: Bedside Glucose 226 mg/dL (70-110)
[2019-02-25 13:21] LABS: Bedside Glucose 69 mg/dL (70-110)
[2019-02-25 14:00] VITALS: BP 146/65; PULSE 62; RESP 16; TEMP 36.8; O2SAT 99
--- NOTE | 2019-02-25 15:33 | CASEMGMT ---
Nail Machine Operator set up transportation for patient to go to Inpatient Hospice for 6p. SW called Renae at Hospice and notified her of time. Patient's will be at [facility] around . RN will notify her when she comes to [facility]. Monica HARRISON MSW
[2019-02-25 16:36] LABS: Bedside Glucose 189 mg/dL (70-110)
== END 2019-02-25 18:21 | disposition hospice, inpatient (51) | DRG 637 ==
LOC: ED 18:21 → PCU 23:59
PROVIDERS: Admitting Provider Family Medicine; Emergency Provider Emergency Medicine; Family Provider Student in an Organized Health Care Education/Training Program; PCP Student in an Organized Health Care Education/Training Program; Referring Provider Family Medicine; Visit Provider Internal Medicine
DX: E11.649 Type 2 diabetes mellitus with hypoglycemia without coma (principal); E43 Unspecified severe protein-calorie malnutrition; Z94.0 Kidney transplant status; I50.32 Chronic diastolic (congestive) heart failure; I13.0 Hypertensive heart and chronic kidney disease with heart failure and stage 1 through stage 4 chronic kidney disease, or unspecified chronic kidney disease; K86.1 Other chronic pancreatitis; E11.22 Type 2 diabetes mellitus with diabetic chronic kidney disease; Z68.1 Body mass index [BMI] 19.9 or less, adult; Z79.4 Long term (current) use of insulin; E78.5 Hyperlipidemia, unspecified; I27.21 Secondary pulmonary arterial hypertension; I37.1 Nonrheumatic pulmonary valve insufficiency; I36.1 Nonrheumatic tricuspid (valve) insufficiency; I35.1 Nonrheumatic aortic (valve) insufficiency; N18.4 Chronic kidney disease, stage 4 (severe); K21.9 Gastro-esophageal reflux disease without esophagitis; E11.65 Type 2 diabetes mellitus with hyperglycemia; Z96.643 Presence of artificial hip joint, bilateral
CPT/HCPCS: 36415; 80048; 82947; 82962; 83036; 85014; 85018; 85025; 97802; 99285; J7030; A4216